=== PATIENT | female | born 1995 | race Caucasian/White ===

== ENCOUNTER → 2017-11-23 13:48 | Outpatient (CLI) | payer MEDICAID, SELFPAY ==
[2017-11-23 16:02] LABS: Hematocrit 34.3 % (37-47); Hemoglobin 11.2 g/dl (12.0-15.0); Mean Corp Hgb Conc 32.7 g/gl (32-36); Mean Corpuscular Hgb 28.1 pg (27.0-32.0); Mean Corpuscular Volume 86.2 fL (81-99); Mean Platelet Vol. 10.4 fl (6.2-12.0); Platelet Count 256 K/mm3 (150-450); RBC Distribution Width CV 12.8 % (11.6-14.6); RBC Distribution Width SD 40.5 fl (35.1-43.9); Red Blood Count 3.98 M/mm3 (4.2-5.4); White Blood Count 12.3 K/mm3 (4.4-11.0)
[2017-11-23 16:04] LABS: Scan Indicated on CBC? Y/N NO
[2017-11-23 16:09] LABS: Glucose Challenge Gest 1H 50g 96 mg/dL (70-140)
== END ==
PROVIDERS: Visit Provider Obstetrics & Gynecology
DX: Z34.83 Encounter for supervision of other normal pregnancy, third trimester (principal)
CPT/HCPCS: 82950; 85027; 86850

== ENCOUNTER 2018-01-05 11:55 | Outpatient (CLI) | payer MEDICAID, SELFPAY ==
[2018-01-05 12:08] VITALS: BMI 26.9
--- NOTE | 2018-01-05 12:28 | US_ITS ---
STUDY: ULTRASOUND RIGHT UPPER QUADRANT REASON FOR VISIT: Female, 22 years old. Right upper quadrant abdominal pain. TECHNIQUE: Ultrasound evaluation of the right upper quadrant was performed with real-time and static ayala-scale imaging. TECHNICAL QUALITY: Adequate. COMPARISON: None. FINDINGS: Liver: The liver measures 14.6 cm. There is a heterogeneous echogenicity of the liver. The bile ducts are within normal limits. There is hepatic color flow. The direction of portal flow is hepatopetal. There is no demonstrated mass lesion. Gallbladder: Normal distended gallbladder. The gallbladder wall measures 2.2 mm. There is a negative sonographic Sherman's sign. There is no pericholecystic fluid. There are no gallstones. Common Bile Duct (C.B.D.): The common bile duct measures 4.0 mm. Pancreas: The pancreatic head and tail are obscured. The pancreas body has a grossly normal appearance. There is normal echogenicity of the pancreas. There is no demonstrated pancreatic mass or cyst. Right Kidney: Normal size of the right kidney. The right kidney measures 10.2 x 5.8 x 5.7 cm. Normal renal cortex. The right cortex measures 1.4 cm. There is no demonstrated renal mass or cyst. There is moderate hydronephrosis. US/Gallbladder IMPRESSION: 1. Moderate right-sided hydronephrosis. 2. Incomplete visualization of the pancreas. Electronically Signed: Mariaa Lockhart MD at 16:39 EDT , Service support ,
[2018-01-05 12:56] LABS: Mucous, Urine 0 SEEN /hpf (<or=2+); Red Blood Cells-Urine 0 SEEN /hpf (0-5)
[2018-01-05 12:57] LABS: Color, Urine Yellow (Yellow); Glucose, Dipstick Normal (Normal); Ketone-Dipstick Negative (Negative); Leukocyte Esterase-Dipstick 100 /ul (Negative); Nitrite-Dipstick Negative (Negative); Occult Blood-Urine Negative /ul (Negative); Protein-Dipstick Negative (Negative); Specific Gravity, Urine 1.005 (1.002-1.030); Urine Bilirubin Dipstick Negative (Negative); Urine Clarity Clear (Clear); Urine Urobilinogen Normal (Normal)
[2018-01-05 12:58] LABS: Absolute Lymphocyte Count 1.94 X10^3/ul (0.83-4.51); Absolute Neutrophil Count 10.7 X10^3/uL (2.0-7.7); Basophil# 0.03 X10^3/uL; Basophil% 0.2 % (0-1); Eosinophils% 0.7 % (0-5); Hematocrit 32.4 % (37-47); Hemoglobin 10.6 g/dl (12.0-15.0); Lymphocyte # 1.94 X10^3/ul (4.0); Lymphocyte % 13.7 % (19-41); Mean Corp Hgb Conc 32.7 g/gl (32-36); Mean Corpuscular Volume 82.4 fL (81-99); Monocyte# 1.27 X10^3/uL; Neutrophil # 10.67 X10^3/uL (2.7-7.7); Neutrophil % 75.5 % (47-70); POSITIVE COUNT NO; POSITIVE DIFFERENTIAL NO; POSITIVE MORPHOLOGY NO; Platelet Count 268 K/mm3 (150-450); RBC Distribution Width CV 12.7 % (11.6-14.6); RBC Distribution Width SD 38.3 fl (35.1-43.9); Red Blood Count 3.93 M/mm3 (4.2-5.4); White Blood Count 14.1 K/mm3 (4.4-11.0)
[2018-01-05 13:03] LABS: Bacteria 1+ /hpf (None Seen); Squamous Epithelial Cells - UA 0-5 SEEN /hpf (5-10); White Blood Cells 0-5 SEEN /hpf (0-5)
[2018-01-05 13:17] LABS: AST(SGOT) 15 U/L (15-37); Alanine Aminotransfer ALT/SGPT 17 U/L (13-56); Albumin, Serum 2.5 g/dL (3.2-5.0); Alkaline Phosphatase 123 U/L (45-117); Bilirubin, Direct < 0.05 mg/dL (0.00-0.30); Globulin 3.4 g/dL (2.2-4.2); Protein, Total 5.9 g/dL (6.4-8.2)
[2018-01-05] MEDS: oxyCODONE 5 MG Tablet PO (14:00)
--- NOTE | 2018-01-06 10:00 | OB.TRI.NOTE ---
History of Present Illness Date of Service: 01/05/18 Was patient seen by the physician?: Yes Reason For Visit: R/O LABOR, Right Date of Service: 01/05/18 Final JORDEN: 02/16/18 Gestational age: 34 Weeks and 1 Days History of Present Illness: Severe right upper abdominal pain particularly with movement. Otherwise uncomplicated . Home Medications Medication Instructions Recorded Omeprazole [Prilosec] 20 mg PO DAILY 01/05/18 Ondansetron [Zofran Odt] 8 mg PO Q12H PRN PRN 01/05/18 TraMADol [Ultram] 50 mg PO Q4H PRN PRN 4 Days #20 tab 01/05/18 Allergies cefaclor [From Ceclor] Allergy (Verified 08/21/14 13:26) Unknown Physical Exam General: Alert, Oriented x3, Cooperative, No apparent distress Cardiovascular: Regular rate, Regular Rhythm Lungs: Clear to auscultation, Normal air movement Abdomen: Soft, Non-Distended, Gravid, Tender - Tender in the right upper abdomen but no specific Sherman's sign. Pain likely musculoskeletal., Appropriate for Gestational Age Extremities:: No edema Estimated gestational size: Appropriate for gestational size Presentation: Cephalic Cervix Dilation (cm): 1 Station: -2 NST - FHR Rate Baby A Baseline: 140s Variability:: Moderate Accelerations:: 15 x 15 Decelerations:: None NST Reactive:: Yes, Appropriate for gestational age FHR Category:: Category I Uterine Activity:: rare contractions Impression/Plan Liver function tests normal. CBC with slightly elevated WBC. US of gallbladder normal. Afebrile. Pain likely musculoskeletal. Given prescription for tramadol for severe pain. Instructed to rest. Will followup in office next week.
== END 2018-01-05 17:40 | disposition home or self-care (01) ==
LOC: WPOUT 12:05 → WP 12:06
PROVIDERS: Visit Provider Obstetrics & Gynecology
DX: O26.893 Other specified pregnancy related conditions, third trimester (principal); R10.11 Right upper quadrant pain; Z3A.34 34 weeks gestation of pregnancy
CPT/HCPCS: 36415; 59025; 59050; 76705; 80076; 81001; 85025; 99218; G0378

== ENCOUNTER → 2018-01-12 22:07 | Outpatient (CLI) | payer MEDICAID, SELFPAY ==
[2018-01-13 01:28] LABS: Group B Strep DNA By PCR Negative (Negative); Internal Control PASS; Specimen Processing Control PASS
[2018-01-13 01:29] LABS: Probe Check PASS
== END ==
PROVIDERS: Visit Provider Obstetrics & Gynecology
DX: Z36.85 Encounter for antenatal screening for Streptococcus B (principal)
CPT/HCPCS: 87081; 87653

== ENCOUNTER 2018-02-15 05:20 | Inpatient (IN) | payer MEDICAID, SELFPAY ==
[2018-02-15] MEDS: Lactated Ringers 1,000 ML 50 ML IV ×3 (06:00→12:29)
[2018-02-15 06:04] VITALS: BMI 30.7
[2018-02-15 06:16] LABS: Hematocrit 32.7 % (37-47); Hemoglobin 10.6 g/dl (12.0-15.0); Mean Corp Hgb Conc 32.4 g/gl (32-36); Mean Corpuscular Volume 80.1 fL (81-99); Mean Platelet Vol. 11.5 fl (6.2-12.0); Platelet Count 273 K/mm3 (150-450); RBC Distribution Width CV 13.9 % (11.6-14.6); RBC Distribution Width SD 39.6 fl (35.1-43.9); Red Blood Count 4.08 M/mm3 (4.2-5.4); White Blood Count 18.9 K/mm3 (4.4-11.0)
[2018-02-15 06:22] LABS: Scan Indicated on CBC? Y/N NO
[2018-02-15] MEDS: fentaNYL-bupivacaine (epidural) 100 ML BAG EPIDURAL ×2 (07:21→12:30)
--- NOTE | 2018-02-15 08:09 | PCM.PN.BLA ---
Progress Note LABOR PROGRESS NOTE Epidural in place. Feeling some pain on R side and S/P area with UCs. AVSS EFM category I tracing 120-130s with accels. UCs q 2-3 mins CX: 2/100/-2 IBOW AROM mod clear fluid A/P: 40 1/7 wk early labor. AROM. IUPC placed. Redose epidural prn.
[2018-02-15] MEDS: Acetaminophen 325 MG Tablet PO ×2 (09:07→17:50)
[2018-02-15] MEDS: Ondansetron 4 MG/2 ML Vial IV (12:29)
--- NOTE | 2018-02-15 12:34 | PCM.PN.BLA ---
Progress Note LABOR PROGRESS NOTE Comfortable w/ epidural (repositioned and redosed) C/O some nausea. AVSS EFM 120-130s avg variability. Accels Category I tracing. UCs q 1 1/2 - 3 mins IUPC in and adequate mVUs CX: 7-8 / 100 at last RN check. A/P: 40 1/7 wk primip. Adequate progress of labor after AROM. No Pitocin augmentation given. Continue labor. Anticipate
[2018-02-15] MEDS: Oxytocin 30 units/NS 500 ml 30 UNITS/500 ML IV.SOLN IV (14:59)
[2018-02-15] MEDS: Oxytocin 30 units/NS 500 ml 30 UNITS/500 ML IV.SOLN 334 UNITS IV (17:09)
--- NOTE | 2018-02-15 17:31 | PCM.OB.VAG ---
Vaginal Delivery Maternal Presentation: Active Labor Amniotic Fluid Description: Clear Final JORDEN: 02/14/18 Gestational age: 40 Weeks and 1 Days [place] doctor who attended delivery (if requested by OB): Cande Hyman to cry Date of Procedure: 02/15/18 Pre-Operative Diagnosis: IUP Post-Operative Diagnosis: IUP Surgery/ Procedure Performed: Spontaneous Vaginal Delivery Type of Anesthesia: Epidural Description of Procedure: Spontaneous vaginal delivery of a viable female infant with Apgars of 5/9 over an intact perineum with a normal three-vessel placenta. No episiotomy. Second-degree right labial laceration repaired with 3-0 Rapide Vicryl suture under epidural. Sponge counts okay. Delivery physician: Keyon Cruz MD. Presentation: Vertex Placental Delivery Description: Spontaneous Placenta Disposition: [facility] Cord Vessel Description: 3 Vessels Cord Gases drawn per routine: ABG Cord Entanglement: None Estimated Blood Loss: 250 cc A gender: Female (1 minute): 5 (5 minute): 9 Episiotomy Description: None Laceration: Periurethral Extnsion/lac, 2nd degree Medications given after delivery: IV Pitocin Complications: None
--- NOTE | 2018-02-15 17:35 | OP.PCM_ITS ---
Vaginal Delivery Maternal Presentation: Active Labor Amniotic Fluid Description: Clear Final JORDEN: 02/14/18 Gestational age: 40 Weeks and 1 Days [place] doctor who attended delivery (if requested by OB): Cande Hyman to cry Date of Procedure: 02/15/18 Pre-Operative Diagnosis: IUP Post-Operative Diagnosis: IUP Surgery/ Procedure Performed: Spontaneous Vaginal Delivery Type of Anesthesia: Epidural Description of Procedure: Spontaneous vaginal delivery of a viable female infant with Apgars of 5/9 over an intact perineum with a normal three-vessel placenta. No episiotomy. Second- degree right labial laceration repaired with 3-0 Rapide Vicryl suture under epidural. Sponge counts okay. Delivery physician: Keyon Cruz MD. Presentation: Vertex Placental Delivery Description: Spontaneous Placenta Disposition: [facility] Cord Vessel Description: 3 Vessels Cord Gases drawn per routine: ABG Cord Entanglement: None Estimated Blood Loss: 250 cc Infant A gender: Female (1 minute): 5 (5 minute): 9 Episiotomy Description: None Laceration: Periurethral Extnsion/lac, 2nd degree Medications given after delivery: IV Pitocin Complications: None
[2018-02-15] MEDS: Oxytocin 30 units/NS 500 ml 30 UNITS/500 ML IV.SOLN 167 UNITS IV (17:39)
[2018-02-15 19:44] VITALS: BP 117/60; PULSE 86; RESP 18; TEMP 37.4; O2SAT 96
[2018-02-15] MEDS: Ibuprofen 600 MG Tablet PO (22:04)
[2018-02-15 23:57] VITALS: BP 96/46; PULSE 88; RESP 18; TEMP 36.6; O2SAT 98
[2018-02-16] MEDS: Acetaminophen 500 MG Tablet 1000 MG PO (04:25)
[2018-02-16 04:26] VITALS: BP 99/56; PULSE 90; RESP 18; TEMP 36.6; O2SAT 96
[2018-02-16 08:00] VITALS: BP 99/48; PULSE 77; RESP 18; TEMP 36.2
--- NOTE | 2018-02-16 08:21 | PCM.PN.OB ---
Subjective: Some vaginal soreness and cramping. Bleeding appropriate. Breast feeding. Objective: Afeb VSS - Physical Exam General: Alert, Oriented x3, Cooperative, No apparent distress Lungs: Clear to auscultation, Normal air movement Cardiovascular: Regular rate, Regular Rhythm Abdomen: Soft, Non Tender, Non-Distended, - - Fundus firm nontender Extremities: No edema Skin: No rashes Neurological: Neuro grossly intact Psych/Mental Status: Normal Affect Comment: Lochia light Vital Signs Temp Pulse Resp BP Pulse Ox 97.9 F 90 18 99/56 L 96 02/16/18 04:26 02/16/18 04:26 02/16/18 04:26 02/16/18 04:26 02/16/18 04:26 Oxygen Delivery Method Room Air Weight: 157 lb 10.088 oz Body Mass Index (BMI) 30.7 Intake and Output for Last 24 Hours 02/14/18 02/15/18 02/16/18 23:59 23:59 23:59 Intake Total 3192 / 3192 Output Total 3200 / 3200 Balance -8 / -8 Medical Necessity - Tobacco Use Smoking Status: Current every day smoker Assessment/Plan Doing well on PP day#2. Continue routine PP care.
--- NOTE | 2018-02-16 08:26 | DCINST_ITS ---
Discharge Diet: No Restrictions Discharge Activity: Return to Normal Activity, May Drive, May Shower Return to work on:: 04/19/18 May resume sexual activity in: 6 weeks Call your doctor if your incision/area has: Sudden Increased Bleeding, Increased Pain/ Swelling, Increased Redness, Foul Smelling Discharge Call your doctor if you observe: Fever of 101 or Higher, Inability to urinate, Inability to have a bowel movement, Using more than one pad per hour, Shortness of breath, Chest pain, Calf discomfort, Uncontrolled pain Cleanse incision/area with: Soap & Water Additional Instructions: If you experience any of the following, contact your healthcare provider. * Bleeding that soaks a pad every hour for 2 hours * Fever 100.4 or higher * Unrelieved incision or abdominal pain * Swelling, redness, discharge or bleeding from your incision or episiotomy site * Your incision begins to separate * Problems urinating (including inability to urinate or burning while urinating) . * Visual changes * Severe headache * Flu-like symptoms * Pain or redness in one of both of your breasts * Pain, warmth, tenderness or swelling in your legs, especially the calf area * Frequent nausea and vomiting * Symptoms of depression or anxiety If you experience any of the following, call 911 or go to the nearest Emergency Room. * Chest pain * Problems breathing * Seizure activity * Partial or complete paralysis of a body part, slurred speech, weakness or drooping of the face, or a sudden inability to walk or hold your balance Allergies/Adverse Reactions: Allergies cefaclor [From Ceclor] Allergy (Mild, Verified 02/15/18 06:52) Hives swollen throat Medications to take at Discharge Omeprazole [Prilosec] 20 mg PO DAILY 01/05/18 Albuterol IH (ProAir) [Proair Hfa] 2 puff INHALATION DAILY PRN PRN 02/15/18 Beclomethasone Diprop Inhaler [Qvar 80 Mcg Inhaler] 2 puff INHALATION DAILY PRN PRN 02/15/18 proMETHazine tablet [Phenergan tablet] 25 mg PO Q6H PRN PRN 02/15/18 Ibuprofen [Motrin] 800 mg PO TID PRN PRN #30 tab 02/16/18 The following prescriptions were given: Ibuprofen [Motrin] 800 mg PO TID PRN PRN #30 tab PRN Reason: pain or cramping Please Follow Up With: Jemal Driver MD When: 6 weeks Primary Care Physician: Care Physician,No Primary [Primary Care Provider] - Proposed Discharge Date: 02/17/18
[2018-02-16] MEDS: Dibucaine 30 GM Tube 1 APPLIC TOPICAL (09:21)
[2018-02-16] MEDS: Ibuprofen 600 MG Tablet PO ×2 (09:22→15:53)
[2018-02-16] MEDS: Pantoprazole Sodium 20 MG Tablet PO (09:22)
[2018-02-16] MEDS: Senna/Docusate Sodium 1 Tablet PO (09:23)
[2018-02-16 12:00] VITALS: BP 103/54; PULSE 75; RESP 18; TEMP 36.4
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
[2018-02-16 15:50] VITALS: BP 111/70; PULSE 91; RESP 18; TEMP 36.1
[2018-02-16] MEDS: oxyCODONE 5 MG Tablet PO ×2 (17:10→21:45)
[2018-02-16 20:00] VITALS: BP 122/68; PULSE 116; RESP 17; TEMP 36.7; O2SAT 99
[2018-02-17 02:05] VITALS: BP 110/67; PULSE 91; RESP 18; TEMP 36.1; O2SAT 97
[2018-02-17] MEDS: Ibuprofen 600 MG Tablet PO (02:13)
[2018-02-17 08:36] VITALS: BP 98/40; PULSE 79; RESP 16; TEMP 36.8
--- NOTE | 2018-02-17 09:28 | PCM.PN.OB ---
Subjective: Pt without complaints. Has not been breast-feeding because it is too uncomfortable for her. Still using some oxycodone. - Physical Exam Vital Signs AF, VSS Temp Pulse Resp BP Pulse Ox 98.2 F 79 16 98/40 L 97 02/17/18 08:36 02/17/18 08:36 02/17/18 08:36 02/17/18 08:36 02/17/18 02:05 Oxygen Delivery Method Room Air Weight: 157 lb 10.088 oz Body Mass Index (BMI) 30.7 Intake and Output for Last 24 Hours 02/15/18 02/16/18 02/17/18 23:59 23:59 23:59 Intake Total 3192 / 3192 Output Total 3200 / 3200 Balance -8 / -8 Medical Necessity - Tobacco Use Smoking Status: Current every day smoker Assessment/Plan Doing well. Will release to home with routine instructions. Follow-up in 6 weeks.
[2018-02-17] MEDS: Acetaminophen 500 MG Tablet 1000 MG PO (09:44)
[2018-02-17] MEDS: Pantoprazole Sodium 20 MG Tablet PO (09:44)
== END 2018-02-17 11:15 | disposition home or self-care (01) | DRG 373 ==
PROVIDERS: Obstetrics & Gynecology; Admitting Provider Obstetrics & Gynecology; Visit Provider Obstetrics & Gynecology
DX: O48.0 Post-term pregnancy (principal); Z3A.40 40 weeks gestation of pregnancy; Z37.0 Single live birth; O70.1 Second degree perineal laceration during delivery; O99.334 Smoking (tobacco) complicating childbirth; F17.200 Nicotine dependence, unspecified, uncomplicated
CPT/HCPCS: 59050; 85027; 86850; 86900; 99218; J7120; G0378; J2405

== ENCOUNTER → 2018-06-17 17:43 | Outpatient (CLI) | payer MEDICAID, SELFPAY | PROVIDERS: Family Provider Family Medicine; PCP Family Medicine; Visit Provider Family Medicine | DX: R30.0 Dysuria (principal) | CPT/HCPCS: 87077; 87086; 87088; 87186 ==

== ENCOUNTER 2019-04-04 18:29 | Emergency (ER) | payer SELFPAY ==
[2019-02-25 10:56] VITALS: BMI 30.7
[2019-04-04 18:30] VITALS: BP 115/73; PULSE 116; RESP 18; TEMP 36.8; O2SAT 97; BMI 32.1
[2019-04-04 18:59] LABS: Internal QC Validated? YES +Cl - CLEAR BKGD; Pregnancy, Urine Negative Negative
[2019-04-04 19:07] VITALS: PULSE 109; RESP 22
[2019-04-04] MEDS: Ipratropium/Albuterol Sulfate 3 ML AMPUL.NEB INHALATION (19:07)
--- NOTE | 2019-04-04 19:15 | RAD_ITS ---
HISTORY:COUGH AND CONGESTION FOR 3 WEEKS, C/O CHEST TIGHTNESS AND SORENESS FOR 3 DAYS COUGH AND CONGESTION FOR 3 WEEKS, C/O CHEST TIGHTNESS AND SORENESS FOR 3 DAYS EXAM: XR Chest 2 Views: COMPARISON: None FINDINGS: # of images incl. paperwork: 2 LINES/DEVICES: None. LUNGS: Radiographically clear. No consolidation, edema or effusion. No pneumothorax. MEDIASTINUM AND CARDIOVASCULAR STRUCTURES: Cardiac silhouette not enlarged. BONES AND SOFT TISSUES: Unremarkable. RAD/Chest PA and Lateral IMPRESSION: No radiographic evidence of acute cardiopulmonary disease. at 1928 Reported and signed by: Jo Rodriguez DO Electronically Signed: Jo Rodriguez DO at 19:27 EDT Tel , Service support ,
--- NOTE | 2019-04-04 19:15 | ED.DCSUM_ITS ---
- ER Visit Summary Date of Service: 04/04/19 Chief Complaint: [Cough, congestion, chest pain] History of Present Illness: The patient is a 23 F [presents to the emergency department with cough for about 3 weeks. Patient states that she had fever for 1 day 3 weeks ago.] Patient coughing up yellow phlegm. 3 or 4 days ago she started having discomfort in the anterior part of her chest especially with breathing. Patient denies recent travel or surgery. Patient also incidentally states that she has not had a period in about 3 months. Patient did take a test 4 weeks ago that was negative at home. Patient is G1, P1. Patient does have a history of asthma. Physical Examination: [HEENT-PERRLA, EOMI. Cranial nerves II through XII grossly intact. TMs clear. Mucous membranes moist. No adenopathy. Cardiovascular-regular rate and rhythm without murmur or ectopy Lungs-good aeration bilaterally. Patient has expiratory wheezes throughout. Patient has few rhonchi noted. No accessory muscle use or retractions. No significant tachypnea. Patient does have some mild tenderness to palpation of the anterior chest wall that seems to reproduce her pain. Abdomen-normoactive bowel sounds, soft, nontender, no rebound or rigidity, no peritoneal signs. Extremities-intact ?4, normal range of motion, normal pulses, atraumatic] Test Results: [Urine test was negative. Chest x-ray showed nothing acute.] Emergency Department Course and Treatment: [She was medicated with a DuoNeb aerosol and prednisone 40 mg p.o. Patient did feel improved with the breathing.] Treatment Plan: [Patient will be started on Zithromax, prednisone, and she is advised to continue with her inhaler as needed. Follow-up with primary care physician in 5 to 7 days. Patient advised to return if increasing shortness of breath or condition should worsen anyway. Patient to use ibuprofen for chest wall discomfort.] Disposition: [Discharged home in stable condition] Impression: [Asthmatic bronchitis Chest wall pain] This note was generated with [employer] dictation software. It may contain incorrect words, spelling, and punctuation that were not noted in review of the chart prior to signing ED Disposition - Plan for ED Patient: Referrals: Emerson Rodriguez MD [Primary Care Provider] -
[2019-04-04] MEDS: predniSONE 20 MG Tablet 40 MG PO (19:30)
--- NOTE | 2019-04-04 19:42 | ED.DEP ---
ED Disposition - Plan for ED Patient: Instructions: ED Strain Chest Wall, ED Bronchitis Asthmatic Prescriptions: Azithromycin [Zithromax] 250 mg PO DAILY #4 tab Prednisone [Deltasone] 20 mg PO BID #10 tab Referrals: Emerson Rodriguez MD [Primary Care Provider] - 5-7 Days
[2019-04-04] MEDS: Azithromycin 250 MG Tablet 500 MG PO (20:00)
[2019-04-04 20:02] VITALS: BP 124/73; PULSE 102; RESP 18; O2SAT 96
== END 2019-04-04 20:04 | disposition home or self-care (01) ==
LOC: ED 19:00
PROVIDERS: Emergency Provider Emergency Medicine; Family Provider Family Medicine; PCP Family Medicine
DX: J45.909 Unspecified asthma, uncomplicated (principal); R07.89 Other chest pain; Z72.0 Tobacco use
CPT/HCPCS: 71046; 81025; 94640; 99283

== ENCOUNTER → 2019-12-20 | Outpatient (CLI) | payer MEDICAID, SELFPAY | END | disposition home or self-care (01) | LOC: LABSPEC 13:46 | PROVIDERS: PCP Family Medicine; Referring Provider Obstetrics & Gynecology; Visit Provider Obstetrics & Gynecology | DX: Z12.4 Encounter for screening for malignant neoplasm of cervix (principal) ==

== ENCOUNTER → 2020-06-06 14:27 | Outpatient (CLI) | payer MEDICAID, SELFPAY ==
[2020-06-06 17:51] LABS: Absolute Lymphocyte Count 2.32 X10^3/uL (0.83-4.51); Absolute Neutrophil Count 12.2 X10^3/uL (2.0-7.7); Basophil# 0.08 X10^3/uL; Basophil% 0.5 % (0-1); Eosinophil# 0.39 X10^3/uL; Eosinophils% 2.4 % (0-5); Hematocrit 41.4 % (37-47); Hemoglobin 13.4 g/dL (12.0-15.0); Lymphocyte # 2.32 X10^3/ul (4.0); Lymphocyte % 14.5 % (19-41); Mean Corp Hgb Conc 32.4 g/dL (32-36); Mean Corpuscular Volume 86.6 fL (81-99); Mean Platelet Vol. 10.9 fl (6.2-12.0); Monocyte# 0.91 X10^3/uL; Monocyte% 5.7 % (0-10); NRBC Flagged by Analyzer 0 % (0-5); Neutrophil # 12.23 X10^3/uL (2.7-7.7); Neutrophil % 76.3 % (47-70); Platelet Count 409 K/mm3 (150-450); RBC Distribution Width SD 41.3 fl (35.1-43.9); Red Blood Count 4.78 M/mm3 (4.2-5.4)
[2020-06-06 18:11] LABS: Vitamin D,25 Hydroxy 38.9 ng/mL
[2020-06-06 18:15] LABS: Thyroid Stim Hormone (TSH) 1.27 uIU/mL (0.358-3.74)
== END ==
PROVIDERS: PCP Family Medicine; Referring Provider Family Medicine; Visit Provider Family Medicine
DX: F41.9 Anxiety disorder, unspecified (principal); F32.9 Major depressive disorder, single episode, unspecified
CPT/HCPCS: 36415; 82306; 84443; 85025

== ENCOUNTER 2021-04-01 07:25 | Emergency (ER) | payer MEDICAID, SELFPAY ==
[2021-04-01 07:26] VITALS: BP 114/77; PULSE 94; RESP 18; TEMP 37.3; O2SAT 98; BMI 22.9
--- NOTE | 2021-04-01 07:45 | NURSING ---
NO OLD EKGS
--- NOTE | 2021-04-01 07:50 | RAD_ITS ---
STUDY: X-RAY CHEST REASON FOR EXAM: Female, 25 years old. Pain TECHNIQUE: Frontal and lateral views of the chest COMPARISON: 04/04/19 FINDINGS: The lungs are clear. There are no pleural effusions. There is no pneumothorax. The heart is normal in size. The visualized osseous structures are within normal limits. RAD/Chest PA and Lateral IMPRESSION: No acute thoracic pathology. Electronically Signed: Cody Reeder MD at 8:17 EDT Tel , Service support ,
[2021-04-01] MEDS: Naproxen 500 MG Tablet PO (07:57)
--- NOTE | 2021-04-01 08:00 | EX.ED.DYSGE1 ---
HPI History of Present Illness Chief Complaint: Chest Other Informant: patient Narrative Narrative: Patient is a 25-year-old female with a past medical history of asthma who presents to the emergency department for bilateral anterior lower rib pain. The left side was present over the past 4 to 5 months. The right side started yesterday. She states she recently did start a job at [employer] and has been doing a lot of heavy lifting. She denies any shortness of breath associate this pain. Movement seem to aggravate but also relieve it at times. She has not been taking anything for this. She denies any leg swelling or calf pain. No history of heart issues, DVT/PE. She denies any cough or fever/chills. She feels like whenever she bends over her ribs get stuck and has a hard time standing up because this hurts. She does feel them pop. No abdominal pain or nausea/vomiting. No back pain. [facility] Medical History (Updated 04/01/21 @ 08:[address] Maulik Marie DO) Asthma Severe headache Home Medications naproxen [Naprosyn] 500 mg PO BID PRN #20 tab 04/01/21 [Rx Last Taken Unknown] Allergy/AdvReac Type Severity Reaction Status Date / Time cefaclor [From [facility]] Allergy Mild Hives Verified 04/01/21 07:28 Social History Smoking Status: Current every day smoker tobacco type: cigarettes ROS ROS ED Constitutional Constitutional ED: Denies chills or fever(s) Eyes Eyes: Denies change in vision ENT ENT ED: Denies epistaxis or rhinorrhea Cardiovascular Cardiovascular: Reports other Details: Chest wall pain ; Denies palpitations Respiratory/Chest Respiratory/Chest: Denies cough, dyspnea or dyspnea on exertion Gastrointestinal Gastrointestinal: Denies abdominal pain, diarrhea, nausea or vomiting Genitourinary Genitourinary ED: Denies dysuria, hematuria or urinary frequency Musculoskeletal Musculoskeletal: Denies back pain or neck pain Integumentary Denies rash Neurologic Neurologic: Denies dizziness, headache(s) or weakness EXAM Physical Exam Const Vital Signs: 04/01/21 07:26 Temperature 99.1 F Temperature Source Temporal Pulse Rate 94 Respiratory Rate 18 Blood Pressure 114/77 Blood Pressure Mean 89 Pulse Ox 98 Oxygen Delivery Method Room Air Positive well nourished and well developed General Appearance ED: well developed and NAD HEENT Reports normocephalic, head/scalp atraumatic and moist mucous membranes Eyes PERRL and EOMs intact bilaterally Neck supple Chest Wall Chest Narrative: Pain to palpation over her lower ribs of the right and left side anteriorly. Resp normal respiratory effort and clear to auscultation bilaterally Auscultation: Negative for rales, rhonchi or wheezes Cardio regular rate, regular rhythm and no murmurs GI normal to inspection, nondistended, normoactive bowel sounds and non-tender Palpation: soft; Negative for guarding or rebound tenderness present Back/Spine no CVA tenderness Extremity normal to inspection General Extremety ED: Negative for edema or tenderness General Extremity: Negative for edema Neuro oriented x3, CN's II-XII intact bilaterally and no sensory deficits noted Sensorium / Orientation: alert Motor Exam: strength 5/5 throughout Psych mental status grossly normal Skin no rashes or lesions noted MDM MDM MDM Narrative Medical decision making narrative: Patient presents to the emergency department for chest wall pain. On arrival to the emerge department vital signs within normal limits. She is satting well on room air. She is nontachycardic. She does have abdominal tenderness. EKG obtained which did not show any signs of ischemia or arrhythmia. Will obtain chest x-ray. Very low concern for ACS, PE, aortic catastrophe or esophageal rupture. Patient's x-ray did not reveal any acute cardiopulmonary abnormality. She is feeling better at this time. Her vital signs have been stable. Will discharge home in stable condition. We will write a prescription for Naprosyn. Recommend symptomatic treatment. She is to follow-up with her PCP. Return precautions are reviewed with her. She understands and is agreeable with plan. Discharged home in stable condition. All questions were answered. Radiography Chest X-Ray - ED: 2 View (2 view x-ray interpreted by myself. Clear lung naqvi bilaterally. No osseous abnormality. No pleural effusions. No evidence of pneumonia. Normal cardiac silhouette. Normal mediastinum. Agree with radiologist interpretation.) Diagnostic Testing: Radiology Impression Chest X-Ray 04/01/21 07:50 IMPRESSION: No acute thoracic pathology. Electronically Signed: Cody Reeder MD at 8:17 EDT Tel , Service support , EKG Initial EKG: Attestation: I personally reviewed and interpreted this EKG as follows: (Rate of 79 bpm and normal sinus rhythm. Normal intervals. Normal axis. No significant ST elevations or depressions. No T wave abnormalities.) Discharge Plan Triage Chief Complaint: Chest Other ED Provider: Maulik Marie Dx/Rx/DC Orders Clinical Impression: Chest wall pain Instructions: ED Chest Wall Pain, Costochondritis Prescriptions: New naproxen [Naprosyn] 500 mg tablet 500 mg PO BID PRN (Reason: pain) Qty: 20 RF: 0 Primary Care Provider: Emerson Rodriguez Referrals: Emerson Rodriguez MD [Primary Care Provider] - 3-5 Days if not improving Disposition Disposition: Home, self care
--- NOTE | 2021-04-01 08:19 | EKG12_ITS ---
Test Reason : CHEST PAIN Blood Pressure : / mmHG Vent. Rate : 079 BPM Atrial Rate : 079 BPM P-R Int : 152 ms QRS Dur : 074 ms QT Int : 350 ms P-R-T Axes : 034 070 039 degrees QTc Int : 401 ms Normal sinus rhythm Normal ECG Confirmed by ROBBY MARTINEZ, ARVIN ([id number]), editor in chief newspaper [employer]COM KAN ([id number]) on 04/05/2021 8:11:08 AM Referred By: ANDRE Confirmed By:ARVIN BUSTAMANTE MD
[2021-04-01 08:58] VITALS: BP 116/70; PULSE 65; RESP 16; O2SAT 98
== END 2021-04-01 09:00 | disposition home or self-care (01) ==
PROVIDERS: Emergency Provider Emergency Medicine; PCP Family Medicine
DX: R07.89 Other chest pain (principal); J45.909 Unspecified asthma, uncomplicated; F17.210 Nicotine dependence, cigarettes, uncomplicated
CPT/HCPCS: 71046; 93005; 99283

== ENCOUNTER 2021-04-08 20:27 | Emergency (ER) | payer MEDICAID, SELFPAY ==
[2021-04-08 20:28] VITALS: BP 120/84; PULSE 91; RESP 18; TEMP 36.9; O2SAT 99; BMI 22.8
[2021-04-08] MEDS: Lidocaine 1% (20 ml mdv) 20 ML Vial INFILT (22:18)
[2021-04-08] MEDS: Diphth,Pertuss(Acell),Tet Vac 0.5 ML Vial IM (22:18)
--- NOTE | 2021-04-08 22:51 | EDS_ITS ---
HPI History of Present Illness Chief Complaint: Laceration Narrative Narrative: Patient presenting for evaluation secondary to a index finger laceration. Patient suffered a laceration to her left index finger while she was cutting some brownies. Patient states that her tetanus status is likely not up-to-date. Patient denies any history of immunosuppression. She denies any is easy bruising or bleeding. Pain is mild, bleeding was controlled with pressure. Review of systems otherwise negative [facility] Medical History Asthma Severe headache Home Medications naproxen [Naprosyn] 500 mg PO BID PRN #20 tab 04/01/21 [Rx Last Taken Unknown] Allergy/AdvReac Type Severity Reaction Status Date / Time cefaclor [From [facility]] Allergy Mild Hives Verified 04/08/21 20:29 Social History Smoking Status: Current every day smoker tobacco type: cigarettes ROS ROS ED Respiratory/Chest Respiratory/Chest: Denies cough or dyspnea Integumentary Reports other Details: Finger laceration Neurologic Neurologic: Denies paresthesias or weakness Hematologic/Lymphatic Hematologic/Lymphatic: Denies easy bleeding or easy bruising Allergic/Immunologic Allergic/Immunologic ED: Reports other Details: No history of immunosuppression EXAM Physical Exam Const Vital Signs: 04/08/21 20:28 Temperature 98.4 F Temperature Source Temporal Pulse Rate 91 Respiratory Rate 18 Blood Pressure 120/84 H Blood Pressure Mean 96 Pulse Ox 99 Oxygen Delivery Method Room Air Positive well nourished and well developed General Appearance ED: well developed HEENT normocephalic and atraumatic Eyes EOMs intact bilaterally Neck full ROM Resp normal respiratory effort Cardio regular rate and regular rhythm Extremity Extremity Narrative: Examination the patient's left hand shows a laceration over the index finger that does course over the radial side of the patient's proximal interphalangeal joint. Measures about 1-1/2 cm. Normal flexion and extension of the finger, normal capillary refill, normal two-point discrimination. There is an abrasion noted over the patient's long digit that is very superficial Neuro oriented x3 Sensorium / Orientation: alert Psych mental status grossly normal Skin Rashes: no rashes MDM MDM MDM Narrative Medical decision making narrative: Patient presented secondary to a finger laceration. It was dressed as noted in the procedure note. Patient's tetanus status was updated. Patient was placed in AlumaFoam splint, she will follow-up with primary care in 7 days for suture removal. She was educated on signs and symptoms which to return. Procedures Lacerations Index finger laceration: Length: 18 in Depth: Skin Shape: Linear Prep: Sterile Conditions Laceration repair: Digital block, Irrigated, Lidocaine and Skin sutures Irrigated (ml): 200 Number of Sutures/Yuki: 3 Suture Information: Ethilon and 4-0 Discharge Plan Triage Chief Complaint: Laceration ED Provider: Froilan Ramirez Dx/Rx/DC Orders Clinical Impression: Finger laceration Instructions: ED Laceration: All Closures Prescriptions: No Action naproxen [Naprosyn] 500 mg tablet 500 mg PO BID PRN (Reason: pain) Qty: 20 RF: 0 Primary Care Provider: Emerson Rodriguez Referrals: Emerson Rodriguez MD [Primary Care Provider] - 7 Days for suture removal Disposition Disposition: Home, self care Discharge Date/Time: 04/08/21 23:19
== END 2021-04-08 23:19 | disposition home or self-care (01) ==
PROVIDERS: Emergency Provider Emergency Medicine; PCP Family Medicine
DX: S61.211A Laceration without foreign body of left index finger without damage to nail, initial encounter (principal); F17.210 Nicotine dependence, cigarettes, uncomplicated; X58.XXXA Exposure to other specified factors, initial encounter; Z79.1 Long term (current) use of non-steroidal anti-inflammatories (NSAID)
CPT/HCPCS: 12001; 90715; 96372; 99284

== ENCOUNTER → 2021-06-18 | Outpatient (CLI) | payer MEDICAID, SELFPAY | END | disposition home or self-care (01) | LOC: LAB 20:11 → LABSPEC 20:15 | PROVIDERS: PCP Family Medicine; Referring Provider Family Medicine; Visit Provider Family Medicine | DX: J02.9 Acute pharyngitis, unspecified (principal) | CPT/HCPCS: 87635; U0005; U0003 ==

== ENCOUNTER 2021-06-19 21:18 | Emergency (ER) | payer MEDICAID, SELFPAY ==
[2021-06-19 21:18] VITALS: BP 97/70; PULSE 66; RESP 18; TEMP 36.3; O2SAT 100; BMI 21.9
--- NOTE | 2021-06-19 21:40 | RAD_ITS ---
INDICATION: SOB -- HAS ASTHMA EXAMINATION/TECHNIQUE: X-RAY - XR Chest 2 Views COMPARISON: 04/01/2021. FINDINGS: The lungs are clear. The cardiomediastinal silhouette is unremarkable. No pleural effusion or pneumothorax. No acute osseous abnormalities. RAD/Chest PA and Lateral IMPRESSION: No acute radiographic abnormalities. Electronically Signed: Kameron Thomson MD at 22:00 EDT Tel , Service support ,
--- NOTE | 2021-06-19 23:01 | EX.ED.DYSGE1 ---
HPI History of Present Illness Chief Complaint: Shortness of Breath Detail of Chief Complaint: Patient's chief complaint is chest pain and not shortness of breath Informant: patient Onset/Context/Timing Onset: Hours Context: Sudden Onset Timing: Continuous Quality: Pain Location: Anterior mid chest Current Severity: Mild Maximum Severity: Moderate Worsened by: Breathing, movement, palpation Relieved by: Rest Associated Symptoms Associated Symptoms: Diagnosed with strep pharyngitis yesterday, negative COVID-19 test Narrative Narrative: Patient is a 26-year-old female who presents with anterior chest pain that occurred at rest. The pain is dull. It is located anterior chest. She denies fever, chills night sweats. Denies headache. She denies ocular, visual or auditory symptoms. She denies rhinorrhea, congestion or postnasal drainage. She does complain of sore throat. She was placed on azithromycin. She denies history of VTE. She has no risk factors for VTE. She denies leg pain, swelling discoloration. She is not on an anticoagulant. She denies cough. She denies GI symptoms. Prior similar symptoms: No Recent Illness/Hospitalization: Yes (Strep pharyngitis) [facility] Medical History Asthma Severe headache Home Medications naproxen [Naprosyn] 500 mg PO BID PRN #20 tab 04/01/21 [Rx Last Taken Unknown] naproxen 500 mg PO BID #14 tab 06/19/21 [Rx Last Taken Unknown] Allergy/AdvReac Type Severity Reaction Status Date / Time cefaclor [From [facility]] Allergy Mild Hives Verified 06/19/21 21:20 Social History (Updated 06/19/21 @ 23:[address] Yosvany Denny MD) household members: children Smoking Status: Current every day smoker tobacco type: cigarettes alcohol intake: current alcohol intake frequency: other substance use type: does not use ROS ROS ED Constitutional Constitutional ED: Denies chills, fever(s), subjective or sweats Eyes Eyes: Denies blurry vision, change in vision or diplopia ENT ENT ED: Reports sore throat; Denies ear pain or rhinorrhea Cardiovascular Cardiovascular: Reports chest pain; Denies orthopnea, palpitations or racing heartbeat Respiratory/Chest Respiratory/Chest: Denies cough, dyspnea, dyspnea on exertion or orthopnea Gastrointestinal Gastrointestinal: Denies abdominal pain, diarrhea, nausea or vomiting Genitourinary Genitourinary ED: Reports LMP (females 10-50); Denies dysuria, hematuria or urinary frequency Musculoskeletal Musculoskeletal: Denies arthralgias, back pain, myalgias or neck pain Integumentary Denies rash Neurologic Neurologic: Denies headache(s) Allergic/Immunologic Allergic/Immunologic ED: Denies mouth swelling or urticaria EXAM Physical Exam Const Vital Signs: 06/19/21 21:18 Temperature 97.4 F L Temperature Source Temporal Pulse Rate 66 Respiratory Rate 18 Blood Pressure 97/70 Blood Pressure Mean 79 Pulse Ox 100 Oxygen Delivery Method Room Air Positive well nourished and well developed General Appearance ED: well developed and NAD HEENT Reports TM's clear and moist mucous membranes HEENT Narrative: Nares patent. Posterior pharynx with erythema. Tympanic Membrane ED: Yes TM's clear Eyes PERRL and EOMs intact bilaterally General Eye ED: Negative for pale conjunctiva or scleral icterus Neck No no lymphadenopathy, supple and no JVD Chest Wall inspection of chest normal; Negative for palpation of chest normal Chest Narrative: Patient has pain patient over the fourth fifth intercostal space. This reproduces her pain. Resp normal respiratory effort and clear to auscultation bilaterally Effort and Inspection: pain with movement Cardio regular rate, regular rhythm, S1 normal heart sound, S2 normal heart sound and no murmurs GI normal to inspection, nondistended, normoactive bowel sounds, non-tender and non-distended Palpation: soft Back/Spine no CVA tenderness Extremity normal to inspection General Extremety ED: Negative for edema or tenderness General Extremity: Negative for edema Neuro oriented x3, CN's II-XII intact bilaterally and no sensory deficits noted Sensorium / Orientation: alert Motor Exam: strength 5/5 throughout Psych mental status grossly normal Skin no rashes or lesions noted MDM MDM MDM Narrative Medical decision making narrative: Patient has reproducible chest pain. Chest x-ray was performed per protocol. Chest x-ray feels no acute findings per my review. Cardiac silhouette and size normal. Mediastinum normal. Lung parenchyma is normal. Osseous structures are normal. Patient is PERC negative. Radiography Diagnostic Testing: Radiology Impression Chest X-Ray 06/19/21 21:40 IMPRESSION: No acute radiographic abnormalities. Electronically Signed: Kameron Thomson MD at 22:00 EDT Tel , Service support , M DM Discharge Plan Triage Chief Complaint: Shortness of Breath ED Provider: Yosvany Denny Dx/Rx/DC Orders Clinical Impression: Chest wall pain Instructions: ED Chest Wall Pain, Costochondritis Prescriptions: New naproxen 500 MG tablet 500 mg PO BID Qty: 14 RF: 0 No Action naproxen [Naprosyn] 500 mg tablet 500 mg PO BID PRN (Reason: pain) Qty: 20 RF: 0 Primary Care Provider: Emerson Rodriguez Referrals: Emerson Rodriguez MD [Primary Care Provider] - 1 Week if not improving Disposition Disposition: Home, Self Care
[2021-06-19] MEDS: Naproxen 250 MG Tablet 500 MG PO (23:14)
[2021-06-19 23:15] VITALS: RESP 18
== END 2021-06-19 23:17 | disposition home or self-care (01) ==
PROVIDERS: Emergency Provider Emergency Medicine; PCP Family Medicine
DX: R07.89 Other chest pain (principal); J02.0 Streptococcal pharyngitis; J45.909 Unspecified asthma, uncomplicated; F17.210 Nicotine dependence, cigarettes, uncomplicated
CPT/HCPCS: 71046; 99282

== ENCOUNTER → 2021-07-31 15:36 | Outpatient (CLI) | payer MEDICAID, SELFPAY ==
[2021-07-31 18:07] LABS: Internal QC Validated? YES +Cl - CLEAR BKGD; Pregnancy, Serum, hCG Quali. POSITIVE Negative
== END ==
PROVIDERS: PCP Family Medicine; Referring Provider Family Medicine; Visit Provider Family Medicine
DX: Z34.90 Encounter for supervision of normal pregnancy, unspecified, unspecified trimester (principal)
CPT/HCPCS: 36415; 84703

== ENCOUNTER → 2021-08-03 09:29 | Outpatient (CLI) | payer MEDICAID, SELFPAY ==
[2021-08-03 10:38] LABS: hCG Titer Quant., Serum 186 mIU/mL (1-3)
== END ==
PROVIDERS: PCP Family Medicine; Referring Provider Obstetrics & Gynecology; Visit Provider Obstetrics & Gynecology
DX: N91.2 Amenorrhea, unspecified (principal)
CPT/HCPCS: 36415; 84702

== ENCOUNTER → 2021-08-05 14:47 | Outpatient (CLI) | payer MEDICAID, SELFPAY ==
[2021-08-05 16:22] LABS: hCG Titer Quant., Serum 522 mIU/mL (1-3)
== END ==
PROVIDERS: PCP Family Medicine; Visit Provider Obstetrics & Gynecology
DX: O20.0 Threatened abortion (principal); Z3A.00 Weeks of gestation of pregnancy not specified
CPT/HCPCS: 36415; 84702

== ENCOUNTER 2021-08-18 20:04 | Emergency (ER) | payer MEDICAID, SELFPAY ==
[2021-08-18 20:05] VITALS: BP 116/72; PULSE 105; RESP 16; TEMP 35.9; O2SAT 100; BMI 22.0
--- NOTE | 2021-08-18 21:08 | EKG12_ITS ---
Test Reason : Blood Pressure : / mmHG Vent. Rate : 067 BPM Atrial Rate : 067 BPM P-R Int : 186 ms QRS Dur : 080 ms QT Int : 386 ms P-R-T Axes : 055 074 049 degrees QTc Int : 407 ms Normal sinus rhythm Normal ECG Confirmed by ROBBY MARTINEZ, ARVIN ([id number]), field map editor PATTI MILLER ([id number]) on 08/20/2021 11:01:16 AM Referred By: Confirmed By:ARVIN BUSTAMANTE MD
--- NOTE | 2021-08-18 21:19 | EX.ED.DYSGE1 ---
HPI History of Present Illness Chief Complaint: Other, Pain/Inj Informant: patient Narrative Narrative: 26-year-old female presenting to the emergency room with generalized abdominal pain of 1 and half weeks duration. Patient notes cramping in the lower pelvis and throughout the abdomen. She states that she is about 5 weeks has an appointment with her accounts payable assistant on Thursday. She states that this morning she was able eat breakfast but barely. She had banana sausage pancakes. Patient states that she was barely able to keep it down and that she vomited foam. Patient states she has not had anything more to eat today. No diarrhea. No fevers. No vaginal bleeding. Child was different as she states that she was feeling lightheaded like she may pass out. She is G2, P1 Ab0 [facility] Medical History Asthma Severe headache Home Medications albuterol sulfate INHALATION 08/18/21 [History Last Taken Unknown] fluticasone propionate [Flovent HFA] INHALATION 08/18/21 [History Last Taken Unknown] hydroxyzine HCl 08/18/21 [History Last Taken Unknown] Allergy/AdvReac Type Severity Reaction Status Date / Time cefaclor [From [facility]] Allergy Mild Hives Verified 08/18/21 20:06 Social History household members: children Smoking Status: Current every day smoker tobacco type: e-cigarettes quit status: quit date established alcohol intake: current alcohol intake frequency: other substance use type: does not use ROS ROS ED Constitutional Constitutional ED: Denies chills, fever(s) or weight loss Eyes Eyes: Denies change in vision or diplopia ENT ENT ED: Denies ear pain, rhinorrhea or sore throat Cardiovascular Cardiovascular: Denies chest pain, orthopnea, palpitations or racing heartbeat Respiratory/Chest Respiratory/Chest: Denies cough, dyspnea or orthopnea Gastrointestinal Gastrointestinal: Reports abdominal pain and nausea; Denies diarrhea or vomiting Genitourinary Genitourinary ED: Denies dysuria, hematuria or urinary frequency Musculoskeletal Musculoskeletal: Denies arthralgias or myalgias Integumentary Denies abscess or rash Neurologic Neurologic: Denies headache(s) or weakness Psychiatric Psychiatric: Denies anxiety, depression, suicidal ideation or suicidal thoughts Endocrine Endocrinology: Denies polydipsia, polyphagia or polyuria Allergic/Immunologic Allergic/Immunologic ED: Denies mouth swelling, tongue swelling or urticaria EXAM Physical Exam Const Vital Signs: 08/18/21 20:05 08/18/21 21:40 Temperature 96.7 F L Temperature Source Temporal Pulse Rate 105 H Pulse Rate [Lying] 66 Pulse Rate [Sitting] 80 Pulse Rate [Standing] 70 Respiratory Rate 16 Blood Pressure 116/72 Blood Pressure [Lying] 99/58 L Blood Pressure [Sitting] 92/58 L Blood Pressure [Standing] 100/72 Blood Pressure Mean 86 Blood Pressure Mean [Lying] 71 Blood Pressure Mean [Sitting] 69 Blood Pressure Mean [Standing] 81 Pulse Ox 100 Oxygen Delivery Method Room Air Positive well nourished and well developed; Negative for obese General Appearance ED: well developed Nutritional Appearance: Negative for obese HEENT Reports normocephalic, head/scalp atraumatic, TM's clear and moist mucous membranes Negative for trauma Tympanic Membrane ED: Yes TM's clear Eyes PERRL and EOMs intact bilaterally Neck no lymphadenopathy, supple and no JVD Resp normal respiratory effort and clear to auscultation bilaterally Cardio regular rate, regular rhythm and no murmurs GI normal to inspection, nondistended, normoactive bowel sounds and non-tender Palpation: soft Back/Spine no CVA tenderness and normal ROM Extremity normal to inspection General Extremety ED: Negative for edema General Extremity: Negative for edema Neuro oriented x3 and CN's II-XII intact bilaterally Sensorium / Orientation: alert Motor Exam: strength 5/5 throughout Psych mental status grossly normal Mood & Affect: Negative for depressed or tearful Skin no rashes or lesions noted and no wounds MDM MDM MDM Narrative Medical decision making narrative: Basic blood work showed a white count of 15.5. Quantitative hCG at 30,000 861. CMP lipase normal. Patient received IV fluids. She also received Tylenol for headache and Zofran for nausea. Urinalysis shows a specific gravity 1.01 and no ketones. For someone who is eating maybe 1 meal a day I think perhaps we are ingesting more than what we think. She tells me that nausea medicine does not help her. At this point I feel that she is stable for discharge Lab Data Attestation: I reviewed the patient's lab results. Labs: Laboratory Results - last 24 hr 08/18/21 08/18/21 08/18/21 21:35 21:35 21:35 WBC 15.5 H RBC 4.47 Hgb 12.6 Hct 37.6 MCV 84.1 MCH 28.2 MCHC 33.5 RDW Std Deviation 40.1 RDW Coeff of [place] 13.0 Plt Count 332 MPV 9.7 Immature Gran % (Auto) 0.400 Neut % (Auto) 71.7 H Lymph % (Auto) 20.7 [place] % (Auto) 6.1 Eos % (Auto) 0.6 Baso % (Auto) 0.5 Absolute Neuts (auto) 11.1 H Absolute Lymphs (auto) 3.21 Nucleated RBC % 0 Sodium 137 Potassium 3.5 Chloride 104 Carbon Dioxide 25.0 Anion Gap 8 BUN 10 Creatinine 0.66 Estim Creat Clear Calc 91.15 Est GFR (MDRD) Af Amer 138 Est GFR (MDRD) Non-Af 114 BUN/Creatinine Ratio 15.2 Glucose 84 Calcium 8.6 Total Bilirubin 0.30 AST 13 L ALT 20 Alkaline Phosphatase 80 Total Protein 7.2 Albumin 3.6 Globulin 3.6 Albumin/Globulin Ratio 1.0 Lipase 144 HCG, Quant 71483 H Urine Color Urine Clarity Urine pH Ur Specific [place] Urine Protein Urine Glucose (UA) Urine Ketones Urine Occult Blood Urine Nitrite Urine Bilirubin Urine Urobilinogen Ur Leukocyte Esterase Urine RBC Urine WBC Ur Squamous Epith Cells Urine Bacteria Urine Mucus 08/18/21 23:00 WBC RBC Hgb Hct MCV MCH MCHC RDW Std Deviation RDW Coeff of [place] Plt Count MPV Immature Gran % (Auto) Neut % (Auto) Lymph % (Auto) [place] % (Auto) Eos % (Auto) Baso % (Auto) Absolute Neuts (auto) Absolute Lymphs (auto) Nucleated RBC % Sodium Potassium Chloride Carbon Dioxide Anion Gap BUN Creatinine Estim Creat Clear Calc Est GFR (MDRD) Af Amer Est GFR (MDRD) Non-Af BUN/Creatinine Ratio Glucose Calcium Total Bilirubin AST ALT Alkaline Phosphatase Total Protein Albumin Globulin Albumin/Globulin Ratio Lipase HCG, Quant Urine Color Yellow Urine Clarity Clear Urine pH 6.5 Ur Specific [place] 1.010 Urine Protein Negative Urine Glucose (UA) Normal Urine Ketones Negative Urine Occult Blood Negative Urine Nitrite Negative Urine Bilirubin Negative Urine Urobilinogen Normal Ur Leukocyte Esterase Negative Urine RBC 0 SEEN Urine WBC 0 SEEN Ur Squamous Epith Cells 0-5 SEEN Urine Bacteria RARE Urine Mucus 0 SEEN EKG Initial EKG: Attestation: I personally reviewed and interpreted this EKG as follows: Comments: Normal sinus rhythm ventricular rate of 67 bpm Discharge Plan Triage Chief Complaint: Other, Pain/Inj ED Provider: Cyrus Graves Dx/Rx/DC Orders Clinical Impression: Abdominal pain complicating , Near syncope, Nausea Instructions: ED Abdominal Pain Unkn Cause Fem Prescriptions: No Action hydroxyzine HCl 50 mg tablet RF: 0 albuterol sulfate 90 mcg/actuation HFA aerosol inhaler INHALATION RF: 0 Flovent HFA 110 mcg/actuation HFA aerosol inhaler INHALATION RF: 0 Primary Care Provider: Emerson Rodriguez Referrals: Emerson Rodriguez MD [Primary Care Provider] - Activity Restrictions/Additional Instructions: Please follow-up with your accounts payable assistant as scheduled Disposition Disposition: Home, Self Care
[2021-08-18] MEDS: 0.9% Normal Saline 1,000 ML 1000 ML IV (21:37)
[2021-08-18] MEDS: Ondansetron 4 MG/2 ML Vial IV (21:38)
[2021-08-18 21:40] VITALS: BP 100/72; BP 92/58; BP 99/58; PULSE 66; PULSE 70; PULSE 80
[2021-08-18 21:55] LABS: Absolute Lymphocyte Count 3.21 X10^3/uL (0.83-4.51); Absolute Neutrophil Count 11.1 X10^3/uL (2.0-7.7); Basophil# 0.07 X10^3/uL; Basophil% 0.5 % (0-1); Eosinophil# 0.09 X10^3/uL; Eosinophils% 0.6 % (0-5); Hematocrit 37.6 % (37-47); Hemoglobin 12.6 g/dL (12.0-15.0); Lymphocyte # 3.21 X10^3/ul (0.83-4.51); Lymphocyte % 20.7 % (19-41); Mean Corp Hgb Conc 33.5 g/dL (32-36); Mean Corpuscular Hgb 28.2 pg (27.0-32.0); Mean Corpuscular Volume 84.1 fL (81-99); Mean Platelet Vol. 9.7 fl (6.2-12.0); Monocyte# 0.95 X10^3/uL; Monocyte% 6.1 % (0-10); NRBC Flagged by Analyzer 0 % (0-5); Neutrophil # 11.12 X10^3/uL (2.7-7.7); Neutrophil % 71.7 % (47-70); Platelet Count 332 K/mm3 (150-450); RBC Distribution Width SD 40.1 fl (35.1-43.9); Red Blood Count 4.47 M/mm3 (4.2-5.4); White Blood Count 15.5 K/mm3 (4.4-11.0)
[2021-08-18 22:08] LABS: AST(SGOT) 13 U/L (15-37); Alanine Aminotransfer ALT/SGPT 20 U/L (13-56); Albumin, Serum 3.6 g/dL (3.2-5.0); Alkaline Phosphatase 80 U/L (45-117); Anion Gap 8 (5-15); BUN 10 mg/dL (7-18); BUN/Creat Ratio 15.2 RATIO (10-20); Calcium,Total 8.6 mg/dL (8.5-10.1); Chloride 104 mmol/L (98-107); Creatinine, Serum 0.66 mg/dL (0.55-1.02); EST Glomerular Filtration Rate 114 mL/min (>60); Est Glom Filt Rate - Afr Amer 138 mL/min (>60); Estimated Creatinine Clearance 91.15 ml/min; Globulin 3.6 g/dL (2.2-4.2); Glucose 84 mg/dL (74-106); Lipase 144 U/L (73-393); Potassium 3.5 mmol/L (3.5-5.1); Protein, Total 7.2 g/dL (6.4-8.2); Sodium Level 137 mmol/L (136-145)
[2021-08-18 23:15] LABS: Mucous, Urine 0 SEEN /hpf (<or=2+); Red Blood Cells-Urine 0 SEEN /hpf (0-5); White Blood Cells 0 SEEN /hpf (0-5)
[2021-08-18 23:22] LABS: Color, Urine Yellow (Yellow); Glucose, Dipstick Normal (Normal); Ketone-Dipstick Negative (Negative); Leukocyte Esterase-Dipstick Negative /ul (Negative); Nitrite-Dipstick Negative (Negative); Occult Blood-Urine Negative /ul (Negative); Protein-Dipstick Negative (Negative); Urine Bilirubin Dipstick Negative (Negative); Urine Clarity Clear (Clear); Urine Urobilinogen Normal (Normal); Urine pH 6.5 (5.0 - 8.0)
[2021-08-18 23:57] LABS: Bacteria RARE /hpf (None Seen); Squamous Epithelial Cells - UA 0-5 SEEN /hpf (5-10)
[2021-08-19] MEDS: Acetaminophen 500 MG Tablet 1000 MG PO (00:07)
== END 2021-08-19 00:20 | disposition home or self-care (01) ==
PROVIDERS: Emergency Provider Emergency Medicine; PCP Family Medicine
DX: O26.891 Other specified pregnancy related conditions, first trimester (principal); R10.84 Generalized abdominal pain; R55 Syncope and collapse; R11.0 Nausea; O99.511 Diseases of the respiratory system complicating pregnancy, first trimester; J45.909 Unspecified asthma, uncomplicated; O99.331 Smoking (tobacco) complicating pregnancy, first trimester; F17.290 Nicotine dependence, other tobacco product, uncomplicated; Z3A.01 Less than 8 weeks gestation of pregnancy
CPT/HCPCS: 80053; 81001; 83690; 84702; 85025; 93005; 96361; 96374; 99284; J7030; A4216; J2405

== ENCOUNTER → 2021-08-21 13:50 | Outpatient (CLI) | payer MEDICAID, SELFPAY ==
[2021-08-21 14:45] LABS: Color, Urine Yellow (Yellow); Glucose, Dipstick Normal (Normal); Ketone-Dipstick Negative (Negative); Leukocyte Esterase-Dipstick 25 /ul (Negative); Nitrite-Dipstick Negative (Negative); Occult Blood-Urine 10 /ul (Negative); Protein-Dipstick 15 mg/dl (Negative); Urine Bilirubin Dipstick Negative (Negative); Urine Clarity Clear (Clear); Urine Urobilinogen Normal (Normal)
[2021-08-21 14:46] LABS: Absolute Lymphocyte Count 1.64 X10^3/uL (0.83-4.51); Absolute Neutrophil Count 10.2 X10^3/uL (2.0-7.7); Basophil# 0.07 X10^3/uL; Basophil% 0.5 % (0-1); Eosinophil# 0.04 X10^3/uL; Eosinophils% 0.3 % (0-5); Hemoglobin 13.6 g/dL (12.0-15.0); Lymphocyte # 1.64 X10^3/ul (0.83-4.51); Lymphocyte % 12.9 % (19-41); Mean Corp Hgb Conc 32.4 g/dL (32-36); Mean Corpuscular Hgb 27.7 pg (27.0-32.0); Mean Corpuscular Volume 85.5 fL (81-99); Monocyte# 0.74 X10^3/uL; Monocyte% 5.8 % (0-10); NRBC Flagged by Analyzer 0 % (0-5); Neutrophil # 10.23 X10^3/uL (2.7-7.7); Neutrophil % 80.2 % (47-70); Platelet Count 368 K/mm3 (150-450); RBC Distribution Width CV 12.7 % (11.6-14.6); RBC Distribution Width SD 39.8 fl (35.1-43.9); Red Blood Count 4.91 M/mm3 (4.2-5.4); White Blood Count 12.8 K/mm3 (4.4-11.0)
[2021-08-21 15:06] LABS: Amphetamine Urine VISTA NEGATIVE (<1000 ng/mL); Barbiturate Urine VISTA NEGATIVE (< 200 ng/mL); Benzodiazepine Urine VISTA NEGATIVE (< 200 ng/mL); Cocaine Urine VISTA NEGATIVE (< 300 ng/mL); Ecstacy Urine VISTA NEGATIVE (< 500 ng/mL); Methadone Urine VISTA NEGATIVE (< 300 ng/mL); PCP Urine VISTA NEGATIVE (< 25 ng/mL); THC Urine VISTA NEGATIVE (< 50 ng/mL); Vista UDS pH Range 5
[2021-08-21 15:11] LABS: Thyroid Stim Hormone (TSH) 1.16 uIU/mL (0.358-3.74)
[2021-08-21 15:41] LABS: HIV - WCH Non-Reactive (Nonreactive); Hepatitis B Surface Antigen Non-Reactive (Nonreactive); Hepatitis C Antibody Non-Reactive (Nonreactive); Rubella IgG Reactive (Nonreactive); Syphilis Antibodies Non-reactive
[2021-08-26 22:06] LABS: Chlamydia By Nucleic Acid AMP Negative (Negative)
[2021-08-27 12:06] LABS: Gonococcus By Nucleic Acid AMP Negative (Negative)
[2021-08-28 14:56] LABS: HPV Reflexed? NOT INDICATED
== END ==
PROVIDERS: PCP Family Medicine; Visit Provider Obstetrics & Gynecology
DX: Z34.81 Encounter for supervision of other normal pregnancy, first trimester (principal); Z11.3 Encounter for screening for infections with a predominantly sexual mode of transmission; Z12.4 Encounter for screening for malignant neoplasm of cervix
CPT/HCPCS: 36415; 80307; 81002; 84443; 85025; 86703; 86762; 86780; 86803; 87086; 87088; 87340; 87491; 87591; 88175; G0145

== ENCOUNTER 2021-09-11 13:28 | Emergency (ER) | payer MEDICAID, SELFPAY ==
[2021-09-11 13:29] VITALS: BP 103/66; PULSE 90; RESP 16; TEMP 35.8; O2SAT 100; BMI 22.6
--- NOTE | 2021-09-11 15:40 | EDS_ITS ---
HPI History of Present Illness Chief Complaint: Nausea/Vomiting Informant: patient Onset/Context/Timing Onset: Days Narrative Narrative: Patient presents secondary to nausea and vomiting. She is currently 9 weeks . G2, P1, Ab0. Patient states she was just switched to Zofran but was unable to keep that down. She reports some occasional cramping in the left lateral abdominal wall. PFSH PFS Medical History Asthma Severe headache Home Medications albuterol sulfate 1 - 2 puff INHALATION Q6H PRN 08/18/21 [History Last Taken Unknown] fluticasone propionate [Flovent HFA] 1 puff INHALATION BID 08/18/21 [History Last Taken Unknown] hydroxyzine HCl 50 mg PO PRN PRN 08/18/21 [History Last Taken Unknown] metoclopramide HCl [Reglan] 10 mg PO Q6H PRN #20 tab 09/11/21 [Rx Last Taken Unknown] Allergy/AdvReac Type Severity Reaction Status Date / Time cefaclor [From [facility]] Allergy Mild Hives Verified 09/11/21 13:31 Social History household members: children Smoking Status: Current every day smoker tobacco type: e-cigarettes quit status: quit date established alcohol intake: current alcohol intake frequency: other substance use type: does not use ROS ROS ED Constitutional Constitutional ED: Denies chills or fever(s) Eyes Eyes: Denies change in vision ENT ENT ED: Denies sore throat Cardiovascular Cardiovascular: Denies chest pain Respiratory/Chest Respiratory/Chest: Denies cough or dyspnea Gastrointestinal Gastrointestinal: Reports abdominal pain, nausea and vomiting; Denies diarrhea Genitourinary Genitourinary ED: Reports other Details: Decreased urine output ; Denies dysuria Musculoskeletal Musculoskeletal: Denies back pain Integumentary Denies rash Neurologic Neurologic: Denies headache(s) or weakness Allergic/Immunologic Allergic/Immunologic ED: Denies urticaria EXAM Physical Exam Const Vital Signs: 09/11/21 13:29 09/11/21 15:50 09/11/21 17:41 Temperature 96.5 F L Temperature Source Temporal Pulse Rate 90 78 Respiratory Rate 16 17 16 Blood Pressure 103/66 110/68 Blood Pressure Mean 78 82 Pulse Ox 100 99 Oxygen Delivery Method Room Air Room Air 09/11/21 20:25 Temperature Temperature Source Pulse Rate 63 Respiratory Rate 15 Blood Pressure Blood Pressure Mean Pulse Ox 100 Oxygen Delivery Method Room Air Positive well nourished and well developed General Appearance ED: well developed HEENT Reports normocephalic and head/scalp atraumatic Eyes PERRL and EOMs intact bilaterally Neck supple Chest Wall inspection of chest normal and palpation of chest normal Resp normal respiratory effort and clear to auscultation bilaterally Cardio regular rate and regular rhythm GI non-tender Auscultation: hypoactive bowel sounds Palpation: soft Extremity normal to inspection Neuro oriented x3 and no sensory deficits noted Sensorium / Orientation: alert Motor Exam: strength 5/5 throughout Psych mental status grossly normal Skin no rashes or lesions noted MDM MDM MDM Narrative Medical decision making narrative: Lab work, urinalysis, IV fluids, Zofran ordered. Lab Data Labs: Laboratory Results - last 24 hr 09/11/21 09/11/21 09/11/21 15:56 15:56 17:25 WBC 13.8 H RBC 4.59 Hgb 12.7 Hct 37.5 MCV 81.7 MCH 27.7 MCHC 33.9 RDW Std Deviation 35.9 RDW Coeff of Ivan[place] 12.2 Plt Count 279 MPV 10.1 Immature Gran % (Auto) 0.300 Neut % (Auto) 80.9 H Lymph % (Auto) 13.5 L [place] % (Auto) 4.8 Eos % (Auto) 0.1 Baso % (Auto) 0.4 Absolute Neuts (auto) 11.2 H Absolute Lymphs (auto) 1.86 Nucleated RBC % 0 Sodium 135 L Potassium 3.6 Chloride 106 Carbon Dioxide 24.0 Anion Gap 5 BUN 11 Creatinine 0.58 Estim Creat Clear Calc 103.73 Est GFR (MDRD) Af Amer 160 Est GFR (MDRD) Non-Af 133 BUN/Creatinine Ratio 19.1 Glucose 75 Calcium 8.4 L Urine Color Yellow Urine Clarity Sl. Cloudy Urine pH 6.0 Ur Specific [place] 1.020 Urine Protein Negative Urine Glucose (UA) Normal Urine Ketones 50 H Urine Occult Blood Negative Urine Nitrite Negative Urine Bilirubin Negative Urine Urobilinogen Normal Ur Leukocyte Esterase 100 H Urine RBC 0 SEEN Urine WBC 0-5 SEEN Ur Squamous Epith Cells 0 SEEN Urine Bacteria 1+ Urine Mucus 0 SEEN Treatment and Re-Evaluation Comments:: Patient did feel improved on repeat evaluation. She tried to drink and on for she did vomit that back up. She was given Reglan with a small dose of Benadryl through her IV. At this time she was able to drink an entire can of Sprite and does feel improved. Lab work is unremarkable. Patient be discharged with prescription for Reglan. Discharge Plan Triage Chief Complaint: Nausea/Vomiting ED Provider: Nesha Miller Dx/Rx/DC Orders Clinical Impression: Vomiting, First trimester Instructions: ED Vomiting (Adult) Prescriptions: New metoclopramide HCl [Reglan] 10 mg tablet 10 mg PO Q6H PRN (Reason: nausea and vomiting) Qty: 20 RF: 0 No Action hydroxyzine HCl 50 mg tablet 50 mg PO PRN PRN (Reason: Anxiety) RF: 0 albuterol sulfate 90 mcg/actuation HFA aerosol inhaler 1 - 2 puff INHALATION Q6H PRN (Reason: asthma) RF: 0 Flovent HFA 110 mcg/actuation HFA aerosol inhaler 1 puff INHALATION BID RF: 0 Primary Care Provider: Emerson Rodriguez Referrals: Emerson Rodriguez MD [Primary Care Provider] - Keyon Cruz MD [STAFF PHYSICIAN] - 3-5 Days if not improving Disposition Disposition: Home, Self Care
[2021-09-11 15:50] VITALS: RESP 17
[2021-09-11] MEDS: 0.9% Normal Saline 1,000 ML 1000 ML IV (15:51)
[2021-09-11] MEDS: Ondansetron 4 MG/2 ML Vial IV (15:51)
[2021-09-11 16:05] LABS: Absolute Lymphocyte Count 1.86 X10^3/uL (0.83-4.51); Absolute Neutrophil Count 11.2 X10^3/uL (2.0-7.7); Basophil# 0.05 X10^3/uL; Basophil% 0.4 % (0-1); Eosinophil# 0.02 X10^3/uL; Eosinophils% 0.1 % (0-5); Hematocrit 37.5 % (37-47); Hemoglobin 12.7 g/dL (12.0-15.0); Lymphocyte # 1.86 X10^3/ul (0.83-4.51); Lymphocyte % 13.5 % (19-41); Mean Corp Hgb Conc 33.9 g/dL (32-36); Mean Corpuscular Hgb 27.7 pg (27.0-32.0); Mean Corpuscular Volume 81.7 fL (81-99); Mean Platelet Vol. 10.1 fl (6.2-12.0); Monocyte# 0.66 X10^3/uL; Monocyte% 4.8 % (0-10); NRBC Flagged by Analyzer 0 % (0-5); Neutrophil # 11.17 X10^3/uL (2.7-7.7); Neutrophil % 80.9 % (47-70); Platelet Count 279 K/mm3 (150-450); RBC Distribution Width CV 12.2 % (11.6-14.6); RBC Distribution Width SD 35.9 fl (35.1-43.9); Red Blood Count 4.59 M/mm3 (4.2-5.4); White Blood Count 13.8 K/mm3 (4.4-11.0)
[2021-09-11 16:26] LABS: Anion Gap 5 (5-15); BUN 11 mg/dL (7-18); BUN/Creat Ratio 19.1 RATIO (10-20); Calcium,Total 8.4 mg/dL (8.5-10.1); Chloride 106 mmol/L (98-107); Creatinine, Serum 0.58 mg/dL (0.55-1.02); EST Glomerular Filtration Rate 133 mL/min (>60); Est Glom Filt Rate - Afr Amer 160 mL/min (>60); Estimated Creatinine Clearance 103.73 ml/min; Glucose 75 mg/dL (74-106); Potassium 3.6 mmol/L (3.5-5.1); Sodium Level 135 mmol/L (136-145)
[2021-09-11] MEDS: 0.9% Normal Saline 1,000 ML 150 ML IV (17:40)
[2021-09-11 17:41] VITALS: BP 110/68; PULSE 78; RESP 16; O2SAT 99
[2021-09-11 17:41] LABS: Mucous, Urine 0 SEEN /hpf (<or=2+); Red Blood Cells-Urine 0 SEEN /hpf (0-5); Squamous Epithelial Cells - UA 0 SEEN /hpf (5-10)
[2021-09-11 17:50] LABS: Color, Urine Yellow (Yellow); Glucose, Dipstick Normal (Normal); Ketone-Dipstick 50 mg/dl (Negative); Leukocyte Esterase-Dipstick 100 /ul (Negative); Nitrite-Dipstick Negative (Negative); Occult Blood-Urine Negative /ul (Negative); Protein-Dipstick Negative (Negative); Urine Bilirubin Dipstick Negative (Negative); Urine Clarity Sl. Cloudy (Clear); Urine Urobilinogen Normal (Normal)
[2021-09-11 18:19] LABS: Bacteria 1+ /hpf (None Seen); White Blood Cells 0-5 SEEN /hpf (0-5)
--- NOTE | 2021-09-11 18:45 | ED.RN ---
PT ATTEMPTED TO DRINK SPRITE. VOMITED BACK UP
[2021-09-11] MEDS: Metoclopramide 10 MG/2 ML Vial IV (18:53)
[2021-09-11] MEDS: DiphenhydrAMINE 50 MG/ML Syringe 12.5 MG IV (18:55)
[2021-09-11 20:25] VITALS: BP 91/55; PULSE 63; RESP 15; O2SAT 100
[2021-09-11 20:37] VITALS: BP 91/55; PULSE 63; RESP 15; O2SAT 99
== END 2021-09-11 20:51 | disposition home or self-care (01) ==
PROVIDERS: Emergency Provider Emergency Medicine; PCP Family Medicine
DX: O26.891 Other specified pregnancy related conditions, first trimester (principal); R11.2 Nausea with vomiting, unspecified; O99.511 Diseases of the respiratory system complicating pregnancy, first trimester; J45.909 Unspecified asthma, uncomplicated; O99.331 Smoking (tobacco) complicating pregnancy, first trimester; F17.290 Nicotine dependence, other tobacco product, uncomplicated; Z3A.09 9 weeks gestation of pregnancy
CPT/HCPCS: 80048; 81001; 85025; 96361; 96374; 96375; 99283; J7030; A4216; J2405

== ENCOUNTER 2021-11-05 16:57 | Outpatient (CLI) | payer MEDICAID, SELFPAY | END 2021-11-05 23:59 | disposition short-term general hospital (02) | PROVIDERS: PCP Family Medicine; Referring Provider Family Medicine; Visit Provider Registered Nurse | DX: R09.89 Other specified symptoms and signs involving the circulatory and respiratory systems (principal) | CPT/HCPCS: 87635; U0003; U0005 ==

== ENCOUNTER 2021-11-13 10:59 | Emergency (ER) | payer MEDICAID, SELFPAY ==
[2021-11-13 11:00] VITALS: BP 101/58; PULSE 103; RESP 14; TEMP 35.6; O2SAT 100; BMI 22.6
[2021-11-13 11:56] LABS: Absolute Lymphocyte Count 1.44 X10^3/uL (0.83-4.51); Absolute Neutrophil Count 9.7 X10^3/uL (2.0-7.7); Basophil# 0.04 X10^3/uL; Basophil% 0.3 % (0-1); Eosinophil# 0.03 X10^3/uL; Eosinophils% 0.3 % (0-5); Hematocrit 36.8 % (37-47); Hemoglobin 12.6 g/dL (12.0-15.0); Lymphocyte # 1.44 X10^3/ul (0.83-4.51); Lymphocyte % 12.1 % (19-41); Mean Corp Hgb Conc 34.2 g/dL (32-36); Mean Corpuscular Volume 81.8 fL (81-99); Mean Platelet Vol. 9.8 fl (6.2-12.0); Monocyte# 0.63 X10^3/uL; Monocyte% 5.3 % (0-10); NRBC Flagged by Analyzer 0 % (0-5); Neutrophil # 9.67 X10^3/uL (2.7-7.7); Neutrophil % 81.3 % (47-70); Platelet Count 315 K/mm3 (150-450); RBC Distribution Width CV 12.7 % (11.6-14.6); RBC Distribution Width SD 37.6 fl (35.1-43.9); White Blood Count 11.9 K/mm3 (4.4-11.0)
[2021-11-13 11:59] LABS: ALB/GLOB Ratio 0.8 RATIO (0.9-2.4); AST(SGOT) 7 U/L (15-37); Alanine Aminotransfer ALT/SGPT 17 U/L (13-56); Albumin, Serum 3.3 g/dL (3.2-5.0); Alkaline Phosphatase 77 U/L (45-117); Anion Gap 7 (5-15); BUN 7 mg/dL (7-18); BUN/Creat Ratio 9.9 RATIO (10-20); Calcium,Total 8.6 mg/dL (8.5-10.1); Chloride 104 mmol/L (98-107); EST Glomerular Filtration Rate 105 mL/min (>60); Est Glom Filt Rate - Afr Amer 127 mL/min (>60); Estimated Creatinine Clearance 85.94 ml/min; Globulin 4.2 g/dL (2.2-4.2); Glucose 69 mg/dL (74-106); Potassium 3.3 mmol/L (3.5-5.1); Protein, Total 7.5 g/dL (6.4-8.2); Sodium Level 135 mmol/L (136-145)
[2021-11-13] MEDS: 0.9% Normal Saline 1,000 ML 1000 ML IV (12:02)
[2021-11-13 12:10] LABS: Mucous, Urine 0 SEEN /hpf (<or=2+); Red Blood Cells-Urine 0 SEEN /hpf (0-5)
[2021-11-13 12:14] LABS: Color, Urine Yellow (Yellow); Glucose, Dipstick Normal (Normal); Ketone-Dipstick Negative (Negative); Leukocyte Esterase-Dipstick 25 /ul (Negative); Nitrite-Dipstick Negative (Negative); Occult Blood-Urine Negative /ul (Negative); Protein-Dipstick 15 mg/dl (Negative); Urine Bilirubin Dipstick Negative (Negative); Urine Clarity Clear (Clear); Urine Urobilinogen Normal (Normal)
[2021-11-13 12:27] LABS: Bacteria RARE /hpf (None Seen); Squamous Epithelial Cells - UA 0-5 SEEN /hpf (5-10); White Blood Cells 5-10 SEEN /hpf (0-5)
[2021-11-13 13:00] VITALS: BP 118/72; PULSE 76; RESP 14; O2SAT 97
--- NOTE | 2021-11-13 13:56 | EDS_ITS ---
HPI HPI - GI History of Present Illness Chief Complaint: Nausea/Vomiting Narrative Narrative: 26-year-old female currently 18 weeks presenting with mild intermittent lightheadedness she states she does have some nausea and vomiting occasionally but has not been vomiting today. She has some mild pain in the bilateral lower abdomen which has been present for a day or so. Patient called women's office and they told her it was okay but since she lives near the urgent care she went to the urgent care for an evaluation. When she got to the urgent care they told her that her blood pressure was low and she needed to come right to the emergency room within the next 5 minutes of the room and to call an ambulance. The patient states that this freaked her out and she came directly to the ER. She is not having any nausea. She does complain of intermittent lightheadedness but is not lightheaded now. She is able to eat and drink. She is not had any vaginal bleeding or abnormal vaginal discharge. She has not had constipation or diarrhea. She has had confirmed intrauterine . PFSH PFSH Medical History Asthma Severe headache Home Medications albuterol sulfate 1 - 2 puff INHALATION Q6H PRN 08/18/21 [History Last Taken Unknown] fluticasone propionate [Flovent HFA] 1 puff INHALATION BID 08/18/21 [History Last Taken Unknown] hydroxyzine HCl 50 mg PO PRN PRN 08/18/21 [History Last Taken Unknown] metoclopramide HCl [Reglan] 10 mg PO Q6H PRN #20 tab 09/11/21 [Rx Last Taken Unknown] Allergy/AdvReac Type Severity Reaction Status Date / Time cefaclor [From [facility]] Allergy Mild Hives Verified 11/13/21 11:00 Social History household members: children Smoking Status: Current every day smoker tobacco type: e-cigarettes quit status: quit date established alcohol intake: current alcohol intake frequency: other substance use type: does not use ROS ROS ED Constitutional Constitutional ED: Denies chills or fever(s) ENT ENT ED: Denies rhinorrhea or sore throat Cardiovascular Cardiovascular: Denies chest pain or palpitations Respiratory/Chest Respiratory/Chest: Denies cough or dyspnea Gastrointestinal Gastrointestinal: Reports abdominal pain, nausea and vomiting; Denies constipation or diarrhea Genitourinary Genitourinary ED: Denies dysuria or hematuria Musculoskeletal Musculoskeletal: Denies arthralgias or myalgias Integumentary Denies rash Neurologic Neurologic: Denies headache(s) or paresthesias Psychiatric Psychiatric: Denies anxiety or depression EXAM Physical Exam Const Vital Signs: 11/13/21 11:00 11/13/21 13:00 Temperature 96.1 F L Temperature Source Temporal Pulse Rate 103 H 76 Respiratory Rate 14 14 Blood Pressure 101/58 L 118/72 Blood Pressure Mean 72 87 Pulse Ox 100 97 Oxygen Delivery Method Room Air Room Air Positive well nourished General Appearance ED: NAD; Negative for pallor HEENT normocephalic and atraumatic Eyes PERRL and EOMs intact bilaterally Resp normal respiratory effort and clear to auscultation bilaterally GI non-distended GI Narrative: Gravid. Abdomen nonperitoneal. There is mild tenderness to the lower abdomen in the left lower quadrant and the right lower quadrant. Palpation: soft Back/Spine no CVA tenderness Neuro Sensorium / Orientation: alert, oriented to person, oriented to place and oriented to time Psych mental status grossly normal and thought process normal Skin General Skin Exam: Negative for jaundice or pallor MDM MDM MDM Narrative Medical decision making narrative: Looking to the medical record the patient's blood pressure is around baseline. Heart rate was initially tachycardic and since she states she is mildly lightheaded I did give her IV fluids and her blood pressure came up to 118/72 and her heart rate is 76. Respirate is 14. She is 97 to 100% on room air. CBC shows a white blood cell count 11.9 however this is lower than her previous. Her renal function is normal and she has a slight hypokalemia at 3.3 which can be repleted with diet. hCG is appropriate. Urinalysis negative for infection and is slightly contaminated but I will send for culture. Patient feels improved. Bedside ultrasound utilized to obtain heart tones which are 156. Good movement. I discussed the patient with Dr. Cruz and he stated that she has had a lot of ultrasounds this and he did not think she needed another 1. I agree. Patient has a relatively normal work-up and was given IV fluids and feels better. She will be discharged home to follow-up with Dr. Cruz as needed. Impression: 1. Nausea/vomiting resolved 2. Abdominal pain in Lab Data Labs: Laboratory Results - last 24 hr 11/13/21 11/13/21 11/13/21 11:30 11:30 11:30 WBC 11.9 H RBC 4.50 Hgb 12.6 Hct 36.8 L MCV 81.8 MCH 28.0 MCHC 34.2 RDW Std Deviation 37.6 RDW Coeff of Ivania 12.7 Plt Count 315 MPV 9.8 Immature Gran % (Auto) 0.700 Neut % (Auto) 81.3 H Lymph % (Auto) 12.1 L [place] % (Auto) 5.3 Eos % (Auto) 0.3 Baso % (Auto) 0.3 Absolute Neuts (auto) 9.7 H Absolute Lymphs (auto) 1.44 Nucleated RBC % 0 Sodium 135 L Potassium 3.3 L Chloride 104 Carbon Dioxide 24.0 Anion Gap 7 BUN 7 Creatinine 0.70 Estim Creat Clear Calc 85.94 Est GFR (MDRD) Af Amer 127 Est GFR (MDRD) Non-Af 105 BUN/Creatinine Ratio 9.9 L Glucose 69 L Calcium 8.6 Total Bilirubin 0.30 AST 7 L ALT 17 Alkaline Phosphatase 77 Total Protein 7.5 Albumin 3.3 Globulin 4.2 Albumin/Globulin Ratio 0.8 L HCG, Quant 93983 H Urine Color Urine Clarity Urine pH Ur Specific [place] Urine Protein Urine Glucose (UA) Urine Ketones Urine Occult Blood Urine Nitrite Urine Bilirubin Urine Urobilinogen Ur Leukocyte Esterase Urine RBC Urine WBC Ur Squamous Epith Cells Urine Bacteria Urine Mucus 11/13/21 12:05 WBC RBC Hgb Hct MCV MCH MCHC RDW Std Deviation RDW Coeff of Ivania Plt Count MPV Immature Gran % (Auto) Neut % (Auto) Lymph % (Auto) [place] % (Auto) Eos % (Auto) Baso % (Auto) Absolute Neuts (auto) Absolute Lymphs (auto) Nucleated RBC % Sodium Potassium Chloride Carbon Dioxide Anion Gap BUN Creatinine Estim Creat Clear Calc Est GFR (MDRD) Af Amer Est GFR (MDRD) Non-Af BUN/Creatinine Ratio Glucose Calcium Total Bilirubin AST ALT Alkaline Phosphatase Total Protein Albumin Globulin Albumin/Globulin Ratio HCG, Quant Urine Color Yellow Urine Clarity Clear Urine pH 6.0 Ur Specific [place] 1.010 Urine Protein 15 H Urine Glucose (UA) Normal Urine Ketones Negative Urine Occult Blood Negative Urine Nitrite Negative Urine Bilirubin Negative Urine Urobilinogen Normal Ur Leukocyte Esterase 25 H Urine RBC 0 SEEN Urine WBC 5-10 SEEN Ur Squamous Epith Cells 0-5 SEEN Urine Bacteria RARE Urine Mucus 0 SEEN Discharge Plan Triage Chief Complaint: Nausea/Vomiting ED Provider: Boom Peter Dx/Rx/DC Orders Instructions: Round Ligament Pain, ED Dizziness, Uncertain Cause Prescriptions: No Action hydroxyzine HCl 50 mg tablet 50 mg PO PRN PRN (Reason: Anxiety) RF: 0 albuterol sulfate 90 mcg/actuation HFA aerosol inhaler 1 - 2 puff INHALATION Q6H PRN (Reason: asthma) RF: 0 Flovent HFA 110 mcg/actuation HFA aerosol inhaler 1 puff INHALATION BID RF: 0 metoclopramide HCl [Reglan] 10 mg tablet 10 mg PO Q6H PRN (Reason: nausea and vomiting) Qty: 20 RF: 0 Primary Care Provider: Emerson Rodriguez Referrals: Emerson Rodriguez MD [Primary Care Provider] - Keyon Cruz MD [STAFF PHYSICIAN] - As Needed Disposition Disposition: Home, Self Care
[2021-11-13 14:21] VITALS: BP 122/65; PULSE 72; RESP 14; TEMP 36.9; O2SAT 99
== END 2021-11-13 14:24 | disposition home or self-care (01) ==
PROVIDERS: Emergency Provider Student in an Organized Health Care Education/Training Program; PCP Family Medicine; Visit Provider Student in an Organized Health Care Education/Training Program
DX: O21.0 Mild hyperemesis gravidarum (principal); O26.892 Other specified pregnancy related conditions, second trimester; R10.31 Right lower quadrant pain; R10.32 Left lower quadrant pain; O99.512 Diseases of the respiratory system complicating pregnancy, second trimester; J45.909 Unspecified asthma, uncomplicated; O99.332 Smoking (tobacco) complicating pregnancy, second trimester; F17.290 Nicotine dependence, other tobacco product, uncomplicated; Z3A.18 18 weeks gestation of pregnancy; Z79.51 Long term (current) use of inhaled steroids
CPT/HCPCS: 80053; 81001; 84702; 85025; 87086; 96360; 96361; 99283; A4216

== ENCOUNTER 2022-01-04 00:15 | Outpatient (CLI) | payer MEDICAID, SELFPAY ==
[2022-01-04 00:32] VITALS: BP 107/55; PULSE 75
[2022-01-04 00:52] VITALS: TEMP 36.4; O2SAT 99
[2022-01-04 01:10] VITALS: BMI 24.0
[2022-01-04 01:42] LABS: Color, Urine Yellow (Yellow); Glucose, Dipstick Normal (Normal); Ketone-Dipstick 5 mg/dl (Negative); Leukocyte Esterase-Dipstick 100 /ul (Negative); Nitrite-Dipstick Negative (Negative); Occult Blood-Urine Negative /ul (Negative); Protein-Dipstick 30 mg/dl (Negative); Specific Gravity, Urine 1.025 (1.002-1.030); Urine Bilirubin Dipstick Negative (Negative); Urine Clarity Sl. Cloudy (Clear); Urine Urobilinogen Normal (Normal)
--- NOTE | 2022-01-04 02:40 | PN_ITS ---
Progress Note 26-year-old G2, P1 at 25/4 weeks presenting with 2 nights of abdominal pain. Reports cramping intermittently for about 1 hour 2 nights in a row. States that she does have some emesis after pain. Patient did have intercourse today after pain started. Denies vaginal bleeding, leaking of fluid. Reports movement. Denies urinary symptoms, vaginal itching or burning. Denies fevers or chills, diarrhea or constipation, right upper quadrant pain. 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 Medical history: Asthma Surgical history: denies Allergies: Bee pollen and venom, cephalosporins Medications: Albuterol, Qvar, Pepcid, , hydroxyzine, Colace Physical exam: Blood pressure 105/55, pulse 75, temp 97.5 ?F, pulse ox 99% on room air General: Patient sleeping deeply in bed, comfortable in no acute distress HEENT: Normocephalic/atraumatic Cardiorespiratory: No increased effort, regular heart rate Abdomen: Soft, nontender, gravid, no right upper quadrant pain Extremities: No edema Cervical exam: Closed, thick and high heart rate: 135/mod jb/+accel/no decel [place]: intermittent Assessment/plan: 25/4 weeks with intermittent abdominal pain over the past couple nights. Only occurs in the evening. Last for about 1 hour with associated nausea and emesis. Evidence of UTI, will treat with Macrobid Rx sent. Patient to increase p.o. hydration rest when needed. Likely combination of dehydration, UTI, musculoskeletal pain in . Patient is comfortable and not in labor. Discharge home with prescription and follow-up this week.
== END 2022-01-04 23:59 | disposition home or self-care (01) ==
LOC: WPOUT 00:19 → WP 00:19
PROVIDERS: PCP Family Medicine; Visit Provider Student in an Organized Health Care Education/Training Program
DX: O23.42 Unspecified infection of urinary tract in pregnancy, second trimester (principal); Z3A.25 25 weeks gestation of pregnancy; O99.512 Diseases of the respiratory system complicating pregnancy, second trimester; J45.909 Unspecified asthma, uncomplicated; O99.342 Other mental disorders complicating pregnancy, second trimester; F41.9 Anxiety disorder, unspecified; Z79.899 Other long term (current) drug therapy; O99.332 Smoking (tobacco) complicating pregnancy, second trimester; F17.200 Nicotine dependence, unspecified, uncomplicated
CPT/HCPCS: 59050; 81002; 99218; G0378

== ENCOUNTER 2022-01-06 20:12 | Outpatient (CLI) | payer MEDICAID, SELFPAY ==
[2022-01-06 20:33] VITALS: BP 100/47; PULSE 91
[2022-01-06 20:35] VITALS: TEMP 36.4
[2022-01-06 20:40] VITALS: BMI 24.3
[2022-01-06 20:43] VITALS: BP 89/52; PULSE 77
[2022-01-06 20:51] VITALS: BP 95/50; PULSE 75
[2022-01-06 21:06] VITALS: BP 94/53; PULSE 77
[2022-01-06] MEDS: Lactated Ringers 1,000 ML 999 ML IV (21:07)
[2022-01-06] MEDS: Acetaminophen 500 MG Tablet 1000 MG PO (21:12)
--- NOTE | 2022-01-06 22:16 | PN_ITS ---
Progress Note 26-year-old G2, P1 at 25/6 weeks presenting with emesis after eating. States she ate a cereal bar among some other snacks today after which she had emesis. Reports some abdominal soreness. Denies nausea. Denies urinary symptoms, vaginal itching or burning. Denies fevers or chills, diarrhea or constipation, right upper quadrant pain. 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 no rebound or guarding Extremities: No edema Cervical exam: Closed, thick and high heart rate: 145/mod jb/+accel/no decel [place]: quiet Assessment/plan: 26-year-old G2, P1 at 25/6 weeks presenting with emesis after eating and abdominal soreness. -Patient given 1 L LR bolus for hydration. Tylenol for discomfort, offered Zofran. -Abdomen soft and nontender on exam. No evidence of acute abdomen. Cervix closed/thick/high. No evidence of labor or contractions. Blood pressure within normal limits. No signs or symptoms of preeclampsia. - status reassuring -Recommend brat diet. Encourage bland food. Continue Pepcid. Can try Zofran prophylactically prior to meals. Increase p.o. hydration, patient states she only drinks with meals. -We will discharge home with follow-up in office, and abdominal ultrasound on an outpatient basis
[2022-01-06] MEDS: Ondansetron 4 MG/2 ML Vial IV (22:30)
== END 2022-01-06 23:59 | disposition home or self-care (01) ==
LOC: WPOUT 20:18 → WP 20:18
PROVIDERS: PCP Family Medicine; Visit Provider Student in an Organized Health Care Education/Training Program
DX: O26.892 Other specified pregnancy related conditions, second trimester (principal); R11.2 Nausea with vomiting, unspecified; R10.9 Unspecified abdominal pain; O99.512 Diseases of the respiratory system complicating pregnancy, second trimester; J45.909 Unspecified asthma, uncomplicated; Z3A.25 25 weeks gestation of pregnancy
CPT/HCPCS: 96361; 96374; 59050; 99218; J7120; G0378; J2405

== ENCOUNTER 2022-02-05 10:00 | Outpatient (CLI) | payer MEDICAID, SELFPAY ==
[2022-02-05 10:48] LABS: Glucose Challenge Gest 1H 50g 93 mg/dL (70-140); Hematocrit 30.1 % (37-47); Hemoglobin 9.8 g/dL (12.0-15.0); Mean Corp Hgb Conc 32.6 g/dL (32-36); Mean Corpuscular Hgb 27.1 pg (27.0-32.0); Mean Corpuscular Volume 83.1 fL (81-99); Mean Platelet Vol. 10.1 fl (6.2-12.0); Platelet Count 317 K/mm3 (150-450); RBC Distribution Width CV 12.2 % (11.6-14.6); RBC Distribution Width SD 37.2 fl (35.1-43.9); Red Blood Count 3.62 M/mm3 (4.2-5.4); White Blood Count 13.4 K/mm3 (4.4-11.0)
== END 2022-02-05 23:59 | disposition home or self-care (01) ==
LOC: WOBLAB 10:02
PROVIDERS: PCP Family Medicine; Visit Provider Obstetrics & Gynecology
DX: Z34.83 Encounter for supervision of other normal pregnancy, third trimester (principal)
CPT/HCPCS: 36415; 82950; 85027; 86850

== ENCOUNTER → 2022-03-19 | Outpatient (CLI) | payer MEDICAID, SELFPAY | END | disposition home or self-care (01) | LOC: LABSPEC 10:51 | PROVIDERS: PCP Family Medicine; Referring Provider Obstetrics & Gynecology; Visit Provider Obstetrics & Gynecology | DX: Z36.85 Encounter for antenatal screening for Streptococcus B (principal) | CPT/HCPCS: 87081 ==

== ENCOUNTER → 2022-03-25 | Outpatient (CLI) | payer MEDICAID, SELFPAY ==
[2022-03-25 17:48] LABS: Absolute Lymphocyte Count 1.23 X10^3/uL (0.83-4.51); Absolute Neutrophil Count 15.6 X10^3/uL (2.0-7.7); Basophil# 0.05 X10^3/uL; Basophil% 0.3 % (0-1); Eosinophil# 0.04 X10^3/uL; Eosinophils% 0.2 % (0-5); Hematocrit 35.3 % (37-47); Hemoglobin 11.2 g/dL (12.0-15.0); Lymphocyte # 1.23 X10^3/ul (0.83-4.51); Lymphocyte % 6.8 % (19-41); Mean Corp Hgb Conc 31.7 g/dL (32-36); Mean Corpuscular Hgb 25.3 pg (27.0-32.0); Mean Corpuscular Volume 79.9 fL (81-99); Monocyte# 0.93 X10^3/uL; Monocyte% 5.1 % (0-10); NRBC Flagged by Analyzer 0 % (0-5); Neutrophil # 15.59 X10^3/uL (2.7-7.7); Neutrophil % 86.1 % (47-70); Platelet Count 299 K/mm3 (150-450); RBC Distribution Width CV 13.8 % (11.6-14.6); RBC Distribution Width SD 40.3 fl (35.1-43.9); Red Blood Count 4.42 M/mm3 (4.2-5.4); White Blood Count 18.1 K/mm3 (4.4-11.0)
[2022-03-25 18:15] LABS: ALB/GLOB Ratio 0.6 RATIO (0.9-2.4); AST(SGOT) 16 U/L (15-37); Alanine Aminotransfer ALT/SGPT 13 U/L (13-56); Albumin, Serum 2.4 g/dL (3.2-5.0); Alkaline Phosphatase 238 U/L (45-117); Anion Gap 7 (5-15); BUN 12 mg/dL (7-18); Calcium,Total 8.4 mg/dL (8.5-10.1); Chloride 109 mmol/L (98-107); Creatinine, Serum 0.63 mg/dL (0.55-1.02); EST Glomerular Filtration Rate 119 mL/min (>60); Est Glom Filt Rate - Afr Amer 144 mL/min (>60); Glucose 73 mg/dL (74-106); Potassium 4.1 mmol/L (3.5-5.1); Protein, Total 6.4 g/dL (6.4-8.2); Sodium Level 137 mmol/L (136-145)
== END | disposition home or self-care (01) ==
LOC: MFPLAB 15:03
PROVIDERS: PCP Family Medicine; Visit Provider Family Medicine
DX: J06.9 Acute upper respiratory infection, unspecified (principal); R11.0 Nausea
CPT/HCPCS: 87635; 36415; 80053; 85025; U0003; U0005

== ENCOUNTER 2022-03-30 01:00 | Outpatient (CLI) | payer MEDICAID, SELFPAY ==
[2022-03-30] VITALS (7 sets, daily range): BP systolic 95–108; BP diastolic 53–68; PULSE 74–88; TEMP 36.3–36.7; O2SAT 96–98; BMI 29.4
[2022-03-30 03:13] LABS: Absolute Lymphocyte Count 2.29 X10^3/uL (0.83-4.51); Absolute Neutrophil Count 16.2 X10^3/uL (2.0-7.7); Basophil# 0.06 X10^3/uL; Basophil% 0.3 % (0-1); Eosinophil# 0.03 X10^3/uL; Eosinophils% 0.2 % (0-5); Hematocrit 31.6 % (37-47); Hemoglobin 10.2 g/dL (12.0-15.0); Lymphocyte # 2.29 X10^3/ul (0.83-4.51); Lymphocyte % 11.5 % (19-41); Mean Corp Hgb Conc 32.3 g/dL (32-36); Mean Corpuscular Hgb 25.5 pg (27.0-32.0); Mean Platelet Vol. 10.6 fl (6.2-12.0); Monocyte# 1.05 X10^3/uL; Monocyte% 5.3 % (0-10); NRBC Flagged by Analyzer 0 % (0-5); Neutrophil # 16.21 X10^3/uL (2.7-7.7); Neutrophil % 81.2 % (47-70); Platelet Count 308 K/mm3 (150-450); RBC Distribution Width CV 13.5 % (11.6-14.6); RBC Distribution Width SD 38.6 fl (35.1-43.9); White Blood Count 19.9 K/mm3 (4.4-11.0)
[2022-03-30 03:34] LABS: ALB/GLOB Ratio 0.6 RATIO (0.9-2.4); AST(SGOT) 23 U/L (15-37); Alanine Aminotransfer ALT/SGPT 24 U/L (13-56); Albumin, Serum 2.4 g/dL (3.2-5.0); Alkaline Phosphatase 238 U/L (45-117); Anion Gap 12 (5-15); BUN 7 mg/dL (7-18); BUN/Creat Ratio 13.2 RATIO (10-20); Calcium,Total 8.3 mg/dL (8.5-10.1); Chloride 116 mmol/L (98-107); Creatinine, Serum 0.53 mg/dL (0.55-1.02); EST Glomerular Filtration Rate 145 mL/min (>60); Est Glom Filt Rate - Afr Amer 176 mL/min (>60); Estimated Creatinine Clearance 113.51 ml/min; Globulin 3.7 g/dL (2.2-4.2); Glucose 82 mg/dL (74-106); Potassium 3.6 mmol/L (3.5-5.1); Protein, Total 6.1 g/dL (6.4-8.2); Sodium Level 149 mmol/L (136-145)
--- NOTE | 2022-03-30 08:39 | PN_ITS ---
Progress Note 26-year-old G2, P1 at 37/5w presenting with cramping. Reports movement. Denies leaking of fluid, vaginal bleeding. Patient reports history of fuzzy vision. States that she has been having intermittently throughout entire headaches. Headaches occur occasionally with fuzzy vision and right thigh. These headaches can be tension like in description, or on one or the other side of her head. She takes Tylenol and lays in a dark room during these times. This will resolve headache and fuzzy vision. Not having any visual dis turbances at this time. Has mild tension-like headache currently. Reports that cramping/contractions have lightened while she has been in triage. Desires discharge home to rest. 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 ?Initial cervical exam 2 cm, recheck approximately 6 hours later 2 cm. Contractions have lessened in intensity. Patient not in labor. ? Headaches with fuzzy vision appears to be migraine with aura. She states that when this happens it always resolves with Tylenol and rest in a dark room. Discussed precautions of if she has episodes where headache or visual disturbances do not improve with Tylenol and rest or if she has complete lack of vision she is to report to the emergency room. Discussed diagnosis of migraines with aura, however discussed that if not improving with Tylenol this could be a sign or symptom of preeclampsia in which case she would need treatment and delivery. Patient understands and all questions were answered. ?CMP within normal limits aside from hypernatremia. Recommend increase PO fluids. ?Leukocytosis. Stable from a 03/25. Patient had recent viral gastroenteritis. Leukocytosis likely secondary to this. We will consider repeat CBC and CMP this week at her routine visit. ?Mild anemia. Iron supplement at home. Discharge home with labor precautions and previa precautions.
== END 2022-03-30 08:40 | disposition home or self-care (01) ==
LOC: WPOUT 01:10 → WP 01:11
PROVIDERS: PCP Family Medicine; Referring Provider Student in an Organized Health Care Education/Training Program; Visit Provider Student in an Organized Health Care Education/Training Program
DX: O99.353 Diseases of the nervous system complicating pregnancy, third trimester (principal); G43.109 Migraine with aura, not intractable, without status migrainosus; Z3A.35 35 weeks gestation of pregnancy; O99.283 Endocrine, nutritional and metabolic diseases complicating pregnancy, third trimester; E87.0 Hyperosmolality and hypernatremia; O99.013 Anemia complicating pregnancy, third trimester
CPT/HCPCS: 36415; 59025; 59050; 80053; 85025; 99218; G0378

== ENCOUNTER 2022-04-08 12:20 | Inpatient (IN) | payer MEDICAID, SELFPAY ==
[2022-04-08] VITALS (71 sets, daily range): BP systolic 96–196; BP diastolic 50–151; PULSE 76–180; RESP 14; TEMP 36.1–37.1; O2SAT 81–100; BMI 29.9
--- NOTE | 2022-04-08 | PLAC_PTH ---
PATIENT: DOUG DONG LOC: [facility] U#:[id number] AGE/SX: 26/F ROOM: WP019 RE04/08/[address]: Dr. Kathy Bustillo MD : 1995 BED: 1 DIS: 04/10/2022 SPEC #: [id number] RECD: 04/08/22 21:54 STATUS: EDGARD ROMAN #: [id number] ASHA: 04/08/22 00:[address]: Kathy Juares DEPT: SURGICAL PATHOLOGY RECD BY: Nayla Ortega ENTERED: 04/09/22 11:29 SP TYPE: PLACENTA OTHR DR: Dr. Kameron Rodriguez MD Tissues: Placenta, NOS Procedures: Surgery Specimen Level V HEADER OPERATION: Vaginal delivery PRE-OP DIAGNOSIS: Maternal leukocytosis, meconium, CAT II FHR TISSUE SUBMITTED: Placenta MICROSCOPIC DIAGNOSIS Placenta: Placental disc - third trimester placenta (578 gm). - Focal acute vasculitis of subamniotic blood vessels. - Focal increased intervillous and perivillous fibrin deposition. Membranes ? moderate to marked acute chorioamnionitis. Umbilical cord - three blood vessels and acute funisitis. SJ:amalia 04/10/2022 MICROSCOPIC DESCRIPTION Slides are reviewed. GROSS DESCRIPTION SPECIMEN: PLACENTA / CLINICAL INFORMATION: A. Weight: 3.49 kg B. Gestational Age: 39 weeks C. Sex: Female PLACENTAL WEIGHT (POST FIXATION): 578 gm PLACENTAL DIMENSIONS: 19 x 16 x 3 cm PLACENTAL SHAPE: Usual ovoid PLACENTAL WEIGHT FOR GESTATIONAL AGE: Within 10-99th percentile MEMBRANES - Present A. Insertion: Marginal B. Site of rupture from edge: 4 cm from edge of placental disc C. Color of membrane: Garner-ayala D. Abnormalities: None UMBILICAL CORD - Present A. Color: Garner-ayala B. Insertion: Eccentric C. Length: 36 cm D. Diameter: 1.2 cm E. Number of vessels: Three F. Abnormalities: None PLACENTAL DISC - Present A. Color of surface: Garner-ayala B. surface abnormalities: None C. Maternal cotyledons: Intact with minimal tears D. Attached retro placental clot: No clot E. Cut surface: Dark red and spongy F. Lesions: None G. Separate clot: Absent SECTIONS SUBMITTED: 1. Umbilical cord ( end notched) 2. Umbilical cord, placental end 3. Membrane roll 4. Placental disc, and maternal surfaces 5. Placental disc, and maternal surfaces 6. Placental disc, and maternal surfaces AM:amalia 04/09/2022 TC:2 CPT: 80940
[2022-04-08] MEDS: Lactated Ringers 1,000 ML 50 ML IV (12:30)
[2022-04-08] MEDS: LACTATED RINGERS 500 ML 999 ML IV ×2 (12:40→17:19)
[2022-04-08 12:50] LABS: Absolute Lymphocyte Count 2.09 X10^3/uL (0.83-4.51); Absolute Neutrophil Count 18.5 X10^3/uL (2.0-7.7); Basophil# 0.07 X10^3/uL; Basophil% 0.3 % (0-1); Eosinophil# 0.07 X10^3/uL; Eosinophils% 0.3 % (0-5); Hematocrit 35.8 % (37-47); Hemoglobin 11.6 g/dL (12.0-15.0); Lymphocyte # 2.09 X10^3/ul (0.83-4.51); Lymphocyte % 9.1 % (19-41); Mean Corp Hgb Conc 32.4 g/dL (32-36); Mean Corpuscular Hgb 25.4 pg (27.0-32.0); Mean Corpuscular Volume 78.3 fL (81-99); Mean Platelet Vol. 11.6 fl (6.2-12.0); Monocyte# 1.76 X10^3/uL; Monocyte% 7.7 % (0-10); NRBC Flagged by Analyzer 0 % (0-5); Neutrophil # 18.54 X10^3/uL (2.7-7.7); Neutrophil % 81.2 % (47-70); POSITIVE DIFFERENTIAL YES; Platelet Count 331 K/mm3 (150-450); RBC Distribution Width CV 14.4 % (11.6-14.6); RBC Distribution Width SD 40.3 fl (35.1-43.9); Red Blood Count 4.57 M/mm3 (4.2-5.4); White Blood Count 22.9 K/mm3 (4.4-11.0)
[2022-04-08 12:51] LABS: Differential Indicated SCAN CRITERIA MET
[2022-04-08] MEDS: fentaNYL-bupivacaine (epidural) 100 ML BAG EPIDURAL ×2 (13:56→19:04)
[2022-04-08] MEDS: Acetaminophen 500 MG Tablet PO (16:18)
--- NOTE | 2022-04-08 18:44 | HP.PCM.OB_ITS ---
HPI - General General Date of Admission: 04/08/22 HPI Narrative DOUG DONG, is a 26 F who presents with c/o painful contractions at 39 weeks gestation. She was 5cm on initial exam. Maternal Data Information JORDEN Calculator Estimated Delivery Date Method Current WG Current Estimate 04/15/22 LMP (Certain) 39w 0d PFSH PFSH Medical History (Updated 04/08/22 @ 18:[address] Kathy Bustillo MD) ADHD Anxiety Asthma Ovarian cyst Severe headache Home Medications sertraline [Zoloft] 50 mg PO DAILY 01/06/22 [History Last Taken 04/07/22] esomeprazole magnesium [Nexium] 20 mg PO DAILY 04/08/22 [History Last Taken 04/07/22] Allergy/AdvReac Type Severity Reaction Status Date / Time cefaclor [From Ceclor] Allergy Mild Hives Verified 04/08/22 12:46 bee venom protein (honey bee) Allergy Swelling Verified 04/08/22 12:46 Family History (Updated 04/08/22 @ 18:[address] Kathy Bustillo MD) Grandmother , 55yo Breast cancer Social History household members: children Smoking Status: Current every day smoker tobacco type: e-cigarettes quit status: quit date established alcohol intake: current alcohol intake frequency: other substance use type: does not use History 2 Elective abortions Hx Para 1 Spontaneous abortions Hx # Term Pregnancies 1 Ectopic pregnancies Hx # Pregnancies Multiple births # of living children 1 Past Pregnancies Del. Date Name GA/Weeks Outcome Route Bth Weight Infant Gen Labor Lgth Anesthesia Del Locatn Provider FOB 02/15/18 Lana 40 live - full term [id number] Female 13 epidural [place] [facility] NST FHR Rate Baby A Variability:: Moderate Accelerations:: None Decelerations:: Late NST Reactive:: Non-Reactive FHR Category:: Category II Uterine Activity:: 4/10 Vital Signs Vital Signs Vital Signs: 04/08/22 13:22 04/08/22 13:23 04/08/22 13:28 Temperature Temperature Source Pulse Rate 180 H 99 99 Blood Pressure BP Systolic BP Diastolic Pulse Ox 81 92 100 04/08/22 13:30 04/08/22 13:33 04/08/22 13:36 Temperature 98.0 F Temperature Source Temporal Pulse Rate 89 96 90 Blood Pressure 111/59 L 100/51 L BP Systolic 111 100 BP Diastolic 59 51 Pulse Ox 99 04/08/22 13:38 04/08/22 13:39 04/08/22 13:40 Temperature Temperature Source Pulse Rate 95 88 83 Blood Pressure 101/59 L 102/56 L BP Systolic 101 102 BP Diastolic 59 56 Pulse Ox 99 04/08/22 13:43 04/08/22 13:44 04/08/22 13:48 Temperature Temperature Source Pulse Rate 90 93 89 Blood Pressure 124/58 H BP Systolic 124 BP Diastolic 58 Pulse Ox 96 99 04/08/22 13:49 04/08/22 13:53 04/08/22 13:54 Temperature Temperature Source Pulse Rate 100 81 90 Blood Pressure 108/57 L 100/59 L BP Systolic 108 100 BP Diastolic 57 59 Pulse Ox 100 04/08/22 13:56 04/08/22 13:58 04/08/22 13:59 Temperature Temperature Source Pulse Rate 88 90 80 Blood Pressure 105/59 L BP Systolic 105 BP Diastolic 59 Pulse Ox 94 99 04/08/22 14:03 04/08/22 14:04 04/08/22 14:08 Temperature Temperature Source Pulse Rate 90 77 81 Blood Pressure 106/60 BP Systolic 106 BP Diastolic 60 Pulse Ox 100 100 04/08/22 14:10 04/08/22 14:13 04/08/22 14:15 Temperature Temperature Source Pulse Rate 86 94 83 Blood Pressure 114/59 L 112/69 BP Systolic 114 112 BP Diastolic 59 69 Pulse Ox 100 04/08/22 14:18 04/08/22 14:19 04/08/22 14:23 Temperature Temperature Source Pulse Rate 84 98 77 Blood Pressure 117/64 BP Systolic 117 BP Diastolic 64 Pulse Ox 97 100 04/08/22 14:24 04/08/22 14:27 04/08/22 14:28 Temperature Temperature Source Pulse Rate 76 78 99 Blood Pressure 125/58 H BP Systolic 125 BP Diastolic 58 Pulse Ox 87 100 04/08/22 14:29 04/08/22 15:09 04/08/22 15:10 Temperature 97.0 F L 98.3 F Temperature Source Temporal Temporal Pulse Rate 86 87 Blood Pressure 118/61 108/55 L BP Systolic 118 108 BP Diastolic 61 55 Pulse Ox 100 04/08/22 16:05 04/08/22 16:06 04/08/22 16:55 Temperature 97.8 F 98.8 F Temperature Source Temporal Temporal Pulse Rate 98 83 Blood Pressure 115/86 H 116/68 BP Systolic 115 116 BP Diastolic 86 68 Pulse Ox 93 04/08/22 16:56 04/08/22 17:57 Temperature 97.0 F L Temperature Source Temporal Pulse Rate 90 102 H Blood Pressure 98/56 L BP Systolic 98 BP Diastolic 56 Pulse Ox 100 Weight Weight: 69.4 kg Body Mass Index (BMI) 29.9 Physical Exam Const alert, oriented x3 and no apparent distress HEENT normocephalic Resp normal respiratory effort, normal air movement and clear to auscultation bilaterally Cardio regular rate and regular rhythm GI normal to inspection, nondistended, normoactive bowel sounds, soft to palpation, non-tender and non-distended Inspection: gravid Narrative: /-2, BBOW Labs Labs Labs: Blood Type O NEGATIVE Antibody Screen NEGATIVE Hct 35.8 % (37-47) L Hgb 11.6 g/dL (12.0-15.0) L Syphilis Total Ab Non-reactive VZV IgG Antibody < 135 index (Immune >165) L Rubella IgG Antibody Reactive (Nonreactive) Hep Bs Antigen Non-Reactive (Nonreactive) Chlamydia DNA (KJ) Negative (Negative) Neisseria gonorrhoeae DNA (KJ) Negative (Negative) HIV 1&2 Antibody Non-Reactive (Nonreactive) Glucose 1 Hr 50 gm 93 mg/dL (70-140) Group B Strep DNA Negative (Negative) Rhogam given: No Miscellaneous Test Antepartum Flow Sheet Highlights: Mar 26 38 153 106/64 tr - 38 V 3 W Mar 26 38 150 94/70 tr ne 38 V JMW February 23 36 148 100/62 tr - 36 V 2 50 -2 JMW February 23 35 148 102/66 tr - 35 V cl 50 -2 W February 24 33 141 110/60 - - 33 W Jan 3 30 136 94/50 30 JMW 24 Dec 2 27 128 90/50 tr - 27 JMW Dec 24 26 124 100/60 1+ 3+ 26 Dec 27 24 126 100/60 - - 24 - Nov 29 21 116 100/60 tr - 21 - Nov 12 116 92/62 tr - JMW Sep 29 14 116 100/58 - - 14 JMW Aug 4 10 111 84/60 tr ne SHORT ANTEPARTUM NOTE(S): Mar HURT x 3 weeks, see nurse note Mar HURT relieved tylenol; right blurred vision comes/goes 19 March GBS Today, LARC form signed/declined 12 March Ctxs-occas, Round Ligament pains,Low Pressure 26 February Good FM Jan feeling well. Glucola and Rhogam done today. AM Dec just started Nexium 2 days ago as PA needed done Dec L rib pain; tylenol; switch to nexium Dec pain in left upper abdomen Nov muffled hearing in right ear Oct B/P check, see nursing progress note Sep n/v improving, Declines AFP Aug Nausea persists LONG ANTEPARTUM NOTES: Mar H&P faxed to OB. tkg Mar Doug is here at 38 w 2 d for a NST. She states that she has a headache today that she woke up with and Tylenol did not help. She reports that she is sometimes light sensitive, and notes spots in her vision when she is outside in the sun. She denies epigastric pain. No edema noted. Doug reports good FM. She feels occasional mild ctx's/cramping, and denies spotting/LoF. NST reactive, read per Dr. Yury King. AW Mar 38wk, NST reactive. IOL scheduled for 39wks on 04/08/22 at 7am pitocin. CE 3cm. JM Mar Doug is here for a pnv at 38/0. Pt states decreased FM since this morning. No edema present. Pt states she has HURT's and blurred vision, black spots present when outside in sun. BP 94/70, urine tr -. Desires cervix check. MK 26 February Doug is 33w1d here for PNV good FM sl edema. States the iron pill makes her throw up. BR Dec Doug is here for visit. Presents to office with feeling faint, weak, LUQ pain. She has been to twice this week and sent home. Decreased FM also complained of today. Urine dip shows large glucose, sp gr of 1.025. Attempted numerous times to discuss diet. She is resistent to discussion of decreasing simple carbs and adding more lean proteins. Has glucola at home for next visit as she is Rh negative blood type. LMT 07 Dec Doug is 24w6d here for PNV. Good FM. Slight edema. Glucola and instructions given today. She complains of a stabbing pain in the upper left side of her abdomen. She states that this has been going on for a couple weeks. The pain gets worse when she stands for long periods of time and laying down is the only thing that seems to relieve her pain. She has no other questions/concerns at this time. MR 07 Mar 24wks, 1hr GTT and Rhogam next visit. JM Nov Doug is 21w. Here for PNV. Good FM. No edema. She complains of muffled hearing in right ear. She states this has césar going on for a couple of months. No other complaints or concerns at this time. MR 08 Nov 21 weeks, anatomy ultrasound within normal limits. JM 21 Milton Doug is here for a B/P check, she is 18 w d GA. Doug reports that yesterday morning at work at [employer], she was standing and started to become di zzy, her vision blurred, and her hearing became muffled. She denies that she fainted. She feels that this episode last 20 minutes. She went to urgent care and they told her to go to [facility] ER, which she did. She states that her B/P in ER was 90/60, and she was given a bag of IV fluids before she was released. No episodes like this have occurred since. Weight in office today: 116.6 lbs Her B/P is 92/64 (left arm, regular cuff). Oral temp today in office: 98.3. Doug denies cramping/IoL/spotting. She states that she feels the baby move a lot. Doug states that she tries to drink water, but that she does not eat regularly or often enough.. Discussed making sure that she is drinking around a gallon of water per 24 hours, and eating small frequent meals/snacks every 2-3 hours; making sure to include protein in her diet throughout the day. Review protein sources, and how she can keep small nuts or peanut butter crackers in her bag when she is at work, along with a water bottle, as she states that she is not allowed to have water near her while she is working. Discussed that it is very important the she stay hydrated and that she eats regularly. She also mentioned that she was treated with an antibiotic for a sinus infection a few weeks ago, and 2 days ago she started to feel 'itchy and puffy down around my vagina. Reports that myke has been having white discharge, but this has been so far awhile now, and that she has noted no odor or change in discharge. CCMS urine specimen obtained. Urine is clear and yellow, no strong or foul odor noted. Long urine dip shows TR leukocytes, TR protein, pH of 5, and specific gravity of 1.025; all other values are negative. Report of all to Dr. Zackary Bustillo she directs that Doug eats regularly and include protein, as has been discussed, increase water intake significantly, has some salt in her food, and wear compression stockings at work, or other times when she is standing for long periods. Dr. Zackary Bustillo also directs that Doug can use Monistat 7 day treatment both inside and outside. All directives relayed to Doug, and she states that she understands. AW 22 Dec Doug 14w1d here for PNV. Doing well states her nausea and vomitting has improved. No other questions or concerns. BR 24 Nov Doug is here at 10.1 weeks gestation for visit. She requests a refill on Zofran as it seems helpful is the alternates with the Reglan. Continues w NVP with 4# weight loss. States EZEQUIEL is and wanted her to have an after the US. She declined and is no longer with him. DRC. 24 Nov Doug is here for her NOB visit at 10 w 1 d following PNV with Dr. Cruz, and an US. She is a 26 year old with an JORDEN of 04/15/2022. Doug currently resides with her mother, whom she states is supportive. The father of her first child lives in [place], and has custody of that little girl. Her daughter was born by at [facility]. Past history updated. Doug plans to deliver at [facility] with an epidural, and she is undecided about feeding method. She is already enrolled in [facility], and knows to take any infant feeding classes that she can. She shares that she recently found out that the FOB of this child is and that he has other children; she reports that when she found out about the , he wanted her to have an . Doug refused to do this, and she is no longer involved with him, and does not want his name on the chart. Office ed materials provided today, i including a list of common OTC medications approved/not approved for use during . Office practice patterns reviewed, including warning signs and how to contact the office during/after hours. Doug reports a hx of UTI's, and knows to call the office if a UTI is suspected. Round ligament pain reviewed. She takes a a gummy PNV most of the time, and that she generally tolerates this well. She continues to be nauseated every day and states that emesis has improved since taking meds for N/V. Reviewed measures that may help minimize nausea, including small frequent meals with protein included, carb rich foods when nauseous, bland foods, adequate water hydration of at least one gallon per 24 hours, trying lemon water/weak lemonade, and motion sickness bracelets. Doug states that she quit smoking but uses a Vape pen, ATQ. She denies use of drugs or ETOH. She reports that she has anxiety, and is treated for same. EPDS today = 8. Genetic Screening form completed. She declines carrier screen, and is undecided about genetic screening; she will check OOP expenses and advise staff at her next PNV. She has asthma, and uses an inhaler. Encouraged regular physical activity, such as walking, 30 mins, 5 x/week. Lifting restrictions reviewed. dietary/water/caloric needs reviewed, along with anticipated weight gain, limiting empty calories, limiting caffeine to one cup a day, and food safety. Doug states that she understands all information provided during 40 minute NOB visit, and that she has no questions following same. AW New Jul ok Jul Doug presents here today with FOB(Sammy Mojica) for Missed Menses appointment. 26 y.o. G 2 P 2 user of Vapor Pen with regular menses and LMP of 09-14-21 lasting her average of 3-4 days. Serum Bhcg was positive at [facility] last week(report attached) as she was seen for cramping and nausea/vomiting. Reports she was given Zofran, and same is ineffective. Presents at 6 weeks today with an approximate JORDEN of 04-15-22. History of at 40 weeks in 2018 at [facility]. Denies spotting/bleeding thus far in . Currently taking an OTC Vitamin with Educational Materials given. Medication and Allergy lists up-dated. REBECCA Assessment & Plan (1) 39 weeks gestation of : PLAN: Cat I-II FHR. Periodic late decelerations respond to conservative measures. Will continue with intrauterine resuscitation as indicated and monitor closely. Amniotomy performed with thick meconium Anticipate vaginal delivery shortly
[2022-04-08] MEDS: Oxytocin 30 units/NS 500 ml 30 UNITS/500 ML IV.SOLN 999 UNITS IV (19:41)
[2022-04-08] MEDS: Methylergonovine 0.2 MG/ML Ampul IM (19:47)
--- NOTE | 2022-04-08 20:02 | OP.PCM_ITS ---
Assessment & Plan (1) 39 weeks gestation of : (2) (spontaneous vaginal delivery): Maternal Data Information JORDEN Calculator Estimated Delivery Date Method Current WG Current Estimate 04/15/22 LMP (Certain) 39w 0d Vaginal Delivery Maternal Presentation Maternal Presentation: Active Labor Operative Information Date of Procedure: 04/08/22 Pre-Operative Diagnosis: 39 weeks gestation Post-Operative Diagnosis: 39 weeks gestation Surgery / Procedure Performed: Vacuum Assisted Vaginal Delivery Type of Anesthesia: Epidural Drain: Olmedo to straight drain Estimated Blood Loss: 250 ml Time of Delivery: 09:38 Findings Description of Procedure: Patient was fully dilated and plus 2 station by my exam at approximately 1918h. She pushed to +3 station. heart rate remained category 2 with prolonged decelerations occurring. I advised vacuum assistance and reviewed risks and benefits of the vacuum. Patient agreed to proceed. The Kiwi vacuum cap was placed at the flexion point and 500 mmHg suction applied at 1936h. The patient continued to push with 2 pulls delivering the head in OA at 1937. The suction was released and was delivered through a tight nuchal cord. The cord was doubly clamped and cut and the passed to the waiting nursery personnel and liberal arts and humanities chair. There was uterine atony without hemorrhage. IV Pitocin was increased and IM Methergine was given. Bimanual uterine massage was performed with fundal tone improving. The area was cervical prolapse and inspection of the cervix revealed it was intact. The perineum was intact. A right labia majora laceration was present and hemostatic thus no repair was performed. Presentation: Vertex Amniotic Membrane Rupture Type: Artificial Time of Membrane Rupture: 04/08/22 Amniotic Fluid Description: Thick meconium Placental Delivery Description: Spontaneous Placenta Disposition: [facility] Specimen(s) Removed: placenta Cord Vessel Description: 3 Vessels Cord Entanglement: Around neck x 1, tight Nuchal Cord Compression: With compression Cord Gases: ABG and VBG Infant A Gender: Female (1 minute): 6 (5 minute): 9 Delayed Cord Clamping: No Post Vaginal Delivery Medications Given After Delivery: IV Pitocin and IM Methergin Episiotomy Description: None Laceration: Periurethral Extnsion/lac (R. upper labial lac) Complication Complications: None
[2022-04-08] MEDS: Ondansetron 4 MG/2 ML Vial IV (20:12)
[2022-04-08 22:01] LABS: Pathology Specimen OB SEE PATHOLOGY REPORT
--- NOTE | 2022-04-08 22:35 | NURSING ---
report received from david RIVERA. this RN to assume care of couplet at this time.
[2022-04-08] MEDS: Pantoprazole Sodium 20 MG Tablet PO (23:01)
[2022-04-08] MEDS: Sertraline 50 MG Tablet PO (23:01)
[2022-04-08] MEDS: Ibuprofen 600 MG Tablet PO (23:55)
[2022-04-08] MEDS: Benzocaine/Lanolin/Aloe Vera 1 SPRAY EACH TOPICAL (23:55)
[2022-04-09] VITALS (8 sets, daily range): BP systolic 97–108; BP diastolic 51–67; PULSE 76–85; RESP 12–18; TEMP 36.6; O2SAT 98–99
[2022-04-09 06:23] LABS: Hematocrit 31.5 % (37-47); Hemoglobin 10.1 g/dL (12.0-15.0); Mean Corp Hgb Conc 32.1 g/dL (32-36); Mean Corpuscular Hgb 25.5 pg (27.0-32.0); Mean Corpuscular Volume 79.5 fL (81-99); POSITIVE COUNT YES; POSITIVE DIFFERENTIAL YES; Platelet Count 222 K/mm3 (150-450); RBC Distribution Width CV 14.3 % (11.6-14.6); RBC Distribution Width SD 41.4 fl (35.1-43.9); Red Blood Count 3.96 M/mm3 (4.2-5.4)
[2022-04-09 06:43] LABS: Scan Indicated on CBC? Y/N YES- FLAGS NOTED; White Blood Count 32.7 K/mm3 (4.4-11.0)
--- NOTE | 2022-04-09 07:07 | NURSING ---
this RN tried to contact dr reece philippe to inform her of elevated WBC 32.7 this AM. unable to speak with her at this time. will update her when she arrives for another AM c/s.
--- NOTE | 2022-04-09 09:21 | PCM.PN.OB ---
Subjective Subjective Patient without complaints. Minimal vaginal bleeding reported. Denies any signs or symptoms of infection. Plans to go home tomorrow. Objective Data Objective Data Vital Signs: Vital Signs Temp Pulse Resp BP Pulse Ox 97.8 F 81 14 97/51 L 99 04/09/22 08:45 04/09/22 08:45 04/09/22 08:45 04/09/22 08:45 04/09/22 08:45 Oxygen Delivery Method Room Air Weight: 153 lb Body Mass Index (BMI) 29.9 Intake & Output: Intake and Output for Last 24 Hours 04/07/22 04/08/22 04/09/22 23:59 23:59 23:59 Intake Total 3000.00 / 3000.00 Output Total 1400 / 1400 400 / 400 Balance 1600.00 / 1600.00 -400 / -400 Lab / Micro Data Result Diagrams: 04/09/22 05:55 Labs: Laboratory Results - last 24 hr 04/08/22 12:30: WBC 22.9 H, RBC 4.57, Hgb 11.6 L, Hct 35.8 L, MCV 78.3 L, MCH 25.4 L, MCHC 32.4, RDW Std Deviation 40.3, RDW Coeff of Ivania 14.4, Plt Count 331, MPV 11.6, Immature Gran % (Auto) 1.400 H, Neut % (Auto) 81.2 H, Lymph % (Auto) 9.1 L, [place] % (Auto) 7.7, Eos % (Auto) 0.3, Baso % (Auto) 0.3, Absolute Neuts (auto) 18.5 H, Absolute Lymphs (auto) 2.09, Nucleated RBC % 0, Differential Comment COMMENT, Diff Path Review [facility] 04/08/22 12:30: Blood Type O NEGATIVE, Antibody Screen NEGATIVE 04/09/22 05:55: WBC 32.7 H*, RBC 3.96 L, Hgb 10.1 L, Hct 31.5 L, MCV 79.5 L, MCH 25.5 L, MCHC 32.1, RDW Std Deviation 41.4, RDW Coeff of Ivania 14.3, Plt Count 222, MPV 11.0, Diff Path Review [facility] Micro: Microbiology 04/08/22 12:30 Nasal Secretion SARS-CoV-2 Antigen (Rapid) - Final Assessment & Plan (1) (spontaneous vaginal delivery): PLAN: Plan Doing well day #1 status post spontaneous vaginal delivery. WBC noted at 32.7. However, no evidence of infection. Will repeat CBC tomorrow. Anticipate discharge home tomorrow.
[2022-04-09] MEDS: Ibuprofen 600 MG Tablet PO ×2 (12:28→22:31)
[2022-04-09] MEDS: Pantoprazole Sodium 20 MG Tablet PO (22:23)
[2022-04-09] MEDS: Sertraline 50 MG Tablet PO (22:24)
[2022-04-10 02:34] VITALS: BP 99/54; PULSE 72; RESP 18
[2022-04-10 02:35] VITALS: BP 99/54; PULSE 72
[2022-04-10 04:17] LABS: Absolute Neutrophil Count 16.1 X10^3/uL (2.0-7.7); Basophil# 0.07 X10^3/uL; Basophil% 0.3 % (0-1); Eosinophil# 0.17 X10^3/uL; Eosinophils% 0.8 % (0-5); Hematocrit 27.7 % (37-47); Hemoglobin 8.6 g/dL (12.0-15.0); Lymphocyte % 16.1 % (19-41); Mean Corpuscular Volume 80.5 fL (81-99); Monocyte# 1.53 X10^3/uL; NRBC Flagged by Analyzer 0 % (0-5); Neutrophil # 16.09 X10^3/uL (2.7-7.7); Neutrophil % 73.8 % (47-70); POSITIVE DIFFERENTIAL YES; Platelet Count 243 K/mm3 (150-450); RBC Distribution Width CV 14.8 % (11.6-14.6); Red Blood Count 3.44 M/mm3 (4.2-5.4); White Blood Count 21.8 K/mm3 (4.4-11.0)
[2022-04-10 04:19] LABS: Differential Indicated SCAN CRITERIA MET
[2022-04-10 05:07] LABS: Microcytosis 1+
--- NOTE | 2022-04-10 07:24 | PN.OBGYN_ITS ---
Subjective Subjective day 1. Feeling well. Tired. Lochia minimal. Having some back soreness. Objective Data Objective Data Vital Signs: Vital Signs Temp Pulse Resp BP Pulse Ox 98 F 72 18 99/54 L 98 04/09/22 16:40 04/10/22 02:35 04/10/22 02:34 04/10/22 02:35 04/09/22 16:40 Oxygen Delivery Method Room Air Weight: 69.4 kg Body Mass Index (BMI) 29.9 Intake & Output: Intake and Output for Last 24 Hours 04/08/22 04/09/22 04/10/22 23:59 23:59 23:59 Intake Total 3000.00 / 3000.00 Output Total 1400 / 1400 400 / 400 Balance 1600.00 / 1600.00 -400 / -400 Lab / Micro Data Result Diagrams: 04/10/22 04:10 Labs: Laboratory Results - last 24 hr 04/10/22 04:10: WBC 21.8 H, RBC 3.44 L, Hgb 8.6 L, Hct 27.7 L, MCV 80.5 L, MCH 25.0 L, MCHC 31.0 L, RDW Std Deviation 43.0, RDW Coeff of Ivania 14.8 H, Plt Count 243, MPV 11.0, Immature Gran % (Auto) 2.000 H, Neut % (Auto) 73.8 H, Lymph % (Auto) 16.1 L, [place] % (Auto) 7.0, Eos % (Auto) 0.8, Baso % (Auto) 0.3, Absolute Neuts (auto) 16.1 H, Absolute Lymphs (auto) 3.50, Nucleated RBC % 0, Diff Path Review May foll, Microcytosis 1+ Micro: Microbiology 04/08/22 12:30 Nasal Secretion SARS-CoV-2 Antigen (Rapid) - Final Physical Exam Const alert, oriented x3 and no apparent distress HEENT normocephalic Head and Scalp: atraumatic Neck full ROM Resp normal respiratory effort Cardio regular rate GI normal to inspection, nondistended, normoactive bowel sounds GI Narrative: Uterus 2 cm below umbilicus Back/Spine normal ROM Extremity normal to inspection Extremity Narrative: Minimal pedal edema Neuro no focal motor deficits and no sensory deficits noted Psych mental status grossly normal and affect normal Assessment & Plan (1) (spontaneous vaginal delivery): PLAN: day 2 status post vacuum-assisted vaginal delivery. Patient feeling well. Formula feeding. Anemia, iron supplement at home going. Follow- up 2-week telehealth visit 6-week visit. Home today. (2) Acute postoperative anemia due to expected blood loss:
--- NOTE | 2022-04-10 07:26 | DCINST_ITS ---
Discharge Instructions Diet Discharge Diet: No restrictions Activity Discharge Activity: Return to Normal Activity and May Shower May resume sexual activity in: 4-6 weeks Weight Bearing Status: Weight bearing as tolerated Lifting Restrictions: No greater than 25 pounds Dressing / Incision Call your doctor if you observe: Fever of 101 or Higher, Change in Color, Inability to urinate, Using more than 1 pad per hour, Shortness of breath, Dizziness, Swelling in the ankles, Chest pain and Calf discomfort Follow Up Care Please Follow Up With: Keyon Cruz MD When: 2-week telehealth appointment and 6-week visit Test Results: Test results from this visit will be discussed in further detail at your follow- up appointment, if applicable. Discharge Plan Admission Admit Date/Time: 04/08/22 12:20 Primary Reason for Your Visit: Vaginal Delivery Attending Provider: Kathy Juares Primary Care Provider: Emerson Rodriguez Discharge Orders/Prescriptions Prescriptions: No Action sertraline [Zoloft] 50 mg Tablet 50 mg PO DAILY esomeprazole magnesium [Nexium] 20 mg Capsule,Delayed Release(Dr/Ec) 20 mg PO DAILY Referrals / Follow Up: Emerson Rodriguez MD [Primary Care Provider] - Disposition Disposition (needs filled in before D/C Order can be placed): Home, Self Care
[2022-04-10 08:00] VITALS: BP 104/62; PULSE 67; RESP 16; TEMP 36.6; O2SAT 98
[2022-04-10 08:09] VITALS: BP 104/62; PULSE 67
[2022-04-10] MEDS: Ibuprofen 600 MG Tablet PO (08:20)
[2022-04-11 09:55] LABS: Pathologist Review Reviewed
[2022-04-11 09:58] LABS: Pathologist Review Reviewed
[2022-04-11 10:39] LABS: Pathologist Review Reviewed
== END 2022-04-10 11:35 | disposition home or self-care (01) | DRG 560 ==
PROVIDERS: Obstetrics & Gynecology; Admitting Provider Obstetrics & Gynecology; PCP Family Medicine; Visit Provider Obstetrics & Gynecology
DX: O76 Abnormality in fetal heart rate and rhythm complicating labor and delivery (principal); Z37.0 Single live birth; F17.290 Nicotine dependence, other tobacco product, uncomplicated; O99.334 Smoking (tobacco) complicating childbirth; O69.2XX0 Labor and delivery complicated by other cord entanglement, with compression, not applicable or unspecified; O77.0 Labor and delivery complicated by meconium in amniotic fluid; O75.89 Other specified complications of labor and delivery; Z79.899 Other long term (current) drug therapy; Z3A.39 39 weeks gestation of pregnancy
CPT/HCPCS: 59025; 59050; 85025; 85027; 86850; 86900; 86901; 87426; 88307; 99218; J7120; G0378; J2405

== ENCOUNTER → 2022-05-28 | Outpatient (CLI) | payer MEDICAID, SELFPAY ==
[2022-05-28 18:08] LABS: Absolute Lymphocyte Count 2.29 X10^3/uL (0.83-4.51); Absolute Neutrophil Count 6.8 X10^3/uL (2.0-7.7); Basophil# 0.07 X10^3/uL; Basophil% 0.7 % (0-1); Eosinophil# 0.15 X10^3/uL; Eosinophils% 1.5 % (0-5); Hemoglobin 10.6 g/dL (12.0-15.0); Lymphocyte # 2.29 X10^3/ul (0.83-4.51); Lymphocyte % 22.5 % (19-41); Mean Corp Hgb Conc 32.1 g/dL (32-36); Mean Corpuscular Hgb 25.3 pg (27.0-32.0); Mean Corpuscular Volume 78.8 fL (81-99); Monocyte# 0.85 X10^3/uL; Monocyte% 8.3 % (0-10); NRBC Flagged by Analyzer 0 % (0-5); Neutrophil # 6.75 X10^3/uL (2.7-7.7); Neutrophil % 66.3 % (47-70); Platelet Count 408 K/mm3 (150-450); RBC Distribution Width CV 16.2 % (11.6-14.6); RBC Distribution Width SD 46.7 fl (35.1-43.9); Red Blood Count 4.19 M/mm3 (4.2-5.4); White Blood Count 10.2 K/mm3 (4.4-11.0)
[2022-05-28 18:24] LABS: Erythrocyte Sedimentation Rate 14 mm/hr (0-30)
[2022-05-28 19:14] LABS: AST(SGOT) 18 U/L (15-37); Alanine Aminotransfer ALT/SGPT 27 U/L (13-56); Albumin, Serum 3.5 g/dL (3.2-5.0); Alkaline Phosphatase 129 U/L (45-117); Anion Gap 5 (5-15); BUN 25 mg/dL (7-18); BUN/Creat Ratio 33.6 RATIO (10-20); CRP 3.54 mg/L (0.0-3.0); Calcium,Total 8.7 mg/dL (8.5-10.1); Chloride 110 mmol/L (98-107); Creatinine, Serum 0.74 mg/dL (0.55-1.02); EST Glomerular Filtration Rate 98 mL/min (>60); Est Glom Filt Rate - Afr Amer 118 mL/min (>60); Ferritin 26 ng/mL (8-252); Globulin 3.5 g/dL (2.2-4.2); Glucose 87 mg/dL (74-106); Iron 56 ug/dL (50-170); Rheumatoid Factor < 10.0 IU/mL (<15); Sodium Level 140 mmol/L (136-145); Thyroid Stim Hormone (TSH) 1.43 uIU/mL (0.358-3.74)
[2022-05-28 19:21] LABS: Vitamin B12 436 pg/mL (211-911); Vitamin D,25 Hydroxy 32.4 ng/mL
[2022-05-30 15:20] LABS: ANTINUCLEAR ANTIBODIES DIRECT Negative (Negative)
== END | disposition home or self-care (01) ==
LOC: MFPLAB 16:47
PROVIDERS: PCP Family Medicine; Referring Provider Family Medicine; Visit Provider Family Medicine
DX: R53.83 Other fatigue (principal); M25.50 Pain in unspecified joint
CPT/HCPCS: 36415; 80053; 82306; 82607; 82728; 83540; 84443; 85025; 85652; 86038; 86140; 86431

== ENCOUNTER 2023-05-20 10:32 | Emergency (ER) | payer MEDICAID, SELFPAY ==
[2023-05-20 10:33] VITALS: BP 117/67; PULSE 91; RESP 18; TEMP 36.8; O2SAT 98; BMI 37.3
--- NOTE | 2023-05-20 10:43 | EDS_ITS ---
HPI History of Present Illness Chief Complaint: Allergic Reaction Narrative Narrative: 28-year-old female, at approximately 25 weeks gestation presents with allergic reaction to bee stings. She states that she had let her dog out, and there was a bee in her house. Half an hour prior to arrival, she was stung in the right forearm. She states she did not use her epinephrine pen because she was concerned about raising the baby's heart rate. She denies any vaginal bleeding or cramping. She states she was last stung by a bee 2 years ago and once again did not use her epinephrine pen because she was only 5 minutes from the hospital. She states that it is hard for her to catch her breath, but denies any throat closing. She does not take any Benadryl at home because she does not have any. She presents with burning, itching, redness, and swelling of her right forearm area. [facility] Medical History ADHD Anxiety Asthma Ovarian cyst Severe headache Home Medications sertraline 50 mg tablet (Zoloft) 50 mg PO DAILY anxiety 01/06/22 [History Last Taken 04/07/22] hydroxyzine HCl 50 mg tablet mg 05/20/23 [History Last Taken Unknown] Allergy/AdvReac Type Severity Reaction Status Date / Time cefaclor [From [facility]] Allergy Mild Hives Verified 04/08/22 12:46 bee venom protein (honey bee) Allergy Swelling Verified 04/08/22 12:46 Family History Grandmother , 55yo Breast cancer Social History household members: children Smoking Status: Current every day smoker tobacco type: e-cigarettes quit status: quit date established alcohol intake: current alcohol intake frequency: other substance use type: does not use ROS ROS ED ROS Narrative Constitutional: No fever, no chills. HEENT: No sore throat. No neck pain. No loss of vision. No rhinorrhea. No throat closing. Cardiovascular: No chest pain. No palpitations. No pedal edema. Respiratory: No cough, positive shortness of breath. Abdominal: No abdominal pain. No nausea. No vomiting. Genitourinary: No dysuria. No hematuria. Musculoskeletal: No myalgias. No arthralgias. Neurologic: No headaches. No dizziness. No lightheadedness. Skin: No rash. Redness, swelling, and itching to right forearm. Psychiatric: No depression. No anxiety. EXAM Physical Exam Narrative Exam Narrative: Afebrile. Vital signs noted. HEENT: Normocephalic. Atraumatic. PERRL, EOMI. Neck soft and supple. No point tenderness or step off. No stridor. Airway patent. No drooling or trismus. Cardiovascular: Regular rate and rhythm. No murmurs, rubs, or gallops appreciated. Respiratory: No tachypnea. Lungs clear to auscultation bilaterally. No wheezing. Gastrointestinal: Abdomen soft, nontender, with normoactive bowel sounds. No rebound or guarding. Neurological: Awake. Alert. Nonfocal, nonlateralizing. Skin: No rash. Mild swelling, erythema, and evidence of bee sting on right forearm consistent with localized reaction. Musculoskeletal: No pedal edema. Full range of motion extremities. Const Vital Signs: 05/20/23 10:33 Temperature 98.2 F Temperature Source Temporal Pulse Rate 91 Respiratory Rate 18 Blood Pressure 117/67 Blood Pressure Mean 83 Pulse Ox 98 Oxygen Delivery Method Room Air MDM MDM MDM Narrative Medical decision making narrative: Patient was given an ice pack for comfort. She was administered Benadryl 25 mg orally. I do feel that this is more of a localized reaction. I do not feel that epinephrine is currently indicated. Her pulse ox is 98% on room air without evidence of hypoxia, and she is not hypotensive. She will be observed in the emergency department. I do not feel that she requires OB monitoring. Upon repeat examination, she is improved. Her heart tones are 130 bpm. I feel she can be discharged safely home with follow-up. She will continue [id number] Benadryl as needed and apply ice to the affected area, and elevate her right forearm when possible. Return instructions to the emergency department were reviewed. Disposition is discharged home in stable condition. Discharge Plan Triage Chief Complaint: Allergic Reaction ED Provider: Prosper Saldivar Dx/Rx/DC Orders Clinical Impression: , Allergic reaction to bee sting Instructions: ED Insect Sting, Local Reaction, ED Established ... Prescriptions: No Action sertraline [Zoloft] 50 mg Tablet 50 mg PO DAILY hydroxyzine HCl 50 mg tablet Patient Comments: take 1 to 2 tablets by mouth at bedtime and daily if needed Primary Care Provider: Emerson Rodriguez Referrals: Emerson Rodriguez MD [Primary Care Provider] - Activity Restrictions/Additional Instructions: Continue Benadryl [id number] 25 mg every 4-6 hours as needed. Apply ice to your bee sting on her right forearm for 10 to 15 minutes a few times a day. Elevate your right arm when possible. Return with increased difficulty breathing, new or worsening symptoms. Disposition Disposition: Home, Self Care
[2023-05-20] MEDS: DiphenhydrAMINE 25 MG Capsule PO (10:48)
== END 2023-05-20 12:22 | disposition home or self-care (01) ==
PROVIDERS: Emergency Provider Emergency Medicine; PCP Family Medicine; Visit Provider Emergency Medicine
DX: O9A.212 Injury, poisoning and certain other consequences of external causes complicating pregnancy, second trimester (principal); Z3A.25 25 weeks gestation of pregnancy; Z79.899 Other long term (current) drug therapy; O99.334 Smoking (tobacco) complicating childbirth; F17.290 Nicotine dependence, other tobacco product, uncomplicated; O99.342 Other mental disorders complicating pregnancy, second trimester; F41.9 Anxiety disorder, unspecified
CPT/HCPCS: 99283

== ENCOUNTER 2023-08-19 05:00 | Inpatient (IN) | payer MEDICAID, SELFPAY ==
[2023-08-19] VITALS (30 sets, daily range): BP systolic 80–125; BP diastolic 49–68; PULSE 81–108; RESP 15–17; TEMP 36.3–36.7; O2SAT 96–97; BMI 39.6
--- NOTE | 2023-08-19 | POC_PTH ---
PATIENT: DOUG DNOG LOC: WP U#:[id number] AGE/SX: 28/F ROOM: WP018 RE08/19/[address]: Dr. Petra Quigley MD : 1995 BED: 1 DIS: 08/20/2023 SPEC #: [id number] RECD: 08/19/23 11:54 STATUS: EDGARD REHoracio #: [id number] ASHA: 08/19/23 00:[address]: Petra Quigley DEPT: SURGICAL PATHOLOGY RECD BY: Tim Dietrich ENTERED: 08/19/23 13:46 SP TYPE: PROD CONC OTHR DR: MD Dr. Alexis Loya MD Tissues: Placenta, NOS Procedures: Surgery Specimen Level V HEADER OPERATION: Vaginal delivery PRE-OP DIAGNOSIS: Gestational diabetes TISSUE SUBMITTED: tissue / parental WB MICROSCOPIC DIAGNOSIS Placenta: Placental disc - third trimester placenta (544 gm). - Focal area of intraparenchymal hemorrhage (2.0 cm in greatest dimension). Membranes - mild acute chorioamnionitis. Umbilical cord - three blood vessels and minimal focal acute inflammation. SJ:amalia 08/21/2023 MICROSCOPIC DESCRIPTION Slides are reviewed. GROSS DESCRIPTION SPECIMEN: PLACENTA / CLINICAL INFORMATION: A. Weight: 3.26 kg B. Gestational Age: 38 weeks C. Sex: Male PLACENTAL WEIGHT (POST FIXATION): 544 gm PLACENTAL DIMENSIONS: 17.0 x 15.0 x 3.0 cm PLACENTAL SHAPE: Usual ovoid PLACENTAL WEIGHT FOR GESTATIONAL AGE: Over 99th percentile MEMBRANES - Present A. Insertion: Marginal B. Site of rupture from edge: At 4.0 cm from edge of placental disc C. Color of membrane: Garner-ayala D. Abnormalities: None UMBILICAL CORD - Present A. Color: Garner-ayala B. Insertion: Eccentric and received in two fragments C. Length: 53.0 cm D. Diameter: 1.2 cm E. Number of vessels: Three F. Abnormalities: None PLACENTAL DISC - Present A. Color of surface: Garner-ayala B. surface abnormalities: None C. Maternal cotyledons: Intact with minimal tears D. Attached retro placental clot: No clot E. Cut surface: Dark red and spongy F. Lesions: Serial sections reveal any area of recent hemorrhage measuring 2.0 x 1.5 cm. G. Separate clot: Absent SECTIONS SUBMITTED: 1. Umbilical cord, end 2. Umbilical cord, placental end 3. Membrane roll 4. Placental disc, and maternal surfaces, hemorrhagic area 5. Placental disc, and maternal surfaces 6. Placental disc, and maternal surfaces AM:amalia 08/20/2023 TC:2 CPT: 66571
[2023-08-19 05:23] LABS: Absolute Lymphocyte Count 1.13 X10^3/uL (0.83-4.51); Basophil# 0.09 X10^3/uL; Basophil% 0.4 % (0-1); Eosinophil# 0.01 X10^3/uL; Hematocrit 38.2 % (37-47); Hemoglobin 12.2 g/dL (12.0-15.0); Lymphocyte # 1.13 X10^3/ul (0.83-4.51); Lymphocyte % 4.4 % (19-41); Mean Corp Hgb Conc 31.9 g/dL (32-36); Mean Corpuscular Hgb 24.7 pg (27.0-32.0); Mean Corpuscular Volume 77.3 fL (81-99); Monocyte# 0.92 X10^3/uL; Monocyte% 3.6 % (0-10); NRBC Flagged by Analyzer 0 % (0-5); Neutrophil # 23.01 X10^3/uL (2.7-7.7); Neutrophil % 89.8 % (47-70); POSITIVE DIFFERENTIAL YES; Platelet Count 267 K/mm3 (150-450); RBC Distribution Width CV 16.2 % (11.6-14.6); RBC Distribution Width SD 45.3 fl (35.1-43.9); Red Blood Count 4.94 M/mm3 (4.2-5.4); White Blood Count 25.6 K/mm3 (4.4-11.0)
[2023-08-19 06:02] LABS: Differential Indicated SCAN CRITERIA MET
[2023-08-19] MEDS: LACTATED RINGERS 500 ML 999 ML IV (06:41)
[2023-08-19] MEDS: Lactated Ringers 1,000 ML 50 ML IV (06:42)
[2023-08-19] MEDS: fentaNYL-bupivacaine (epidural) 100 ML BAG EPIDURAL (06:42)
--- NOTE | 2023-08-19 07:07 | PCM.HP.OB ---
HPI - General General Date of Admission: 08/19/23 Date of Service: 08/19/23 HPI Narrative DOUG DONG, is a 28 F who presents ctxs. Maternal Data Information Final JORDEN: 08/29/23 Gestational age: 38&4 PFSH PFSH Medical History ADHD Anxiety Asthma Depression Diabetes in preg-unspec GERD (gastroesophageal reflux disease) Hives Ovarian cyst Pneumonia PTSD (post-traumatic stress disorder) Severe headache Home Medications aripiprazole 10 mg tablet mg PO 06/18/23 [History Last Taken Unknown] esomeprazole magnesium 20 mg capsule,delayed release mg PO 06/18/23 [History Last Taken Unknown] ferrous sulfate 325 mg (65 mg iron) tablet (FeroSul) mg PO 06/18/23 [History Last Taken Unknown] hydroxyzine HCl 50 mg tablet 50 mg PO BID PRN anxiety #60 tabs 06/18/23 [Rx Last Taken Unknown] insulin NPH isoph U-100 human 100 unit/mL (3 mL) subcutaneous pen (Humulin N NPH U-100 Insulin KwikPen) 5 unit subcut QPM 06/18/23 [History Last Taken Unknown] insulin lispro 100 unit/mL subcutaneous pen (Humalog KwikPen (U-100) Insulin) 5 unit subcut QHS 06/18/23 [History Last Taken Unknown] sertraline 100 mg tablet 200 mg (2 x 100 mg) PO DAILY 60 days #120 tabs 07/30/23 [Rx Last Taken Unknown] Allergy/AdvReac Type Severity Reaction Status Date / Time cefaclor [From [facility]] Allergy Mild Hives Verified 06/18/23 11:11 bee venom protein (honey bee) Allergy Swelling Verified 06/18/23 11:11 Family History Grandmother , 55yo Breast cancer Other Anemia Anxiety Arthritis Asthma Depression Diabetes Mental disorder Social History household members: children Smoking Status: Former smoker quit date: 06/03/21 quit status: quit date established alcohol intake: current alcohol intake frequency: other substance use type: does not use History 2 Elective abortions Hx Para 2 Spontaneous abortions Hx # Term Pregnancies 1 Ectopic pregnancies Hx # Pregnancies Multiple births # of living children 1 Past Pregnancies Del. Date Name GA/Weeks Outcome Route Bth Weight Infant Gen Labor Lgth Anesthesia Del Locatn Provider FOB 02/15/18 Lana 40 live - full term [id number] Female 13 epidural [place] [facility] NST FHR Rate Baby A Baseline: 135 Variability:: Moderate Accelerations:: 15 x 15 Decelerations:: None Uterine Activity:: Irregular Vital Signs Vital Signs Vital Signs: 08/19/23 05:16 08/19/23 05:16 08/19/23 05:16 Temperature Temperature Source Temporal Pulse Rate 100 Blood Pressure 116/65 BP Systolic 116 BP Diastolic 65 Pulse Ox 08/19/23 05:16 08/19/23 06:27 08/19/23 06:27 Temperature 98.0 F Temperature Source Pulse Rate 103 H Blood Pressure BP Systolic BP Diastolic Pulse Ox 97 08/19/23 06:32 08/19/23 06:32 08/19/23 06:32 Temperature Temperature Source Pulse Rate 108 H Blood Pressure 122/63 H BP Systolic 122 BP Diastolic 63 Pulse Ox 97 08/19/23 06:39 08/19/23 06:39 08/19/23 06:40 Temperature Temperature Source Pulse Rate 107 H Blood Pressure 109/58 L BP Systolic 109 BP Diastolic 58 Pulse Ox 97 08/19/23 06:40 08/19/23 06:43 08/19/23 06:43 Temperature Temperature Source Pulse Rate 105 H 103 H Blood Pressure 108/54 L BP Systolic 108 BP Diastolic 54 Pulse Ox 08/19/23 06:44 08/19/23 06:44 08/19/23 06:48 Temperature Temperature Source Pulse Rate 99 Blood Pressure 113/54 L BP Systolic 113 BP Diastolic 54 Pulse Ox 97 08/19/23 06:48 08/19/23 06:49 08/19/23 06:49 Temperature Temperature Source Pulse Rate 94 90 Blood Pressure BP Systolic BP Diastolic Pulse Ox 97 08/19/23 06:52 08/19/23 06:52 08/19/23 06:54 Temperature Temperature Source Pulse Rate 85 86 Blood Pressure 102/50 L BP Systolic 102 BP Diastolic 50 Pulse Ox 08/19/23 06:54 08/19/23 06:58 08/19/23 06:58 Temperature Temperature Source Pulse Rate 84 Blood Pressure 108/51 L BP Systolic 108 BP Diastolic 51 Pulse Ox 97 08/19/23 06:59 08/19/23 06:59 08/19/23 07:04 Temperature Temperature Source Pulse Rate 92 Blood Pressure 99/50 L BP Systolic 99 BP Diastolic 50 Pulse Ox 96 08/19/23 07:04 08/19/23 07:04 Temperature Temperature Source Pulse Rate 88 Blood Pressure BP Systolic BP Diastolic Pulse Ox 96 Weight Weight: 203 lb Body Mass Index (BMI) 39.6 Physical Exam Const alert and oriented x3 GI Inspection: gravid Narrative: cvx - /0 per RN Labs Labs Labs: Blood Type O NEGATIVE Antibody Screen NEGATIVE Hct 38.2 % (37-47) Hgb 12.2 g/dL (12.0-15.0) Syphilis Total Ab Non-reactive VZV IgG Antibody < 135 index (Immune >165) L Rubella IgG Antibody Reactive (Nonreactive) Hep Bs Antigen Non-Reactive (Nonreactive) Hepatitis C Antibody Non-Reactive (Nonreactive) Chlamydia DNA (KJ) Negative (Negative) N.gonorrhoeae DNA (KJ) Negative (Negative) HIV 1&2 Antibody Non-Reactive (Nonreactive) Glucose 1 Hr 50 gm 93 mg/dL (70-140) Group B Strep DNA Negative (Negative) Rhogam given: No Miscellaneous Test Assessment & Plan (1) Gestational diabetes mellitus: QUALIFIERS: Gestational diabetes mellitus control: insulin-controlled Trimester: third trimester Qualified Code(s): O24.414 - Gestational diabetes mellitus in , insulin controlled COMMENT: @ 38&4 (2) 38 weeks gestation of : PLAN: Plan Admit to L&D Pain - epidural GBS negative EFW - less than 4500g, patient with adequate pelvis GDM - diabetic protocol
[2023-08-19 07:16] LABS: Differential Comment SCANNED
[2023-08-19 07:42] LABS: Bedside Glucose 125 mg/dL (74-106)
[2023-08-19 08:41] LABS: Syphilis Antibodies Non-reactive
[2023-08-19] MEDS: Oxytocin 15 Units/NS 250ml 15 UNITS/250 ML IV.SOLN 83 UNITS IV (08:45)
[2023-08-19] MEDS: Oxytocin 10 UNITS/ML Vial IM (08:47)
--- NOTE | 2023-08-19 08:59 | OP.PCM_ITS ---
Assessment & Plan (1) Vacuum-assisted vaginal delivery: (2) 38 weeks gestation of : Maternal Data Information Final JORDEN: 08/29/23 Gestational age: 38 4/7 Vaginal Delivery Maternal Presentation Maternal Presentation: Active Labor Operative Information Date of Procedure: 08/19/23 Pre-Operative Diagnosis: vacuum assisted vaginal delivery Surgery / Procedure Performed: Vacuum Assisted Vaginal Delivery instrument lens grinder #1: Joanne jose MS3 Type of Anesthesia: Epidural Special Medications: none Drain: - (none) Estimated Blood Loss: 300 Time of Delivery: 08:40 Findings Description of Procedure: I arrived in the room and the patient was complete and pushing. She had deep variables during pushing. She was giving moderate pushing effort. After several pushes I discussed with the patient need to expedite delivery because of deep variables. Patient and her partner consented. We assembled the team and the vacuum was placed on the flexion point and the vacuum created 550 mmHg. I pulled with 1 pull to . The vacuum was removed. The patient then delivered the head. A loose nuchal cord x1 was easily reduced. The remainder the was delivered with maternal pushing and gentle traction only in less than 15 seconds. The Pitocin infusion was initiated for active management of the third stage. The cord was clamped and cut in less than 1 minute because the baby was making some grunting and had a good heart rate but was not immediately vigorous. The infant was attended to by the waiting nursing staff and pediatric staff. The placenta was delivered spontaneously and intact. The cervix and vagina were intact. Sponge and needle counts were correct. A vaginal sweep was completed by me. I collected cord blood and cord gases. Presentation: ML Amniotic Membrane Rupture Type: Artificial Amniotic Fluid Description: Clear Placental Delivery Description: Spontaneous Placenta Disposition: Sent to Pathology Cord Vessel Description: 3 Vessels Cord Entanglement: Around neck x 1, loose Nuchal Cord Compression: Without compression Cord Gases: ABG and VBG A Gender: Male (Lars) Post Vaginal Delivery Medications Given After Delivery: IV Pitocin and IM Pitocin Episiotomy Description: None Laceration: None Complication Complications: None
[2023-08-19] MEDS: Acetaminophen 500 MG Tablet PO ×2 (10:29→20:18)
[2023-08-19 11:51] LABS: Bedside Glucose 100 mg/dL (74-106)
[2023-08-19 11:52] LABS: Pathology Specimen OB SEE PATHOLOGY REPORT
[2023-08-19] MEDS: Ibuprofen 600 MG Tablet PO (14:45)
[2023-08-19] MEDS: Sertraline 100 MG Tablet 200 MG PO (15:30)
[2023-08-19] MEDS: ARIPiprazole 10 MG Tablet PO (15:34)
[2023-08-19] MEDS: hydrOXYzine 10 MG Tablet 50 MG PO (20:13)
[2023-08-20 03:34] VITALS: BP 108/60; PULSE 90
[2023-08-20 03:46] VITALS: BP 108/68; PULSE 80; RESP 16; TEMP 36.1; O2SAT 98
[2023-08-20] MEDS: Ibuprofen 600 MG Tablet PO (06:33)
[2023-08-20 08:00] VITALS: BP 101/59; PULSE 83; RESP 16; TEMP 36
[2023-08-20 08:01] VITALS: BP 101/59; PULSE 83
--- NOTE | 2023-08-20 08:21 | NURSING ---
pt requesting blood sugar check before breakfast. Accu check 74. Snack offered.
[2023-08-20 08:22] LABS: Bedside Glucose 74 mg/dL (74-106)
[2023-08-20] MEDS: ARIPiprazole 10 MG Tablet PO (09:50)
[2023-08-20] MEDS: Sertraline 100 MG Tablet 200 MG PO (09:50)
--- NOTE | 2023-08-20 12:56 | PCM.DC.SUM ---
Providers Date of Admission: 08/19/23 Date of Discharge: 08/20/23 Primary Care Physician: Dr. Emerson Rodriguez MD Reason For Visit: VAG Diagnosis Discharge Diagnosis (1) Vacuum-assisted vaginal delivery: Status: Acute Code(s): Z37.9 - Outcome of delivery, unspecified (2) 38 weeks gestation of : Status: Acute Code(s): Z3A.38 - 38 weeks gestation of Medications at Discharge Home Medications aripiprazole 10 mg tablet mg PO 06/18/23 esomeprazole magnesium 20 mg capsule,delayed release mg PO 06/18/23 ferrous sulfate 325 mg (65 mg iron) tablet (FeroSul) mg PO 06/18/23 hydroxyzine HCl 50 mg tablet 50 mg PO BID PRN anxiety #60 tabs 06/18/23 sertraline 100 mg tablet 200 mg (2 x 100 mg) PO DAILY 60 days #120 tabs 07/30/23 ibuprofen 600 mg tablet 600 mg PO Q6H PRN Pain 20 days #30 TABLETS 08/20/23 Hospital Course Operations None Procedures None Summary of Care Provided Minutes Spent on Discharge: 21 Hospital Course: 28-year-old Alexandre female with insulin controlled gestational diabetes was admitted in active labor. She had an outlet vacuum-assisted vaginal delivery for variable decelerations with pushing. There was 1 pull with no pop offs. On day #1 the patient and were doing well and ready for discharge home with routine instructions and follow-up. Subjective today: Pain well controlled. Average lochia. No other complaints Physical Exam Const alert and no apparent distress Narrative: Fundus firm, below umbilicus. Weight / BMI Weight Weight: 92.079 kg Body Mass Index (BMI) 39.6 ABG / Lab / Microbiology Data 08/19/23 05:00 Laboratory: Laboratory Results - last 24 hr 08/20/23 07:52: POC Glucose 74 D/C Instructions May resume sexual activity in: 6 weeks Please Follow Up With: Petra Quigley MD When: Follow up with our office in 1-2 and 6 weeks or as needed. Send a [employer] message or call [phone] Meaningful Use Info Meaningful Use Diagnoses (Choose all that apply): None applicable Discharge Plan Admission Admit Date/Time: 08/19/23 05:00 Primary Reason for Your Visit: Vaginal delivery Attending Provider: Petra Quigley Primary Care Provider: Emerson Rodriguez Discharge Orders/Prescriptions Prescriptions: New ibuprofen [ibuprofen] 600 mg tablet 600 mg PO Q6H PRN (Reason: Pain) 20 Days Qty: 30 1RF Continued aripiprazole 10 mg tablet PO Patient Comments: take 1 tablet by mouth at bedtime ferrous sulfate [FeroSul] 325 mg (65 mg iron) tablet PO Patient Comments: take 1 tablet by mouth twice a day esomeprazole magnesium 20 mg capsule,delayed release(DR/EC) PO Patient Comments: take 1 capsule by mouth once daily hydroxyzine HCl 50 mg tablet 50 mg PO BID PRN (Reason: anxiety) Qty: 60 0RF sertraline 100 mg tablet 200 mg PO DAILY 60 Days Qty: 120 2RF Discontinued insulin lispro [Humalog KwikPen Insulin] 100 unit/mL insulin pen 5 unit subcut QHS Humulin N NPH Insulin KwikPen 100 unit/mL (3 mL) insulin pen 5 unit subcut QPM Referrals / Follow Up: Emerson Rodriguez MD [Primary Care Provider] - Disposition Disposition (needs filled in before D/C Order can be placed): Home, Self Care
[2023-08-20 13:30] VITALS: BP 106/55; PULSE 98
[2023-08-20 13:40] VITALS: BP 106/55; PULSE 98; RESP 18; TEMP 35.9
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
[2023-08-24 12:50] LABS: Bedside Glucose 114 mg/dL (74-106)
== END 2023-08-20 16:55 | disposition home or self-care (01) | DRG 560 ==
LOC: WPOUT 05:13 → WP 05:13
PROVIDERS: Admitting Provider Obstetrics & Gynecology; PCP Family Medicine; Referring Provider Obstetrics & Gynecology; Visit Provider Obstetrics & Gynecology
DX: O76 Abnormality in fetal heart rate and rhythm complicating labor and delivery (principal); Z37.0 Single live birth; O24.414 Gestational diabetes mellitus in pregnancy, insulin controlled; O69.81X0 Labor and delivery complicated by cord around neck, without compression, not applicable or unspecified; Z87.891 Personal history of nicotine dependence; Z3A.38 38 weeks gestation of pregnancy; O26.23 Pregnancy care for patient with recurrent pregnancy loss, third trimester
CPT/HCPCS: 59025; 59050; 82962; 85025; 86780; 86850; 86900; 86901; 88305; 88307; 99221; J7120; G0378

== ENCOUNTER 2023-10-23 08:54 | Day surgery (SDC) | payer MEDICAID, SELFPAY ==
[2023-10-08 12:55] LABS: Hematocrit 39.5 % (37-47); Hemoglobin 12.4 g/dL (12.0-15.0); Mean Corp Hgb Conc 31.4 g/dL (32-36); Mean Corpuscular Hgb 24.7 pg (27.0-32.0); Mean Corpuscular Volume 78.5 fL (81-99); Mean Platelet Vol. 9.9 fl (6.2-12.0); Platelet Count 374 K/mm3 (150-450); RBC Distribution Width CV 15.3 % (11.6-14.6); RBC Distribution Width SD 43.3 fl (35.1-43.9); Red Blood Count 5.03 M/mm3 (4.2-5.4)
[2023-10-08 13:04] LABS: Prothrombin Time (Protime)PT. 13.3 SECONDS (11.7-14.9)
[2023-10-08 13:05] LABS: Partial Thromboplast Time 26.9 Seconds (24.1-36.2)
[2023-10-08 13:21] LABS: AST(SGOT) 14 U/L (15-37); Alanine Aminotransfer ALT/SGPT 22 U/L (13-56); Albumin, Serum 3.6 g/dL (3.2-5.0); Alkaline Phosphatase 141 U/L (45-117); Bilirubin, Direct 0.06 mg/dL (0.00-0.30); Globulin 3.8 g/dL (2.2-4.2); Protein, Total 7.4 g/dL (6.4-8.2)
--- NOTE | 2023-10-14 15:57 | HP.PCM.OB_ITS ---
History and Physical Date of Admission: 10/23/23 Pre-Op History and Physical ? HPI: The patient is a 28 year old female presenting for sterilization consultation. Pt would like to proceed with salpingectomy- understands this is permanent. Title 19 signed on 08/26/23 ? pre-operative visit. She is scheduled for laparoscopic salpingectomy, for desires sterilization on 10/23/23. Procedure discussed along with risks, benefits and complications. Other alternatives discussed for management. Consent form signed? Yes. ? ? PAST MEDICAL HISTORY PAST MEDICAL HISTORY Diagnosis Date ? Asthma ? ? PRN inhaler. worse as child. ? Bipolar 1 disorder, depressed (HCC) ? ? Hyperemesis gravidarum ? ? depression ? ? PTSD (post-traumatic stress disorder) ? ? ? PAST SURGICAL HISTORY No past surgical history on file. ? ? CURRENT MEDICATIONS Current Outpatient Medications Medication Sig Dispense Refill ? esomeprazole (NEXIUM) 20 mg capsule Take 1 capsule by mouth once daily. 90 capsule 1 ? metoclopramide HCl (REGLAN) 10 mg tablet Take 1 tablet by mouth three times a day as needed (headache or nausea). 45 tablet 1 ? FLOVENT HFA 110 mcg/actuation inhaler Inhale 1 Puff as instructed twice daily. Shake well before use. Rinse mouth after use. 1 Each 2 ? albuterol HFA (PROVENTIL HFA, VENTOLIN HFA) 90 mcg/actuation inhaler Inha le 2 Puffs as instructed every 6 hours as needed for wheezing/shortness of breath. 1 Each 2 ? ARIPiprazole (ABILIFY) 10 mg tablet Take 1 tablet by mouth daily at bedtime. 90 tablet 3 ? sertraline (ZOLOFT) 100 mg tablet Take 1 tablet by mouth once daily. 90 tablet 3 ? No current facility-administered medications for this visit. ? ? ALLERGIES: Bee Pollen, Venom-Honey Bee, Beeswax, and Cefaclor ? PERSONAL HISTORY: SOCIAL HISTORY Social History ? Tobacco Use ? Smoking status: Former ? ? Types: Cigarettes ? Smokeless tobacco: Never Vaping Use ? Vaping Use: current everyday user ? Substances: Nicotine, Flavoring ? Devices: Disposable Substance Use Topics ? Alcohol use: Not Currently ? Drug use: Never ? FAMILY HISTORY: FAMILY HISTORY FAMILY HISTORY Problem Relation Age of Onset ? Breast Cancer Maternal Grandmother ? ? ? REVIEW OF SYMPTOMS: negative except as noted above PHYSICAL EXAMINATION: ? VITALS: Blood pressure 110/74, pulse 88, resp. rate 16, height 5' (1.524 m), weight 204 lb (92.5 kg), last menstrual period 09/22/2023, not currently . ? GENERAL: The patient is well nourished, well hydrated in no acute distress. , The patient is oriented to time, place, and person. NECK: full range of motion ? ? IMPRESSION: 28yo desires permanent sterilization ? PLAN: Laparoscopic bilateral salpingectomy ? Pt has been counseled on risks/benefits and alternatives of surgery including but not limited to anesthesia, bleeding, infection, injury to pelvic structures including bowel, bladder, ureters and vessels. Pt wishes to proceed with surgery at this time. Risk of regret reviewed. Pt did not have any further albuterol inhaler- discussed I would order until she can have follow up with PCP- she is to bring to hospital day of surgery. ? Reviewed do not VAPE day of surgery ? Pre and post op instructions reviewed. Discussed Post op pain treatment with tylenol and ibuprofen OTC. ? I have reviewed and updated past medical and surgical history, medications and allergies Francine Castaneda MD ?5:04 PM
[2023-10-23] VITALS (7 sets, daily range): BP systolic 95–103; BP diastolic 47–58; PULSE 72–84; RESP 16; TEMP 36.4–36.6; O2SAT 96–100; BMI 40.0
[2023-10-23 09:44] LABS: Internal QC Validated? YES +Cl - CLEAR BKGD; Pregnancy, Urine Negative Negative
[2023-10-23] MEDS: Lactated Ringers 1,000 ML 15 ML IV (09:44)
--- NOTE | 2023-10-23 11:05 | FALS_PTH ---
PATHOLOGY RESULTS PATIENT: DOUG DONG [place] [facility] [place][id number] AGE/SX: 28/F ROOM: RE10/23/[address]: Dr. Francine Castaneda MD : 1995 BED: DIS: 10/23/2023 SPEC #: [id number] RECD: 10/27/23 07:52 STATUS: EDGARD ROMAN #: [id number] ASHA: 10/23/23 11:[address]: Francine Castaneda DEPT: SURGICAL PATHOLOGY RECD BY: Linsey White ENTERED: 10/27/23 07:53 SP TYPE: FALL TUBES OTHR DR: Dr. Kameron Rodriguez MD Tissues: Fallopian tube Procedures: Surgery Specimen Level II HEADER OPERATION: Laparoscopic salpingectomy PRE-OP DIAGNOSIS: Sterilization TISSUE SUBMITTED: Bilateral fallopian tubes MICROSCOPIC DIAGNOSIS Right and left fallopian tubes, bilateral salpingectomies: Complete cross-sections of two fallopian tubes with no pathologic change. AM:amalia 10/28/2023 MICROSCOPIC DESCRIPTION Slides are reviewed. GROSS DESCRIPTION Received in fixative is one container labeled with the patient's name and designated bilateral fallopian tubes. The specimen consists of bilateral fallopian tubes including fimbrial ends measuring 5.0 cm in length and 0.7 cm in diameter and 6.0 cm in length and 0.7 cm in diameter. The fallopian tubes are not identified as right or left. Sections reveal unremarkable cut surfaces. Contact And Service Clerks Supervisor sections are submitted in two cassettes with each cassette containing one fallopian tube. / SJ:amalia 10/27/2023 TC:4 CPT: 02274 x2
[2023-10-23] MEDS: Bupivacaine 0.5% PF 10 ML VIAL (11:21)
--- NOTE | 2023-10-23 11:24 | DCINST_ITS ---
Discharge Instructions Diet Discharge Diet: No restrictions Activity May resume sexual activity in: 2 weeks Lifting Restrictions: 20-25 lbs Dressing / Incision Call your doctor if your incision/area has: Continuous Slow Oozing, Sudden Increased Bleeding, Increased Pain/ Swelling, Increased Redness, Foul Smelling Discharge and Swelling at the incision site Call your doctor if you observe: Fever of 101 or Higher, Inability to urinate, Inability to have a bowel movement, Using more than 1 pad per hour and Uncontrolled pain Additional Dressing/Incision Instructions:: You have skin glue over your incision sites, do not pick off. You may shower and let the soap and water run over the incision sites and dab dry. Follow Up Care Please Follow Up With: Francine Walters MD When: 1-2 weeks post OP if you need an appointment please call [phone] Test Results: Test results from this visit will be discussed in further detail at your follow- up appointment, if applicable. Discharge Plan Admission Attending Provider: Francine Walters Primary Care Provider: Emerson Rodriguez Discharge Orders/Prescriptions Prescriptions: No Action esomeprazole magnesium 20 mg capsule,delayed release(DR/EC) 20 mg PO QHS Patient Comments: take 1 capsule by mouth once daily hydroxyzine HCl 50 mg tablet 50 mg PO BID PRN (Reason: anxiety) Qty: 60 2RF aripiprazole 15 mg tablet 15 mg PO QHS 30 Days Qty: 30 2RF albuterol sulfate 90 mcg/actuation HFA aerosol inhaler 1 inh INHALATION PRN PRN (Reason: shortness of breath or wheezing) Patient Comments: inhale 2 puffs by mouth and INTO THE LUNGS every 6 hours if neede... (REFER TO PRESCRIPTION NOTES). fluticasone propionate [Flovent HFA] 110 mcg/actuation HFA aerosol inhaler 1 inh INHALATION BID Patient Comments: inhale 1 puff by mouth and INTO THE LUNGS twice a day shake well ... (REFER TO PRESCRIPTION NOTES). sertraline 100 mg tablet 200 mg PO QHS Referrals / Follow Up: Emerson Rodriguez MD [Primary Care Provider] - Disposition Disposition (needs filled in before D/C Order can be placed): Home, Self Care
--- NOTE | 2023-10-23 11:24 | PCM.OPRPT ---
Report of Operation Date of Procedure: 10/23/23 Pre-Operative Diagnosis: Sterilization request Post-Operative Diagnosis: Same Surgery/Procedure Performed:: Laparoscopic Bilateral salpingectomy Description of Surgical Findings:: Normal Tubes and ovaries bilaterally. Uterus normal. Surgeon: Francine Walters rotary drill operator helper: None rotary drill operator helper: Brian Jaimes Type of Anesthesia: General and Local Special Medications: 0.5% marcaine Specimen's removed: bilateral fallopian tubes Estimated Blood Loss (mL): 10cc Fluids Replaced: 500cc Description of Procedure: After informed consent was obtained patient was taken to the operating room she was placed in supine position she was given anesthesia. She was then placed in the [facility] stirru and she was prepped and draped in normal sterile fashion. Bladder was drained prior to the start of procedure. At this time attention was turned to the vaginal portion where weighted speculum placed at posterior fornix vagina single-tooth tenaculum was used to gently grasp the internal the cervix. uterus was gently sounded to approximately 8cm. Uterine manipulator was placed without difficulty. Legs then placed in parallel with the abdomen the tenaculum and the weighted speculum were removed. 2 towel clamps were placed at level of umbilicus. Marcaine was injected infraumbilical and a small incision was made. The 5 mm trocar was placed under direct visualization. CO2 gas was used to insufflate the intra-abdominal cavity. Upon inspection no gross abnormalities appreciated- the uterus tubes and ovaries appeared to be normal. At this time then the LLQ and RLQ ports were placed First Marcaine was injected and small incision was made a knife and the 5 mm trocars were placed. At this time then tubes were traced back to the fimbriated ends. Enseal was used to coagulate and ligate along mesosalpinx bilaterally until tubes removed completely. Good hemostasis was appreciated. At this time procedure was deemed complete successful. The gas was desufflated on from the intra-abdominal cavity. The trochars were removed. Skin was closed using 4-0 Monocryl in a subcutaneous fashion. Dermabond glue was placed. Instrument lap and needle counts were correct ?2. The uterine manipulator was removed. Vaginal sweep was performed it was negative. There were no complications anticipated normal postoperative course for this patient. Grafts/Implants Used: none Procedure Start Time: 11:09 Procedure Stop Time: 11:21
== END 2023-10-23 12:43 | disposition home or self-care (01) ==
LOC: SDC 08:55 → AC 08:56
PROVIDERS: Anesthesiology; PCP Family Medicine; Referring Provider Obstetrics & Gynecology; Visit Provider Obstetrics & Gynecology
PROC: (CPT 58661; principal; 2023-10-23 10:50)
DX: Z30.2 Encounter for sterilization (principal); F31.9 Bipolar disorder, unspecified; Z87.891 Personal history of nicotine dependence; J45.909 Unspecified asthma, uncomplicated; F41.9 Anxiety disorder, unspecified; K21.9 Gastro-esophageal reflux disease without esophagitis; F12.90 Cannabis use, unspecified, uncomplicated
CPT/HCPCS: 58661; 00840; 36415; 80076; 81025; 85027; 85610; 85730; 88302; J7120; C1760; J2405

== ENCOUNTER → 2024-02-29 | Outpatient (CLI) | payer MEDICAID, SELFPAY ==
--- NOTE | 2024-02-29 11:37 | RAD_ITS ---
STUDY: X-RAY - RIGHT KNEE REASON FOR EXAM: Female, 28 years old. Injury. TECHNIQUE: 3 views of the right knee. COMPARISON: None. FINDINGS: Normal visualized distal femur. Normal visualized proximal tibia and fibula. Normal proximal tibiofibular articulation. There is no demonstrated fracture. Normal medial femorotibial compartment. Normal lateral femorotibial compartment. Normal patellofemoral articulation. There is a small joint effusion. The soft tissue structures are unremarkable. RAD/Knee 3 Views IMPRESSION: Small joint effusion. No demonstrated fracture. Electronically Signed: Juan Ramon Lomeli MD at 12:35 EDT ,
== END | disposition home or self-care (01) ==
LOC: MTRAD 11:33
PROVIDERS: PCP Family Medicine; Referring Provider Family Medicine; Visit Provider Family Medicine
DX: T14.90XA Injury, unspecified, initial encounter (principal); W19.XXXA Unspecified fall, initial encounter
CPT/HCPCS: 73562

== ENCOUNTER 2024-04-28 00:46 | Emergency (ER) | payer MEDICAID, SELFPAY ==
[2024-04-28 00:47] VITALS: BP 122/60; PULSE 91; RESP 18; TEMP 37; O2SAT 98; BMI 37.6
--- NOTE | 2024-04-28 00:55 | EDS_ITS ---
HPI History of Present Illness Chief Complaint: Eye Problem Informant: patient Narrative Narrative: Patient started having pain, redness, irritation in her right eye around 6 hours ago. She is not sure if it really started suddenly severely or not but she did notice at 1 point around that time that her eye was bothering her and she felt like maybe there was something in it. She was contacts. The contacts were in at that time. They are still in right now. She states she has had no vision changes. No discharge. No recent URI symptoms. Her contacts are soft lenses, disposable, monthly's. The current pair of been in around 2 weeks, she does not overuse them. [facility] Medical History Wears contact lenses Marijuana use Low iron Easy bruising Back pain Migraine headache Constipation Former smoker Shortness of breath on exertion Vacuum-assisted vaginal delivery Gestational diabetes mellitus PTSD (post-traumatic stress disorder) Depression GERD (gastroesophageal reflux disease) Diabetes in preg-unspec ADHD Ovarian cyst Anxiety Asthma Severe headache Home Medications ?Medication ?Instructions ?Recorded ?Last Taken ?Type esomeprazole magnesium 20 mg 20 mg PO QHS 06/18/23 10/22/23 History capsule,delayed release albuterol sulfate 90 mcg/actuation 1 inh inhalation PRN PRN shortness 10/08/23 Unknown History aerosol inhaler of breath or wheezing fluticasone propionate 110 1 inh inhalation BID 10/08/23 10/22/23 History mcg/actuation HFA aerosol inhaler (Flovent HFA) ciprofloxacin HCl 0.3 % eye drops See Rx Instructions RIGHT EYE 04/28/24 Unknown Rx .COMPLEX #2.5 mL Allergy/AdvReac Type Severity Reaction Status Date / Time cefaclor (From [facility]) Allergy Mild Hives Verified 04/28/24 00:50 bee venom protein (honey bee) Allergy Swelling Verified 04/28/24 00:50 Family History Grandmother , 55yo Breast cancer Other Anemia Anxiety Arthritis Asthma Depression Diabetes Mental disorder Social History household members: children Smoking Status: Former smoker quit date: 06/03/21 quit status: quit date established alcohol intake: current alcohol intake frequency: other substance use type: does not use ROS ROS ED Constitutional Constitutional ED: Denies chills or fever(s) Eyes Eyes: Reports as per HPI and eye pain; Denies blurry vision or change in vision ENT ENT ED: Denies ear pain, rhinorrhea or sore throat Neurologic Neurologic: Denies headache(s), paresthesias or weakness EXAM Physical Exam Const Vital Signs: 04/28/24 00:47 Temperature 98.6 F Temperature Source Oral Pulse Rate 91 Respiratory Rate 18 Blood Pressure 122/60 H Blood Pressure Mean 80 Pulse Ox 98 Oxygen Delivery Method Room Air Positive well nourished and well developed General Appearance ED: well developed and NAD HEENT atraumatic; Negative for tenderness Mouth ED: Yes oral and palatal mucosa normal and Yes lips normal Mouth: oral and palatal mucosa normal and lips normal Eyes PERRL and EOMs intact bilaterally Eyes Narrative: On gross inspection there is significant bulbar and palpebral conjunctival injection/inflammation without chemosis. The cornea is unremarkable with soft contact lens in place on gross inspection, it was left in place for visual acuities. On gross inspection on the left eye, there is foreign material present just to the medial aspect of the cornea but the patient is asymptomatic and there is no conjunctival injection. Neck no lymphadenopathy and supple Neuro oriented x3, CN's II-XII intact bilaterally and gait normal Sensorium / Orientation: alert Skin Lesions: no lesions Rashes: no rashes MDM MDM MDM Narrative Medical decision making narrative: Visual acuity was obtained with the patient's contacts in, 20/50 right, 20/30 left, 20/25 bilateral. The patient's contacts were then removed by herself. Subsequently the small amount of foreign material in the left eye was gone, and it was on her contact and look like a small smudge of make-up on the outside of the contact. With regards to the right eye, slit-lamp exam was performed by myself. She did have improved pain after tetracaine drops. The anterior chamber is deep and quiet with no cell or flare visible. She does have what appear to be a couple of whitish corneal ulcers, there is a total of 4, and they all uptake fluorescein dye. Negative Silvino sign, no dendritic patterns, no removable foreign bodies. The largest 1 is about 2 or 3 mm and is at the 6:00 peripheral aspect of the cornea, there is another smaller one close to it and to others that are at the 3:00-330 peripheral aspect, one of them is pinpoint and the other a little larger. Therefore I am recommending that she keep her contacts out until she follows up with ophthalmology, and prescribe her Cipro eyedrops. Discharge Plan Triage Chief Complaint: Eye Problem ED Provider: Kong Siu Dx/Rx/DC Orders Clinical Impression: Corneal ulcer, right Instructions: ED Corneal Ulcer Prescriptions: New ciprofloxacin HCl 0.3 % drops See Rx Instructions .ROUTE .COMPLEX Qty: 2.5 0RF Rx Instructions: put 1-2 drps in affected eye(s) every 2hr up to 8 times/day x2days; then 4 times/day x5days No Action esomeprazole magnesium 20 mg capsule,delayed release(DR/EC) 20 mg PO QHS Patient Comments: take 1 capsule by mouth once daily albuterol sulfate 90 mcg/actuation HFA aerosol inhaler 1 inh INHALATION PRN PRN (Reason: shortness of breath or wheezing) Patient Comments: inhale 2 puffs by mouth and INTO THE LUNGS every 6 hours if neede... (REFER TO PRESCRIPTION NOTES). fluticasone propionate [Flovent HFA] 110 mcg/actuation HFA aerosol inhaler 1 inh INHALATION BID Patient Comments: inhale 1 puff by mouth and INTO THE LUNGS twice a day shake well ... (REFER TO PRESCRIPTION NOTES). Stand Alone Forms: ED Work / School Excuse Primary Care Provider: Kameron Rodriguez Referrals: Kameron Rodriguez MD [Primary Care Provider] - Yariel Lujan MD [Med Staff - Active Staff] - As soon as possible Print Language: Nepali Disposition Disposition: Home, Self Care
[2024-04-28] MEDS: Fluorescein 1 MG STRIP 1 STRIP RIGHT EYE (01:08)
[2024-04-28] MEDS: Tetracaine 0.5% Ophthalmic Bottle 1 DRP RIGHT EYE (01:08)
[2024-04-28 01:39] VITALS: BP 116/60; PULSE 90; RESP 18; TEMP 37.1; O2SAT 99
== END 2024-04-28 01:50 | disposition home or self-care (01) ==
LOC: ED 01:37
PROVIDERS: Emergency Provider Emergency Medicine; PCP Family Medicine; Visit Provider Emergency Medicine
DX: H16.001 Unspecified corneal ulcer, right eye (principal); Z87.891 Personal history of nicotine dependence; K21.9 Gastro-esophageal reflux disease without esophagitis; Z79.899 Other long term (current) drug therapy; J45.909 Unspecified asthma, uncomplicated; Z79.51 Long term (current) use of inhaled steroids
CPT/HCPCS: 99283

== ENCOUNTER → 2025-04-14 | Outpatient (CLI) | payer OTHER, SELFPAY ==
--- NOTE | 2025-04-14 07:20 | MRI_ITS ---
PROCEDURE: LOWER EXT JOINT ONLY (ROUTINE) 04/14/2025 REASON FOR EXAM: RECURRENT R PATELLAR SUBLUXATION, EFFUSION. TECHNIQUE: LOWER EXT JOINT ONLY (ROUTINE) Multiplanar and multisequence images were obtained without IV contrast administration. COMPARISON: COMPARISON : none FINDINGS: Mild lateral patellar subluxation. High signal of the patellar articular cartilage with no underlying marrow edema. The posterior horn of the medial meniscus shows high signal not reaching the meniscal articular surfaces Intact lateral meniscus. Intact anterior cruciate ligament. Intact posterior cruciate ligament. Intact collateral and retinacular ligaments. Intact patellar and quadriceps tendons. Mild knee joint effusion with no synovial hypertrophy. No marrow infiltrative lesions. Normal MR appearance of the jose-articular musculature with preserved inter- muscular fat planes. Diffuse subcutaneous soft tissue edema of the knee, most evident along its anterior and posteromedial aspects. MRI/Lower Ext Joint Only (Routine) IMPRESSION: Mild lateral patellar subluxation. Grade I patellar chondromalacia. Grade I signal of the posterior horn of the medial meniscus. Mild knee joint effusion. Diffuse subcutaneous soft tissue edema of the knee, most evident along its ante rior and posteromedial aspects. Reading Location[facility]
--- OUTSIDE RECORDS SUMMARY | 2025-04-14 07:22 | XMS RPT_ITS | CCD ---
Author Organization [facility] Informat ion Partnership DIRECTOR GLOBAL DEVELOPMENT [facility] Care Team Providers Care Chiropractic Practice Manager Name Role Phone PHYSICIAN, NONE Primary Care Physician Unavailab Fabian Husain MD Primary Care Provider FABIAN RODRIGUEZ Primary Care UnavailFabian Arnold MD Primary Care Provider Fabian Rodriguez MD Primary Care Provider Fabian Rodriguez MD Primary Care Provider FABIAN RODRIGUEZ Primary Care Unavailabl e FRANCINE PATRICIO Attending Unavail able FABIAN RODRIGUEZ Primary Care Unavailabl FABIAN Alva Primary Care Unavailabl e FABIAN RODRIGUEZ Primary Care UnavailGIORGI Irizarry Referring Unavailable FABIAN RODRIGUEZ Primary Care UnavailGIORGI Irizarry Referring Unavailable FABIAN RODRIGUEZ Primary Care UnavailGIORGI Irizarry Referring Unavailable FABIAN RODRIGUEZ Primary Care Unavailabl e FABIAN RODRIGUEZ Primary Care Unavailabl ARLIN Tillman Attending Unavailable FABIAN RODRIGUEZ Primary Care Unavailabl e CARLITOS RODRIGUEZ Referring Unavailable FABIAN RODRIGUEZ Primary Care Unavailabl JULES Disla Attending Unavailable FABIAN RODRIGUEZ Primary Care Unavailabl e CARLITOS RODRIGUEZ Referring Unavailable FABIAN RODRIGUEZ Primary Care Unavailabl e FABIAN RODRIGUEZ Primary Care Unavailabl e FABIAN RODRIGUEZ Primary Care Unavailabl ASHLYN Walden Attending Unavailable FABIAN RODRIGUEZ Primary Care Unavailabl GIORGI Tucker [facility]erring Un[facility] Unavailabl e [place]HAEL [place] [facility] Primary Care Unavailabl e JULES WOLFE Attending Unavailable MICHAEL [place] Ray Primary Care Unavailabl e FRANCINE PATRICIO Attending Unavail able [facility] Care Unavailabl e CONRAD FERNANDES Attending Unavailable CARLITOS RODRIGUEZ Referring Unavailable MICHAEL [place] Ray Primary Care Unavailabl e HAWK BARONE Attending Unavailable MICHAEL [place] Ray Primary Care Unavailabl e GIORGI BUCKNER Attending Unavailable MICHAEL [place] Ray Primary Care Unavailabl e ARLIN VILCHIS Attending Unavailable MICHAEL [place] Ray Primary Care Unavailabl e MICHAEL [place] Ray Primary Care Unavailabl e ARLIN VILCHIS Referring Unavailable MICHAEL [place] Ray Primary Care Unavailabl e MICHAEL [place] Ray Primary Care Unavailabl e ASHLYN COTTON Attending Unavailable MICHAEL [place] Ray Primary Care Unavailabl GIORGI Tucker Attending Unavailable MICHAEL [place] Ray Primary Care Unavailabl e MICHAEL [place] Ray Primary Care Unavailabl e ILAN CAMACHO Attending Unavailable MICHAEL [place] Ray Primary Care Unavailabl GIORGI Tucker Referring Unavailable MICHAEL [place] Ray Primary Care Unavailabl e ASHLYN COTTON Attending Unavailable MICHAEL [place] Ray Primary Care Unavailabl e CARLITOS RODRIGUEZ Attending Unavailable GIORGI BUCKNER Referring Unavailable MICHAEL [place] Ray Primary Care Unavailabl GIORGI Tucker Attending Unavailable MICHAEL [place] Ray Primary Care Unavailabl JULES Disla Referring Unavailable MICHAEL [place] Ray Primary Care Unavailabl e GIORGI BUCKNER Attending Unavailable MICHAEL [place] Ray Primary Care Unavailabl e GABBY SAMUEL Attending Unavailable MICHAEL [place] Ray Primary Care Unavailabl e CARLITOS RODRIGUEZ Referring Unavailable GEORGETTE SOLIS Attending Unavailable MICHAEL [place] Ray Primary Care Unavailabl e Michael MARTINEZ [place] Ray Primary Care Provider FABIAN RODRIGUEZ Primary Care Unavailabl e GARHAM RODRIGES Attending Unavaila Fabian Felder Referring Unavailable Fabian Rodriguez Primary Care Unavailable Fabian Rodriguez Attending Unavailable Kong Siu Attending Unavailable Fabian Rodriguez Primary Care Unavailable Fabian Rodriguez Primary Care Unavailable Fabian Rodriguez Attending Unavailable Allergies Allergy Classification Reported Allergen(s) Allergy Type Date of Onset Reaction(s) Facility (20 sources) Cefaclor; Translations: [cefaclor] Drug Allergy 2 Unknown, [facility] (20 sources) bee venom protein (honey bee) Allergy to substance 2 Anaphylaxis, Swelling [facility] (20 sources) Bee pollen; Translations: [BEE POLLEN] Drug Allergy 3 [facility] (20 sources) beeswax; Translations: [BEESWAX] Drug Allergy 3 [facility] (2 sources) VENOM-HONEY BEE; Translations: [VENOM-HONEY BEE] Propensity to adverse reactions to drug (disorder) 2 [facility] (1 source) Cefaclor Drug Allergy 4 [facility] (1 source) bee venom protein (honey bee) Drug allergy (disorder) 4 [facility] Medications Current Medications Medication Drug Class(es) Dates Sig (Normalized) Sig (Original) [id number] actuat albuterol 0.09 mg/actuat metered dose inhaler (20 sources) beta2-Adrenergic Agonist Start: 10-12-2023 take 2 puff(s) by inhalation every six hours as needed for wheezing albuterol HFA (PROVENTIL HFA, VENTOLIN HFA) 90 mcg/actuation inhaler Indications: History of asthma Inhale 2 Puffs as instructed every 6 hours as needed for wheezing/shortnes s of breath. 1 Each 2 10/12/2023 Active Start: 07-03-2022 End: 04-21-2023 take 2 puff(s) by inhalation every six hours as needed for wheezing albuterol HFA (PROVENTIL HFA, VENTOLIN HFA) 90 mcg/actuation inhaler Indications: Encounter for supervision of other normal in second trimester , 21 weeks gestation of , History of asthma Inhale 2 Puffs as instructed every 6 hours as needed for wheezing/shortness of breath. 1 Each 2 04/21/2023 Active Start: 08-18-2021 take 1 puff(s) by in halation every six hours Albuterol Sulfate Active 1 - 2 PUFF INHALATION EVERY 6 HOURS August 18, 2021 9:39pm Start: 02-15-2018 End: 02-25-2019 take 1 puff(s) by inhalation once daily as needed Albuterol Sulfate Discontinued 2 PUFF INHALATION DAILY NEEDED February 15, 2018 12:00am February 25, 2019 10:52am Start: 09-05-2014 take 1 dose by inhal ation every four hours as needed for wheezing ProAir HFA MDI (90 mcg/inh) inhalation aerosol Dose = 2 puff(s), Inhalation, q4h, PRN for wheezing Start Date: 09/05/14 Status: Ordered Comment on above: Inhale 2 Puffs as in structed every 6 hours as needed for wheezing/shortness of breath. ARIPiprazole 10 mg oral tablet (20 sources) Atypical Antipsychotic Start: take 1 tablet by mouth once daily at bedtime ARIPiprazole (ABILIFY) 10 mg tablet Take 1 tablet by mouth daily at bedtime. 90 tablet 3 02/12/2023 Active Comment on above: Take 1 tablet by pascual th daily at bedtime. benzonatate 100 mg oral capsule (1 source) Non-narcotic Antitussive Start: End: take 1 capsule by mouth every eight hours as needed benzonatate (TESSALON PERLES) 100 mg capsule Take 1 capsule by mouth three times daily as needed for cough for up to 7 days. 21 capsule 0 07/03/2022 07/10/2022 Active Comment on above: Take 1 capsule by mo uth three times daily as needed for cough for up to 7 days. busPIRone hydrochloride 7.5 mg oral tablet (2 sources) Start: take 1 tablet by mouth every twelve hours busPIRone (BUSPAR) 7.5 mg tablet Take 1 tablet by mouth every 12 hours. 11/24/2023 Active Comment on above: Take 1 tablet by pascual th every 12 hours. esomeprazole 20 mg delayed release oral capsule (20 sources) Proton Pump Inhibitor Start: 11-01-2 023 take 1 capsule by mouth once daily esomeprazole (NEXIUM) 20 mg capsule Take 1 capsule by mouth once daily. 90 capsule 1 08/26/2023 Active Start: 02-12-2023 End: 08-07-2023 take 1 capsule by mouth once daily esomeprazole (NEXIUM) 20 mg capsule Take 1 capsule by mouth once daily. 90 capsule 3 07/10/2023 08/07/2023 Discontinued Start: 04-08-2022 take 1 capsule by [facility] once daily Esomeprazole Magnesium (Nexium) 20 mg Capsule,Delayed Release(Dr/Ec) Active 20 MG PO DAILY April 08, 2022 12:00am Comment on above: Take 1 capsule by [facility] once daily. famotidine 20 mg oral tablet (3 sources) Histamine-2 Receptor Antagonist Start: 2 take 1 tablet by mouth twice daily Famotidine (Pepcid) 20 mg Tablet Active 20 MG PO TWICE A DAY January 06, 2022 8:41pm 120 actuat fluticasone propionate 0.11 mg/actuat metered dose inhaler (20 sources) Corticosteroid Start: 3 take 1 puff(s) by mouth twice daily FLOVENT HFA 110 mcg/actuation inhaler Indications: Encounter for supervision of other normal in second trimester , 21 weeks gestation of , History of asthma Inhale 1 Puff as instructed twice daily. Shake well before use. Rinse mouth after use. 1 Each 2 04/21/2023 Active Start: 01-12-2023 End: 04-21-2023 take 2 puff(s) by mouth twice daily FLOVENT HFA 110 mcg/actuation inhaler inhale 2 puffs by mouth and INTO THE LUNGS twice a day 0 01/12/2023 04/21/2023 Discontinued Start: 08-18-2021 take 1 puff(s) by in halation twice daily Fluticasone Propionate (Flovent Hfa) 110 mcg/actuation HFA aerosol inhaler Active 1 PUFF INHALATION TWICE A DAY August 18, 2021 9:39pm Comment on above: Inhale 1 Puff as ins tructed twice daily. Shake well before use. Rinse mouth after use. inhale 2 puffs by mo [facility] and INTO THE LUNGS twice a day hydrOXYzine hydrochloride 50 mg oral tablet (20 sources) Antihistamine Start: 08-26-20 take 1 tablet by mouth every twelve hours as needed hydrOXYzine HCl (ATARAX) 50 mg tablet Take 50 mg by mouth two times a day as needed. 08/26/2023 Active Start: 03-16-2023 End: 06-14-2023 take 1 tablet by mouth every twenty-four hours as needed hydrOXYzine HCl (ATARAX) 50 mg tablet Take 1 tablet by mouth at bedtime as needed. Take 1 to 2 tablets at bedtime and PRN daily. 30 tablet 3 03/16/2023 06/14/2023 Active Start: 08-18-2021 End: 03-16-2023 take 1-2 tablets by mouth once daily at bedtime as needed hydrOXYzine HCl (ATARAX) 50 mg tablet Take 50 mg by mouth. Take 1 to 2 tablets at bedtime and PRN daily. 08/18/2021 03/16/2023 Discontinued Comment on above: Take by mouth. Take 50 mg by mouth. Take 1 to 2 tablets at bedtime and PRN daily. Take 1 tablet by pascual th at bedtime as needed. Take 1 to 2 tablets at bedtime and PRN daily. Take 50 mg by mouth two times a day as needed. Inhalational Spacing Device (1 source) Start: 2 End: 2 Inhalational Spacing Device 1 Device one time only for 1 dose. 1 Each 0 07/03/2022 07/03/2022 Active Comment on above: 1 Device one time on ly for 1 dose. predniSONE 10 mg oral tablet (4 sources) Start: 4 End: 4 take 5 tablets by mouth once daily, then take 4 tablets by mouth once daily, then take 3 tablets by mouth once daily, then take 2 tablets by mouth once daily, then take 1 tablet by mouth once daily predniSONE (DELTASONE) 10 mg tablet Indications: Asthma with acute exacerbation, unspecified asthma severity, unspecified whether persistent Take 5 tablets by mouth once daily for 1 day, THEN 4 tablets once daily for 1 day, THEN 3 tablets once daily for 1 day, THEN 2 tablets once daily for 1 day, THEN 1 tablet once daily for 1 day. 15 tablet 0 12/21/2023 12/26/2023 Active Start: 07-03-2022 End: 07-08-2022 take 2 tablets by mouth once daily predniSONE (DELTASONE) 20 mg tablet Take 2 tablets by mouth once daily for 5 days. 10 tablet 0 07/03/2022 07/08/2022 Active Start: 09-05-2014 End: 09-11-2014 take 1 tablet by mouth once daily prednisone 10mg tab (TAPER) Taper 40-20-10 mg x 2 days each dose, Oral, Daily, # 14 tab(s), 0 Refill(s) Start Date: 09/05/14 Stop Date: 09/11/14 Status: Ordered Comment on above: Take 2 tablets by mo [facility] once daily for 5 days. Take 5 tablets by mo [facility] once daily for 1 day, THEN 4 tablets once daily for 1 day, THEN 3 tablets once daily for 1 day, THEN 2 tablets once daily for 1 day, THEN 1 tablet once daily for 1 day. sertraline 100 mg oral tablet (20 sources) Serotonin Reuptake Inhibitor Start: 02-12-2023 take 1 tablet by mouth once daily sertraline (ZOLOFT) 100 mg tablet Take 1 tablet by mouth once daily. 90 tablet 3 02/12/2023 Active Start: 06-24-2022 End: 02-10-2023 sertraline (ZOLOFT) 100 mg t ablet 06/24/2022 02/10/2023 Discontinued Start: 01-06-2022 take 1 tablet by pascual once daily Sertraline (Zoloft) 50 mg Tablet Active 50 MG PO DAILY January 06, 2022 12:00am Comment on above: Take 1 tablet by pascual once daily. Completed/Discontinued Medications Medication Drug Class(es) Dates Sig (Normalized) Sig (Original) Beclomethasone Dipropionate (8 sources) Corticosteroid Start: 02-15-2018 End: 02-25-2019 take 1 puff(s) by inhalation once daily as needed Beclomethasone Dipropionate Discontinued 2 PUFF INHALATION DAILY NEEDED February 15, 2018 7:29am February 25, 2019 10:52am Start: 02-15-2018 End: 02-25-2019 take 1 puff(s) by inhalation once daily as needed Beclomethasone Dipropionate Discontinued 2 PUFF INHALATION DAILY NEEDED February 15, 2018 12:00am February 25, 2019 10:52am Start: 09-05-2014 take 1 dose by inhal ation twice daily Qvar 40 mcg/inh inhalation aerosol Dose = 2 puff(s), Inhalation, BID, # 1 EA, 1 Refill(s) Start Date: 09/05/14 Status: Ordered Blood-Glucose Meter (2 sources) Start: 06-08-2023 End: 06-09-2023 Blood-Glucose Meter Indicati ons: Diet controlled gestational diabetes mellitus (GDM) in second trimester Use as directed to check glucose levels up to seven times daily. 1 Each 0 06/08/2023 06/09/2023 Start: 06-08-2023 End: 06-09-2023 Blood-Glucose Meter Indicati ons: Diet controlled gestational diabetes mellitus (GDM) in second trimester Use as directed to check glucose levels up to seven times daily. 1 Each 0 06/08/2023 06/09/2023 Active Comment on above: Use as directed to c heck glucose levels up to seven times daily. ferrous sulfate 325 mg oral tablet (20 sources) Start: 3 End: 4 take 1 tablet by mouth twice daily ferrous sulfate (IRON) 325 mg (65 mg iron) tablet Take 1 tablet by mouth twice daily. 180 tablet 1 06/08/2023 08/26/2023 Discontinued Comment on above: Take 1 tablet by pascual twice daily. ibuprofen 800 mg oral tablet (6 sources) Nonsteroidal Anti-inflammatory Drug Start: 8 End: 9 take 800 mg by mouth three times daily as needed Ibuprofen Discontinued 800 MG PO 3 TIMES DAILY NEEDED February 16, 2018 12:00am February 25, 2019 10:52am 3 ml insulin isophane, human 100 unt/ml pen injector (20 sources) Start: 3 End: 3 insulin NPH human (HUMULIN N NPH INSULIN KWIKPEN) 100 unit/mL (3 mL) injection pen 12 units at bedtime 5 Each 5 07/07/2023 08/26/2023 Discontinued Start: 06-30-2023 End: 07-07-2023 insulin NPH human (HUMULIN N NPH INSULIN KWIKPEN) 100 unit/mL (3 mL) injection pen 7 units at bedtime 5 Each 5 06/30/2023 07/07/2023 Discontinued Start: 06-17-2023 End: 06-30-2023 insulin NPH human (HUMULIN N NPH INSULIN KWIKPEN) 100 unit/mL (3 mL) injection pen 5 units at bedtime 5 Each 5 06/17/2023 06/30/2023 Discontinued Comment on above: 5 units at bedtime 7 units at bedtime 12 units at bedtime 3 ml insulin lispro 100 unt/ml pen injector (20 sources) Insulin Analog Start: 08-10-2023 End: 08-26-2023 insulin lispro (HUMALOG KWIKPEN INSULIN) 100 unit/mL 5 units prior to breakfast, 10 units prior to dinner + scale 5 Each 5 08/10/2023 08/26/2023 Discontinued Start: 07-07-2023 End: 08-10-2023 insulin lispro (HUMALOG KWIK PEN INSULIN) 100 unit/mL 10 units prior to dinner + scale 5 Each 5 07/07/2023 08/10/2023 Discontinued Start: 06-19-2023 End: 07-07-2023 insulin lispro (HUMALOG KWIK PEN INSULIN) 100 unit/mL 8 units prior to dinner 5 Each 5 06/19/2023 07/07/2023 Discontinued Start: 06-17-2023 End: 06-19-2023 insulin lispro (HUMALOG KWIK PEN INSULIN) 100 unit/mL 5 units prior to dinner 5 Each 5 06/17/2023 06/19/2023 Discontinued Comment on above: 5 units prior to din ner 8 units prior to din ner 10 units prior to di nner + scale 5 units prior to lindsay akfast, 10 units prior to dinner + scale isopropyl alcohol 0.7 ml/ml medicated pad (20 sources) Start: 06-08-20 End: 08-26-20 alcohol swabs (ALCOHOL PREP PADS) Indications: Diet controlled gestational diabetes mellitus (GDM) in second trimester Use as directed to check glucose levels up to seven times daily. 200 Each 06/08/2023 08/26/2023 Discontinued Comment on above: Use as directed to c heck glucose levels up to seven times daily. meloxicam 15 mg oral tablet (3 sources) Nonsteroidal Anti-inflammatory Drug Start: 05-27-20 End: 01-21-20 take 1 tablet by mouth once daily meloxicam (MOBIC) 15 mg tablet Take 15 mg by mouth once daily. 05/27/2022 01/20/2023 Discontinued (Discontinued by Patient) Comment on above: Take 15 mg by mouth once daily. metoclopramide 10 mg oral tablet (12 sources) Dopamine-2 Receptor Antagonist Start: 08-07-20 take 1 tablet by mouth every eight hours as needed metoclopramide HCl (REGLAN) 10 mg tablet Take 1 tablet by mouth three times a day as needed (headache or nausea). 45 tablet 1 08/07/2023 Active Start: 01-15-2023 End: 01-22-2023 take 1 tablet by mouth every six hours as needed metoclopramide HCl (REGLAN) 5 mg tablet Take 1 tablet by mouth every 6 hours as needed for up to 7 days. 20 tablet 0 01/15/2023 01/22/2023 Active Comment on above: Take 1 tablet by pascual th every 6 hours as needed for up to 7 days. Take 1 tablet by pascual th three times a day as needed (headache or nausea). omeprazole 40 mg delayed release oral capsule (14 sources) Proton Pump Inhibitor Start: 3 End: 3 take 1 capsule by mouth once daily omeprazole (PRILOSEC) 40 mg capsule Take 1 capsule by mouth once daily. 30 capsule 1 08/07/2023 08/26/2023 Discontinued Start: 01-05-2018 End: 02-25-2019 take 20 mg by mouth once daily Omeprazole Discontinued 20 MG PO DAILY January 05, 2018 12:00am February 25, 2019 10:52am Comment on above: Take 1 capsule by mo [facility] once daily. ondansetron 4 mg oral tablet (7 sources) Serotonin-3 Receptor Antagonist Start: 08-07-20 End: 08-26-20 take 1 tablet by mouth every eight hours as needed ondansetron (ZOFRAN) 4 mg tablet Take 1 tablet by mouth every 8 hours as needed for nausea/vomiting. 30 tablet 0 08/07/2023 08/26/2023 Discontinued Comment on above: Take 1 tablet by pascual th every 8 hours as needed for nausea/vomiting. oxyCODONE hydrochloride 5 mg oral tablet (6 sources) Opioid Agonist Start: 02-18-20 End: 02-26-20 take 5 mg by mouth every six hours as needed Oxycodone Discontinued 5 MG PO EVERY 6 HOURS NEEDED 10 7 February 17, 2018 12:00am February 25, 2019 10:52am promethazine hydrochloride 25 mg oral tablet (6 sources) Phenothiazine Start: 02-16-20 End: 02-26-20 19 take 25 mg by mouth every six hours as needed Promethazine Discontinued 25 MG PO EVERY 6 HOURS NEEDED February 15, 2018 12:00am February 25, 2019 10:52am Problems Active Problems Problem Classification Problem Date Documented Date Episodic/Chronic Acute posthemorrhagic anemia (4 sources) Anemia following acute postoperative blood loss; Translations: [Acute posthemorrhagic anemia] Episodic Anxiety disorders (20 sources) Anxiety neurosis ; Translations: [Generalized anxiety disorder] Onset: 03-16-2023 03-16-2023 Chronic Asthma (3 sources) Asthma; Translations: [Exacerbation of asthma] 09-05-2014 Chronic Contraceptive and procreative management (1 source) Encounter for other general counseling and advice on contraception; Translations: [Sterilization consult] Onset: 10-12-2023 Episodic Headache; including migraine (1 source) Headache; including migraine; Translations: [Headache in , antepartum, third trimester] Onset: 08-10-2023 Immunizations and screening for infectious disease (1 source) Vaccination needed; Translations: [Encounter for immunization] 06-08-2023 Episodic Joint disorders and dislocations; trauma-related (1 source) Unspecified subluxation of right patella, sequela; Translations: [Unspecified subluxation of right patella, sequela] Onset: 04-11-2025 Episodic Mood disorders (1 source) Bipolar disorder, unspecified; Translations: [Bipolar disease during , antepartum (HCC)] Onset: 04-21-2023 Chronic Nausea and vomiting (13 sources) Nausea; Translations: [Nausea] Onset: 01-15-2023 Episodic Nonspecific chest pain (6 sources) Chest wall pain; Translations: [Other chest pain] Episodic Open wounds of extremities (6 sources) Laceration of finger; Translations: [Laceration without foreign body of unspecified finger without damage to nail, initial encounter] Episodic Other complications of (20 sources) Anemia in mother complicating , childbirth AND/OR puerperium; Translations: [Anemia complicating , third trimester] Onset: 06-08-2023 06-08-2023 Chronic Other complications of (1 source) Obesity complicating , unspecified trimester; Translations: [Obesity complicating , childbirth, or the puerperium, antepartum condition or complication] 06-20-2023 Chronic Other complications of (1 source) Anemia of ; Translations: [Anemia complicating , third trimester] 07-17-2023 Chronic Other complications of (1 source) Anemia complicating , third trimester; Translations: [Anemia during in third trimester] Onset: 08-10-2023 Chronic Other complications of (6 sources) Abdominal pain in ; Translations: [Other specified related conditions, unspecified trimester] Episodic Other complications of (1 source) Mild hyperemesis gravidarum; Translations: [Hyperemesis gravidarum] Onset: 01-15-2023 Episodic Other complications of (1 source) Uncertain viability of ; Translations: [ with inconclusive viability, not applicable or unspecified] Episodic Other complications of (2 sources) High risk ; Translations: [Supervision of high risk , unspecified, third trimester] 07-10-2023 Episodic Other complications of (1 source) Headache; Translations: [Other specified related conditions, third trimester] 08-07-2023 Episodic Other complications of (1 source) Nausea and vomiting; Translations: [Vomiting of , unspecified] 08-07-2023 Episodic Other connective tissue disease (1 source) Neuralgia; Translations: [Neuralgia and neuritis, unspecified] Onset: 05-21-2022 Episodic Other connective tissue disease (1 source) Pain in lower limb; Translations: [Pain in leg, unspecified] Onset: 05-21-2022 Episodic Other lower respiratory disease (3 sources) Cough; Translations: [Acute cough] Episodic Other lower respiratory disease (2 sources) Dyspnea; Translations: [Shortness of breath] 12-21-2023 Episodic Other lower respiratory disease (1 source) Cough; Translations: [Acute cough] 07-03-2022 Episodic Other non-traumatic joint disorders (1 source) Pain in right knee; Translations: [Right knee pain, unspecified chronicity] Onset: 03-25-2025 Episodic Other upper respiratory infections (6 sources) Streptococcal sore throat; Translations: [Streptococcal pharyngitis] Episodic Residual codes; unclassified (2 sources) Gestation period, 39 weeks; Translations: [39 weeks gestation of ] Episodic Residual codes; unclassified (2 sources) 39 weeks gestation of ; Translations: [ state, incidental] Episodic Residual codes; unclassified (1 source) Gestation period, 13 weeks; Translations: [13 weeks gestation of ] Episodic Residual codes; unclassified (1 source) Gestation period, 21 weeks; Translations: [21 weeks gestation of ] Episodic Residual codes; unclassified (2 sources) Gestation period, 28 weeks; Translations: [28 weeks gestation of ] 06-08-2023 Episodic Residual codes; unclassified (2 sources) Gestation period, 30 weeks; Translations: [30 weeks gestation of ] 06-20-2023 Episodic Residual codes; unclassified (2 sources) Gestation period, 32 weeks; Translations: [32 weeks gestation of ] 07-07-2023 Episodic Residual codes; unclassified (2 sources) Gestation period, 33 weeks; Translations: [33 weeks gestation of ] 07-15-2023 Episodic Residual codes; unclassified (2 sources) Gestation period, 34 weeks; Translations: [34 weeks gestation of ] 07-21-2023 Episodic Residual codes; unclassified (2 sources) Gestation period, 36 weeks; Translations: [36 weeks gestation of ] 08-03-2023 Episodic Residual codes; unclassified (1 source) Gestation period, 35 weeks; Translations: [35 weeks gestation of ] 07-31-2023 Episodic Residual codes; unclassified (1 source) Gestation period, 37 weeks; Translations: [37 weeks gestation of ] 08-10-2023 Episodic Residual codes; unclassified (1 source) Gestation period, 38 weeks; Translations: [38 weeks gestation of ] 08-17-2023 Episodic Syncope (6 sources) Near syncope; Translations: [Syncope and collapse] Episodic Unclassified (6 sources) No additional problems on file Past or Other Problems Problem Classification Problem Date Documented Date Episodic/Chronic Diabetes or abnormal glucose tolerance complicating ; childbirth; or the puerperium (20 sources) Gestational diabetes mellitus; Translations: [Gestational diabetes mellitus in , diet controlled] Onset: 06-08-2023 06-08-2023 Episodic Other complications of (20 sources) RhD negative; Translations: [Other specified related conditions, unspecified trimester] Onset: 04-21-2023 Episodic Other complications of (20 sources) Psychological disorder during ; Translations: [Other mental disorders complicating , unspecified trimester] Onset: 04-21-2023 Episodic Other complications of (20 sources) Uterine size for dates discrepancy; Translations: [Uterine size-date discrepancy, third trimester] Onset: 05-18-2023 05-18-2023 Episodic Other complications of (1 source) Supervision of high risk , unspecified, third trimester; Translations: [High-risk in third trimester] Onset: 08-10-2023 Episodic Other complications of (1 source) Other specified related conditions, third trimester; Translations: [Headache in , antepartum, third trimester] Onset: 08-10-2023 Episodic Other complications of (1 source) Uterine size-date discrepancy, third trimester; Translations: [Significant discrepancy between uterine size and clinical dates, antepartum, third trimester] Onset: 05-18-2023 Episodic Other complications of (1 source) Other specified related conditions, unspecified trimester; Translations: [Rh negative, antepartum] Onset: 04-21-2023 Episodic Other complications of (1 source) Other mental disorders complicating , unspecified trimester; Translations: [Bipolar disease during , antepartum (HCC)] Onset: 04-21-2023 Episodic Other eye disorders (1 source) Unspecified corneal ulcer, right eye; Translations: [Unspecified corneal ulcer, right eye] Onset: 05-10-2024 Episodic Other lower respiratory disease (20 sources) H/O: asthma; Translations: [Personal history of other diseases of the respiratory system] Onset: 04-21-2023 Episodic Other lower respiratory disease (1 source) Personal history of other diseases of the respiratory system; Translations: [History of asthma] Onset: 04-21-2023 Episodic Other and delivery including normal (16 sources) First trimester ; Translations: [Encounter for supervision of normal , unspecified, first trimester] Onset: 04-21-2023 Episodic Other screening for suspected conditions (not mental disorders or infectious disease) (4 sources) care status; Translations: [Encounter for screening, unspecified] Onset: 04-06-2023 Episodic Residual codes; unclassified (1 source) 33 weeks gestation of ; Translations: [33 weeks gestation of ] Onset: 08-10-2023 Episodic Residual codes; unclassified (1 source) 36 weeks gestation of ; Translations: [36 weeks gestation of ] Onset: 08-10-2023 Episodic Residual codes; unclassified (1 source) 25 weeks gestation of ; Translations: [25 weeks gestation of ] Onset: 06-06-2023 Episodic Residual codes; unclassified (1 source) 21 weeks gestation of ; Translations: [21 weeks gestation of ] Onset: 04-21-2023 Episodic Residual codes; unclassified (1 source) Unspecified blood type, Rh negative; Translations: [Rh negative, antepartum] Onset: 04-21-2023 Episodic Results Test Name Value Interpretation Reference Range [facility] [facility] HNO ID: [id number] Author: BIRGIT RIVAS RT(R) Service: Radiology Author Type: Belling Machine Operator Type: [employer] Filed: 03/25/2025 19:50 Note Text: Radiology Service Progress Note PATIENT NAME: Digna Kraus DATE OF SERVICE: March 25, 2025 TIME: 7:50 PM PATIENT IDENTITY VERIFICATION COMPLETED USING TWO (2) IDENTIFIERS: Name and Date of confirmed by patient verbally and Name and Date of confirmed by identification band. FALL SCREENING: Has the patient had 2 falls in the last year or 1 fall with injury or currently using an Ambulatory Assistive Device (Walker, Cane, Wheelchair, Crutches, etc.)? Emergency Room Patient: Screened in ED PATIENT GENDER DATA: Assigned female at . status: : No status: NO. PATIENT RELEVANT IMPLANT DATA REVIEWED: Yes PATIENT PRESENTS WITH AN IMPLANTABLE OR ATTACHED INKJET OPERATOR: No RADIOLOGY DEPARTMENT: General X-ray: Exam(s) Completed: Lower Extremity X-Ray(s): Knee, AP / LAT Right PERIPHERAL IV DATA: Not applicable SIGNED BY: RT Alexandre(R) March 25, 2025 7:50 PM Normal [facility] ED NOTEon 03-25-2025 ED NOTE HNO ID: [id number] Author: HANNAH LYNCH RN Service: ? Author Type: Registered Nurse Type: ED Notes Filed: 03/26/2025 13:53 Note Text: Patient Call Back Information How are you doing ? better Did we appropriately manage your pain? Yes Did you understand your discharge instructions? Yes Did you get your prescriptions filled? Were you able to make a follow-up appointment with your physician? No Were you comfortable during your stay here? Yes Did a member of the ER nursing team round on you during your visit? Yes You will receive a patient satisfaction survey in the mail in the nest 2 weeks, please take the time to fill out the survey as your input from your ER visit is very important to us. Yes Can we do anything else to help you? No Normal [facility] ED NOTE HNO ID: [id number] Author: ANMOL GANN RN Service: Emergency Medicine Author Type: Registered Nurse Type: ED Notes Filed: 03/25/2025 20:39 Note Text: Patient fitted with knee immobilizer and crutches with instructions. To follow up with her own PCP. Patient instructed to follow up with PCP, return with any new, worsening, or recurrent symptoms. Verbalizes understanding of all instructions. Ambulates with ease to lobby, no distress with crutches. Normal [facility] ED NOTE HNO ID: [id number] Author: ANMOL GANN RN Service: Emergency Medicine Author Type: Registered Nurse Type: ED Notes Filed: 03/25/2025 18:48 Note Text: Patient states 1 year history of right knee pain. Had improved, but now worse again. She feels it will go out of place. Patient has tried ibuprofen and tylenol at home, but not within the last 6 hours. Denies trauma. Normal [facility] ED PROV NOTEon 03-25-2025 ED PROV NOTE HNO ID: [id number] Author: GRAHAM RODRIGES DO Service: Emergency Medicine Author Type: Physician Type: ED Provider Notes Filed: 03/28/2025 07:37 Note Text: ED Provider Note Patient Name: Digna Kraus : 1995 SERVICE DATE: 03/25/25 History Patient presents with: Knee Injury Digna Kraus is a 29 year old female who presents with Knee Injury. - Symptoms began 3 days ago. - Severity: moderate - Timing: constant - Quality: sore - Symptoms are associated with felt knee pop 3 days ago, persistent pain and feeling the knee is trying to pop again. - Symptoms are not associated with chills, fever, numbness, weakness, wound, redness. Patient presents stating that she has been having right knee pain off and on for the past 1 year. She states she has seen her primary care for this. She states that her insurance would not approve an MRI of her knee. She states about 3 days ago her right knee popped and she has been having pain in her right knee since. She states she has been wearing her knee brace, but feels the knee still wants to pop. She states that she did not fall. There was no direct injury to the knee. PAST MEDICAL HISTORY Diagnosis Date Asthma ([facility]) PRN inhaler. worse as child. Bipolar 1 disorder, depressed ([facility]) Hyperemesis gravidarum ([facility]) depression PTSD (post-traumatic stress disorder) PAST SURGICAL HISTORY Procedure Laterality Date NONE SALPINGECTOMY Bilateral 10/23/2023 Laparoscopic B/L Salpingectomy at [facility]-Dr. Jeff FAMILY HISTORY Problem Relation Age of Onset Breast Cancer Maternal Grandmother Social History Tobacco Use Smoking status: Former Types: Cigarettes Smokeless tobacco: Never Vaping Use Vaping status: current everyday user Substances: Nicotine, Flavoring Devices: Disposable Substance and Sexual Activity Alcohol use: Not Currently Drug use: Never Sexual activity: Yes Partners: Male ALLERGIES Allergen Reactions Bee Pollen Hives Venom-Honey Bee Anaphylaxis, Swelling Beeswax Hives Cefaclor Unknown, Hives Unknown Review of Systems Constitutional: Negative for chills and fever. Musculoskeletal: Positive for arthralgias (right knee). Skin: Negative for color change and wound. Neurological: Negative for weakness and numbness. Physical Exam Vitals [03/25/25 1844] BP Pulse Temp Temp src Resp SpO2 Weight Height 125/78 73 36.6 ?C (97.9 ?F) Temporal 18 100 % 82.6 kg (182 lb) -- Physical Exam Vitals and nursing note reviewed. Constitutional: Appearance: She is not toxic-appearing or diaphoretic. HENT: Head: Normocephalic and atraumatic. Eyes: Conjunctiva/sclera: Conjunctivae normal. Cardiovascular: Rate and Rhythm: Normal rate and regular rhythm. Pulses: Normal pulses. Pulmonary: Effort: Pulmonary effort is normal. Breath sounds: Normal breath sounds. Musculoskeletal: Right hip: No bony tenderness. Normal range of motion. Right knee: No deformity, erythema, ecchymosis, lacerations or crepitus. Normal range of motion. Tenderness present. Normal alignment. Right ankle: No swelling. Normal range of motion. Normal pulse. Right Achilles Tendon: No tenderness or defects. Right foot: Normal pulse. Comments: Right knee: extensor mechanism intact. No overlying erythema. Skin intact. Skin: General: Skin is warm and dry. Capillary Refill: Capillary refill takes less than 2 seconds. Neurological: Mental Status: She is alert and oriented to person, place, and time. GCS: GCS eye subscore is 4. GCS verbal subscore is 5. GCS motor subscore is 6. Psychiatric: Mood and Affect: Mood normal. Behavior: Behavior normal. Diagnostic Testing ED Labs Ordered and Reviewed - No data to display Procedures ED Course / Clinical Impression Clinical Impressions as of 03/28/25 0737 Right knee pain, unspecified chronicity MDM / Disposition / Plan Will obtain x-ray imaging or right knee. XR KNEE INJURY 4V AP/LAT/OBLS RIGHT Final Result IMPRESSION: No acute fracture or dislocation. Mild high riding patella. Facility Planner: SAEED Transcribe Date/Time: Mar 25 2025 7:48P Dictated by : ILEANA VERA MD This examination was interpreted and the report reviewed and electronically signed by: ILEANA VERA MD on Mar 25 2025 7:51PM EST On reevaluation: Patient resting comfortably in bed, no distress. Updated on x-ray imaging results. We discussed possible etiologies of her symptoms. She feels comfortable going home. We discussed symptomatic treatment. We also discussed prescribing her a knee immobilizer, crutches and maintaining nonweightbearing status on her right lower extremity. We discussed further imaging such as MRI may be needed if symptoms continue to persist. She is agreeable with plan. At this time, patient will be discharged home. She was instructed on signs and symptoms to watch for and reasons to return to the emergency depa (more content not included)... Normal [facility] XR KNEE 4V AP/LAT/OBLS RTon 03-25-2025 XR KNEE 4V AP/LAT/OBLS RT * * *Final Report* * * DATE OF EXAM: Mar 25 2025 7:12PM LDX [id number] - XR KNEE 4V AP/LAT/OBLS RT / PROCEDURE REASON: Other * * * * Physician Interpretation * * * * EXAMINATION: XR KNEE 4V AP/LAT/OBLS RT CLINICAL HISTORY: Other, knee pops, happened 3 days ago, persistent pain Technique: XR KNEE 4V AP/LAT/OBLS RT -- RIGHT knee with 4 views on 4 images Comparison: Right knee radiograph 12/31/2014 RESULT: No acute fracture or dislocation. Mild high riding patella. No significant joint effusion. Mild medial compartment joint space narrowing. IMPRESSION: No acute fracture or dislocation. Mild high riding patella. Facility Planner: SAEED Transcribe Date/Time: Mar 25 2025 7:48P Dictated by : ILEANA VERA MD This examination was interpreted and the report reviewed and electronically signed by: ILEANA VERA MD on Mar 25 2025 7:51PM EST [id number] Normal [facility] Emergency Department Summary on 04-28-2024 Emergency Department Summary [facility] Medical Records Department [address] [place] [address] Emergency Department Summary 04/28/24 MR#: [id number] Acct: [id number] Name: DIGNA KRAUS Rep #: [id number] : 1995 29 From: Kong Siu MD PCP: Dr. Fabian Rodriguez MD Status:PRE ER Location: ED HPI History of Present Illness Chief Complaint: Eye Problem Informant: patient Narrative Narrative: Patient started having pain, redness, irritation in her right eye around 6 hours ago. She is not sure if it really started suddenly severely or not but she did notice at 1 point around that time that her eye was bothering her and she felt like maybe there was something in it. She was contacts. The contacts were in at that time. They are still in right now. She states she has had no vision changes. No discharge. No recent URI symptoms. Her contacts are soft lenses, disposable, monthly's. The current pair of been in around 2 weeks, she does not overuse them. [facility] Medical History Wears contact lenses Marijuana use Low iron Easy bruising Back pain Migraine headache Constipation Former smoker Shortness of breath on exertion Vacuum-assisted vaginal delivery Gestational diabetes mellitus PTSD (post-traumatic stress disorder) Depression GERD (gastroesophageal reflux disease) Diabetes in preg-unspec ADHD Ovarian cyst Anxiety Asthma Severe headache Home Medications ???Medication ???Instructions ???Recorded ???Last Taken ???Type esomeprazole magnesium 20 mg 20 mg PO QHS 06/18/23 10/22/23 History capsule,delayed release albuterol sulfate 90 mcg/actuation 1 inh inhalation PRN PRN shortness 10/08/23 Unknown History aerosol inhaler of breath or wheezing fluticasone propionate 110 1 inh inhalation BID 10/08/23 10/22/23 History mcg/actuation HFA aerosol inhaler (Flovent HFA) ciprofloxacin HCl 0.3 % eye drops See Rx Instructions RIGHT EYE 04/28/24 Unknown Rx .COMPLEX #2.5 mL Allergy/AdvReac Type Severity Reaction Status Date / Time cefaclor (From Ceclor) Allergy Mild Hives Verified 04/28/24 00:50 bee venom protein (honey bee) Allergy Swelling Verified 04/28/24 00:50 Family History Grandmother , 55yo Breast cancer Other Anemia Anxiety Arthritis Asthma Depression Diabetes Mental disorder Social History household members: children Smoking Status: Former smoker quit date: 06/03/21 quit status: quit date established alcohol intake: current alcohol intake frequency: other substance use type: does not use ROS ROS ED Constitutional Constitutional ED: Denies chills or fever(s) Eyes Eyes: Reports as per HPI and eye pain; Denies blurry vision or change in vision ENT ENT ED: Denies ear pain, rhinorrhea or sore throat Neurologic Neurologic: Denies headache(s), paresthesias or weakness EXAM Physical Exam Const Vital Signs: 04/28/24 00:47 Temperature 98.6 F Temperature Source Oral Pulse Rate 91 Respiratory Rate 18 Blood Pressure 122/60 H Blood Pressure Mean 80 Pulse Ox 98 Oxygen Delivery Method Room Air Positive well nourished and well developed General Appearance ED: well developed and NAD HEENT atraumatic; Negative for tenderness Mouth ED: Yes oral and palatal mucosa normal and Yes lips normal Mouth: oral and palatal mucosa normal and lips normal Eyes PERRL and EOMs intact bilaterally Eyes Narrative: On gross inspection there is significant bulbar and palpebral conjunctival injection/inflammati on without chemosis. The cornea is unremarkable with soft contact lens in place on gross inspection, it was left in place for visual acuities. On gross inspection on the left eye, there is foreign material present just to the medial aspect of the cornea but the patient is asymptomatic and there is no conjunctival injection. Neck no lymphadenopathy and supple Neuro oriented x3, CN's II-XII intact bilaterally and gait normal Sensorium / Orientation: alert Skin Lesions: no lesions Rashes: no rashes MDM MDM MDM Narrative Medical decision making narrative: Visual acuity was obtained with the patient's contacts in, 20/50 right, 20/30 left, 20/25 bilateral. The patient's contacts were then removed by herself. Subsequently the small amount of foreign material in the left eye was gone, and it was on her contact and look like a small smudge of make-up on the outside of the contact. With regards to the right eye, slit-lamp exam was performed by myself. She did have improved pain after tetracaine drops. The anterior chamber is deep and quiet with no cell or flare visible. She does have what appear to be a couple of (more content not included)... Normal [facility] XR Chest PA and Lateralon IMPRESSION: No acute radiographic abnormality. Facility Planner: PSCB Transcribe Date/Time: Dec 21 2023 11:37A Dictated by : ADRIÁN AKINS MD This examination was interpreted and the report reviewed and electronically signed by: ADRIÁN AKINS MD on Dec 21 2023 11:37AM [facility] DIVISION OF RADIOLOGY * * *Final Report* * * DATE OF EXAM: Dec 21 2023 11:37AM WOX [id number] - XR CHEST 2V FRONTAL/LAT / PROCEDURE REASON: multiple diagnoses * * * * Physician Interpretation * * * * EXAMINATION: CHEST RADIOGRAPH (2 VIEW FRONTAL & LATERAL) CLINICAL HISTORY: Acute cough SOB (shortness of breath) MQ: XC2_6 EXAM DATE/TIME: 12/21/2023 11:37 AM COMPARISON: Chest x-ray dated July 03, 2022 RESULT: Lines, tubes, and devices: None. Lungs and pleura: No consolidation. No lung mass. No pleural effusion. No pneumothorax. Cardiomediastinal silhouette: Normal cardiomediastinal silhouette. Bones and soft tissues: Unremarkable. DIVISION OF RADIOLOGY Provider, [facility] [place] - 12/21/2023 * * *Final Report* * * DATE OF EXAM: Dec 21 2023 11:37AM WOX [id number] - XR CHEST 2V FRONTAL/LAT / PROCEDURE REASON: multiple diagnoses * * * * Physician Interpretation * * * * EXAMINATION: CHEST RADIOGRAPH (2 VIEW FRONTAL & LATERAL) CLINICAL HISTORY: Acute cough SOB (shortness of breath) MQ: XC2_6 EXAM DATE/TIME: 12/21/2023 11:37 AM COMPARISON: Chest x-ray dated July 03, 2022 RESULT: Lines, tubes, and devices: None. Lungs and pleura: No consolidation. No lung mass. No pleural effusion. No pneumothorax. Cardiomediastinal silhouette: Normal cardiomediastinal silhouette. Bones and soft tissues: Unremarkable. IMPRESSION IMPRESSION: No acute radiographic abnormality. Facility Planner: SAEED Transcribe Date/Time: Dec 21 2023 11:37A Dictated by : ADRIÁN AKINS MD This examination was interpreted and the report reviewed and electronically signed by: ADRIÁN AKINS MD on Dec 21 2023 11:37AM [facility] Radiology Study observation (narrative) [facility] XR Chest PA and LateralOrder ed By: [facility] Provider on 12-21-2023 [facility] 11-05-2023 CNPN Telephone (OBGYWM) DIGNA KRAUS ([id number]) 1995 F Date Time Provider Department 11/05/23 FRANCINE PATRICIO During your visit today, we recorded the following information about you: Francine Patricio MD 11/05/2023 9:17 AM Signed Please notify patient that pathology is benign s/p bilateral salpingectomy. How is she feeling? No need for post op unless concerns. Nesha Reis, MIGUEL 11/05/2023 9:44 AM Signed Left message for patient to call office. MIGUEL Porter Jennifer, RN 11/12/2023 2:28 PM Signed 2nd message left for patient to call office. MIGUEL Porter Danielle, RN 11/17/2023 11:34 AM Signed 3rd attempt. Left message for patient to call office. Patient did read [employer] message. Petrona Kothari RN Allergies As of Date: 11/05/2023 Noted Allergy Reaction BEE POLLEN 04/21/2023 4 - Hives VENOM-HONEY BEE 04/08/2022 10 - Anaphylaxis 7 - Swelling BEESWAX 04/21/2023 4 - Hives CEFACLOR 09/22/2012 16 - Unknown 4 - Hives Comments: Unknown Date Reviewed: 10/12/2023 Reviewed by: Tiki Mars Ma - Fully Assessed Reason for Visit: Results [95] Prescriptions as of 11/17/2023 - hydrOXYzine HCl (ATARAX) 50 mg tablet Take 50 mg by mouth two times a day as needed. - albuterol HFA (PROVENTIL HFA, VENTOLIN HFA) 90 mcg/actuation inhaler Inhale 2 Puffs as instructed every 6 hours as needed for wheezing/shortness of breath. - esomeprazole (NEXIUM) 20 mg capsule Take 1 capsule by mouth once daily. - FLOVENT HFA 110 mcg/actuation inhaler Inhale 1 Puff as instructed twice daily. Shake well before use. Rinse mouth after use. - ARIPiprazole (ABILIFY) 10 mg tablet Take 1 tablet by mouth daily at bedtime. - sertraline (ZOLOFT) 100 mg tablet Take 1 tablet by mouth once daily. 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] 03/16/2023 Rh negative, antepartum [O26.899, Z67.91] 04/21/2023 History of asthma [Z87.09] 04/21/2023 Bipolar disease during , antepartum (H*04/21/2023 Significant discrepancy between uterine size an*05/18/2023 Insulin controlled gestational diabetes mellitu*06/08/2023 Anemia complicating , third trimester *06/08/2023 Encounter Status:Closed by PETRONA KOTHARI on 11/17/23 [facility] CNOVon 10-12-2023 CNOV Office Visit (OBGYWM) DIGNA KRAUS ([id number]) 1995 F Date Time Provider Department 10/12/23 3:50 PM FRANCINE PATRICIO OBGYWM During your visit today, we recorded the following information about you: Pulse Respiration Blood pressure Weight 88/minute 16/minute 110/74 92.5 kg Height Last Period 1.524 m 09/22/23 Francine Patricio MD 10/12/2023 5:04 PM Signed Pre-Op History and Physical HPI: The patient is a 28 year old female presenting for sterilization consultation. Pt would like to proceed with salpingectomy- understands this is permanent. Title 19 signed on 08/26/23 pre-operative visit. She is scheduled for laparoscopic salpingectomy, for desires sterilization on 10/23/23. Procedure discussed along with risks, benefits and complications. Other alternatives discussed for management. Consent form signed? Yes. PAST MEDICAL HISTORY Diagnosis Date Asthma PRN inhaler. worse as child. Bipolar 1 disorder, depressed (HCC) Hyperemesis gravidarum depression PTSD (post-traumatic stress disorder) No past surgical history on file. Current Outpatient Medications Medication Sig Dispense Refill esomeprazole (NEXIUM) 20 mg capsule Take 1 capsule by mouth once daily. 90 capsule 1 metoclopramide HCl (REGLAN) 10 mg tablet Take 1 tablet by mouth three times a day as needed (headache or nausea). 45 tablet 1 FLOVENT HFA 110 mcg/actuation inhaler Inhale 1 Puff as instructed twice daily. Shake well before use. Rinse mouth after use. 1 Each 2 albuterol HFA (PROVENTIL HFA, VENTOLIN HFA) 90 mcg/actuation inhaler Inhale 2 Puffs as instructed every 6 hours as needed for wheezing/shortness of breath. 1 Each 2 ARIPiprazole (ABILIFY) 10 mg tablet Take 1 tablet by mouth daily at bedtime. 90 tablet 3 sertraline (ZOLOFT) 100 mg tablet Take 1 tablet by mouth once daily. 90 tablet 3 No current facility-administere d medications for this visit. ALLERGIES: Bee Pollen, Venom-Honey Bee, Beeswax, and Cefaclor PERSONAL HISTORY: Social History Tobacco Use Smoking status: Former Types: Cigarettes Smokeless tobacco: Never Vaping Use Vaping Use: current everyday user Substances: Nicotine, Flavoring Devices: Disposable Substance Use Topics Alcohol use: Not Currently Drug use: Never FAMILY HISTORY: FAMILY HISTORY Problem Relation Age of Onset Breast Cancer Maternal Grandmother REVIEW OF SYMPTOMS: negative except as noted above PHYSICAL EXAMINATION: VITALS: Blood pressure 110/74, pulse 88, resp. rate 16, height 5' (1.524 m), weight 204 lb (92.5 kg), last menstrual period 09/22/2023, not currently . GENERAL: The patient is well nourished, well hydrated in no acute distress. , The patient is oriented to time, place, and person. NECK: full range of motion IMPRESSION: 28yo desires permanent sterilization PLAN: Laparoscopic bilateral salpingectomy Pt has been counseled on risks/benefits and alternatives of surgery including but not limited to anesthesia, bleeding, infection, injury to pelvic structures including bowel, bladder, ureters and vessels. Pt wishes to proceed with surgery at this time. Risk of regret reviewed. Pt did not have any further albuterol inhaler- discussed I would order until she can have follow up with PCP- she is to bring to hospital day of surgery. Reviewed do not VAPE day of surgery Pre and post op instructions reviewed. Discussed Post op pain treatment with tylenol and ibuprofen OTC. I have reviewed and updated past medical and surgical history, medications and allergies Francine Jeff MD Allergies As of Date: 10/12/2023 Noted Allergy Reaction BEE POLLEN 04/21/2023 4 - Hives VENOM-HONEY BEE 04/08/2022 10 - Anaphylaxis 7 - Swelling BEESWAX 04/21/2023 4 - Hives CEFACLOR 09/22/2012 16 - Unknown 4 - Hives Comments: Unknown Date Reviewed: 10/12/2023 Reviewed by: Tiki Mars Ma - Fully Assessed Reason for Visit: Pre-Op Visit [1235] Primary Visit Diagnosis:Sterilizat ion consult [Z30.09] Other Visit Diagnoses:Pre-op exam [Z01.818] History of asthma [Z87.09] Order(s):albuterol HFA (PROVENTIL HFA, VENTOLIN HFA) 90 mcg/actuation inhalerInhale 2 Puffs as instructed every 6 hours as needed for wheezing/shortness of breath.Disp: 1 EachRfl: 2 Prescriptions as of 10/12/2023 - hydrOXYzine HCl (ATARAX) 50 mg tablet Take 50 mg by mouth two times a day as needed. - albuterol HFA (PROVENTIL HFA, VENTOLIN HFA) 90 mcg/actuation inhaler Inhale 2 Puffs as instructed every 6 hours as needed for wheezing/shortness of breath. - esomeprazole (NEXIUM) 20 mg capsule Take 1 capsule by mouth once daily. - FLOVENT HFA 110 mcg/actuation inhaler Inhale 1 Puff as instructed twice daily. Shake well before use. Rinse mouth after use. - ARIPiprazole (ABILIFY) 10 mg tablet Take 1 tablet by mouth daily at bedtime. - sert (more content not included)... Normal [facility] HISTORY PHYSICALon 3 HISTORY PHYSICAL HNO ID: [id number] Author: Francine Patricio MD Service: ? Author Type: Physician Type: HANDP Filed: 10/12/2023 5:04 PM Note Text: Pre-Op History and Physical HPI: The patient is a 28 year old female presenting for sterilization consultation. Pt would like to proceed with salpingectomy- understands this is permanent. Title 19 signed on 08/26/23 pre-operative visit. She is scheduled for laparoscopic salpingectomy, for desires sterilization on 10/23/23. Procedure discussed along with risks, benefits and complications. Other alternatives discussed for management. Consent form signed? Yes. PAST MEDICAL HISTORY Diagnosis Date Asthma PRN inhaler. worse as child. Bipolar 1 disorder, depressed (HCC) Hyperemesis gravidarum depression PTSD (post-traumatic stress disorder) No past surgical history on file. Current Outpatient Medications Medication Sig Dispense Refill esomeprazole (NEXIUM) 20 mg capsule Take 1 capsule by mouth once daily. 90 capsule 1 metoclopramide HCl (REGLAN) 10 mg tablet Take 1 tablet by mouth three times a day as needed (headache or nausea). 45 tablet 1 FLOVENT HFA 110 mcg/actuation inhaler Inhale 1 Puff as instructed twice daily. Shake well before use. Rinse mouth after use. 1 Each 2 albuterol HFA (PROVENTIL HFA, VENTOLIN HFA) 90 mcg/actuation inhaler Inhale 2 Puffs as instructed every 6 hours as needed for wheezing/shortness of breath. 1 Each 2 ARIPiprazole (ABILIFY) 10 mg tablet Take 1 tablet by mouth daily at bedtime. 90 tablet 3 sertraline (ZOLOFT) 100 mg tablet Take 1 tablet by mouth once daily. 90 tablet 3 No current facility-administere d medications for this visit. ALLERGIES: Bee Pollen, Venom-Honey Bee, Beeswax, and Cefaclor PERSONAL HISTORY: Social History Tobacco Use Smoking status: Former Types: Cigarettes Smokeless tobacco: Never Vaping Use Vaping Use: current everyday user Substances: Nicotine, Flavoring Devices: Disposable Substance Use Topics Alcohol use: Not Currently Drug use: Never FAMILY HISTORY: FAMILY HISTORY Problem Relation Age of Onset Breast Cancer Maternal Grandmother REVIEW OF SYMPTOMS: negative except as noted above PHYSICAL EXAMINATION: VITALS: Blood pressure 110/74, pulse 88, resp. rate 16, height 5' (1.524 m), weight 204 lb (92.5 kg), last menstrual period 09/22/2023, not currently . GENERAL: The patient is well nourished, well hydrated in no acute distress. , The patient is oriented to time, place, and person. NECK: full range of motion IMPRESSION: 28yo desires permanent sterilization PLAN: Laparoscopic bilateral salpingectomy Pt has been counseled on risks/benefits and alternatives of surgery including but not limited to anesthesia, bleeding, infection, injury to pelvic structures including bowel, bladder, ureters and vessels. Pt wishes to proceed with surgery at this time. Risk of regret reviewed. Pt did not have any further albuterol inhaler- discussed I would order until she can have follow up with PCP- she is to bring to hospital day of surgery. Reviewed do not VAPE day of surgery Pre and post op instructions reviewed. Discussed Post op pain treatment with tylenol and ibuprofen OTC. I have reviewed and updated past medical and surgical history, medications and allergies Francine Jeff MD [facility] 10-09-2023 KELSEY Telephone (OBGYWM) DIGNA KRAUS ([id number]) 1995 F Date Time Provider Department 10/09/23 FRANCINE PATRICIO OBGYWM During your visit today, we recorded the following information about you: Kelsey Frias LPN 10/09/2023 8:29 AM Signed PAT called and stated that pt has abnormal WBC. Results printed and placed on desk for review and further advice. Pt also needs preop appointment with DM. Pt has no showed x2.Francine Lock LPN, MD 10/09/2023 11:26 AM Signed Reviewed wbc- so long as she does not feel she is sick day of surgery it is ok to proceed. Since she has missed two appointments and failed to reschedule and failed to respond to [employer] messages- Please call patient - if she does not respond soon she will need to be canceled so we can make sure that surgical spot gets used with another patient. Kelsey Frias LPN 10/09/2023 11:50 AM Signed Unable to reach pt via phone d/t calling restrictions. [employer] message sent to patient. Will await response from pt. Kelsey Alford LPN, LPN 10/15/2023 2:37 PM Signed Again attempted to contact pt via phone, d/t calling restrictions unable to leave message. Letter mailed to pt. [employer] message has not been viewed. HAYLEY Whalen Trisha, RN 10/16/2023 4:39 PM Signed Patient was seen on 10/12/23 for pre op appointment with DM. Britta Levy RN Allergies As of Date: 10/09/2023 Noted Allergy Reaction BEE POLLEN 04/21/2023 4 - Hives VENOM-HONEY BEE 04/08/2022 10 - Anaphylaxis 7 - Swelling BEESWAX 04/21/2023 4 - Hives CEFACLOR 09/22/2012 16 - Unknown 4 - Hives Comments: Unknown Date Reviewed: 08/26/2023 Reviewed by: Thu Garcia Ma - Fully Assessed Reason for Visit: Results [95] Prescriptions as of 10/16/2023 - hydrOXYzine HCl (ATARAX) 50 mg tablet Take 50 mg by mouth two times a day as needed. - albuterol HFA (PROVENTIL HFA, VENTOLIN HFA) 90 mcg/actuation inhaler Inhale 2 Puffs as instructed every 6 hours as needed for wheezing/shortness of breath. - esomeprazole (NEXIUM) 20 mg capsule Take 1 capsule by mouth once daily. - FLOVENT HFA 110 mcg/actuation inhaler Inhale 1 Puff as instructed twice daily. Shake well before use. Rinse mouth after use. - ARIPiprazole (ABILIFY) 10 mg tablet Take 1 tablet by mouth daily at bedtime. - sertraline (ZOLOFT) 100 mg tablet Take 1 tablet by mouth once daily. 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 Rh negative, antepartum [O26.899, Z67.91] 04/21/2023 History of asthma [Z87.09] 04/21/2023 Bipolar disease during , antepartum (H*04/21/2023 Significant discrepancy between uterine size an*05/18/2023 Insulin controlled gestational diabetes mellitu*06/08/2023 Anemia complicating , third trimester *06/08/2023 Encounter Status:Closed by BRITTA LEVY on 10/16/23 [facility] 09-10-2023 CNPN Telephone (OBGYWM) DIGNA KRAUS ([id number]) 1995 F Date Time Provider Department 09/10/23 FRANCINE PATRICIO OBGYWM During your visit today, we recorded the following information about you: Nesha King 09/10/2023 8:55 AM Signed Pt called stating she had completed a form to get her tubes tied but the hospital indicates they do not have it. She would like to proceed in getting that done as soon as possible. Nesha Reis RN 09/15/2023 11:05 AM Signed Per office note on 08/26/23: Desires sterilization- Title 19 signed today- OR booking sheet signed today. Did you receive a surgery sheet? Loretta Julien LPN 09/15/2023 12:58 PM Signed Patient scheduled for surgery 10/23/2023 Allergies As of Date: 09/10/2023 Noted Allergy Reaction BEE POLLEN 04/21/2023 4 - Hives VENOM-HONEY BEE 04/08/2022 10 - Anaphylaxis 7 - Swelling BEESWAX 04/21/2023 4 - Hives CEFACLOR 09/22/2012 16 - Unknown 4 - Hives Comments: Unknown Date Reviewed: 08/26/2023 Reviewed by: Thu Garcia Ma - Fully Assessed Reason for Visit: Patient Question [5677] Prescriptions as of 09/15/2023 - esomeprazole (NEXIUM) 20 mg capsule Take 1 capsule by mouth once daily. - metoclopramide HCl (REGLAN) 10 mg tablet Take 1 tablet by mouth three times a day as needed (headache or nausea). - FLOVENT HFA 110 mcg/actuation inhaler Inhale 1 Puff as instructed twice daily. Shake well before use. Rinse mouth after use. - albuterol HFA (PROVENTIL HFA, VENTOLIN HFA) 90 mcg/actuation inhaler Inhale 2 Puffs as instructed every 6 hours as needed for wheezing/shortness of breath. - ARIPiprazole (ABILIFY) 10 mg tablet Take 1 tablet by mouth daily at bedtime. - sertraline (ZOLOFT) 100 mg tablet Take 1 tablet by mouth once daily. 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 BIOPHYSICAL PROFILE US WHIon 08-17-2023 [facility] CNPAsya 08-13-2023 KELSEY Telephone (WOOB) DIGNA KRAUS ([id number]) 1995 F Date Time Provider Department 08/13/23 RHIANNA BURLESON During your visit today, we recorded the following information about you: Naty Bishop 08/13/2023 11:01 AM Signed Patient called back she is scheduled for 08/14 10:30 NST and 11 w/ Plotts she received a message about switching times (ob- Physician only- LMTCB to see if can come at 3:30 NST/OB with DM instead (4:20 time with DM on hold) Patient said that will not work out for her, can be reached at [phone] please advise Nesha Reis RN 08/13/2023 11:18 AM Signed Please see below. There is no physician in the office in the AM tommorow. Patient has a BPP on Thursday @ 10:30AM. No physician openings then. Please advise. Ilan Tompkins RN, MD 08/13/2023 11:28 AM Signed Please ask aprovider that is in that day about seeing her. Thanks! MD Hanna Hoang Deidre, MD 08/14/2023 11:26 AM Signed Have patient get her BPP - if CP has questions she can call me in OR and I am happy to answer them. I will not be in office til later afternoon due to OR Petrona Kothari RN 08/14/2023 1:39 PM Signed Patient had NST today and BPP is on Thursday at 10:30. CP did not see pt today. Please advise if there is a time she can be seen by a physician Friday 08/17. MIGUEL MAGALLANES Deidre, MD 08/14/2023 2:08 PM Signed RR has opening at 10:50 am Petrona Kothari RN 08/14/2023 2:22 PM Signed Patient scheduled and agreeable for Thursday with RR at 10:50 AM PETRONA KOTHARI RN Allergies As of Date: 08/13/2023 Noted Allergy Reaction BEE POLLEN 04/21/2023 4 - Hives VENOM-HONEY BEE 04/08/2022 10 - Anaphylaxis 7 - Swelling BEESWAX 04/21/2023 4 - Hives CEFACLOR 09/22/2012 16 - Unknown 4 - Hives Comments: Unknown Date Reviewed: 08/07/2023 Reviewed by: Ashlyn Cotton MD - Fully Assessed Reason for Visit: Appointment [186] Prescriptions as of 08/14/2023 - insulin lispro (HUMALOG KWIKPEN INSULIN) 100 unit/mL 5 units prior to breakfast, 10 units prior to dinner + scale - omeprazole (PRILOSEC) 40 mg capsule Take 1 capsule by mouth once daily. - metoclopramide HCl (REGLAN) 10 mg tablet Take 1 tablet by mouth three times a day as needed (headache or nausea). - ondansetron (ZOFRAN) 4 mg tablet Take 1 tablet by mouth every 8 hours as needed for nausea/vomiting. - blood sugar diagnostic test strip Use as directed to check glucose levels up to seven times daily. - insulin NPH human (HUMULIN N NPH INSULIN KWIKPEN) 100 unit/mL (3 mL) injection pen 12 units at bedtime - Insulin Wheeler, Disposable, (BD ULTRAFINE III MINI PEN) 31 gauge x 3/16 Twice/day - Lancets lancets Use as directed to check glucose levels up to seven times daily. - alcohol swabs (ALCOHOL PREP PADS) Use as directed to check glucose levels up to seven times daily. - ferrous sulfate (IRON) 325 mg (65 mg iron) tablet Take 1 tablet by mouth twice daily. - FLOVENT HFA 110 mcg/actuation inhaler Inhale 1 Puff as instructed twice daily. Shake well before use. Rinse mouth after use. - albuterol HFA (PROVENTIL HFA, VENTOLIN HFA) 90 mcg/actuation inhaler Inhale 2 Puffs as instructed every 6 hours as needed for wheezing/shortness of breath. - ARIPiprazole (ABILIFY) 10 mg tablet Take 1 tablet by mouth daily at bedtime. - sertraline (ZOLOFT) 100 mg tablet Take 1 tablet by mouth once daily. 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 BIOPHYSICAL PROFILE US WHIon 10-16-2023 [facility] CBC panel Auto (Bld)on 08-10 Erythrocyte distribution width (RBC) [Ratio] 16.1 % High 11.5-15.0 [facility] Comment on above: Order Comment: Speci men Type: BLOOD SPECIMENOrdering Facility: [facility] Address: [address] [place] [address] Performed By: #### 5 8410-2 ####[facility]ENTERLAMBERT [id number] [place] [address] [place] Hematocrit (Bld) [Volume fraction] 37.0 % Normal 36.0-46.0 [facility] Comment on above: Order Comment: Speci men Type: BLOOD SPECIMENOrdering Facility: [facility] Address: [address] [place] [address] Performed By: #### 5 8410-2 ####[facility] [id number] [address] [place] Hemoglobin (Bld) [Mass/Vol] 12.1 g/dL Normal 11.5-15.5 [facility] Comment on above: Order Comment: Speci men Type: BLOOD SPECIMENOrdering Facility: [facility] Address: [address] [place] [address] Performed By: #### 5 8410-2 ####[facility] [id number] [place] [address] [place] MCH (RBC) [Entitic mass] 24.5 pg Low 26.0-34.0 [facility] Comment on above: Order Comment: Speci men Type: BLOOD SPECIMENOrdering Facility: [facility] Address: [address] [place] [address] Performed By: #### 5 8410-2 ####[facility]ENTERNEISHALIA [id number] [place] [address] [place] MCHC (RBC) [Mass/Vol] 32.7 g/dL Normal 30.5-36.0 [facility] Comment on above: Order Comment: Speci men Type: BLOOD SPECIMENOrdering Facility: [facility] Address: [address] [place] [address] Performed By: #### 5 8410-2 ####[facility]ERNCM[facility] [id number] [place] [address] [place] MCV (RBC) [Entitic vol] 74.9 fL Low 80.0-100.0 [facility] Comment on above: Order Comment: Speci men Type: BLOOD SPECIMENOrdering Facility: [facility] Address: [address] [place] [address] Performed By: #### 5 8410-2 ####[facility] [id number] [place] [address] [place] Nucleated RBC (Bld) [#/Vol] 10*3/uL Normal <0.01 [facility] Comment on above: Order Comment: Speci men Type: BLOOD SPECIMENOrdering Facility: [facility] Address: [address] [place] [address] Performed By: #### 5 8410-2 ####[facility] [id number] [place] [address] [place] Platelet mean volume (Bld) [Entitic vol] 10.9 fL Normal 9.0-12.7 [facility] Comment on above: Order Comment: Speci men Type: BLOOD SPECIMENOrdering Facility: [facility] Address: [address] [place] [address] Performed By: #### 5 8410-2 ####[facility] [id number] [place] [address] [place] Platelets (Bld) [#/Vol] 248 10*3/uL Normal 150-400 [facility] Comment on above: Order Comment: Speci men Type: BLOOD SPECIMENOrdering Facility: [facility] Address: [address] [facility] [place] [address] Performed By: #### 5 8410-2 ####[facility]ENTERNCLIA [id number] [place] [address] [place] RBC (Bld) [#/Vol] 4.94 10*6/uL Normal 3.90-5.20 [facility] Comment on above: Order Comment: Speci men Type: BLOOD SPECIMENOrdering Facility: [facility] Address: [place] [address] Performed By: #### 5 8410-2 ####[facility]ENTERNCLIA [id number] [place] [address] [place] WBC (Bld) [#/Vol] 10.98 10*3/uL Normal 3.70-11.00 [facility] Comment on above: Order Comment: Speci men Type: BLOOD SPECIMENOrdering Facility: [facility] Address: [place] [address] Performed By: #### 5 8410-2 ####[facility]ENTERNCLIA [id number] [address] [place] CNPAsya 08-10-2023 CNPN Telephone (ENDOAL) DIGNA KRAUS ([id number]) 1995 F Date Time Provider Department 08/10/23 JULES WOLFE ENDOAL During your visit today, we recorded the following information about you: Jules Wolfe, 08/10/2023 3:05 PM Signed Reviewed BG data- responded as follows: Good afternoon - I reviewed your BG data, I would recommend that you do the following: continue NPH 12 units at bedtime, start Humalog 5 units prior to breakfast, continue Humalog 10 units prior to dinner + 10 additional units with higher carb meals. Will review again next week- thanks! KB Allergies As of Date: 08/10/2023 Noted Allergy Reaction BEE POLLEN 04/21/2023 4 - Hives VENOM-HONEY BEE 04/08/2022 10 - Anaphylaxis 7 - Swelling BEESWAX 04/21/2023 4 - Hives CEFACLOR 09/22/2012 16 - Unknown 4 - Hives Comments: Unknown Date Reviewed: 08/07/2023 Reviewed by: Ashlyn Cotton MD - Fully Assessed Reason for Visit: Blood Sugar Reading [1269] Order(s):insulin lispro (HUMALOG KWIKPEN INSULIN) 100 unit/mL5 units prior to breakfast, 10 units prior to dinner + scaleDisp: 5 EachRfl: 5 Prescriptions as of 08/10/2023 - albuterol HFA (PROVENTIL HFA, VENTOLIN HFA) 90 mcg/actuation inhaler Inhale 2 Puffs as instructed every 6 hours as needed for wheezing/shortness of breath. - alcohol swabs (ALCOHOL PREP PADS) Use as directed to check glucose levels up to seven times daily. - ARIPiprazole (ABILIFY) 10 mg tablet Take 1 tablet by mouth daily at bedtime. - blood sugar diagnostic test strip Use as directed to check glucose levels up to seven times daily. - ferrous sulfate (IRON) 325 mg (65 mg iron) tablet Take 1 tablet by mouth twice daily. - FLOVENT HFA 110 mcg/actuation inhaler Inhale 1 Puff as instructed twice daily. Shake well before use. Rinse mouth after use. - insulin lispro (HUMALOG KWIKPEN INSULIN) 100 unit/mL 5 units prior to breakfast, 10 units prior to dinner + scale - Insulin Wheeler, Disposable, (BD ULTRAFINE III MINI PEN) 31 gauge x 3/16 Twice/day - insulin NPH human (HUMULIN N NPH INSULIN KWIKPEN) 100 unit/mL (3 mL) injection pen 12 units at bedtime - Lancets lancets Use as directed to check glucose levels up to seven times daily. - metoclopramide HCl (REGLAN) 10 mg tablet Take 1 tablet by mouth three times a day as needed (headache or nausea). - omeprazole (PRILOSEC) 40 mg capsule Take 1 capsule by mouth once daily. - ondansetron (ZOFRAN) 4 mg tablet Take 1 tablet by mouth every 8 hours as needed for nausea/vomiting. - sertraline (ZOLOFT) 100 mg tablet Take 1 tablet by mouth once daily. 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 Rh negative, antepartum [O26.899, Z67.91] 04/21/2023 History of asthma [Z87.09] 04/21/2023 Bipolar disease during , antepartum (H*04/21/2023 Significant discrepancy between uterine size an*05/18/2023 Insulin controlled gestational diabetes mellitu*06/08/2023 Anemia complicating , third trimester *06/08/2023 Prescriptions ordered this encounter Disp Refills Start End INSULIN LISPRO (U-100) 100 UNIT/ML S* 5 Ea* 5 08/10/2023 Class: Med Update Si units prior to breakfast, 10 units prior to dinner + scale Medications Discontinued During This Encounter Prescriptions - insulin lispro (HUMALOG KWIKPEN INSULIN) 100 unit/mL (Discontinued) 10 units prior to dinner + scale Encounter Status:Closed by JULES WOLFE on 08/10/[address] [facility] Comprehensive metabolic 2000 panelon 08-10-2023 Albumin [Mass/Vol] 3.3 g/dL Low 3.9-4.9 [facility] Comment on above: Order Comment: Speci men Type: BLOOD SPECIMENOrdering Facility: [facility] Address: [address] [place] [address] Performed By: #### 2 4323-8 ####[facility] [id number] [place] [address] [place] ALP [Catalytic activity/Vol] 170 U/L High 34-123 [facility] Comment on above: Order Comment: Speci men Type: BLOOD SPECIMENOrdering Facility: [facility] Address: [address] [place] [address] Performed By: #### 2 4323-8 ####[facility] JONY MILLTOWNCLIA [id number] [place] [address] [place] ALT [Catalytic activity/Vol] 9 U/L Normal 7-38 [facility] Comment on above: Order Comment: Speci men Type: BLOOD SPECIMENOrdering Facility: [facility] Address: [address] [place] [address] Performed By: #### 2 4323-8 ####[facility] MILLTOWNCLIA [id number] [place] [address] [place] Anion gap [Moles/Vol] 9 mmol/L Normal 9-18 [facility] Comment on above: Order Comment: Speci men Type: BLOOD SPECIMENOrdering Facility: [facility] Address: [address] [place] [address] Performed By: #### 2 4323-8 ####[facility]ITALWNCL[facility] [id number] [place] [address] [place] AST [Catalytic activity/Vol] 12 U/L Low 13-35 [facility] Comment on above: Order Comment: Speci men Type: BLOOD SPECIMENOrdering Facility: [facility] Address: [address] [place] [address] Performed By: #### 2 4323-8 ####[facility]OWNCL[facility] [id number] [place] [address] [place] Bilirubin [Mass/Vol] mg/dL Low 0.2-1.3 [facility] Comment on above: Order Comment: Speci men Type: BLOOD SPECIMENOrdering Facility: [facility] Address: [address] [place] [address] Performed By: #### 2 4323-8 ####[facility] MILLTOWNCLIA [id number] [place] [address] [place] Calcium [Mass/Vol] 8.4 mg/dL Low 8.5-10.2 [facility] Comment on above: Order Comment: Speci men Type: BLOOD SPECIMENOrdering Facility: [facility] Address: [address] [place] [address] Performed By: #### 2 4323-8 ####[facility] MILLWNCLIA [id number] [place] [address] [place] Chloride [Moles/Vol] 104 mmol/L Normal 97-105 [facility] Comment on above: Order Comment: Speci men Type: BLOOD SPECIMENOrdering Facility: [facility] Address: [address] [place] [address] Performed By: #### 2 4323-8 ####[facility]ITALWNCLIA [id number] [place] [address] [place] CO2 [Moles/Vol] 21 mmol/L Low 22-30 [facility] Comment on above: Order Comment: Speci men Type: BLOOD SPECIMENOrdering Facility: [facility] Address: [address] [place] [address] Performed By: #### 2 4323-8 ####[facility]ENTERNCLIA [id number] [place] [address] [place] Creatinine [Mass/Vol] 0.66 mg/dL Normal 0.58-0.96 [facility] Comment on above: Order Comment: Speci men Type: BLOOD SPECIMENOrdering Facility: [facility] Address: [address] [place] [address] Performed By: #### 2 4323-8 ####[facility]ENTERNCLIA [id number] [place] [address] [place] Creatinine and Glomerular filtration rate.predicted panel (S/P/Bld) 121 mL/min/1.73m??? Normal >=60 [facility] Comment on above: Order Comment: Speci men Type: BLOOD SPECIMENOrdering Facility: [facility] Address: [address] [place] [address] Result Comment: Viviana mated Glomerular Filtration Rate (eGFR) is calculated using the 2020 CKD-EPI creatinine equation. This equation utilizes serum creatinine, sex, and age as parameters. The creatinine assay has traceable calibration to isotope dilution-mass spectrometry. Refer to KDIGO guidelines for clinical interpretation. In patients with unstable renal function, e.g. those with acute kidney injury, the eGFR may not accurately reflect actual GFR. Performed By: #### 2 4323-8 ####[facility] [id number] [place] [address] [place] Glucose [Mass/Vol] 118 mg/dL High 74-99 [facility] Comment on above: Order Comment: Specnikita brown Type: BLOOD SPECIMENOrdering Facility: [facility] Address: [address] [place] [address] Result Comment: The [place] Diabetes Association (ADA) provides guidance for cutoff values for fasting glucose and random glucose. The ADA defines fasting as no caloric intake for at least 8 hours. Fasting plasma glucose results between 100 to 125 mg/dL indicate increased risk for diabetes (prediabetes). Fasting plasma glucose results greater than or equal to 126 mg/dL meet the criteria for diagnosis of diabetes. In the absence of unequivocal hyperglycemia, results should be confirmed by repeat testing. In a patient with classic symptoms of hyperglycemia or hyperglycemic crisis, random plasma glucose results greater than or equal to 200 mg/dL meet the criteria for diagnosis of diabetes. Reference: Standards of Medical Care in Diabetes 2016, [place] Diabetes Association. Diabetes Care. 2016.39(Suppl 1). Performed By: #### 2 4323-8 ####[facility] [id number] [place] [address] [place] Potassium [Moles/Vol] 4.0 mmol/L Normal 3.7-5.1 [facility] Comment on above: Order Comment: Kelsey brown Type: BLOOD SPECIMENOrdering Facility: [facility] Address: [address] [place] [address] Performed By: #### 2 4323-8 ####[facility] [id number] [place] [address] [place] Protein [Mass/Vol] 5.8 g/dL Low 6.3-8.0 [facility] Comment on above: Order Comment: Speci men Type: BLOOD SPECIMENOrdering Facility: [facility] Address: [address] [place] [address] Performed By: #### 2 4323-8 ####[facility]ITALL[facility] [id number] [place] [address] [place] Sodium [Moles/Vol] 134 mmol/L Low 136-144 [facility] Comment on above: Order Comment: Speci men Type: BLOOD SPECIMENOrdering Facility: [facility] Address: [address] [place] [address] Performed By: #### 2 4323-8 ####[facility]ITALCODY [id number] [place] [address] [place] Urea nitrogen [Mass/Vol] 11 mg/dL Normal 7-21 [facility] Comment on above: Order Comment: Speci men Type: BLOOD SPECIMENOrdering Facility: [facility] Address: [address] [place] [address] Performed By: #### 2 4323-8 ####[facility]IT[facility] [id number] [place] [address] [place] Prot/Creat Uron 08-10-2023 Protein/Creatinine (U) [Mass ratio] 0.16 mg/mg High <0.15 [facility] Comment on above: Order Comment: Speci men Type: URINE SPECIMENOrdering Facility: [facility] Address: [address] [place] [address] Result Comment: Adul t Proteinuria Categories: <0.15 mg/mg is considered normal to mildly increased 0.15 - 0.50 mg/mg is considered moderately increased >0.50 mg/mg is considered severely increased KDIGO. (2013). KDIGO 2012 Clinical Practice Guideline for the Evaluation and Management of Chronic Kidney Disease. Official Journal of the International Society of Nephrology, 3(1), 1-150. Performed By: #### 2 890-2 ####[facility] LAB[facility] [id number] [address] STATES OF [facility] Protein/Creatinine (U) [Mass ratio]on 08-10-2023 Creatinine (U) [Mass/Vol] 159.2 mg/dL Normal 20.0-300.0 [facility] Comment on above: Order Comment: Speci men Type: URINE SPECIMENOrdering Facility: [facility] Address: [address] [place] [address] Performed By: #### 2 890-2 ####[facility] [id number] [address] [place] Protein (U) [Mass/Vol] 26 mg/dL High 0-20 [facility] Comment on above: Order Comment: Speci men Type: URINE SPECIMENOrdering Facility: [facility] Address: [address] [place] [address] Performed By: #### 2 890-2 ####[facility] [id number] [place] [address] [place] URINE OB DIP B/Oon 3 Glucose Ql (U) Negative Neg mg/dL [facility] Protein.monoclonal (U) [Mass/Vol] Negative Neg mg/dL [facility] BIOPHYSICAL PROFILE US WHIon 08-03-2023 [facility] ROUTINE, GROUP B ST REP PCRon 08-01-2023 S. agalactiae Org specific cx Ql (Vag fld) Negative Negative [facility] CNPNon 07-31-2023 CNPN Telephone (ENDOAL) DIGNA [id number]) 1995 F Date Time Provider Department 07/31/23 JULES WOLFE During your visit today, we recorded the following information about you: Jules Wolfe, 07/31/2023 10:03 AM Signed Reviewed BG data- responded as follows: Good morning- I reviewed your BG data- these numbers are at/near goal- continue your current regimen as you are doing: NPH 12 units at bedtime and Humalog 10 units prior to dinner + additional +10 units of Humalog with higher carb meals. will review again next week- thanks! KB Allergies As of Date: 07/31/2023 Noted Allergy Reaction BEE POLLEN 04/21/2023 4 - Hives VENOM-HONEY BEE 04/08/2022 10 - Anaphylaxis 7 - Swelling BEESWAX 04/21/2023 4 - Hives CEFACLOR 09/22/2012 16 - Unknown 4 - Hives Comments: Unknown Date Reviewed: 07/21/2023 Reviewed by: Ilan Camacho MD - Fully Assessed Reason for Visit: Blood Sugar Reading [1269] Prescriptions as of 07/31/2023 - blood sugar diagnostic test strip Use as directed to check glucose levels up to seven times daily. - esomeprazole (NEXIUM) 20 mg capsule Take 1 capsule by mouth once daily. - insulin NPH human (HUMULIN N NPH INSULIN KWIKPEN) 100 unit/mL (3 mL) injection pen 12 units at bedtime - insulin lispro (HUMALOG KWIKPEN INSULIN) 100 unit/mL 10 units prior to dinner + scale - Insulin Wheeler, Disposable, (BD ULTRAFINE III MINI PEN) 31 gauge x 3/16 Twice/day - Lancets lancets Use as directed to check glucose levels up to seven times daily. - alcohol swabs (ALCOHOL PREP PADS) Use as directed to check glucose levels up to seven times daily. - ferrous sulfate (IRON) 325 mg (65 mg iron) tablet Take 1 tablet by mouth twice daily. - FLOVENT HFA 110 mcg/actuation inhaler Inhale 1 Puff as instructed twice daily. Shake well before use. Rinse mouth after use. - albuterol HFA (PROVENTIL HFA, VENTOLIN HFA) 90 mcg/actuation inhaler Inhale 2 Puffs as instructed every 6 hours as needed for wheezing/shortness of breath. - ARIPiprazole (ABILIFY) 10 mg tablet Take 1 tablet by mouth daily at bedtime. - sertraline (ZOLOFT) 100 mg tablet Take 1 tablet by mouth once daily. Problem List As Of Date 07/31/2023 Noted Resolved Anxiety neurosis [F41.1] 03/16/2023 Rh negative, antepartum [O26.899, Z67.91] 04/21/2023 History of asthma [Z87.09] 04/21/2023 Bipolar disease during , antepartum (H*04/21/2023 Significant discrepancy between uterine size an*05/18/2023 Insulin controlled gestational diabetes mellitu*06/08/2023 Anemia complicating , third trimester *06/08/2023 Encounter Status:Closed by JULES WOLFE on 07/31/[address] [facility] ROUTINE, GROUP B ST REP PCRon 07-31-2023 ROUTINE, GROUP B STREP PCR GROUP B STREP PCR: Negative for Group B Streptococcus by PCR. Normal [facility] Comment on above: Performed By: #### G BPCR ####[facility] LABCLIA [id number] [place] [address] [place] URINE OB DIP B/Oon 3 Glucose Ql (U) Negative Neg mg/dL [facility] Protein.monoclonal (U) [Mass/Vol] Negative Neg mg/dL [facility] BIOPHYSICAL PROFILE US WHIon 07-24-2023 [facility] URINE OB DIP B/Oon 3 Glucose Ql (U) Negative Neg mg/dL [facility] Protein.monoclonal (U) [Mass/Vol] trace Neg mg/dL [facility] CNPNon 07-20-2023 CNPN Telephone (ENDOAL) DIGNA KRAUS ([id number]) 1995 F Date Time Provider Department 07/20/23 JULES WOLFE During your visit today, we recorded the following information about you: Jules Wolfe DO 07/20/2023 12:20 PM Signed Reviewed BG data- responded as follows: Good morning- I reviewed your BG data- these numbers are at/near goal and continue to look good. You do have some outliers in particular post meal- try to be as careful as possible with carb intake (consistency) on meal to meal basis. I would recommend that you continue your current regimen: NPH 12 units at bedtime and Humalog 10 units prior to dinner, but take additional +10 units of humalog with higher carb meals. will review again nex tweek- thanks! KB Allergies As of Date: 07/20/2023 Noted Allergy Reaction BEE POLLEN 04/21/2023 4 - Hives VENOM-HONEY BEE 04/08/2022 10 - Anaphylaxis 7 - Swelling BEESWAX 04/21/2023 4 - Hives CEFACLOR 09/22/2012 16 - Unknown 4 - Hives Comments: Unknown Date Reviewed: 07/17/2023 Reviewed by: Kelley Breen MA - Fully Assessed Reason for Visit: Blood Sugar Reading [1269] Prescriptions as of 07/20/2023 - blood sugar diagnostic test strip Use as directed to check glucose levels up to seven times daily. - esomeprazole (NEXIUM) 20 mg capsule Take 1 capsule by mouth once daily. - insulin NPH human (HUMULIN N NPH INSULIN KWIKPEN) 100 unit/mL (3 mL) injection pen 12 units at bedtime - insulin lispro (HUMALOG KWIKPEN INSULIN) 100 unit/mL 10 units prior to dinner + scale - Insulin Wheeler, Disposable, (BD ULTRAFINE III MINI PEN) 31 gauge x 3/16 Twice/day - Lancets lancets Use as directed to check glucose levels up to seven times daily. - alcohol swabs (ALCOHOL PREP PADS) Use as directed to check glucose levels up to seven times daily. - ferrous sulfate (IRON) 325 mg (65 mg iron) tablet Take 1 tablet by mouth twice daily. - FLOVENT HFA 110 mcg/actuation inhaler Inhale 1 Puff as instructed twice daily. Shake well before use. Rinse mouth after use. - albuterol HFA (PROVENTIL HFA, VENTOLIN HFA) 90 mcg/actuation inhaler Inhale 2 Puffs as instructed every 6 hours as needed for wheezing/shortness of breath. - ARIPiprazole (ABILIFY) 10 mg tablet Take 1 tablet by mouth daily at bedtime. - sertraline (ZOLOFT) 100 mg tablet Take 1 tablet by mouth once daily. Problem List As Of Date 07/20/2023 Noted Resolved Anxiety neurosis [F41.1] 03/16/2023 Rh negative, antepartum [O26.899, Z67.91] 04/21/2023 History of asthma [Z87.09] 04/21/2023 Bipolar disease during , antepartum (H*04/21/2023 Significant discrepancy between uterine size an*05/18/2023 Insulin controlled gestational diabetes mellitu*06/08/2023 Anemia complicating , third trimester *06/08/2023 Encounter Status:Closed by JULES WOLFE on 07/20/[address] [facility] CNCOon 07-17-[address] [facility] URINE OB DIP B/Oon 3 Glucose Ql (U) Negative Neg mg/dL [facility] Protein.monoclonal (U) [Mass/Vol] Negative Neg mg/dL [facility] BIOPHYSICAL PROFILE [facility] 07-15-2023 [facility] URINE OB DIP B/Oon 3 Glucose Ql (U) Negative Neg mg/dL [facility] Protein.monoclonal (U) [Mass/Vol] trace Neg mg/dL [facility] BIOPHYSICAL PROFILE [facility] 07-07-2023 [facility] CNPNon 07-07-2023 CNPN Telephone (ENDOAL) DIGNA KRAUS ([id number]) 1995 F Date Time Provider Department 07/07/23 JULES WOLFE During your visit today, we recorded the following information about you: YanethJules sumnerDO 07/07/2023 3:43 PM Signed Reviewed BG data- responded as follows Good afternoon- I reviewed your BG data- these numbers are not quite at goal- I would recommend that you adjust insulin as follows: increase NPH to 12 units at bedtime increase Humalog to 10 units prior to dinner. In addition- I would recommend that you take 5 units of additional Humalog with higher carb meals (means if you eat something that you think will increase your blood glucose- take the additional Humalog). Mason with * on your log book if/when you take the additional Humalog so i can see if it is working or not. Will review again next week- thanks! KB Allergies As of Date: 07/07/2023 Noted Allergy Reaction BEE POLLEN 04/21/2023 4 - Hives VENOM-HONEY BEE 04/08/2022 10 - Anaphylaxis 7 - Swelling BEESWAX 04/21/2023 4 - Hives CEFACLOR 09/22/2012 16 - Unknown 4 - Hives Comments: Unknown Date Reviewed: 07/07/2023 Reviewed by: Nusrat Simon RN - Fully Assessed Reason for Visit: Blood Sugar Reading [1269] Order(s):insulin NPH human (HUMULIN N NPH INSULIN KWIKPEN) 100 unit/mL (3 mL) injection pen12 units at bedtimeDisp: 5 EachRfl: 5 insulin lispro (HUMALOG KWIKPEN INSULIN) 100 unit/mL10 units prior to dinner + scaleDisp: 5 EachRfl: 5 Prescriptions as of 07/07/2023 - insulin NPH human (HUMULIN N NPH INSULIN KWIKPEN) 100 unit/mL (3 mL) injection pen 12 units at bedtime - insulin lispro (HUMALOG KWIKPEN INSULIN) 100 unit/mL 10 units prior to dinner + scale - Insulin Wheeler, Disposable, (BD ULTRAFINE III MINI PEN) 31 gauge x 3/16 Twice/day - blood sugar diagnostic test strip Use as directed to check glucose levels up to seven times daily. - Lancets lancets Use as directed to check glucose levels up to seven times daily. - alcohol swabs (ALCOHOL PREP PADS) Use as directed to check glucose levels up to seven times daily. - ferrous sulfate (IRON) 325 mg (65 mg iron) tablet Take 1 tablet by mouth twice daily. - FLOVENT HFA 110 mcg/actuation inhaler Inhale 1 Puff as instructed twice daily. Shake well before use. Rinse mouth after use. - albuterol HFA (PROVENTIL HFA, VENTOLIN HFA) 90 mcg/actuation inhaler Inhale 2 Puffs as instructed every 6 hours as needed for wheezing/shortness of breath. - ARIPiprazole (ABILIFY) 10 mg tablet Take 1 tablet by mouth daily at bedtime. - esomeprazole (NEXIUM) 20 mg capsule Take 1 capsule by mouth once daily. - sertraline (ZOLOFT) 100 mg tablet Take 1 tablet by mouth once daily. Problem List As Of Date 07/07/2023 Noted Resolved Anxiety neurosis [F41.1] 03/16/2023 Rh negative, antepartum [O26.899, Z67.91] 04/21/2023 History of asthma [Z87.09] 04/21/2023 Bipolar disease during , antepartum (H*04/21/2023 Significant discrepancy between uterine size an*05/18/2023 Insulin controlled gestational diabetes mellitu*06/08/2023 Anemia complicating , third trimester *06/08/2023 Prescriptions ordered this encounter Disp Refills Start End HUMULIN N NPH U-100 INSULIN KWIKPEN * 5 Ea* 5 07/07/2023 Class: Med Update Si units at bedtime INSULIN LISPRO (U-100) 100 UNIT/ML S* 5 Ea* 5 07/07/2023 Class: Med Update Si units prior to dinner + scale Medications Discontinued During This Encounter Prescriptions - insulin lispro (HUMALOG KWIKPEN INSULIN) 100 unit/mL (Discontinued) 8 units prior to dinner - insulin NPH human (HUMULIN N NPH INSULIN KWIKPEN) 100 unit/mL (3 mL) injection pen (Discontinued) 7 units at bedtime Encounter Status:Closed by JULES WOLFE on 07/07/23 [facility] T[facility] 06-30-2023 KELSEY Telephone (ENDOAL) IKERDIGNA Devin ([id number]) 1995 F Date Time Provider Department 06/30/23 JULES WOLFE During your visit today, we recorded the following information about you: Jules Wolfe DO 06/30/2023 8:08 AM Signed Reviewed BG data- responded as follows: Good morning- I reviewed your BG data- I recommend that you increase NPH to 7 units at bedtime continue Humalog to 8 units prior to dinner Will review again next week- thanks! KB Allergies As of Date: 06/30/2023 Noted Allergy Reaction BEE POLLEN 04/21/2023 4 - Hives VENOM-HONEY BEE 04/08/2022 10 - Anaphylaxis 7 - Swelling BEESWAX 04/21/2023 4 - Hives CEFACLOR 09/22/2012 16 - Unknown 4 - Hives Comments: Unknown Date Reviewed: 06/25/2023 Reviewed by: Yaron Tobias Cma - Fully Assessed Reason for Visit: Blood Sugar Reading [1269] Order(s):insulin NPH human (HUMULIN N NPH INSULIN KWIKPEN) 100 unit/mL (3 mL) injection pen7 units at bedtimeDisp: 5 EachRfl: 5 Prescriptions as of 06/30/2023 - insulin NPH human (HUMULIN N NPH INSULIN KWIKPEN) 100 unit/mL (3 mL) injection pen 7 units at bedtime - insulin lispro (HUMALOG KWIKPEN INSULIN) 100 unit/mL 8 units prior to dinner - Insulin Wheeler, Disposable, (BD ULTRAFINE III MINI PEN) 31 gauge x 3/16 Twice/day - blood sugar diagnostic test strip Use as directed to check glucose levels up to seven times daily. - Lancets lancets Use as directed to check glucose levels up to seven times daily. - alcohol swabs (ALCOHOL PREP PADS) Use as directed to check glucose levels up to seven times daily. - ferrous sulfate (IRON) 325 mg (65 mg iron) tablet Take 1 tablet by mouth twice daily. - FLOVENT HFA 110 mcg/actuation inhaler Inhale 1 Puff as instructed twice daily. Shake well before use. Rinse mouth after use. - albuterol HFA (PROVENTIL HFA, VENTOLIN HFA) 90 mcg/actuation inhaler Inhale 2 Puffs as instructed every 6 hours as needed for wheezing/shortness of breath. - ARIPiprazole (ABILIFY) 10 mg tablet Take 1 tablet by mouth daily at bedtime. - esomeprazole (NEXIUM) 20 mg capsule Take 1 capsule by mouth once daily. - sertraline (ZOLOFT) 100 mg tablet Take 1 tablet by mouth once daily. Problem List As Of Date 06/30/2023 Noted Resolved Anxiety neurosis [F41.1] 03/16/2023 Rh negative, antepartum [O26.899, Z67.91] 04/21/2023 History of asthma [Z87.09] 04/21/2023 Bipolar disease during , antepartum (H*04/21/2023 Significant discrepancy between uterine size an*05/18/2023 Insulin controlled gestational diabetes mellitu*06/08/2023 Anemia complicating , third trimester *06/08/2023 Prescriptions ordered this encounter Disp Refills Start End HUMULIN N NPH U-100 INSULIN KWIKPEN * 5 Ea* 5 06/30/2023 Class: Med Update Si units at bedtime Medications Discontinued During This Encounter Prescriptions - insulin NPH human (HUMULIN N NPH INSULIN KWIKPEN) 100 unit/mL (3 mL) injection pen (Discontinued) 5 units at bedtime Encounter Status:Closed by JULES WOLFE on 06/30/[address] [facility] URINE OB DIP B/Oon 3 Glucose Ql (U) Negative Neg mg/dL [facility] Protein.monoclonal (U) [Mass/Vol] Negative Neg mg/dL [facility] CNNURSEon 06-24-2023 CNNURSE Nurse Visit (EDEDAL) DIGNA KRAUS ([id number]) 1995 F Date Time Provider Department 06/24/23 9:00 AM JAMESON HERNANDEZ During your visit today, we recorded the following information about you: Jameson Hernandez, RN 06/24/2023 9:48 AM Signed DIABETES SELF-MANAGEMENT EDUCATION AND SUPPORT Location: [place] Type of visit: Virtual (with video) individual I have communicated my name and active licensure. The patient's identity and physical location were verified at the time of this visit. Either the patient or their legal provider relations representative has been informed of the risks and benefits of -- and alternatives to -- treatment through a remote evaluation and consents to proceed with the evaluation remotely. Types of DSMES: Initial/Comprehensiv e (add to or update ADA spreadsheet) PATIENT'S MAIN CONCERN TODAY: none Support person present for education today: none Cognitive ability: Alert and oriented Motivation to learn: Interested Learning barriers identified by educator: none Method of instruction: written, verbal, and computer INTERVENTIONS/TOPICS COVERED: -Diabetes Pathophysiology: gestational diabetes basics -Monitoring: BG targets, rationale for HGM, logging, and testing frequency -Healthy Eating: impact of carbs on BG, basic carb counting, foods with carbs, portion sizes, carb counting tools (books, Internet, smartphone apps), and Breakfast: 30 grams, Morning Snack: 15-30 grams, Lunch: 45 grams, Afternoon Snack: 15-30 grams, Dinner: 45 grams, Evening Snack: 30 grams. -Medications: site selection/rotation and injectable insulin discussed: lispro (Humalog) and NPH Insulin -Physical Activity: impact of exercise on BG -Acute Complications: hypoglycemia s/sx/tx -Chronic Complications: risks to mom and baby with elevated blood sugars during DIABETES ASSESSMENT: Referring Physician: Jules Wolfe Previous Diabetes Education? No What are you hoping to gain from this visit? asked/not answered In your words, what is gestational diabetes? asked/not answered What concerns you about having gestational diabetes? asked/not answered Diabetes History: Type of Diabetes: Gestational ( diabetes in ) How far along is your ? Weeks: 30 Does anyone in your family have diabetes? 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 never How often does someone help you read your pill bottles? never How often does someone have to help you take care of your diabetes? never Major stressors:asked/not answered How do you manage stress? asked/not answered Do any of the following things get in the way of managing your diabetes? Asked/not answered Health History: Do you use tobacco? No Do you use alcohol? No In the past 12 months have you had any: Hospital Admissions: Asked/not answered ER Visits: Asked/not answered Primary Care Visits: Asked/not answered What are your general feelings about you overall health? Asked/not answered Medical Issues/Complications : None To whom are you reporting your blood sugar levels? High-Risk OB PAST MEDICAL HISTORY Diagnosis Date Asthma PRN inhaler. worse as child. Bipolar 1 disorder, depressed (HCC) Hyperemesis gravidarum depression PTSD (post-traumatic stress disorder) Most recent A1C Lab Results Component Value Date HBA1C 5.8 06/17/2023 Physical Activity: Do you do a regular exercise? No Sleep: Do you get at least 7 hrs of sleep most nights? asked/not answered Current Outpatient Medications Medication Sig insulin lispro (HUMALOG KWIKPEN INSULIN) 100 unit/mL 8 units prior to dinner insulin NPH human (HUMULIN N NPH INSULIN KWIKPEN) 100 unit/mL (3 mL) injection pen 5 units at bedtime Insulin Wheeler, Disposable, (BD ULTRAFINE III MINI PEN) 31 gauge x 3/16 Twice/day blood sugar diagnostic test strip Use as directed to check glucose levels up to seven times daily. Lancets lancets Use as directed to check glucose levels up to seven times daily. alcohol swabs (ALCOHOL PREP PADS) Use as directed to check glucose levels up to seven times daily. ferrous sulfate (IRON) 325 mg (65 mg iron) tablet Take 1 tablet by mouth twice daily. FLOVENT HFA 110 mcg/actuation inhaler Inhale 1 Puff as instructed twice daily. Shake well before use. Rinse mouth after use. albuterol HFA (PROVENTIL HFA, VENTOLIN HFA) 90 mcg/actuation inhaler Inhale 2 Puffs as instructed every 6 hours as needed for wheezing/shortness of (more content not included)... Normal [facility] OBSTETRIC ULTRASOUND WHIon 0 06-20-2023 [facility] CNPNon 06-19-2023 CNPN Telephone (ENDOAL) DIGNA KRAUS ([id number]) 1995 F Date Time Provider Department 06/19/23 JULES WOLFE ENDOAL During your visit today, we recorded the following information about you: Jules Wolfe DO 06/19/2023 11:30 AM Signed Reviewed BG data- responded as follows: Sherman Sawyer- I reviewed your BG data- are you doing ok with the insulin so far? Assuming so- lets adjust as follows: continue NPH 5 units at bedtime increase Humalog to 8 units prior to dinner Will review again next week- thanks! KB Allergies As of Date: 06/19/2023 Noted Allergy Reaction BEE POLLEN 04/21/2023 4 - Hives VENOM-HONEY BEE 04/08/2022 10 - Anaphylaxis 7 - Swelling BEESWAX 04/21/2023 4 - Hives CEFACLOR 09/22/2012 16 - Unknown 4 - Hives Comments: Unknown Date Reviewed: 06/17/2023 Reviewed by: Jeri Rondon MA - Fully Assessed Reason for Visit: Blood Sugar Reading [1269] Order(s):insulin lispro (HUMALOG KWIKPEN INSULIN) 100 unit/mL8 units prior to dinnerDisp: 5 EachRfl: 5 Prescriptions as of 06/19/2023 - insulin lispro (HUMALOG KWIKPEN INSULIN) 100 unit/mL 8 units prior to dinner - insulin NPH human (HUMULIN N NPH INSULIN KWIKPEN) 100 unit/mL (3 mL) injection pen 5 units at bedtime - Insulin Wheeler, Disposable, (BD ULTRAFINE III MINI PEN) 31 gauge x 3/16 Twice/day - blood sugar diagnostic test strip Use as directed to check glucose levels up to seven times daily. - Lancets lancets Use as directed to check glucose levels up to seven times daily. - alcohol swabs (ALCOHOL PREP PADS) Use as directed to check glucose levels up to seven times daily. - ferrous sulfate (IRON) 325 mg (65 mg iron) tablet Take 1 tablet by mouth twice daily. - FLOVENT HFA 110 mcg/actuation inhaler Inhale 1 Puff as instructed twice daily. Shake well before use. Rinse mouth after use. - albuterol HFA (PROVENTIL HFA, VENTOLIN HFA) 90 mcg/actuation inhaler Inhale 2 Puffs as instructed every 6 hours as needed for wheezing/shortness of breath. - ARIPiprazole (ABILIFY) 10 mg tablet Take 1 tablet by mouth daily at bedtime. - esomeprazole (NEXIUM) 20 mg capsule Take 1 capsule by mouth once daily. - sertraline (ZOLOFT) 100 mg tablet Take 1 tablet by mouth once daily. Problem List As Of Date 06/19/2023 Noted Resolved Anxiety neurosis [F41.1] 03/16/2023 Rh negative, antepartum [O26.899, Z67.91] 04/21/2023 History of asthma [Z87.09] 04/21/2023 Bipolar disease during , antepartum (H*04/21/2023 Significant discrepancy between uterine size an*05/18/2023 Gestational diabetes mellitus, class A1 [O24.41*06/08/2023 Anemia complicating , third trimester *06/08/2023 Prescriptions ordered this encounter Disp Refills Start End INSULIN LISPRO (U-100) 100 UNIT/ML S* 5 Ea* 5 06/19/2023 Class: Med Update Si units prior to dinner Medications Discontinued During This Encounter Prescriptions - insulin lispro (HUMALOG KWIKPEN INSULIN) 100 unit/mL (Discontinued) 5 units prior to dinner Encounter Status:Closed by JULES WOLFE on 06/19/23 [facility] Haseeb 06-17-2023 RUTHOV Office Visit (ENDOAL) DIGNA KRAUS ([id number]) 1995 F Date Time Provider Department 06/17/23 10:20 AM JULES WOLFE During your visit today, we recorded the following information about you: Pulse Blood pressure Weight 110/minute 101/58 90.6 kg Jules Wolfe, DO 06/17/2023 10:36 AM Signed Reason for consultation: Evaluation of gestational diabetes mellitus Referring Physician: Dr Buckner My final recommendations will be communicated back to the requesting physician by way of shared Medical record or letter via US mail. HISTORY OF PRESENT ILLNESS; Ms. Kraus is a 28 year old presenting at 29+ weeks gestation for consultation regarding her recent diagnosis of gestational diabetes. She was diagnosed with GDM after abnormal 1 hour GTT on 06/06/23. POC HbA1c today is 5.8%. She does not have a previous history of gestational diabetes. Has two children, 6lbs 11oz, and 7lbs 11oz , respectively. She has a family history of diabetes mellitus including her sister . Her prepregnancy weight was 160 lbs and her current weight is 199 lbs. Her dietary history is as follows: Breakfast: cereal or bagel or fruit. Lunch: pizza or sandwich Dinner: variable- doesn't eat out much She has been checking her blood glucose 4 times daily. Fasting 82-93 mg/dL 2 hour post meal 67-182 mg/dL. Hypoglycemia frequency: n/a Hypoglycemia awareness: n/a Hyperglycemia Symptoms: denies blurry vision reports polyuria denies polydipsia reports nocturia denies rapid weight loss Last visit with Dr Buckner was 06/08- Last u/s was 05/19/23- [facility] [address], [place] [address], [place]- having a boy! PAST MEDICAL HISTORY Diagnosis Date Asthma PRN inhaler. worse as child. Bipolar 1 disorder, depressed (HCC) Hyperemesis gravidarum depression PTSD (post-traumatic stress disorder) No past surgical history on file. FAMILY HISTORY Problem Relation Age of Onset Breast Cancer Maternal Grandmother Social History Tobacco Use Smoking status: Former Types: Cigarettes Smokeless tobacco: Never Vaping Use Vaping Use: current everyday user Substances: Nicotine, Flavoring Devices: Disposable Substance Use Topics Alcohol use: Not Currently Drug use: Never Current Outpatient Medications Medication Sig Dispense Refill blood sugar diagnostic test strip Use as directed to check glucose levels up to seven times daily. 200 Strip 8 Lancets lancets Use as directed to check glucose levels up to seven times daily. 200 Each 8 alcohol swabs (ALCOHOL PREP PADS) Use as directed to check glucose levels up to seven times daily. 200 Each 8 ferrous sulfate (IRON) 325 mg (65 mg iron) tablet Take 1 tablet by mouth twice daily. 180 tablet 1 FLOVENT HFA 110 mcg/actuation inhaler Inhale 1 Puff as instructed twice daily. Shake well before use. Rinse mouth after use. 1 Each 2 albuterol HFA (PROVENTIL HFA, VENTOLIN HFA) 90 mcg/actuation inhaler Inhale 2 Puffs as instructed every 6 hours as needed for wheezing/shortness of breath. 1 Each 2 ARIPiprazole (ABILIFY) 10 mg tablet Take 1 tablet by mouth daily at bedtime. 90 tablet 3 esomeprazole (NEXIUM) 20 mg capsule Take 1 capsule by mouth once daily. 90 capsule 3 sertraline (ZOLOFT) 100 mg tablet Take 1 tablet by mouth once daily. 90 tablet 3 No current facility-administere d medications for this visit. Allergies As of Date: 06/17/2023 Allergen Noted Reaction BEE POLLEN 04/21/2023 Hives VENOM-HONEY BEE 04/08/2022 Anaphylaxis and Swelling BEESWAX 04/21/2023 Hives CEFACLOR 09/22/2012 Unknown and Hives Fully Assessed 06/08/2023 REVIEW OF SYSTEMS: General: no fever and no chills, 35lbs weight gain. Skin: no rashes, pruritis or dry skin Eyes: no blurred or double vision or eye pain Cardiac: denies chest pain, heart palpitations or orthopnea Pulmonary: denies wheezing, productive cough or exertional dyspnea GI: denies nausea and denies vomiting Musc: denies history of upper or lower extremity weakness Reproductive: gravid at 29+ weeks gestation, Endocrine: complains of polyuria and nocturia Hematology: Negative for anemia, easy bleeding and bruising. PHYSICAL EXAM: BP 101/58 Pulse 110 Wt 90.6 kg (199 lb 12.8 oz) LMP 11/22/2022 BMI 39.02 kg/m? GENERAL: Alert, no distress, cooperative SKIN: Skin color, texture, turgor normal. No rashes or lesions. HEAD/SINUSES: No significant findings EYES: sclera non-icteric, EOMs intact ABDOMEN: gravid at 29 weeks EXTREMITIES: Normal exam of the extremities NEURO: AAO x 3, no focal deficits. The remainder of the physical exam is noncontributory. DATA: Component Latest Ref Rng AND Units 06/06/2023 Glucose Scrn, Preg 74 - 134 mg/dL 205 (H) IMPRESSION: Ms. Kraus is a 28 year old female at 29+ weeks gestation here for evaluation of gestational diabetes mellitus RECOMMENDATIONS: 1. (more content not included)... Normal [facility] HEMOGLOBIN A1C (POC)on 06-17 HbA1c (Bld) [Mass fraction] 5.8 % 4.2 - 5.6 % [facility] CNNURSEon 06-12-2023 CNNURSE Nurse Visit (OBGYWM) DIGNA KRAUS ([id number]) 1995 F Date Time Provider Department 06/12/23 3:00 PM NURSE ELECTRIC DRILL OPERATOR [facility] WSTR OBGYWM During your visit today, we recorded the following information about you: Loretta Julien LPN 06/12/2023 3:54 PM Signed Digna Kraus 28 year old is here for her injection of Rhophylac. Digna Kraus Antibody Screen (no units) Date Value 06/06/2023 Negative Digna Kraus is RH Negative Rhophylac was given without incident. See immunizations for details of immunizations administered today. Provider Dr. Cotton was present in office at time of injection Digna Kraus was given her Rhophylac pocket card. Loretta Julien LPN Allergies As of Date: 06/12/2023 Noted Allergy Reaction BEE POLLEN 04/21/2023 4 - Hives VENOM-HONEY BEE 04/08/2022 10 - Anaphylaxis 7 - Swelling BEESWAX 04/21/2023 4 - Hives CEFACLOR 09/22/2012 16 - Unknown 4 - Hives Comments: Unknown Date Reviewed: 06/08/2023 Reviewed by: Sharda Vera Ma - Fully Assessed Reason for Visit: Injections [199] Primary Visit Diagnosis:Rh negative state in antepartum period [O26.899, Z67.91] Prescriptions as of 06/12/2023 - blood sugar diagnostic test strip Use as directed to check glucose levels up to seven times daily. - Lancets lancets Use as directed to check glucose levels up to seven times daily. - alcohol swabs (ALCOHOL PREP PADS) Use as directed to check glucose levels up to seven times daily. - ferrous sulfate (IRON) 325 mg (65 mg iron) tablet Take 1 tablet by mouth twice daily. - FLOVENT HFA 110 mcg/actuation inhaler Inhale 1 Puff as instructed twice daily. Shake well before use. Rinse mouth after use. - albuterol HFA (PROVENTIL HFA, VENTOLIN HFA) 90 mcg/actuation inhaler Inhale 2 Puffs as instructed every 6 hours as needed for wheezing/shortness of breath. - hydrOXYzine HCl (ATARAX) 50 mg tablet Take 1 tablet by mouth at bedtime as needed. Take 1 to 2 tablets at bedtime and PRN daily. - ARIPiprazole (ABILIFY) 10 mg tablet Take 1 tablet by mouth daily at bedtime. - esomeprazole (NEXIUM) 20 mg capsule Take 1 capsule by mouth once daily. - sertraline (ZOLOFT) 100 mg tablet Take 1 tablet by mouth once daily. 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 Rh negative, antepartum [O26.899, Z67.91] 04/21/2023 History of asthma [Z87.09] 04/21/2023 Bipolar disease during , antepartum (H*04/21/2023 Significant discrepancy between uterine size an*05/18/2023 Gestational diabetes mellitus, class A1 [O24.41*06/08/2023 Anemia complicating , third trimester *06/08/2023 Encounter Status:Closed by LORETTA JULIEN LPN on 06/12/23 [facility] Tc 06-12-2023 CNPSu Telephone (ENDOAL) DIGNA KRAUS ([id number]) 1995 F Date Time Provider Department 06/12/23 JULES WOLFE ENDOAL During your visit today, we recorded the following information about you: Amy Ruiz RN 06/12/2023 11:18 AM Signed Patient called GDM line asking for an appointment. She is checking her BG four times daily. Jules Wolfe DO 06/12/2023 12:46 PM Signed 06/17 at 1020 KB Veronica Blankenship 06/12/2023 1:39 PM Signed Spoke with patient, scheduled 06/17/2023 @ 10:20 am. Allergies As of Date: 06/12/2023 Noted Allergy Reaction BEE POLLEN 04/21/2023 4 - Hives VENOM-HONEY BEE 04/08/2022 10 - Anaphylaxis 7 - Swelling BEESWAX 04/21/2023 4 - Hives CEFACLOR 09/22/2012 16 - Unknown 4 - Hives Comments: Unknown Date Reviewed: 06/08/2023 Reviewed by: Sharda Vera Ma - Fully Assessed Reason for Visit: Appointment [186] Prescriptions as of 06/12/2023 - blood sugar diagnostic test strip Use as directed to check glucose levels up to seven times daily. - Lancets lancets Use as directed to check glucose levels up to seven times daily. - alcohol swabs (ALCOHOL PREP PADS) Use as directed to check glucose levels up to seven times daily. - ferrous sulfate (IRON) 325 mg (65 mg iron) tablet Take 1 tablet by mouth twice daily. - FLOVENT HFA 110 mcg/actuation inhaler Inhale 1 Puff as instructed twice daily. Shake well before use. Rinse mouth after use. - albuterol HFA (PROVENTIL HFA, VENTOLIN HFA) 90 mcg/actuation inhaler Inhale 2 Puffs as instructed every 6 hours as needed for wheezing/shortness of breath. - hydrOXYzine HCl (ATARAX) 50 mg tablet Take 1 tablet by mouth at bedtime as needed. Take 1 to 2 tablets at bedtime and PRN daily. - ARIPiprazole (ABILIFY) 10 mg tablet Take 1 tablet by mouth daily at bedtime. - esomeprazole (NEXIUM) 20 mg capsule Take 1 capsule by mouth once daily. - sertraline (ZOLOFT) 100 mg tablet Take 1 tablet by mouth once daily. 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 TYPE + SCREENon 06-12-[address] [facility] Comment on above: Order Comment: Speci men Type: BLOOD SPECIMENOrdering Facility: [facility] Address: [address] [place] [address] Performed By: #### T SCR ####CC MAIN BLOOD BANKCLIA [id number] [place] [address] [place] HISTORICAL AB SCR STATUS Negative Normal [facility] Comment on above: Order Comment: Speci men Type: BLOOD SPECIMENOrdering Facility: [facility] Address: [address] [place] [address] Performed By: #### T SCR ####CC MAIN BLOOD BANKCLIA [id number] [address] [place] Rh Nom (Bld) Negative Normal [facility] Comment on above: Order Comment: Speci men Type: BLOOD SPECIMENOrdering Facility: [facility] Address: [place] [address] Performed By: #### T SCR ####CC MAIN BLOOD BANKCLIA [id number] [place] [id number] [facility] TYPE AND SCREEN EXPIRATION 06/15/2023 23:[address] [facility] Comment on above: Order Comment: Speci men Type: BLOOD SPECIMENOrdering Facility: [facility] Address: [place] [address] Performed By: #### T SCR ####CC [facility] BLOOD BANKCLIA [id number] [place] [id number] [facility] CNPNon 06-11-2023 [facility] ([id number]) 1995 F Date Time Provider Department 06/11/23 FABIAN RODRIGUEZ [facility] During your visit today, we recorded the following information about you: uSe Reyna 06/11/2023 12:02 PM Signed Pt called asking about getting a request for blood work as well as a rhogam shot after the blood work, please advise as pt is currently . Allergies As of Date: 06/11/2023 Noted Allergy Reaction BEE POLLEN 04/21/2023 4 - Hives VENOM-HONEY BEE 04/08/2022 10 - Anaphylaxis 7 - Swelling BEESWAX 04/21/2023 4 - Hives CEFACLOR 09/22/2012 16 - Unknown 4 - Hives Comments: Unknown Date Reviewed: 06/08/2023 Reviewed by: Sharda Vera Ma - Fully Assessed Prescriptions as of 06/11/2023 - blood sugar diagnostic test strip Use as directed to check glucose levels up to seven times daily. - Lancets lancets Use as directed to check glucose levels up to seven times daily. - alcohol swabs (ALCOHOL PREP PADS) Use as directed to check glucose levels up to seven times daily. - ferrous sulfate (IRON) 325 mg (65 mg iron) tablet Take 1 tablet by mouth twice daily. - FLOVENT HFA 110 mcg/actuation inhaler Inhale 1 Puff as instructed twice daily. Shake well before use. Rinse mouth after use. - albuterol HFA (PROVENTIL HFA, VENTOLIN HFA) 90 mcg/actuation inhaler Inhale 2 Puffs as instructed every 6 hours as needed for wheezing/shortness of breath. - hydrOXYzine HCl (ATARAX) 50 mg tablet Take 1 tablet by mouth at bedtime as needed. Take 1 to 2 tablets at bedtime and PRN daily. - ARIPiprazole (ABILIFY) 10 mg tablet Take 1 tablet by mouth daily at bedtime. - esomeprazole (NEXIUM) 20 mg capsule Take 1 capsule by mouth once daily. - sertraline (ZOLOFT) 100 mg tablet Take 1 tablet by mouth once daily. 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 Rh negative, antepartum [O26.899, Z67.91] 04/21/2023 History of asthma [Z87.09] 04/21/2023 Bipolar disease during , antepartum (H*04/21/2023 Significant discrepancy between uterine size an*05/18/2023 Gestational diabetes mellitus, class A1 [O24.41*06/08/2023 Anemia complicating , third trimester *06/08/2023 Encounter Status:Closed by SUE REYNA on 06/11/23 [facility] 06-09-2023 VARINDERN Telephone (OGFVWE) DIGNA KRAUS ([id number]) 1995 F Date Time Provider Department 06/09/23 GIORGI BUCKNRE OGFVWE During your visit today, we recorded the following information about you: Giorgi Buckner MD 06/09/2023 10:17 AM Signed [place]. She needs rhogam, as she missed it last night as nursing was gone. I also placed diabetes management via smart set, not sure if complete. MD Austyn Alba Jr, Linda RN 06/09/2023 2:31 PM Signed [facility] ELECTRIC DRILL OPERATOR will give the Rophylac injection to the patient. We will need to place another Type and Screen order. Pt will then have to call [phone] to schedule an appointment with a nurse for the injection. They have a lab in the building and she can get her TANDS done before she goes to the appointment. Referral placed to Dr Wolfe. Patient will need to call [phone]. Giorgi Farley RN, MD 06/09/2023 2:58 PM Signed Order(s) signed. MD Austyn Alba Jr, Linda RN 06/09/2023 3:47 PM Signed Pt notified to call [facility] to schedule nurse visit for Rhogam. Pt advised to call Dr Wolfe's office to scheduled appointment. Jaret Del Angel RN, RN 06/11/2023 12:24 PM Signed Addended by: JARET SIMONS on: 06/11/2023 12:24 PM Modules accepted: Giorgi Mejia MD 06/11/2023 12:31 PM Signed Order(s) signed. MD Dudley Alba Jr, Robert L, MD 06/11/2023 12:31 PM Signed Addended by: GIORGI BUCKNER JR. on: 06/11/2023 12:31 PM Modules accepted: Jaret Childs RN 06/11/2023 1:07 PM Signed Call placed to patient, notified of orders adjusted and advised patient to call to get scheduled, MC message sent as follow up. Jaret Simons RN Allergies As of Date: 06/09/2023 Noted Allergy Reaction BEE POLLEN 04/21/2023 4 - Hives VENOM-HONEY BEE 04/08/2022 10 - Anaphylaxis 7 - Swelling BEESWAX 04/21/2023 4 - Hives CEFACLOR 09/22/2012 16 - Unknown 4 - Hives Comments: Unknown Date Reviewed: 06/08/2023 Reviewed by: Sharda Vera Ma - Fully Assessed Reason for Visit: Follow Up [171] Primary Visit Diagnosis:Abnormal glucose complicating [O99.810] Other Visit Diagnoses:28 weeks gestation of [Z3A.28] Rh negative status during in third trimester [O26.893, Z67.91] Order(s):TYPE + SCREEN [SQTSCR] Order #: [id number] FUTURE CONSULT TO ENDOCRINOLOGY [9007] Order #: [id number]: 1 FUTURE RhoD immune globulin 300 mcg injectionDisp: Rfl: Prescriptions as of 06/11/2023 - blood sugar diagnostic test strip Use as directed to check glucose levels up to seven times daily. - Lancets lancets Use as directed to check glucose levels up to seven times daily. - alcohol swabs (ALCOHOL PREP PADS) Use as directed to check glucose levels up to seven times daily. - ferrous sulfate (IRON) 325 mg (65 mg iron) tablet Take 1 tablet by mouth twice daily. - FLOVENT HFA 110 mcg/actuation inhaler Inhale 1 Puff as instructed twice daily. Shake well before use. Rinse mouth after use. - albuterol HFA (PROVENTIL HFA, VENTOLIN HFA) 90 mcg/actuation inhaler Inhale 2 Puffs as instructed every 6 hours as needed for wheezing/shortness of breath. - hydrOXYzine HCl (ATARAX) 50 mg tablet Take 1 tablet by mouth at bedtime as needed. Take 1 to 2 tablets at bedtime and PRN daily. - ARIPiprazole (ABILIFY) 10 mg tablet Take 1 tablet by mouth daily at bedtime. - esomeprazole (NEXIUM) 20 mg capsule Take 1 capsule by mouth once daily. - sertraline (ZOLOFT) 100 mg tablet Take 1 tablet by mouth once daily. 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 URINE OB DIP B/Oon Glucose Ql (U) 250 mg/dL Neg mg/dL [facility] Protein.monoclonal (U) [Mass/Vol] Negative Neg mg/dL [facility] CBC panel Auto (Bld)on 06-06 Erythrocyte distribution width (RBC) [Ratio] 13.6 % Normal 11.5-15.0 [facility] Comment on above: Order Comment: Speci men Type: BLOOD SPECIMENOrdering Facility: [facility] Address: [address] [place] [address] Performed By: #### 5 8410-2 ####[facility] [id number] [place] [address] [place] Hematocrit (Bld) [Volume fraction] 33.4 % Low 36.0-46.0 [facility] Comment on above: Order Comment: Speci men Type: BLOOD SPECIMENOrdering Facility: [facility] Address: [address] [place] [address] Performed By: #### 5 8410-2 ####[facility] LABIA [id number] [place] [address] [place] Hemoglobin (Bld) [Mass/Vol] 10.7 g/dL Low 11.5-15.5 [facility] Comment on above: Order Comment: Speci men Type: BLOOD SPECIMENOrdering Facility: [facility] Address: [address] Performed By: #### 5 8410-2 ####[facility] [id number] [address] MCH (RBC) [Entitic mass] 25.5 pg Low 26.0-34.0 [facility] Comment on above: Order Comment: Speci men Type: BLOOD SPECIMENOrdering Facility: [facility] Address: [address] Performed By: #### 5 8410-2 ####[facility] [id number] [address] [place] [facility] MCHC (RBC) [Mass/Vol] 32.0 g/dL Normal 30.5-36.0 [facility] Comment on above: Order Comment: Speci men Type: BLOOD SPECIMENOrdering Facility: [facility] Address: [address] [place], [place] [address] Performed By: #### 5 8410-2 ####[facility] [id number] [address] [place] MCV (RBC) [Entitic vol] 79.7 fL Low 80.0-100.0 [facility] Comment on above: Order Comment: Speci men Type: BLOOD SPECIMENOrdering Facility: [facility] Address: [address] [place] [address] Performed By: #### 5 8410-2 ####[facility] [id number] [address] STATES [facility] Nucleated RBC (Bld) [#/Vol] 10*3/uL Normal <0.01 [facility] Comment on above: Order Comment: Speci men Type: BLOOD SPECIMENOrdering Facility: [facility] Address: [address] Performed By: #### 5 8410-2 ####[facility] LABCLIA [id number] [place] [address] [place] Platelet mean volume (Bld) [Entitic vol] 10.6 fL Normal 9.0-12.7 [facility] Comment on above: Order Comment: Speci men Type: BLOOD SPECIMENOrdering Facility: [facility] Address: [address] [place], [place] [address] Performed By: #### 5 8410-2 ####[facility] LABIA [id number] [place] [address] [place] Platelets (Bld) [#/Vol] 292 10*3/uL Normal 150-400 [facility] Comment on above: Order Comment: Speci men Type: BLOOD SPECIMENOrdering Facility: [facility] Address: [address] [place] [address] Performed By: #### 5 8410-2 ####[facility] LABIA [id number] [place] [address] [place] RBC (Bld) [#/Vol] 4.19 10*6/uL Normal 3.90-5.20 [facility] Comment on above: Order Comment: Speci men Type: BLOOD SPECIMENOrdering Facility: [facility] Address: [address] [place], [place] [address] Performed By: #### 5 8410-2 ####[facility] LABIA [id number] [place] [address] [place] WBC (Bld) [#/Vol] 12.48 10*3/uL High 3.70-11.00 [facility] Comment on above: Order Comment: Speci men Type: BLOOD SPECIMENOrdering Facility: [facility] Address: [address] [place], [place] [address] Performed By: #### 5 8410-2 ####[facility] LABIA [id number] [place] [address] [place] GEST GLUC SCREEN, 1-HR, 50 G M, NON-FASTINGon 06-06-2023 Glucose [Mass/Vol] 205 mg/dL High 74-134 [facility] Comment on above: Order Comment: Kelsey borwn Type: BLOOD SPECIMENOrdering Facility: [facility] Address: [address] [place] [address] Result Comment: [facility] Congress of Obstetricians and Gynecologists (Walter/Rabia) guidelines state a gestational diabetes mellitus positive screen is made, in women not previously diagnosed with overt diabetes, when the 1 hr plasma glucose level is equal to or above 140 mg/dL. The [facility] Health Officer and [facility] [place] recommends a 135 mg/dL cutoff. Performed By: #### G LTGST ####[facility] LABCLIA [id number] [place] [address] [place] Reagin and Treponema pallidu m IgG and IgM [Interp]on 06-06-2023 SYPHILIS INTERPRETATION Cannot exclude recent Treponemal infection if specimen collected within 7-10 days after appearance of suspect lesions or 2-3 weeks after an exposure. Clinical correlation is required. Normal [facility] Comment on above: Order Comment: Kelsey brown Type: BLOOD SPECIMENOrdering Facility: [facility] Address: [address] [place] [address] Performed By: #### 7 3752-8 ####[facility] LABCLIA [id number] [place] [address] [place] T. pallidum IgG+IgM IA Ql (S) Non-Reactive Normal Nonreactive [facility] Comment on above: Order Comment: Kelsey brown Type: BLOOD SPECIMENOrdering Facility: [facility] Address: [address] [place] [address] Performed By: #### 7 3752-8 ####[facility] LABCLIA [id number] [place] [address] [place] TYPE + SCREEN PRENATALon ABO O Normal [facility] Comment on above: Order Comment: Speci men Type: BLOOD SPECIMENOrdering Facility: [facility] Address: [address] [place] [address] Performed By: #### T SPN ####CC MAIN BLOOD BANKCLIA [id number] [address] HISTORICAL AB SCR STATUS Negative Normal [facility] Comment on above: Order Comment: Speci men Type: BLOOD SPECIMENOrdering Facility: [facility] Address: [address] [place] [address] Performed By: #### T SPN ####CC MAIN BLOOD BANKIA [id number] [address] OF [place] Rh Nom (Bld) Negative Normal [facility] Comment on above: Order Comment: Speci men Type: BLOOD SPECIMENOrdering Facility: [facility] Address: [address] [place] [address] Performed By: #### T SPN ####CC MAIN BLOOD BANKCLIA [id number] [address] OF [facility] TYPE AND SCREEN EXPIRATION 06/09/2023 23:[address] [facility] Comment on above: Order Comment: Speci men Type: BLOOD SPECIMENOrdering Facility: [facility] Address: [address] [place] [address] Performed By: #### T SPN ####CC MAIN BLOOD BANKIA [id number] [place] [address] [place] URINE OB DIP B/Oon 3 Glucose Ql (U) Negative Neg mg/dL [facility] Protein.monoclonal (U) [Mass/Vol] Negative Neg mg/dL [facility] Quality Check Yes [facility] CNPNon 04-03-2023 CNPN Telephone (OGFVWE) DIGNA KRAUS ([id number]) 1995 F Date Time Provider Department 04/03/23 GIORGI BUCKNER During your visit today, we recorded the following information about you: Jaret Simons RN 04/03/2023 10:07 AM Signed Pt calling asking about letter, said her counselor faxed us information last week. Notified provider was in with patient and I would check with him when he had a break in patients. MIGUEL Mixon RN 04/03/2023 4:28 PM Signed Fax received, provider received and reviewed, okay with note. MIGUEL Mixon RN 04/03/2023 4:28 PM Signed Call placed to patient, let her know letter was in [facility]. Pt asked for mailed copy, will mail Thursday morning. Jaret Simons RN Allergies As of Date: 04/03/2023 Noted Allergy Reaction CEFACLOR 09/22/2012 16 - Unknown 4 - Hives Comments: Unknown Date Reviewed: 03/16/2023 Reviewed by: Sharda Vera Ma - Fully Assessed Reason for Visit: Patient Question [8757] Prescriptions as of 04/06/2023 - hydrOXYzine HCl (ATARAX) 50 mg tablet Take 1 tablet by mouth at bedtime as needed. Take 1 to 2 tablets at bedtime and PRN daily. - ARIPiprazole (ABILIFY) 10 mg tablet Take 1 tablet by mouth daily at bedtime. - esomeprazole (NEXIUM) 20 mg capsule Take 1 capsule by mouth once daily. - sertraline (ZOLOFT) 100 mg tablet Take 1 tablet by mouth once daily. - albuterol HFA (PROVENTIL HFA, VENTOLIN HFA) 90 mcg/actuation inhaler Inhale 2 Puffs as instructed every 6 hours as needed for wheezing/shortness of breath. Problem List As Of Date 04/03/2023 Noted Resolved Anxiety neurosis [F41.1] 03/16/2023 Letter Text Encounter Status:Closed by JARRETT LUNA RN on 04/06/[address] 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 Her PCP wants her to stop all of them. Dr Buckner has stated before that it is not a good idea to do that. Pt is almost out of a few of them. Please advise. August Cuevas RN 02/09/2023 9:33 AM Signed Patient called in and left VM to call back. MIGUEL Moon RN 02/09/2023 9:33 AM Signed Patient called in identified by name and . 11.2.GA Reviewed message below. Patient states PCP is advised her to stop medications below with so she did initially and she had severe NANDV when she tried. She said Dr. Buckner advised at initial OBV to start them back up and she did and NANDV stopped. [facility] PCP is outside of [facility] in [facility]. [facility] she is looking for a new PCP. States needs refills now and PCP will not refill. Has a few days left of Abilify and Zoloft. States has 30 left of Hydroxyzine using as needed and at night for sleep. Using [facility] in [place] on [address] Next OBV 02-16-23. Please advise. MIGUEL Moon Jr, MD 02/09/2023 6:26 PM Signed Which meds does she need and what is dosing of abilify as it is not in med list? MD Jerrica Alba Jr, RN 02/10/2023 9:47 AM Signed The patient needs Zoloft,Abilify and Nexium. Prescriptions pending approval. Jerrica Davidson RN 02/10/2023 9:47 AM Signed Addended by: JERRICA DAVIDSON RN on: 02/10/2023 09:47 AM Modules accepted: Orders Giorgi Buckner Jr, MD 02/12/2023 1:16 PM Signed The following approved medication requests have been transmitted electronically. Requested Prescriptions Signed Prescriptions Disp Refills ARIPiprazole (ABILIFY) 10 mg tablet 90 tablet 3 Sig: Take 1 tablet by mouth daily at bedtime. Authorizing Provider: GIORGI BUCKNER esomeprazole (NEXIUM) 20 mg capsule 90 capsule 3 Sig: Take 1 capsule by mouth once daily. Authorizing Provider: GIORGI BUCKNRE sertraline (ZOLOFT) 100 mg tablet 90 tablet 3 Sig: Take 1 tablet by mouth once daily. Authorizing Provider: GIORGI BUCKNER Jr, MD Robert L Klaus Jr, MD 02/12/2023 1:17 PM Signed Addended by: GIORGI BUCKNER JR. on: 02/12/2023 01:17 PM Modules accepted: Orders Jerrica Davidson RN 02/12/2023 3:17 PM Signed Pt notified medication sent. Jerrica Davidson RN Allergies As of Date: 02/09/2023 Noted Allergy Reaction CEFACLOR 09/22/2012 16 - Unknown 4 - Hives Comments: Unknown Date Reviewed: 01/15/2023 Reviewed by: Cassandra Saeed RN - Fully Assessed Reason for Visit: Question [1327] Order(s):ARIPiprazol e (ABILIFY) 10 mg tabletTake 1 tablet by mouth daily at bedtime.Disp: 90 tabletRfl: 3 esomeprazole (NEXIUM) 20 mg capsuleTake 1 capsule by mouth once daily.Disp: 90 capsuleRfl: 3 sertraline (ZOLOFT) 100 mg tabletTake 1 tablet by mouth once daily.Disp: 90 tabletRfl: 3 Prescriptions as of 02/12/2023 - ARIPiprazole (ABILIFY) 10 mg tablet Take 1 tablet by mouth daily at bedtime. - esomeprazole (NEXIUM) 20 mg capsule Take 1 capsule by mouth once daily. - sertraline (ZOLOFT) 100 mg tablet Take 1 tablet by mouth once daily. - hydrOXYzine HCl (ATARAX) 50 mg tablet Take 50 mg by mouth. Take 1 to 2 tablets at bedtime and PRN daily. - albuterol HFA (PROVENTIL HFA, VENTOLIN HFA) 90 mcg/actuation inhaler Inhale 2 Puffs as instructed every 6 hours as needed for wheezing/shortness of breath. Problem List As Of Date: 02/09/2023 (None) Prescriptions ordered this encounter Disp Refills Start End ARIPIPRAZOLE 10 MG TABLET 90 t* 3 02/12/2023 Route: ORAL Sig: Take 1 tablet by mouth daily at bedtime. ESOMEPRAZOLE MAGNESIUM 20 MG CAPSULE* 90 c* 3 02/12/2023 Route: ORAL Sig: Take 1 capsule by mouth once daily. SERTRALINE 100 MG TABLET 90 t* 3 02/12/2023 Route: ORAL Sig: Take 1 tablet by mouth once daily. Medications Discontinued During This Encounter Prescriptions - sertraline (ZOLOFT) 100 mg tablet (Discontinued) - ARIPiprazole (ABILIFY) 10 mg tablet (Discontinued) Take 10 mg by mouth daily at bedtime. - esomeprazole (NEXIUM) 20 mg capsule (Discontinued) Take 20 mg by mouth once daily. Encounter Status:Closed by GIORGI BUCKNER JR. on 02/09/23 [facility] 01-22-2023 [facility] Telephone (SPMOBA) DIGNA KRAUS ([id number]) 1995 F Date Time Provider Department 01/22/23 DANE TATE) SUZIE During your visit today, we recorded the following information about you: Dane Tate RN 01/22/2023 10:02 AM Signed Risk Assessment Form completed. 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 - sertraline (ZOLOFT) 100 mg tablet - hydrOXYzine HCl (ATARAX) 50 mg tablet Take by mouth. - albuterol HFA (PROVENTIL HFA, VENTOLIN HFA) 90 mcg/actuation inhaler Inhale 2 Puffs as instructed every 6 hours as needed for wheezing/shortness of breath. Problem List As Of Date: 01/22/2023 (None) Encounter Status:Closed by DANE TATE on 01/22/[address] [facility] Bacteria Ur Culton 3 Bacteria identified Cx Nom (U) ORGANISM ID: 2 50,000-<100,000 CFU/ml Mixed microbiota No further workup. Mixed microbiota can be due to???urine???contami nation with skin bacteria at time of collection or presence of a long-term urinary catheter. If a new culture is needed, please consider re-education of the patient on proper midstream co llection technique or straight catheterization for???urine???collec tion. Normal [facility] Comment on above: Performed By: #### 6 30-4 ####[facility] LABCLIA [id number] [address] [place] C. trachomatis+N. gonorrhoea e DNA KJ+probe Ql (Unsp spec)on 01-20-2023 C. trachomatis DNA KJ+probe Ql (Unsp spec) Negative Normal Negative for Chlamydia trachomatis by amplificaton [facility] Comment on above: Order Comment: Speci men Type: SWABOrdering Facility: [facility] Address: [address] [place] [address] Performed By: #### 3 6902-5 ####[facility] LABCLIA [id number] [address] [place] N. gonorrhoeae DNA KJ+probe Ql (Unsp spec) Negative Normal Negative for Neisseria gonorrhoeae by amplification [facility] Comment on above: Order Comment: Speci men Type: SWABOrdering Facility: [facility] Address: [address] [place] [address] Performed By: #### 3 6902-5 ####[facility] LABCLIA [id number] [address] [place] CBC panel Auto (Bld)on 01-20 Erythrocyte distribution width (RBC) [Ratio] 14.2 % 11.5 - 15.0 % [facility] Hematocrit (Bld) [Volume fraction] 38.2 % 36.0 - 46.0 % [facility] Hemoglobin (Bld) [Mass/Vol] 12.6 g/dL 11.5 - 15.5 g/dL [facility] MCH (RBC) [Entitic mass] 25.5 pg Low 26.0 - 34.0 pg [facility] MCHC (RBC) [Mass/Vol] 33.0 g/dL 30.5 - 36.0 g/dL [facility] MCV (RBC) [Entitic vol] 77.2 fL Low 80.0 - 100.0 fL [facility] Nucleated RBC (Bld) [#/Vol] <0.01 k/uL [facility] Platelet mean volume (Bld) [Entitic vol] 10.6 fL 9.0 - 12.7 fL [facility] Platelets (Bld) [#/Vol] 352 10*3/uL 150 - 400 k/uL [facility] RBC (Bld) [#/Vol] 4.95 10*6/uL 3.90 - 5.2 0 m/uL [facility] WBC (Bld) [#/Vol] 11.56 10*3/uL High 3.70 - 11 .00 k/uL [facility] Erythrocyte distribution width (RBC) [Ratio] 14.2 % Normal 11.5-15.0 [facility] Comment on above: Order Comment: Speci men Type: BLOOD SPECIMENOrdering Facility: [facility] Address: [address] [place] [address] Performed By: #### 5 8410-2 ####[facility] LABIA [id number] [address] [place] Hematocrit (Bld) [Volume fraction] 38.2 % Normal 36.0-46.0 [facility] Comment on above: Order Comment: Speci men Type: BLOOD SPECIMENOrdering Facility: [facility] Address: [address] [place] [address] Performed By: #### 5 8410-2 ####[facility] LABIA [id number] [address] [place] Hemoglobin (Bld) [Mass/Vol] 12.6 g/dL Normal 11.5-15.5 [facility] Comment on above: Order Comment: Speci men Type: BLOOD SPECIMENOrdering Facility: [facility] Address: [address] Performed By: #### 5 8410-2 ####[facility] LABIA [id number] [address] [place] MCH (RBC) [Entitic mass] 25.5 pg Low 26.0-34.0 [facility] Comment on above: Order Comment: Speci men Type: BLOOD SPECIMENOrdering Facility: [facility] Address: [address] Performed By: #### 5 8410-2 ####[facility] LABIA [id number] [place] [address] [place] MCHC (RBC) [Mass/Vol] 33.0 g/dL Normal 30.5-36.0 [facility] Comment on above: Order Comment: Speci men Type: BLOOD SPECIMENOrdering Facility: [facility] Address: [address] Performed By: #### 5 8410-2 ####[facility] LABIA [id number] [place] [address] [place] MCV (RBC) [Entitic vol] 77.2 fL Low 80.0-100.0 [facility] Comment on above: Order Comment: Speci men Type: BLOOD SPECIMENOrdering Facility: [facility] Address: [address] [place], [place] [address] Performed By: #### 5 8410-2 ####[facility] LABIA [id number] [place] [address] [place] Nucleated RBC (Bld) [#/Vol] 10*3/uL Normal <0.01 [facility] Comment on above: Order Comment: Speci men Type: BLOOD SPECIMENOrdering Facility: [facility] Address: [address] [place], [place] [address] Performed By: #### 5 8410-2 ####[facility] [id number] [place] [address] [place] Platelet mean volume (Bld) [Entitic vol] 10.6 fL Normal 9.0-12.7 [facility] Comment on above: Order Comment: Speci men Type: BLOOD SPECIMENOrdering Facility: [facility] Address: [address] [place], [place] [address] Performed By: #### 5 8410-2 ####[facility] [id number] [place] [address] [place] Platelets (Bld) [#/Vol] 352 10*3/uL Normal 150-400 [facility] Comment on above: Order Comment: Speci men Type: BLOOD SPECIMENOrdering Facility: [facility] Address: [address] [place], [place] [address] Performed By: #### 5 8410-2 ####[facility] LABIA [id number] [place] [address] [place] RBC (Bld) [#/Vol] 4.95 10*6/uL Normal 3.90-5.20 [facility] Comment on above: Order Comment: Speci men Type: BLOOD SPECIMENOrdering Facility: [facility] Address: [address] [place] [address] Performed By: #### 5 8410-2 ####[facility] LABCLIA [id number] [place] [address] [place] WBC (Bld) [#/Vol] 11.56 10*3/uL High 3.70-11.00 [facility] Comment on above: Order Comment: Speci men Type: BLOOD SPECIMENOrdering Facility: [facility] Address: [address] [place] [address] Performed By: #### 5 8410-2 ####[facility] LABCLIA [id number] [address] [place] HBV surface Ag Ser Qlon 12-25 HBV surface Ag Ql (S) Negative Normal Negative [facility] Comment on above: Order Comment: Speci men Type: BLOOD SPECIMENOrdering Facility: [facility] Address: [address] [place] [address] Performed By: #### 7 3752-8, 5195-3, 50662-9 ####[facility] LABCLIA [id number] [address] OF [facility] HCV Ab Ser Qlon 01-20-2023 HCV Ab Ql (S) Negative Normal Negative [facility] Comment on above: Order Comment: Speci men Type: BLOOD SPECIMENOrdering Facility: [facility] Address: [address] [place] [address] Result Comment: The result suggests no evidence of active infection with Hepatitis C virus. Should recent infection be suspected, repeat testing may be considered 4-6 weeks after this draw. Performed By: #### 1 6128-1 ####[facility] LABCLIA [id number] [address] OF [place] HIV 1+2 Ab IA Qlon 3 HIV 1 and [address]rapid Nom Normal [facility] Comment on above: Order Comment: Speci men Type: BLOOD SPECIMENOrdering Facility: [facility] Address: [address] [place] [address] Result Comment: Test not indicated. Performed By: #### 7 3752-8, 5195-3, 25738-0 ####[facility] LABCLIA [id number] [address] OF [place] HIV 1+2 Ab+HIV1 p24 Ag IA Ql Non-Reactive Normal Nonreactive [facility] Comment on above: Order Comment: Speci men Type: BLOOD SPECIMENOrdering Facility: [facility] Address: [address] [place] [address] Performed By: #### 7 3752-8, 5195-3, ####[facility] [id number] [address] OF [facility] HIVINT Normal [facility] Comment on above: Order Comment: Speci men Type: BLOOD SPECIMENOrdering Facility: [facility] Address: [address] [place] [address] Result Comment: No e vidence of HIV-1 or HIV-2 infection. Should recent infection be suspected, repeat testing may be considered 2-3 weeks after this draw. [place] Rev. Code 3701.243(E): This information has been disclosed to you from confidential records protected from disclosure by state law. ???You shall make no further disclosure of this information without the specific, written, and informed release of the individual to whom it pertains or as otherwise permitted by state law. A general authorization for the release of medical or other information is not sufficient for the purpose of the release of HIV test results or diagnoses. Performed By: #### 7 3752-8, 5195-3, 51474-5 ####[facility] LABCLIA [id number] [place] [id number] [place] RUBELLA IGG ABon 01-20-2023 RUBELLA IGG AB, QUAL Positive Normal Positive [facility] Comment on above: Order Comment: Speci men Type: BLOOD SPECIMENOrdering Facility: [facility] Address: [address] [place] [address] Result Comment: The result suggests recent or past exposure to Rubella virus or history of Rubella vaccination. Positive result may also be seen due to presence of passively-transferred antibodies. Please correlate with patient's history. Performed By: #### R UBIGG ####[facility] LABCLIA [id number] [place] [address] [place] Reagin and Treponema pallidu m IgG and IgM [Interp]on 01-20-2023 SYPHILIS INTERPRETATION Cannot exclude recent Treponemal infection if specimen collected within 7-10 days after appearance of suspect lesions or 2-3 weeks after an exposure. Clinical correlation is required. Normal [facility] Comment on above: Order Comment: Speci men Type: BLOOD SPECIMENOrdering Facility: [facility] Address: [address] [place] [address] Performed By: #### 7 3752-8, 5195-3, 82092-9 ####[facility] LABCLIA [id number] [address] [place] T. pallidum IgG+IgM IA Ql (S) Non-Reactive Normal Nonreactive [facility] Comment on above: Order Comment: Speci men Type: BLOOD SPECIMENOrdering Facility: [facility] Address: [address] [place] [address] Performed By: #### 7 3752-8, 5195-3, 92176-7 ####[facility] LABIA [id number] [place] [address] [place] TYPE + SCREEN PRENATALon ABO O Normal [facility] Comment on above: Order Comment: Speci men Type: BLOOD SPECIMENOrdering Facility: [facility] Address: [address] [address] Performed By: #### T SPN ####CC MAIN BLOOD BANKCLIA [id number] [address] HISTORICAL AB SCR STATUS Negative Normal [facility] Comment on above: Order Comment: Speci men Type: BLOOD SPECIMENOrdering Facility: [facility] Address: [address] [place] [address] Performed By: #### T SPN ####CC MAIN BLOOD BANKCLIA [id number] [address] Rh Nom (Bld) Negative Normal [facility] Comment on above: Order Comment: Speci men Type: BLOOD SPECIMENOrdering Facility: [facility] Address: [address] [place] [address] Performed By: #### T SPN ####CC MAIN BLOOD BANKCLIA [id number] [address] TYPE AND SCREEN EXPIRATION 01/23/2023 23:[address] [facility] Comment on above: Order Comment: Speci men Type: BLOOD SPECIMENOrdering Facility: [facility] Address: [address] [place] [address] Performed By: #### T SPN ####CC MAIN BLOOD BANKCLIA [id number] [address] ED NOTEon 01-16-2023 ED NOTE HNO ID: [id number] Author: Jonathon Miranda RN Service: ? Author Type: Registered Nurse Type: ED Notes Filed: 01/15/2023 10:07 PM Note Text: PT DISCHARGED TO home WITH RX X 1 . PT INSTRUCTED TO FOLLOW UP WITH MD IN 3 DAYS. ADVISED TO RETURN TO ED WITH WORSENING SIGNS/SYMPTOMS OR FURTHER CONCERNS. PT VERBALIZED UNDERSTANDING OF PLAN. PT AMBULATED FROM DEPARTMENT WITH A STEADY GAIT WITHOUT DIFFICULTY IN CARE OF self. IV REMOVED INTACT PRIOR TO DC. Normal [facility] B-HCG SerPl-aCncon 03-23-202 3 [place] [address].0 m[IU]/mL High <5.0 [facility] Comment on above: Order Comment: Speci men Type: BLOOD SPECIMEN Ordering Facility: [facility] Address: [address] [place] [address] Result Comment: STEFANO TITATIVE HCG NORMAL RANGES Weeks of Gestation (Weeks Since LMP) 3 Weeks (5.8-71.2 mIU/mL) 4 Weeks (9.5-750 mIU/mL) 5 Weeks (217-7138 mIU/mL) 6 Weeks (158-39505 mIU/mL) 7 Weeks (3697-950050 mIU/mL) 8 Weeks (12686-727654 mIU/mL) 9 Weeks (53228-158436 mIU/mL) 10 Weeks (83306-132447 mIU/mL) 12 Weeks (01171-780823 mIU/mL) Referenced to 4th IS of [facility] Performed By: #### 2 1198-7 #### [facility] CLIA [id number] [address] OF [facility] CBC W Auto Differential pane l (Bld)on 01-15-2023 Basophils (Bld) [#/Vol] 0.05 10*3/uL Normal <0.11 [facility] Comment on above: Order Comment: Speci men Type: BLOOD SPECIMEN Ordering Facility: [facility] Address: [address] [place] [address] Performed By: #### 5 7021-8 #### [facility] CLIA [id number] [address] [place] Basophils/100 WBC (Bld) 0.3 % Normal [facility] Comment on above: Order Comment: Speci men Type: BLOOD SPECIMEN Ordering Facility: [facility] Address: [address] [place] [address] Performed By: #### 5 7021-8 #### [facility] CLIA [id number] [address] Differential cell count method Nom (Bld) Auto Normal [facility] Comment on above: Order Comment: Speci men Type: BLOOD SPECIMEN Ordering Facility: [facility] Address: [address] [address] Performed By: #### 5 7021-8 #### [facility] CLIA [id number] [address] [place] Eosinophils (Bld) [#/Vol] 0.04 10*3/uL Normal <0.46 [facility] Comment on above: Order Comment: Speci men Type: BLOOD SPECIMEN Ordering Facility: [facility] Address: [address] [address] Performed By: #### 5 7021-8 #### [facility] CLIA [id number] [address] [place] Eosinophils/100 WBC (Bld) 0.3 % Normal [facility] Comment on above: Order Comment: Speci men Type: BLOOD SPECIMEN Ordering Facility: [facility] Address: [address] [address] Performed By: #### 5 7021-8 #### [facility] CLIA [id number] [address] Erythrocyte distribution width (RBC) [Ratio] 14.1 % Normal 11.5-15.0 [facility] Comment on above: Order Comment: Speci men Type: BLOOD SPECIMEN Ordering Facility: [facility] Address: [address] [place] [address] Performed By: #### 5 7021-8 #### [facility] CLIA [id number] [address] [place] Hematocrit (Bld) [Volume fraction] 37.6 % Normal 36.0-46.0 [facility] Comment on above: Order Comment: Speci men Type: BLOOD SPECIMEN Ordering Facility: [facility] Address: [address] [address] Performed By: #### 5 7021-8 #### [facility] CLIA [id number] [address] OF [place] Hemoglobin (Bld) [Mass/Vol] 12.9 g/dL Normal 11.5-15.5 [facility] Comment on above: Order Comment: Speci men Type: BLOOD SPECIMEN Ordering Facility: [facility] Address: [address] [address] Performed By: #### 5 7021-8 #### [facility] CLIA [id number] [address] Immature granulocytes (Bld) [#/Vol] 0.06 10*3/uL Normal <0.10 [facility] Comment on above: Order Comment: Speci men Type: BLOOD SPECIMEN Ordering Facility: [facility] Address: [address] [place] [address] Performed By: #### 5 7021-8 #### [facility] CLIA [id number] [address] Immature granulocytes/100 WBC (Bld) 0.4 % Normal [facility] Comment on above: Order Comment: Speci men Type: BLOOD SPECIMEN Ordering Facility: [facility] Address: [address] [place] [address] Performed By: #### 5 7021-8 #### [facility] CLIA [id number] [address] [place] Lymphocytes (Bld) [#/Vol] 1.43 10*3/uL Normal 1.00-4.00 [facility] Comment on above: Order Comment: Speci men Type: BLOOD SPECIMEN Ordering Facility: [facility] Address: [address] [place] [address] Performed By: #### 5 7021-8 #### [facility] CLIA [id number] [address] Lymphocytes/100 WBC (Bld) 9.3 % Normal [facility] Comment on above: Order Comment: Speci men Type: BLOOD SPECIMEN Ordering Facility: [facility] Address: [address] [place] [address] Performed By: #### 5 7021-8 #### [facility] CLIA [id number] [address] OF [place] MCH (RBC) [Entitic mass] 26.0 pg Normal 26.0-34.0 [facility] Comment on above: Order Comment: Speci men Type: BLOOD SPECIMEN Ordering Facility: [facility] Address: [address] [address] Performed By: #### 5 7021-8 #### [facility] CLIA [id number] [address] MCHC (RBC) [Mass/Vol] 34.3 g/dL Normal 30.5-36.0 [facility] Comment on above: Order Comment: Speci men Type: BLOOD SPECIMEN Ordering Facility: [facility] Address: [address] [address] Performed By: #### 5 7021-8 #### [facility] CLIA [id number] [address] MCV (RBC) [Entitic vol] 75.7 fL Low 80.0-100.0 [facility] Comment on above: Order Comment: Speci men Type: BLOOD SPECIMEN Ordering Facility: [facility] Address: [address] [address] Performed By: #### 5 7021-8 #### [facility] CLIA [id number] [address] Monocytes (Bld) [#/Vol] 0.82 10*3/uL Normal <0.87 [facility] Comment on above: Order Comment: Speci men Type: BLOOD SPECIMEN Ordering Facility: [facility] Address: [address] [place] [address] Performed By: #### 5 7021-8 #### [facility] CLIA [id number] [address] Monocytes/100 WBC (Bld) 5.3 % Normal [facility] Comment on above: Order Comment: Speci men Type: BLOOD SPECIMEN Ordering Facility: [facility] Address: [address] [place] [address] Performed By: #### 5 7021-8 #### [facility] CLIA [id number] [address] OF [facility] Neutrophils (Bld) [#/Vol] 13.01 10*3/uL High 1.45-7.50 [facility] Comment on above: Order Comment: Speci men Type: BLOOD SPECIMEN Ordering Facility: [facility] Address: [address] [address] Performed By: #### 5 7021-8 #### [facility] CLIA [id number] [address] Neutrophils/100 WBC (Bld) 84.4 % Normal [facility] Comment on above: Order Comment: Speci men Type: BLOOD SPECIMEN Ordering Facility: [facility] Address: [address] [address] Performed By: #### 5 7021-8 #### [facility] CLIA [id number] [address] Nucleated RBC (Bld) [#/Vol] 10*3/uL Normal <0.01 [facility] Comment on above: Order Comment: Speci men Type: BLOOD SPECIMEN Ordering Facility: [facility] Address: [address] [place] [address] Performed By: #### 5 7021-8 #### [facility] CLIA [id number] [address] STATES [facility] Nucleated RBC/100 WBC (Bld) [Ratio] 0.0 /100 WBC Normal [facility] Comment on above: Order Comment: Speci men Type: BLOOD SPECIMEN Ordering Facility: [facility] Address: [address] [place] [address] Performed By: #### 5 7021-8 #### [facility] CLIA [id number] [address] [place] Platelet mean volume (Bld) [Entitic vol] 9.6 fL Normal 9.0-12.7 [facility] Comment on above: Order Comment: Speci men Type: BLOOD SPECIMEN Ordering Facility: [facility] Address: [address] [address] Performed By: #### 5 7021-8 #### [facility] CLIA [id number] [address] [place] [address] [place] Platelets (Bld) [#/Vol] 340 10*3/uL Normal 150-400 [facility] Comment on above: Order Comment: Speci men Type: BLOOD SPECIMEN Ordering Facility: [facility] Address: [address] [address] Performed By: #### 5 7021-8 #### [facility] CLIA [id number] [address] OF [facility] RBC (Bld) [#/Vol] 4.97 10*6/uL Normal 3.90-5.20 [facility] Comment on above: Order Comment: Speci men Type: BLOOD SPECIMEN Ordering Facility: [facility] Address: [address] [address] Performed By: #### 5 7021-8 #### [facility] CLIA [id number] [address] OF [facility] WBC (Bld) [#/Vol] 15.41 10*3/uL High 3.70-11.00 [facility] Comment on above: Order Comment: Speci men Type: BLOOD SPECIMEN Ordering Facility: [facility] Address: [address] [place] [address] Performed By: #### 5 7021-8 #### [facility] CLIA [id number] [address] OF [place] Comprehensive metabolic 2000 panelon 01-15-2023 Albumin [Mass/Vol] 4.5 g/dL Normal 3.9-4.9 [facility] Comment on above: Order Comment: Speci men Type: BLOOD SPECIMEN Ordering Facility: [facility] Address: [address] [address] Performed By: #### 2 4323-8, #### [facility] CLIA [id number] [address] ALP [Catalytic activity/Vol] 98 U/L Normal 34-123 [facility] Comment on above: Order Comment: Speci men Type: BLOOD SPECIMEN Ordering Facility: [facility] Address: [address] [address] Performed By: #### 2 4323-8, #### [facility] CLIA [id number] [address] [place] [address] [place] ALT [Catalytic activity/Vol] 11 U/L Normal 7-38 [facility] Comment on above: Order Comment: Speci men Type: BLOOD SPECIMEN Ordering Facility: [facility] Address: [address] [place] [address] Performed By: #### 2 8, #### [facility] CLIA [id number] [address] [place] [address] [place] Anion gap [Moles/Vol] 13 mmol/L Normal 9-18 [facility] Comment on above: Order Comment: Speci men Type: BLOOD SPECIMEN Ordering Facility: [facility] Address: [address] [place] [address] Performed By: #### 2 8, #### [facility] CLIA [id number] [address] [place] AST [Catalytic activity/Vol] 13 U/L Normal 13-35 [facility] Comment on above: Order Comment: Speci men Type: BLOOD SPECIMEN Ordering Facility: [facility] Address: [address] [place] [address] Performed By: #### 2 8, #### [facility] CLIA [id number] [address] [place] Bilirubin [Mass/Vol] 0.3 mg/dL Normal 0.2-1.3 [facility] Comment on above: Order Comment: Speci men Type: BLOOD SPECIMEN Ordering Facility: [facility] Address: [address] [address] Performed By: #### 2 8, #### [facility] CLIA [id number] [address] [place] Calcium [Mass/Vol] 8.9 mg/dL Normal 8.5-10.2 [facility] Comment on above: Order Comment: Speci men Type: BLOOD SPECIMEN Ordering Facility: [facility] Address: [address] [address] Performed By: #### 2 8, #### [facility] CLIA [id number] [address] [place] [address] [place] Chloride [Moles/Vol] 100 mmol/L Normal 97-105 [facility] Comment on above: Order Comment: Kelsey brown Type: BLOOD SPECIMEN Ordering Facility: [facility] Address: [address] [place] [address] Performed By: #### 2 43238, #### [facility] CLIA [id number] [address] OF [facility] CO2 [Moles/Vol] 22 mmol/L Normal 22-30 [facility] Comment on above: Order Comment: Kelsey brown Type: BLOOD SPECIMEN Ordering Facility: [facility] Address: [address] [place] [address] Performed By: #### 2 4328, #### [facility] CLIA [id number] [address] STATES OF [facility] Creatinine [Mass/Vol] 0.64 mg/dL Normal 0.58-0.96 [facility] Comment on above: Order Comment: Kelsey brown Type: BLOOD SPECIMEN Ordering Facility: [facility] Address: [address] [place] [address] Performed By: #### 2 4323-05, #### [facility] CLIA [id number] [address] ESTIMATED GLOMERULAR FILTRATION RATE 123 mL/min/1.73m??? Normal >=60 [facility] Comment on above: Order Comment: Kelsey brown Type: BLOOD SPECIMEN Ordering Facility: [facility] Address: [address] [place] [address] Result Comment: Viviana mated Glomerular Filtration Rate (eGFR) is calculated using the 2020 CKD-EPI creatinine equation. This equation utilizes serum creatinine, sex, and age as parameters. The creatinine assay has traceable calibration to isotope dilution-mass spectrometry. Refer to KDIGO guidelines for clinical interpretation. In patients with unstable renal function, e.g. those with acute kidney injury, the eGFR may not accurately reflect actual GFR. Performed By: #### 2 #### [facility] CLIA [id number] [address] [place] [address] [place] Glucose [Mass/Vol] 90 mg/dL Normal 74-99 [facility] Comment on above: Order Comment: Kelsey brown Type: BLOOD SPECIMEN Ordering Facility: [facility] Address: [address] [place] [address] Result Comment: The [place] [employer] (ADA) provides guidance for cutoff values for fasting glucose and random glucose. The ADA defines fasting as no caloric intake for at least 8 hours. Fasting plasma glucose results between 100 to 125 mg/dL indicate increased risk for diabetes (prediabetes). Fasting plasma glucose results greater than or equal to 126 mg/dL meet the criteria for diagnosis of diabetes. In the absence of unequivocal hyperglycemia, results should be confirmed by repeat testing. In a patient with classic symptoms of hyperglycemia or hyperglycemic crisis, random plasma glucose results greater than or equal to 200 mg/dL meet the criteria for diagnosis of diabetes. Reference: Standards of Medical Care in Diabetes 2016, [place] [employer]. Diabetes Care. 2016.39(Suppl 1). Performed By: #### 2 #### [facility] CLIA [id number] [address] [place] [address] [place] Potassium [Moles/Vol] 3.9 mmol/L Normal 3.7-5.1 [facility] Comment on above: Order Comment: Kelsey brown Type: BLOOD SPECIMEN Ordering Facility: [facility] Address: [address] [place] [address] Performed By: #### 2 #### [facility] CLIA [id number] [address] [place] [address] [place] Protein [Mass/Vol] 7.8 g/dL Normal 6.3-8.0 [facility] Comment on above: Order Comment: Kelsey brown Type: BLOOD SPECIMEN Ordering Facility: [facility] Address: [address] [place] [address] Performed By: #### 2 #### [facility] CLIA [id number] [address] [place] [address] [place] Sodium [Moles/Vol] 135 mmol/L Low 136-144 [facility] Comment on above: Order Comment: Speci men Type: BLOOD SPECIMEN Ordering Facility: [facility] Address: [address] [place] [address] Performed By: #### 2 432-8, #### [facility] CLIA [id number] [address] Urea nitrogen [Mass/Vol] 11 mg/dL Normal - [facility] Comment on above: Order Comment: Speci men Type: BLOOD SPECIMEN Ordering Facility: [facility] Address: [address] [place] [address] Performed By: #### 2 43212-31, #### [facility] CLIA [id number] [address] ED NOTEon 01-15-2023 ED NOTE HNO ID: [id number] Author: Jonathon Miranda RN Service: ? Author Type: Registered Nurse Type: ED Notes Filed: 01/15/2023 9:07 PM Note Text: Pt up to restroom for urine sample [facility] ED NOTE HNO ID: [id number] Author: Cassandra Saeed RN Service: ? Author Type: Registered Nurse Type: ED Notes Filed: 01/15/2023 7:25 PM Note Text: Patient arrives with complaints of nausea and vomiting and is currently 8 weeks . This is her 3rd . [facility] ED PROV NOTEon 01-15-2023 ED PROV NOTE HNO ID: [id number] Author: Sanofrd Jenkins PA-C Service: ? Author Type: Physician Access Services Representative Type: ED Provider Notes Filed: 01/15/2023 10:10 PM Note Text: ED Provider Note Patient Name: Digna Kraus : 1995 SERVICE DATE: 01/15/23 History Patient presents with: Nausea AND Vomitin weeks 27-year-old G3, P2 female presents to the ED today for nausea vomiting. She is currently 8 weeks . She states that she has been unable to eat or drink anything for the last couple days. She does complain of abdominal cramping, denies chest pain, denies shortness of breath, denies vaginal bleeding or discharge, denies urinary symptoms. History reviewed. No pertinent past medical history. History reviewed. No pertinent surgical history. No family history on file. Social History Tobacco Use Smoking status: Former Types: Cigarettes Smokeless tobacco: Never Vaping Use Vaping Use: current everyday user Substances: Nicotine, Flavoring Devices: Disposable Substance and Sexual Activity Alcohol use: Not on file Drug use: Not Currently Sexual activity: Yes Partners: Male ALLERGIES Allergen Reactions Cefaclor Unknown, Hives Unknown Review of Systems Constitutional: Negative for chills and fever. HENT: Negative for drooling, ear discharge, hearing loss, mouth sores, postnasal drip, sneezing and voice change. Eyes: Negative for photophobia and visual disturbance. Respiratory: Negative for chest tightness, shortness of breath and wheezing. Cardiovascular: Negative for chest pain and palpitations. Gastrointestinal: Positive for nausea and vomiting. Negative for abdominal distention, abdominal pain, anal bleeding, blood in stool, constipation, diarrhea and rectal pain. Genitourinary: Negative for dysuria, flank pain, hematuria, pelvic pain, vaginal bleeding and vaginal discharge. Musculoskeletal: Negative for arthralgias, neck pain and neck stiffness. Skin: Negative for color change. Neurological: Negative for dizziness, numbness and headaches. Psychiatric/Behavior al: Negative for agitation and confusion. The patient is not hyperactive. Physical Exam Vitals [01/15/231919] BP Pulse Temp Temp src Resp SpO2 Weight Height 108/59 89 36.6 ?C (97.8 ?F) Temporal 15 100 % 75.6 kg (166 lb 11.2 oz) 1.524 m (5') Physical Exam Constitutional: Appearance: She is well-developed. HENT: Head: Normocephalic and atraumatic. Nose: Nose normal. Eyes: Conjunctiva/sclera: Conjunctivae normal. Cardiovascular: Rate and Rhythm: Normal rate and regular rhythm. Pulmonary: Effort: Pulmonary effort is normal. No respiratory distress. Breath sounds: Normal breath sounds. No wheezing. Abdominal: General: Bowel sounds are normal. Palpations: Abdomen is soft. Musculoskeletal: General: Normal range of motion. Cervical back: Normal range of motion and neck supple. Skin: General: Skin is warm and dry. Neurological: Mental Status: She is alert and oriented to person, place, and time. Psychiatric: Behavior: Behavior normal. Diagnostic Testing ED Labs Ordered and Reviewed - No data to display Procedures ED Course / Clinical Impression Clinical Impressions as of 01/15/232205 Hyperemesis gravidarum Nausea Rest Home meds See pcp Return to ed if sx worsen MDM / Disposition / Plan The medical record is reviewed.Triage note is reviewed and incorporated.The nursing note is reviewed and consistent with patient's history and physical exam findings. The vital signs were reviewed and the vital signs are : BP 108/59 Pulse 89 Temp 36.6 ?C (97.8 ?F) (Temporal) Resp 15 Ht 152.4 cm (5') Wt 75.6 kg (166 lb 11.2 oz) LMP 11/22/2022 SpO2 100% BMI 32.56 kg/m? This is a 27 year old female who presents to the ED with a chief complaint of nausea and vomiting whose symptoms are controlled in the ED with ivf, reglan . The plan is to obtain labs, re-eval. LABS Reveal : CBC with leukocytosis most likely due to state CMP unremarkable, hCG quant of 84,541, magnesium unremarkable, UA unremarkable, ASSESSMENT AND PLAN: 27-year-old female presents to the ED today for nausea vomiting. Patient is currently 8 weeks , vitals here today unremarkable, IV fluids given, nausea medication given, patient feels better, p.o. 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 The patient and/or family had all the tests and diagnosis explained to them and were given both verbal and written discharge instructions. I answered the patient's question as well as family to the best of my ability about the pa (more content not included)... Normal [facility] Magnesium SerPl-mCncon 01-15 Magnesium [Mass/Vol] 2.3 mg/dL Normal 1.7-2.3 [facility] Comment on above: Order Comment: Speci men Type: BLOOD SPECIMEN Ordering Facility: [facility] Address: [facility] [place] [address] Performed By: #### 2 0497-8, 33561-6 #### [facility] CLIA [id number] [address] Urinalysis complete panel (U )on 01-15-2023 Bacteria LM.HPF (Urine sed) [#/Area] Few Abnormal None Seen [facility] Comment on above: Order Comment: Speci men Type: URINE SPECIMEN [facility] [facility] Address: [address] [place] [address] Performed By: #### 2 4356-8 #### [facility] CLIA [id number] [address] Bilirubin Ql (U) 1+ Abnormal Negative [facility] Comment on above: Order Comment: Speci men Type: URINE SPECIMEN Ordering Facility: [facility] Address: [address] [place] [address] Result Comment: Sugg est correlation with clinical findings and serum bilirubin if clinically indicated. Performed By: #### 2 4356-8 #### [facility] CLIA [id number] [address] Clarity (Unsp spec) Clear Normal Clear [facility] Comment on above: Order Comment: Speci men Type: URINE SPECIMEN Ordering Facility: [facility] Address: [address] [place] [address] Performed By: #### 2 4356-8 #### [facility] CLIA [id number] [address] Color (U) Yellow Normal Yellow [facility] Comment on above: Order Comment: Speci men Type: URINE SPECIMEN Ordering Facility: [facility] Address: [address] [place] [address] Performed By: #### 2 4356-8 #### [facility] CLIA [id number] [address] Epithelial cells LM.HPF (Urine sed) [#/Area] Moderate Normal [facility] Comment on above: Order Comment: Speci men Type: URINE SPECIMEN Ordering Facility: [facility] Address: [address] [place] [address] Result Comment: Few Performed By: #### 2 4356-8 #### [facility] CLIA [id number] [address] [place] Glucose Test strip (U) [Mass/Vol] Negative Normal Negative [facility] Comment on above: Order Comment: Speci men Type: URINE SPECIMEN Ordering Facility: [facility] Address: [address] [place] [address] Performed By: #### 2 4356-8 #### [facility] CLIA [id number] [address] [place] [address] [place] Hemoglobin Ql (U) Negative Normal Negative, Trace [facility] Comment on above: Order Comment: Speci men Type: URINE SPECIMEN Ordering Facility: [facility] Address: [address] [place] [address] Performed By: #### 2 4356-8 #### [facility] CLIA [id number] [address] [place] Hyaline casts (Urine sed) [#/Area] 1-3 /LPF Abnormal 0 /LPF [facility] Comment on above: Order Comment: Speci men Type: URINE SPECIMEN Ordering Facility: [facility] Address: [address] [place] [address] Performed By: #### 2 4356-8 #### [facility] CLIA [id number] [address] Ketones Ql (U) 2+ Abnormal Negative [facility] Comment on above: Order Comment: Speci men Type: URINE SPECIMEN Ordering Facility: [facility] Address: [address] [place] [address] Performed By: #### 2 4356-8 #### [facility] CLIA [id number] [address] Leukocyte esterase Test strip Ql (U) Negative Normal Negative [facility] Comment on above: Order Comment: Speci men Type: URINE SPECIMEN Ordering Facility: [facility] Address: [address] [place] [address] Performed By: #### 2 4356-8 #### [facility] CLIA [id number] [address] [place] Nitrite Ql (U) Negative Normal Negative [facility] Comment on above: Order Comment: Speci men Type: URINE SPECIMEN Ordering Facility: [facility] Address: [address] [place] [address] Performed By: #### 2 4356-8 #### [facility] CLIA [id number] [address] [place] pH (U) 7.0 [pH] Normal 5.0-8.0 [facility] Comment on above: Order Comment: Speci men Type: URINE SPECIMEN Ordering Facility: [facility] Address: [address] [place] [address] Performed By: #### 2 4356-8 #### [facility] CLIA [id number] [address] Protein (U) [Mass/Vol] 1+ Abnormal Negative [facility] Comment on above: Order Comment: Speci men Type: URINE SPECIMEN Ordering Facility: [facility] Address: [address] [place] [address] Performed By: #### 2 4356-8 #### [facility] CLIA [id number] [address] RBC LM.HPF (Urine sed) [#/Area] 0-3 /HPF Normal 0-3 /HPF [facility] Comment on above: Order Comment: Speci men Type: URINE SPECIMEN Ordering Facility: [facility] Address: [address] [place] [address] Performed By: #### 2 4356-8 #### [facility] CLIA [id number] [address] Specific gravity (U) [Rel density] 1.020 Normal 1.005-1.030 [facility] Comment on above: Order Comment: Speci men Type: URINE SPECIMEN Ordering Facility: [facility] Address: [address] [place] [address] Performed By: #### 2 4356-8 #### [facility] CLIA [id number] [address] [place] Urobilinogen Ql (U) 0.2 EU/dL Normal 0.2-1.0 EU/dL [facility] Comment on above: Order Comment: Speci men Type: URINE SPECIMEN Ordering Facility: [facility] Address: [address] [place] [address] Performed By: #### 2 4356-8 #### [facility] CLIA [id number] [address] WBC LM.HPF (Urine sed) [#/Area] 0-5 /HPF Normal 0-5 /HPF [facility] Comment on above: Order Comment: Speci men Type: URINE SPECIMEN Ordering Facility: [facility] Address: [place] [address] Performed By: #### 2 4356-8 #### [facility] CLIA [id number] [address] XR CHEST 2V FRONTAL/LATon [facility] XR Chest PA and Lateralon IMPRESSION: No acute radiographic abnormality. Facility Planner: PSCRay Transcribe Date/Time: Jul 03 2022 10:14A Dictated by : BALAJI HENRY MD This examination was interpreted and the report reviewed and electronically signed by: BALAJI HENRY MD on Jul 03 2022 10:15AM [facility] DIVISION OF RADIOLOGY * * *Final Report* * * DATE OF EXAM: Jul 03 2022 10:05AM WOX 5291 - XR CHEST 2V FRONTAL/LAT / PROCEDURE REASON: Acute cough * * * * Physician Interpretation * * * * EXAMINATION: CHEST RADIOGRAPH (2 VIEW FRONTAL & LATERAL) CLINICAL HISTORY: Acute cough MQ: XC2_6 EXAM DATE/TIME: 07/03/2022 10:05 AM COMPARISON: No relevant prior studies available. RESULT: Lines, tubes, and devices: None. Lungs and pleura: No consolidation. No lung mass. No pleural effusion. No pneumothorax. Cardiomediastinal silhouette: Normal cardiomediastinal silhouette. Bones and soft tissues: Unremarkable. DIVISION OF RADIOLOGY Provider, [facility] [place] - 07/03/2022 * * *Final Report* * * DATE OF EXAM: Jul 03 2022 10:05AM WOX 5291 - XR CHEST 2V FRONTAL/LAT / PROCEDURE REASON: Acute cough * * * * Physician Interpretation * * * * EXAMINATION: CHEST RADIOGRAPH (2 VIEW FRONTAL & LATERAL) CLINICAL HISTORY: Acute cough MQ: XC2_6 EXAM DATE/TIME: 07/03/2022 10:05 AM COMPARISON: No relevant prior studies available. RESULT: Lines, tubes, and devices: None. Lungs and pleura: No consolidation. No lung mass. No pleural effusion. No pneumothorax. Cardiomediastinal silhouette: Normal cardiomediastinal silhouette. Bones and soft tissues: Unremarkable. IMPRESSION IMPRESSION: No acute radiographic abnormality. Facility Planner: PSCB Transcribe Date/Time: Jul 03 2022 10:14A Dictated by : BALAJI HENRY MD This examination was interpreted and the report reviewed and electronically signed by: BALAJI HENRY MD on Jul 03 2022 10:15AM EST [facility] Radiology Study observation (narrative) [facility] XR Chest PA and LateralOrder ed By: [facility] Provider on 07-03-2022 [facility] Absolute lymphocyte counton 05-28-2022 Lymphocytes Auto (Unsp spec) [#/Vol] 2.29 10*3/uL 0.83-4.51 [facility] Work Phone: Basophil percentageon 2021 Basophils/100 WBC (Bld) 0.7 % 0-1 [facility] Work Phone: Bilirubin [Mass/Vol] 0.20 mg/dL 0.20-1.00 [facility] Work Phone: Comment on above: For patients on eltr ombopag therapy, use of Dimension [place] TBIL is not recommended. Chloride [Moles/Vol] 110 mmol/L 98-107 [facility] Work Phone: Eosinophils/100 WBC (Bld) 1.5 % 0-5 [facility] Work Phone: Glucose [Mass/Vol] 87 mg/dL 74-106 [facility] Work Phone: Neutrophils (Bld) [#/Vol] 6.8 10*3/uL 2.0-7.7 [facility] Work Phone: [phone] Neutrophils/100 WBC (Bld) 66.3 % 47-70 [facility] Work Phone: [phone] Potassium [Moles/Vol] 4.0 mmol/L 3.5-5.1 [facility] Work Phone: [phone] Protein [Mass/Vol] 7.0 g/dL 6.4-8.2 [facility] Work Phone: [phone] Sodium [Moles/Vol] 140 mmol/L 136-145 [facility] Work Phone: [phone] WBC (Bld) [#/Vol] 10.2 10*3/uL 4.4-11.0 [facility] Work Phone: [phone] Blood erythrocytes count (nu mber/volume)on 05-28-2022 RBC (Bld) [#/Vol] 4.19 10*6/uL 4.2-5.4 [facility] Work Phone: [phone] Blood hemoglobin measurement (mass/volume)on 05-28-2022 Hemoglobin (Bld) [Mass/Vol] 10.6 g/dL 12.0-15.0 [facility] Work Phone: [phone] Blood lymphocytes/100 leukoc yteson 05-28-2022 Lymphocytes/100 WBC (Bld) 22.5 % 19-41 [facility] Work Phone: [phone] Blood monocytes/100 leukocyt eson 05-28-2022 Monocytes/100 WBC (Bld) 8.3 % 0-10 [facility] Work Phone: [phone] Blood platelet mean volumeon 05-28-2022 Platelet mean volume (Bld) [Entitic vol] 10.0 fL 6.2-12.0 [facility] Work Phone: [phone] Determination of erythrocyte mean corpuscular volume (MCV)on 05-28-2022 MCV (RBC) [Entitic vol] 78.8 fL 81-99 [facility] Work Phone: Erythrocyte sedimentation ra josiane 05-28-2022 ESR (Bld) [Velocity] 14 mm/h 0-30 [facility] Work [facility]: [phone] Hematocrit Auto (Bld) [Volum e fraction]on 05-28-2022 Hematocrit (Bld) [Volume fraction] 33.0 % 37-47 [facility] Work Phone: [phone] Iron measurement (mass/mass) on 05-28-2022 Iron (Unsp spec) [Mass/Mass] 56 ug/dL 50-170 [facility] Work Phone: [phone] Laboratory - Chemistry and C hemistry - challengeon 05-28-2022 ALP [Catalytic activity/Vol] 129 U/L 45-117 [facility] Work Phone: [phone] ALT [Catalytic activity/Vol] 27 U/L 13-56 [facility] Work Phone: [phone] CO2 [Moles/Vol] 25.0 mmol/L 21.0-32.0 [facility] Work Phone: [phone] Cobalamin (Vitamin B12) [Mass/Vol] 436 pg/mL 211-911 [facility] Work Phone: [phone] Globulin (S) [Mass/Vol] 3.5 g/dL 2.2-4.2 [facility] Work Phone: [phone] Urea nitrogen/Creatinine [Mass ratio] 33.6 mg/mg 10-20 [facility] Work Phone: [phone] Laboratory - Hematology and Cell countson 05-28-2022 Erythrocyte distribution width (RBC) [Entitic vol] 46.7 fL 35.1-43.9 [facility] Work Phone: [phone] Erythrocyte distribution width (RBC) [Ratio] 16.2 % 11.6-14.6 [facility] Work Phone: [phone] Immature granulocytes/100 WBC (Bld) 0.700 % 0.0-0.9 [facility] Work Phone: [phone] Comment on above: IG% - Immature Granu locytes (promyelocytes, myelocytes and metamyelocytes) > 1% indicates that a LEFT SHIFT is Present. MCH (RBC) [Entitic mass] 25.3 pg 27.0-32.0 [facility] Work Phone: Nucleated RBC/100 WBC (Bld) [Ratio] 0 % 0-5 [facility] Work Phone: [phone] MCHC Auto (RBC) [Mass/Vol]on 05-28-2022 MCHC (RBC) [Mass/Vol] 32.1 g/dL 32-36 [facility] Work Phone: No Panel Informationon 05-28 Anti-Nuclear Antibody Screen Negative Negative [facility] Work Phone: Comment on above: Performed at: [address] [id number] Director: Ad Delgado PhD, Phone: [phone] Estimated GFR (MDRD) Amer 118 mL/min >60 [facility] Work Phone: [phone] Comment on above: GFR Calc Estimated GFR (MDRD) Non-Af Amer 98 mL/min >60 [facility] Work Phone: Comment on above: Non- GFR Calc Thyroid Stimulating Hormone (TSH) 1.43 uIU/mL 0.358-3.74 [facility] Work Phone: [phone] Vitamin D 25-Hydroxy 32.4 ng/mL [facility] Work Phone: [phone] Comment on above: Vitamin D 25(OH) Sta tus Range Deficiency <20 ng/mL (50nmol/L) Insufficiency 20 - 30 ng/mL (50 - 75 nmol/L) Sufficiency 30 - 100 ng/mL (75 - 250 nmol/L) Toxicity >100 ng/mL (>250 nmol/L) Platelets bldon 05-28-2022 Platelets (Bld) [#/Vol] 408 10*3/uL 150-450 [facility] Work Phone: [phone] Serum or plasma C reactive p rotein measurement (mass/volume)on 05-28-2022 CRP [Mass/Vol] 3.54 mg/L 0.0-3.0 [facility] Work Phone: Comment on above: C-Reactive Protein ( CRP) provides useful information for thediagnosis, therapy and monitoring of inflammatory processesand associated diseases. For the evaluation of Relative Riskfor Cardiovascular Disease, a High Sensitivity CRP (HSCRP)should be ordered. Serum or plasma albumin seamus urement (mass/volume)on 05-28-2022 Albumin [Mass/Vol] 3.5 g/dL 3.2-5.0 [facility] Work Phone: [phone] Serum or plasma albumin/glob ulin mass ratioon 05-28-2022 Albumin/Globulin [Mass ratio] 1.0 {ratio} 0.9-2.4 [facility] Work Phone: [phone] Serum or plasma calcium seamus urement (mass/volume)on 05-28-2022 Calcium [Mass/Vol] 8.7 mg/dL 8.5-10.1 [facility] Work Phone: [phone] Serum or plasma creatinine m easurement (mass/volume)on 05-28-2022 Creatinine [Mass/Vol] 0.74 mg/dL 0.55-1.02 [facility] Work Phone: Comment on above: The validity of the calculated GFR & GFRAA in patients over 70 years has not been determined. Clinical correlation is essential. Serum or plasma ferritin kirstin surement (mass/volume)on 05-28-2022 Ferritin [Mass/Vol] 26 ng/mL 8-252 [facility] Work Phone: [phone] Serum or plasma urea nitroge n measurement (mass/volume)on 05-28-2022 Urea nitrogen [Mass/Vol] 25 mg/dL 7-18 [facility] Work Phone: [phone] Serum rheumatoid factor dete ctionon 05-28-2022 Rheumatoid factor Ql (S) < 10.0 IU/mL <15 [facility] Work Phone: [phone] Thin prep Papanicolaou smear with manual screeningon 05-28-2022 Thin prep Papanicolaou smear with manual screening 18 U/L 15-37 [facility] Work Phone: [phone] Thin prep Papanicolaou smear with manual screening 5 5-15 [facility] Work Phone: .Auto Diffon 05-21-2022 Basophil, Absolute 0.0 10 3/mcL Normal 0.0-0.2 [facility] ([place]) Comment on above: Performed By: #### G FR, BMP #### [address] [address] Basophils/100 WBC (Bld) 0.6 % Normal 0.0-2.5 On License Of [facility] ([place]) Comment on above: Performed By: #### G FR, BMP #### [address] [address] Eosinophil, Absolute 0.1 10 3/mcL Normal 0.0-0.4 [facility] ([place] Comment on above: Performed By: #### G FR, BMP #### [address] [address] Eosinophils/100 WBC (Bld) 1.5 % Normal 0.0-7.0 On [facility] ([place]) Comment on above: Performed By: #### G FR, BMP #### [address] [address] Lymphocyte, Absolute 1.3 10 3/mcL Normal 0.8-3.9 [facility] ([place] Comment on above: Performed By: #### G FR, BMP #### [address] [address] Lymphocytes/100 WBC (Bld) 18.0 % Normal 10.0-50.0 On [facility] ([place]) Comment on above: Performed By: #### G FR, BMP #### [address] [address] Monocyte, Absolute 0.8 10 3/mcL Normal 0.2-1.0 [facility] ([place]) Comment on above: Performed By: #### G FR, BMP #### [address] [address] Monocytes/100 WBC (Bld) 10.8 % Normal 1.7-13.0 [facility] ([place]) Comment on above: Performed By: #### G FR, BMP #### [address] [address] Neutrophils/100 WBC (Bld) 69.1 % Normal 37.0-80.0 [facility] ([place]) Comment on above: Performed By: #### G FR, BMP #### [address] [place], [place] [address] .GFRon 05-21-2022 GFR 103 ml/min/1.73sqm Normal [facility] ([place]) Comment on above: Result Comment: GFR Population mean for , Non- Americans Ages 20-29 = 116 mL/min/1.73 sq.m. Ages 30-39 = 107 mL/min/1.73 sq.m. Ages 40-49 = 99 mL/min/1.73 sq.m. Ages 50-59 = 93 mL/min/1.73 sq.m. Ages 60-69 = 85 mL/min/1.73 sq.m. Ages 70+ = 75 mL/min/1.73 sq.m. Chronic Kidney Disease: Less than 60 mL/min/1.73 square meters End Stage Renal Disease: Less than 15 mL/min/1.73 square meters Performed By: #### G FR, BMP #### [address] [address] GFR Non- 85 ml/min/1.73sqm Normal [facility] ([place]) Comment on above: Result Comment: GFR Population mean for , Non- Americans Ages 20-29 = 116 mL/min/1.73 sq.m. Ages 30-39 = 107 mL/min/1.73 sq.m. Ages 40-49 = 99 mL/min/1.73 sq.m. Ages 50-59 = 93 mL/min/1.73 sq.m. Ages 60-69 = 85 mL/min/1.73 sq.m. Ages 70+ = 75 mL/min/1.73 sq.m. Chronic Kidney Disease: Less than 60 mL/min/1.73 square meters End Stage Renal Disease: Less than 15 mL/min/1.73 square meters Performed By: #### G FR, BMP #### [address] [address] .MDWon 05-21-2022 Monocyte Distribution Width 23.38 High 0.00-20.00 [facility] ([place]) Comment on above: Result Comment: For adults in ED, MDW>20.0 may be associated with a higher risk of sepsis during the first 12hrs of hospital admission Performed By: #### Dolores WOOD, BMP #### [address] [address] .NEUABSon 05-21-2022 Neutrophil, Absolute 4.9 10 3/mcL Normal 2.9-6.2 [facility] ([place] Comment on above: Performed By: #### Dolores WOOD, BMP #### [address] [address] BMPon 05-21-2022 BUN/Creatinine Ratio 22 ratio Normal 7-27 [facility] ([place]) Comment on above: Performed By: #### Dolores WOOD, BMP #### [address] [address] Calcium [Mass/Vol] 8.5 mg/dL Normal 8.4-10.2 [facility] ([place]) Comment on above: Performed By: #### Dolores WOOD, BMP #### [address] [address] Chloride [Moles/Vol] 103 mmol/L Normal 98-107 [facility] ([place]) Comment on above: Performed By: #### Dolores WOOD, BMP #### [address] [address] CO2 [Moles/Vol] 26 mmol/L Normal 22-29 On [facility] ([place]) Comment on above: Performed By: #### Dolores WOOD, BMP #### [address] [address] Creatinine [Mass/Vol] 0.80 mg/dL Normal 0.55-1.02 [facility] ([place]) Comment on above: Performed By: #### Dolores WOOD, BMP #### [address] [address] Electrolyte Balance 10.0 mEq/L Normal 4.0-15.0 [facility] ([place]) Comment on above: Performed By: #### Dolores WOOD, BMP #### [address] [address] Glucose [Mass/Vol] 100 mg/dL Normal 70-105 [facility] ([place]) Comment on above: Performed By: #### Dolores WOOD, BMP #### [address] [address] Potassium [Moles/Vol] 4.2 mmol/L Normal 3.5-5.1 [facility] ([place]) Comment on above: Performed By: #### Dolores WOOD, BMP #### [address] [address] Sodium [Moles/Vol] 139 mmol/L Normal 136-145 [facility] ([place]) Comment on above: Performed By: #### Dolores WOOD, BMP #### [address] [address] Urea nitrogen [Mass/Vol] 18 mg/dL Normal 7-18 On [facility] ([place]) Comment on above: Performed By: #### Dolores WOOD, BMP #### [address] [address] CBCon 05-21-2022 Erythrocyte distribution width (RBC) [Ratio] 17.7 % High 11.5-14.5 [facility] ([place]) Comment on above: Performed By: #### Dolores WOOD, BMP #### Christopher [address] [address] Hematocrit (Bld) [Volume fraction] 34.9 % Low 37.0-47.0 On [facility] ([place]) Comment on above: Performed By: #### Dolores WOOD, BMP #### [address] [address] Hgb 11.5 G/dL Low 12.0-16.0 On [facility] ([place]) Comment on above: Performed By: #### Dolores WOOD, BMP #### [address] [address] MCH (RBC) [Entitic mass] 24.8 pg Low 27.0-31.2 [facility] ([place] Comment on above: Performed By: #### Dolores WOOD, BMP #### [address] [address] MCHC 32.9 G/dL Low 33.0-37.0 [facility] ([place] Comment on above: Performed By: #### Dolores WOOD, BMP #### [address] [address] MCV (RBC) [Entitic vol] 75.5 fL Low 80.0-94.0 On [facility] ([place] Comment on above: Performed By: #### Dolores WOOD, BMP #### [address] [address] Platelet 313 10 3/mcL Normal 130-400 [facility] ([place]) Comment on above: Performed By: #### Dolores WOOD, BMP #### [address] [address] Platelet mean volume (Bld) [Entitic vol] 8.1 fL Normal 7.4-10.4 [facility] ([place] Comment on above: Performed By: #### Dolores WOOD, BMP #### [address] [address] RBC 4.62 10 6/mcL Normal 4.20-5.40 On [facility] ([place] Comment on above: Performed By: #### Dolores WOOD, BMP #### [address] [address] WBC 7.0 10 3/mcL Normal 4.6-10.8 [facility] ([place] Comment on above: Performed By: #### Dolores WOOD, BMP #### [address] [address] LABORATORYOrdered By: Blaire Wade on 05-21-2022 Basophil, Absolute 0.0 103/mcL Invalid Interpretation Code 0.0 - 0.2 10^3/mcL AO Workflow SS Basophils/100 WBC (Bld) 0.6 % Invalid Interpretation Code 0.0 - 2.5 % AO Workflow SS Eosinophil, Absolute 0.1 103/mcL Invalid Interpretation Code 0.0 - 0.4 10^3/mcL AO Workflow SS Eosinophils/100 WBC (Bld) 1.5 % Invalid Interpretation Code 0.0 - 7.0 % AO Workflow SS Erythrocyte distribution width (RBC) [Ratio] 17.7 % Invalid Interpretation Code 11.5 - 14.5 % AO Workflow SS Hematocrit (Bld) [Volume fraction] 34.9 % Invalid Interpretation Code 37.0 - 47.0 % AO Workflow SS Hemoglobin (Bld) [Mass/Vol] 11.5 G/dL Invalid Interpretation Code 12.0 - 16.0 G/dL AO Workflow SS Lymphocyte, Absolute 1.3 103/mcL Invalid Interpretation Code 0.8 - 3.9 10^3/mcL AO Workflow SS Lymphocytes/100 WBC (Bld) 18.0 % Invalid Interpretation Code 10.0 - 50.0 % AO Workflow SS MCH (RBC) [Entitic mass] 24.8 pg Invalid Interpretation Code 27.0 - 31.2 pg AO Workflow SS MCHC 32.9 G/dL Invalid Interpretation Code 33.0 - 37.0 G/dL AO Workflow SS MCV (RBC) [Entitic vol] 75.5 fL Invalid Interpretation Code 80.0 - 94.0 fL AO Workflow SS Monocyte distribution width Auto (Bld) [Entitic vol] 23.38 Invalid Interpretation Code 0.00 - 20.00 AO Workflow SS Comment on above: Result Comment: For adults in ED, MDW>20.0 may be associated with a higher risk of sepsis during the first 12hrs of hospital admission Monocyte, Absolute 0.8 103/mcL Invalid Interpretation Code 0.2 - 1.0 10^3/mcL AO Workflow SS Monocytes/100 WBC (Bld) 10.8 % Invalid Interpretation Code 1.7 - 13.0 % AO Workflow SS Neutrophil, Absolute 4.9 103/mcL Invalid Interpretation Code 2.9 - 6.2 10^3/mcL AO Workflow SS Neutrophils/100 WBC (Bld) 69.1 % Invalid Interpretation Code 37.0 - 80.0 % AO Workflow SS Platelet mean volume (Bld) [Entitic vol] 8.1 fL Invalid Interpretation Code 7.4 - 10.4 fL AO Workflow SS Platelets (Bld) [#/Vol] 313 103/mcL Invalid Interpretation Code 130 - 400 10^3/mcL AO Workflow SS RBC (Bld) [#/Vol] 4.62 106/mcL Invalid Interpretation Code 4.20 - 5.40 10^6/mcL AO Workflow SS WBC 7.0 103/mcL Invalid Interpretation Code 4.6 - 10.8 10^3/mcL AO Workflow SS LABORATORYOrdered By: Liv Fong on 05-21-2022 Calcium [Mass/Vol] 8.5 mg/dL Invalid Interpretation Code 8.4 - 10.2 mg/dL AO ADM SS Chloride [Moles/Vol] 103 mmol/L Invalid Interpretation Code 98 - 107 mmol/L AO ADM SS CO2 [Moles/Vol] 26 mmol/L Invalid Interpretation Code 22 - 29 mmol/L AO ADM SS Creatinine [Mass/Vol] 0.80 mg/dL Invalid Interpretation Code 0.55 - 1.02 mg/dL AO ADM SS Electrolyte Balance 10.0 mEq/L Invalid Interpretation Code 4.0 - 15.0 mEq/L AO ADM SS Glucose [Mass/Vol] 100 mg/dL Invalid Interpretation Code 70 - 105 mg/dL AO ADM SS Potassium [Moles/Vol] 4.2 mmol/L Invalid Interpretation Code 3.5 - 5.1 mmol/L AO ADM SS Sodium [Moles/Vol] 139 mmol/L Invalid Interpretation Code 136 - 145 mmol/L AO ADM SS Urea nitrogen [Mass/Vol] 18 mg/dL Invalid Interpretation Code 7 - 18 mg/dL AO ADM SS Urea nitrogen/Creatinine [Mass ratio] 22 ratio Invalid Interpretation Code 7 - 27 ratio AO ADM SS LABORATORYOrdered By: SYSTEM SYSTEM on 05-21-2022 GFR 103 ml/min/1.73sqm Invalid Interpretation Code AO Chemistry S GFR Non- 85 ml/min/1.73sqm Invalid Interpretation Code AO Chemistry S Absolute lymphocyte counton 04-10-2022 Lymphocytes Auto (Unsp spec) [#/Vol] 3.50 10*3/uL 0.83-4.51 [facility] Work Phone: Basophil percentageon 2021 Basophils/100 WBC (Bld) 0.3 % 0-1 [facility] Work Phone: Eosinophils/100 WBC (Bld) 0.8 % 0-5 [facility] Work Phone: Neutrophils (Bld) [#/Vol] 16.1 10*3/uL 2.0-7.7 [facility] Work Phone: Neutrophils/100 WBC (Bld) 73.8 % 47-70 [facility] Work Phone: WBC (Bld) [#/Vol] 21.8 10*3/uL 4.4-11.0 [facility] Work Phone: Blood erythrocytes count (nu mber/volume)on 04-10-2022 RBC (Bld) [#/Vol] 3.44 10*6/uL 4.2-5.4 [facility] Work Phone: [phone] Blood hemoglobin measurement (mass/volume)on 04-10-2022 Hemoglobin (Bld) [Mass/Vol] 8.6 g/dL 12.0-15.0 [facility] Work Phone: [phone] Blood lymphocytes/100 leukoc yteson 04-10-2022 Lymphocytes/100 WBC (Bld) 16.1 % 19-41 [facility] Work Phone: [phone] Blood monocytes/100 leukocyt eson 04-10-2022 Monocytes/100 WBC (Bld) 7.0 % 0-10 [facility] Work Phone: Blood platelet mean volumeon 04-10-2022 Platelet mean volume (Bld) [Entitic vol] 11.0 fL 6.2-12.0 [facility] Work Phone: Determination of erythrocyte mean corpuscular volume (MCV)on 04-10-2022 MCV (RBC) [Entitic vol] 80.5 fL 81-99 [facility] Work Phone: Hematocrit Auto (Bld) [Volum e fraction]on 04-10-2022 Hematocrit (Bld) [Volume fraction] 27.7 % 37-47 [facility] Work Phone: Laboratory - Hematology and Cell countson 04-10-2022 Erythrocyte distribution width (RBC) [Entitic vol] 43.0 fL 35.1-43.9 [facility] Work Phone: Erythrocyte distribution width (RBC) [Ratio] 14.8 % 11.6-14.6 [facility] Work Phone: Immature granulocytes/100 WBC (Bld) 2.000 % 0.0-0.9 [facility] Work Phone: Comment on above: IG% - Immature Granu locytes (promyelocytes, myelocytes and metamyelocytes) > 1% indicates that a LEFT SHIFT is Present. MCH (RBC) [Entitic mass] 25.0 pg 27.0-32.0 [facility] Work Phone: Nucleated RBC/100 WBC (Bld) [Ratio] 0 % 0-5 [facility] Work Phone: MCHC Auto (RBC) [Mass/Vol]on 04-10-2022 MCHC (RBC) [Mass/Vol] 31.0 g/dL 32-36 [facility] Work Phone: Platelets bldon 04-10-2022 Platelets (Bld) [#/Vol] 243 10*3/uL 150-450 [facility] Work Phone: Review by pathologiston 03-26 Pathologist review García (Unsp spec) [Interp] Eusebia castellano [facility] Work Phone: [phone] Pathologist review García (Unsp spec) [Interp] Reviewed [facility] Work Phone: [phone] Comment on above: Previous reported re sult: Eusebia castellano Edited by: RGOOD on 04/11/22:1039Neutrophilic leukocytosis with left shift. Normocytic anemia.Clinical correlation necessary.Shahzad Nixon M.D. 04/11/22 AMENDED REPORT 04/11/22 1039 PATH REV previously reported as: Eusebia castellano Thin prep Papanicolaou smear with manual screeningon 04-10-2022 Thin prep Papanicolaou smear with manual screening 1+ [facility] Work Phone: Blood manual differential co mment interpretation (narrative result)on 04-08-2022 Manual differential comment García (Bld) [Interp] COMMENT [facility] Work Phone: Comment on above: MONOCYTOSIS. Absolute lymphocyte counton 03-30-2022 Lymphocytes Auto (Unsp spec) [#/Vol] 2.29 10*3/uL 0.83-4.51 [facility] Work Phone: Basophil percentageon 2021 Basophils/100 WBC (Bld) 0.3 % 0-1 [facility] Work Phone: Bilirubin [Mass/Vol] 0.20 mg/dL 0.20-1.00 [facility] Work Phone: Comment on above: For patients on eltr ombopag therapy, use of Dimension [place] TBIL is not recommended. Chloride [Moles/Vol] 116 mmol/L 98-107 [facility] Work Phone: Eosinophils/100 WBC (Bld) 0.2 % 0-5 [facility] Work Phone: Glucose [Mass/Vol] 82 mg/dL 74-106 [facility] Work Phone: Neutrophils (Bld) [#/Vol] 16.2 10*3/uL 2.0-7.7 [facility] Work Phone: Neutrophils/100 WBC (Bld) 81.2 % 47-70 [facility] Work Phone: Potassium [Moles/Vol] 3.6 mmol/L 3.5-5.1 [facility] Work Phone: Protein [Mass/Vol] 6.1 g/dL 6.4-8.2 [facility] Work Phone: Sodium [Moles/Vol] 149 mmol/L 136-145 [facility] Work Phone: WBC (Bld) [#/Vol] 19.9 10*3/uL 4.4-11.0 [facility] Work Phone: Blood erythrocytes count (nu mber/volume)on 03-30-2022 RBC (Bld) [#/Vol] 4.00 10*6/uL 4.2-5.4 [facility] Work Phone: Blood hemoglobin measurement (mass/volume)on 03-30-2022 Hemoglobin (Bld) [Mass/Vol] 10.2 g/dL 12.0-15.0 [facility] Work Phone: [phone] Blood lymphocytes/100 leukoc yteson 03-30-2022 Lymphocytes/100 WBC (Bld) 11.5 % 19-41 [facility] Work Phone: Blood monocytes/100 leukocyt eson 03-30-2022 Monocytes/100 WBC (Bld) 5.3 % 0-10 [facility] Work Phone: Blood platelet mean volumeon 03-30-2022 Platelet mean volume (Bld) [Entitic vol] 10.6 fL 6.2-12.0 [facility] Work Phone: Determination of erythrocyte mean corpuscular volume (MCV)on 03-30-2022 MCV (RBC) [Entitic vol] 79.0 fL 81-99 [facility] Work Phone: [phone] Hematocrit Auto (Bld) [Volum e fraction]on 03-30-2022 Hematocrit (Bld) [Volume fraction] 31.6 % 37-47 [facility] Work Phone: Laboratory - Chemistry and C hemistry - challengeon 03-30-2022 ALP [Catalytic activity/Vol] 238 U/L 45-117 [facility] Work Phone: [phone] ALT [Catalytic activity/Vol] 24 U/L 13-56 [facility] Work Phone: [phone] CO2 [Moles/Vol] 21.0 mmol/L 21.0-32.0 [facility] Work Phone: Globulin (S) [Mass/Vol] 3.7 g/dL 2.2-4.2 [facility] Work Phone: Urea nitrogen/Creatinine [Mass ratio] 13.2 mg/mg 10-20 [facility] Work Phone: [phone] Laboratory - Hematology and Cell countson 03-30-2022 Erythrocyte distribution width (RBC) [Entitic vol] 38.6 fL 35.1-43.9 [facility] Work Phone: [phone] Erythrocyte distribution width (RBC) [Ratio] 13.5 % 11.6-14.6 [facility] Work Phone: [phone] Immature granulocytes/100 WBC (Bld) 1.500 % 0.0-0.9 [facility] Work Phone: [phone] Comment on above: IG% - Immature Granu locytes (promyelocytes, myelocytes and metamyelocytes) > 1% indicates that a LEFT SHIFT is Present. MCH (RBC) [Entitic mass] 25.5 pg 27.0-32.0 [facility] Work Phone: [phone] Nucleated RBC/100 WBC (Bld) [Ratio] 0 % 0-5 [facility] Work Phone: [phone] MCHC Auto (RBC) [Mass/Vol]on 03-30-2022 MCHC (RBC) [Mass/Vol] 32.3 g/dL 32-36 [facility] Work Phone: No Panel Informationon 03-30 Estimated Creatinine Clearance Calc 113.51 ml/min [facility] Work Phone: [phone] Estimated GFR (MDRD) Amer 176 mL/min >60 [facility] Work Phone: [phone] Comment on above: GFR Calc Estimated GFR (MDRD) Non-Af Amer 145 mL/min >60 [facility] Work Phone: [phone] Comment on above: Non- GFR Calc Platelets bldon 03-30-2022 Platelets (Bld) [#/Vol] 308 10*3/uL 150-450 [facility] Work Phone: [phone] Serum or plasma albumin seamus urement (mass/volume)on 03-30-2022 Albumin [Mass/Vol] 2.4 g/dL 3.2-5.0 [facility] Work Phone: [phone] Serum or plasma albumin/glob ulin mass ratioon 03-30-2022 Albumin/Globulin [Mass ratio] 0.6 {ratio} 0.9-2.4 [facility] Work Phone: [phone] Serum or plasma calcium seamus urement (mass/volume)on 03-30-2022 Calcium [Mass/Vol] 8.3 mg/dL 8.5-10.1 [facility] Work Phone: [phone] Serum or plasma creatinine m easurement (mass/volume)on 03-30-2022 Creatinine [Mass/Vol] 0.53 mg/dL 0.55-1.02 [facility] Work Phone: [phone] Comment on above: The validity of the calculated GFR & GFRAA in patients over 70 years has not been determined. Clinical correlation is essential. Serum or plasma urea nitroge n measurement (mass/volume)on 03-30-2022 Urea nitrogen [Mass/Vol] 7 mg/dL 7-18 [facility] Work Phone: [phone] Thin prep Papanicolaou smear with manual screeningon 03-30-2022 Thin prep Papanicolaou smear with manual screening 23 U/L 15-37 [facility] Work Phone: [phone] Thin prep Papanicolaou smear with manual screening 12 5-15 [facility] Work Phone: [phone] Absolute lymphocyte counton 03-25-2022 Lymphocytes Auto (Unsp spec) [#/Vol] 1.23 10*3/uL 0.83-4.51 [facility] Work Phone: [phone] Basophil percentageon 2021 Basophils/100 WBC (Bld) 0.3 % 0-1 [facility] Work Phone: [phone] Bilirubin [Mass/Vol] 0.20 mg/dL 0.20-1.00 [facility] Work Phone: [phone] Comment on above: For patients on eltr ombopag therapy, use of Dim[place] TBIL is not recommended. Chloride [Moles/Vol] 109 mmol/L 98-107 [facility] Work Phone: Eosinophils/100 WBC (Bld) 0.2 % 0-5 [facility] Work Phone: Glucose [Mass/Vol] 73 mg/dL 74-106 [facility] Work Phone: Neutrophils (Bld) [#/Vol] 15.6 10*3/uL 2.0-7.7 [facility] Work Phone: Neutrophils/100 WBC (Bld) 86.1 % 47-70 [facility] Work Phone: Potassium [Moles/Vol] 4.1 mmol/L 3.5-5.1 [facility] Work Phone: Protein [Mass/Vol] 6.4 g/dL 6.4-8.2 [facility] Work Phone: Sodium [Moles/Vol] 137 mmol/L 136-145 [facility] Work Phone: WBC (Bld) [#/Vol] 18.1 10*3/uL 4.4-11.0 [facility] Work Phone: Blood erythrocytes count (nu mber/volume)on 03-25-2022 RBC (Bld) [#/Vol] 4.42 10*6/uL 4.2-5.4 [facility] Work Phone: Blood hemoglobin measurement (mass/volume)on 03-25-2022 Hemoglobin (Bld) [Mass/Vol] 11.2 g/dL 12.0-15.0 [facility] Work Phone: Blood lymphocytes/100 leukoc yteson 03-25-2022 Lymphocytes/100 WBC (Bld) 6.8 % 19-41 [facility] Work Phone: Blood monocytes/100 leukocyt eson 03-25-2022 Monocytes/100 WBC (Bld) 5.1 % 0-10 [facility] Work Phone: Blood platelet mean volumeon 03-25-2022 Platelet mean volume (Bld) [Entitic vol] 11.0 fL 6.2-12.0 [facility] Work Phone: [phone] Determination of erythrocyte mean corpuscular volume (MCV)on 03-25-2022 MCV (RBC) [Entitic vol] 79.9 fL 81-99 [facility] Work Phone: [phone] Hematocrit Auto (Bld) [Volum e fraction]on 03-25-2022 Hematocrit (Bld) [Volume fraction] 35.3 % 37-47 [facility] Work Phone: [phone] Laboratory - Chemistry and C hemistry - challengeon 03-25-2022 ALP [Catalytic activity/Vol] 238 U/L 45-117 [facility] Work Phone: [phone] ALT [Catalytic activity/Vol] 13 U/L 13-56 [facility] Work Phone: [phone] CO2 [Moles/Vol] 21.0 mmol/L 21.0-32.0 [facility] Work Phone: [phone] Globulin (S) [Mass/Vol] 4.0 g/dL 2.2-4.2 [facility] Work Phone: [phone] Urea nitrogen/Creatinine [Mass ratio] 19.0 mg/mg 10-20 [facility] Work Phone: [phone] Laboratory - Hematology and Cell countson 03-25-2022 Erythrocyte distribution width (RBC) [Entitic vol] 40.3 fL 35.1-43.9 [facility] Work Phone: [phone] Erythrocyte distribution width (RBC) [Ratio] 13.8 % 11.6-14.6 [facility] Work Phone: [phone] Immature granulocytes/100 WBC (Bld) 1.500 % 0.0-0.9 [facility] Work Phone: [phone] Comment on above: IG% - Immature Granu locytes (promyelocytes, myelocytes and metamyelocytes) > 1% indicates that a LEFT SHIFT is Present. MCH (RBC) [Entitic mass] 25.3 pg 27.0-32.0 [facility] Work Phone: [phone] Nucleated RBC/100 WBC (Bld) [Ratio] 0 % 0-5 [facility] Work Phone: [phone] Laboratory - Microbiology an d Antimicrobial susceptibilityon 03-25-2022 SARS-CoV-2 (COVID-19) RNA KJ+probe Ql (Unsp spec) Not detected Not Detect [facility] Work Phone: Comment on above: Normal Reference Ran ge: Not DetectedMethod:(RT-PCR) real-time reverse transcriptase PCRLuminex VIDAL Instrument*The Food and Drug Administration (FDA) has issued an Emergency Use Authorization (EAU) for the [employer] SARS-CoV-2 Assay for the rapid detection of the virus that causes COVID-19. This test has been validated, but the FDAs independent review of this validation is pending.*Negative results do not preclude infection and should not be used as the sole basis for treatment or patient management. Optimum specimen types and timing for peak viral levels during infections caused by SARS-CoV-2 have not been determined. Collection of multiple specimens from the same patient may be necessary to detect the virus. The possibility of a false negative result should be considered if the patient has clinical presentation or has had recent exposure. MCHC Auto (RBC) [Mass/Vol]on 03-25-2022 MCHC (RBC) [Mass/Vol] 31.7 g/dL 32-36 [facility] Work Phone: [phone] Panel Informationon 03-25 Estimated GFR (MDRD) Amer 144 mL/min >60 [facility] Work Phone: [phone] Comment on above: GFR Calc Estimated GFR (MDRD) Non-Af Amer 119 mL/min >60 [facility] Work Phone: [phone] Comment on above: Non- GFR Calc Platelets bldon 03-25-2022 Platelets (Bld) [#/Vol] 299 10*3/uL 150-450 [facility] Work Phone: [phone] Serum or plasma albumin seamus urement (mass/volume)on 03-25-2022 Albumin [Mass/Vol] 2.4 g/dL 3.2-5.0 [facility] Work Phone: [phone] Serum or plasma albumin/glob ulin mass ratioon 03-25-2022 Albumin/Globulin [Mass ratio] 0.6 {ratio} 0.9-2.4 [facility] Work Phone: [phone] Serum or plasma calcium seamus urement (mass/volume)on 03-25-2022 Calcium [Mass/Vol] 8.4 mg/dL 8.5-10.1 [facility] Work Phone: [phone] Serum or plasma creatinine m easurement (mass/volume)on 03-25-2022 Creatinine [Mass/Vol] 0.63 mg/dL 0.55-1.02 [facility] Work Phone: [phone] Comment on above: The validity of the calculated GFR & GFRAA in patients over 70 years has not been determined. Clinical correlation is essential. Serum or plasma urea nitroge n measurement (mass/volume)on 03-25-2022 Urea nitrogen [Mass/Vol] 12 mg/dL 7-18 [facility] Work Phone: [phone] Thin prep Papanicolaou smear with manual screeningon 03-25-2022 Thin prep Papanicolaou smear with manual screening 16 U/L 15-37 [facility] Work Phone: [phone] Thin prep Papanicolaou smear with manual screening 7 5-15 [facility] Work Phone: [phone] Panel Informationon 03-19 Group B Streptococcus Culture Group B Beta Streptococcus is not isolated. [facility] Work Phone: [phone] Basophil percentageon 2021 WBC (Bld) [#/Vol] 13.4 10*3/uL 4.4-11.0 [facility] Work Phone: [phone] Blood erythrocytes count (nu mber/volume)on 02-05-2022 RBC (Bld) [#/Vol] 3.62 10*6/uL 4.2-5.4 [facility] Work Phone: [phone] Blood hemoglobin measurement (mass/volume)on 02-05-2022 Hemoglobin (Bld) [Mass/Vol] 9.8 g/dL 12.0-15.0 [facility] Work Phone: [phone] Blood platelet mean volumeon 02-05-2022 Platelet mean volume (Bld) [Entitic vol] 10.1 fL 6.2-12.0 [facility] Work Phone: [phone] Determination of erythrocyte mean corpuscular volume (MCV)on 02-05-2022 MCV (RBC) [Entitic vol] 83.1 fL 81-99 [facility] Work Phone: [phone] Gestational diabetes screen 1-hour screen with 50g oral glucose loadon 02-05-2022 Glucose 1 Hr post 50 g glucose PO [Mass/Vol] 93 mg/dL 70-140 [facility] Work Phone: [phone] Hematocrit Auto (Bld) [Volum e fraction]on 02-05-2022 Hematocrit (Bld) [Volume fraction] 30.1 % 37-47 [facility] Work Phone: [phone] Laboratory - Hematology and Cell countson 02-05-2022 Erythrocyte distribution width (RBC) [Entitic vol] 37.2 fL 35.1-43.9 [facility] Work Phone: [phone] Erythrocyte distribution width (RBC) [Ratio] 12.2 % 11.6-14.6 [facility] Work Phone: [phone] MCH (RBC) [Entitic mass] 27.1 pg 27.0-32.0 [facility] Work Phone: [phone] MCHC Auto (RBC) [Mass/Vol]on 02-05-2022 MCHC (RBC) [Mass/Vol] 32.6 g/dL 32-36 [facility] Work Phone: [phone] Platelets bldon 02-05-2022 Platelets (Bld) [#/Vol] 317 10*3/uL 150-450 [facility] Work Phone: [phone] Bilirubin Test strip Ql (U)o n 01-04-2022 Bilirubin Ql (U) Negative Negative [facility] Work Phone: Ketones Test strip Ql (U)on 01-04-2022 Ketones Ql (U) 5 mg/dl Negative [facility] Work Phone: Nitrite Test strip Ql (U)on 01-04-2022 Nitrite Ql (U) Negative Negative [facility] Work Phone: Protein Test strip Ql (U)on 01-04-2022 Protein Ql (U) 30 mg/dl Negative [facility] Work Phone: Urine blood detectionon 12-24 RBC Ql (U) Negative Negative [facility] Work Phone: Urine clarityon 01-04-2022 Clarity (U) Sl. Cloudy Clear [facility] Work Phone: Urine color determinationon 01-04-2022 Color (U) Yellow Yellow [facility] Work Phone: Urine glucose detectionon Glucose Ql (U) Normal mg/dl Normal [facility] Work Phone: Urine leukocyte esterase det ection by dipstickon 01-04-2022 Leukocyte esterase Test strip Ql (U) 100 /ul Negative [facility] Work Phone: Urine pHon 01-04-2022 pH (U) 6.0 [pH] 5.0 - 8.0 [facility] Work Phone: Urine specific gravity measu rementon 01-04-2022 Specific gravity (U) [Rel density] 1.025 1.002-1.030 [facility] Work Phone: Urobilinogen Auto test strip Ql (U)on 01-04-2022 Urobilinogen Ql (U) Normal mg/dl Normal [facility] Work Phone: Absolute lymphocyte counton 11-13-2021 Lymphocytes Auto (Unsp spec) [#/Vol] 1.44 10*3/uL 0.83-4.51 [facility] Work Phone: Basophil percentageon 2021 Basophil percentage 5-10 SEEN /hpf W [facility] Work Phone: Basophils/100 WBC (Bld) 0.3 % 0-1 [facility] Work Phone: Bilirubin [Mass/Vol] 0.30 mg/dL 0.20-1.00 [facility] Work Phone: Comment on above: For patients on eltr ombopag therapy, use of Dimension [place] TBIL is not recommended. Chloride [Moles/Vol] 104 mmol/L 98-107 [facility] Work Phone: Eosinophils/100 WBC (Bld) 0.3 % 0-5 [facility] Work [phone] Glucose [Mass/Vol] 69 mg/dL 74-106 [facility] Work Phone: Neutrophils (Bld) [#/Vol] 9.7 10*3/uL 2.0-7.7 [facility] Work Phone: Neutrophils/100 WBC (Bld) 81.3 % 47-70 [facility] Work Phone: Potassium [Moles/Vol] 3.3 mmol/L 3.5-5.1 [facility] Work Phone: Protein [Mass/Vol] 7.5 g/dL 6.4-8.2 [facility] Work Phone: Sodium [Moles/Vol] 135 mmol/L 136-145 [facility] Work Phone: WBC (Bld) [#/Vol] 11.9 10*3/uL 4.4-11.0 [facility] Work Phone: Bilirubin Test strip Ql (U)o n 11-13-2021 Bilirubin Ql (U) Negative Negative [facility] Work Phone: Blood erythrocytes count (nu mber/volume)on 11-13-2021 RBC (Bld) [#/Vol] 4.50 10*6/uL 4.2-5.4 [facility] Work Phone: Blood hemoglobin measurement (mass/volume)on 11-13-2021 Hemoglobin (Bld) [Mass/Vol] 12.6 g/dL 12.0-15.0 [facility] Work Phone: Blood lymphocytes/100 leukoc yteson 11-13-2021 Lymphocytes/100 WBC (Bld) 12.1 % 19-41 [facility] Work Phone: Blood monocytes/100 leukocyt eson 11-13-2021 Monocytes/100 WBC (Bld) 5.3 % 0-10 [facility] Work Phone: Blood platelet mean volumeon 11-13-2021 Platelet mean volume (Bld) [Entitic vol] 9.8 fL 6.2-12.0 [facility] Work Phone: Culture, urineon 11-13-2021 Bacteria identified Cx Nom (U) Culture exhibits no growth. [facility] Work Phone: Determination of erythrocyte mean corpuscular volume (MCV)on 11-13-2021 MCV (RBC) [Entitic vol] 81.8 fL 81-99 [facility] Work Phone: Hematocrit Auto (Bld) [Volum e fraction]on 11-13-2021 Hematocrit (Bld) [Volume fraction] 36.8 % 37-47 [facility] Work Phone: Ketones Test strip Ql (U)on 11-13-2021 Ketones Ql (U) Negative Negative [facility] Work Phone: Laboratory - Chemistry and C hemistry - challengeon 11-13-2021 ALP [Catalytic activity/Vol] 77 U/L 45-117 [facility] Work Phone: [phone] ALT [Catalytic activity/Vol] 17 U/L 13-56 [facility] Work Phone: [phone] CO2 [Moles/Vol] 24.0 mmol/L 21.0-32.0 [facility] Work Phone: [phone] Globulin (S) [Mass/Vol] 4.2 g/dL 2.2-4.2 [facility] Work Phone: Urea nitrogen/Creatinine [Mass ratio] 9.9 mg/mg 10-20 [facility] Work Phone: [phone] Laboratory - Hematology and Cell countson 11-13-2021 Erythrocyte distribution width (RBC) [Entitic vol] 37.6 fL 35.1-43.9 [facility] Work Phone: [phone] Erythrocyte distribution width (RBC) [Ratio] 12.7 % 11.6-14.6 [facility] Work Phone: [phone] Immature granulocytes/100 WBC (Bld) 0.700 % 0.0-0.9 [facility] Work Phone: [phone] Comment on above: IG% - Immature Granu locytes (promyelocytes, myelocytes and metamyelocytes) > 1% indicates that a LEFT SHIFT is Present. MCH (RBC) [Entitic mass] 28.0 pg 27.0-32.0 [facility] Work Phone: [phone] Nucleated RBC/100 WBC (Bld) [Ratio] 0 % 0-5 [facility] Work Phone: [phone] MCHC Auto (RBC) [Mass/Vol]on 11-13-2021 MCHC (RBC) [Mass/Vol] 34.2 g/dL 32-36 [facility] Work Phone: [phone] Mucus LM Ql (Urine sed)on Mucus Ql (Urine sed) 0 SEEN /hpf [facility] Work Phone: [phone] Nitrite Test strip Ql (U)on 11-13-2021 Nitrite Ql (U) Negative Negative [facility] Work Phone: [phone] Panel Informationon 11-13 Estimated Creatinine Clearance Calc 85.94 ml/min [facility] Work Phone: [phone] Estimated GFR (MDRD) Amer 127 mL/min >60 [facility] Work Phone: [phone] Comment on above: GFR Calc Estimated GFR (MDRD) Non-Af Amer 105 mL/min >60 [facility] Work Phone: [phone] Comment on above: Non- GFR Calc Platelets bldon 11-13-2021 Platelets (Bld) [#/Vol] 315 10*3/uL 150-450 [facility] Work Phone: Protein Test strip Ql (U)on 11-13-2021 Protein Ql (U) 15 mg/dl Negative [facility] Work Phone: Serum or plasma albumin seamus urement (mass/volume)on 11-13-2021 Albumin [Mass/Vol] 3.3 g/dL 3.2-5.0 [facility] Work Phone: Serum or plasma albumin/glob ulin mass ratioon 11-13-2021 Albumin/Globulin [Mass ratio] 0.8 {ratio} 0.9-2.4 [facility] Work Phone: Serum or plasma calcium seamus urement (mass/volume)on 11-13-2021 Calcium [Mass/Vol] 8.6 mg/dL 8.5-10.1 [facility] Work Phone: Serum or plasma choriogonado tropin detectionon 11-13-2021 HCG ( test) [place]l [address] mIU/mL <4 [facility] Work Phone: Comment on above: hCG levels with Gest ational AgeGestational Age hCG mIU/mL (IU/L)0.2 - 1 week 5 - 501-2 weeks 50 - 5002-3 weeks 100 - 48302-2 weeks 500 - 284793-0 weeks 1000 - 164421-8 weeks 94043 - 100,0006-8 weeks 03345 - 200,0002-3 months 18382 - 100,000 Serum or plasma creatinine m easurement (mass/volume)on 11-13-2021 Creatinine [Mass/Vol] 0.70 mg/dL 0.55-1.02 [facility] Work Phone: Comment on above: The validity of the calculated GFR & GFRAA in patients over 70 years has not been determined. Clinical correlation is essential. Serum or plasma urea nitroge n measurement (mass/volume)on 11-13-2021 Urea nitrogen [Mass/Vol] 7 mg/dL 7-18 [facility] Work Phone: Squamous epithelial cells de tection in urine sediment by light microscopyon 11-13-2021 Epithelial cells.squamous LM Ql (Urine sed) 0-5 SEEN /hpf [facility] Work Phone: Thin prep Papanicolaou smear with manual screeningon 11-13-2021 Thin prep Papanicolaou smear with manual screening 7 U/L 15-37 [facility] [facility] Work Phone: Thin prep Papanicolaou smear with manual screening 7 5-15 [facility] Work Phone: Urine blood detectionon 10-26 RBC Ql (U) Negative Negative [facility] Work Phone: RBC Ql (U) 0 SEEN /hpf [facility] Work Phone: Urine clarityon 11-13-2021 Clarity (U) Clear Clear [facility] Work Phone: Urine color determinationon 11-13-2021 Color (U) Yellow Yellow [facility] Work Phone: Urine glucose detectionon Glucose Ql (U) Normal mg/dl Normal [facility] Work Phone: Urine leukocyte esterase det ection by dipstickon 11-13-2021 Leukocyte esterase Test strip Ql (U) 25 /ul Negative [facility] Work Phone: Urine pHon 11-13-2021 pH (U) 6.0 [pH] [facility] Work Phone: Urine sediment bacteria coun t by microscopy (number/high power field)on 11-13-2021 Bacteria LM.HPF (Urine sed) [#/Area] RARE /hpf None Seen [facility] Work Phone: Urine specific gravity measu rementon 11-13-2021 Specific gravity (U) [Rel density] 1.010 [facility] Work Phone: Urobilinogen Auto test strip Ql (U)on 11-13-2021 Urobilinogen Ql (U) Normal mg/dl Normal [facility] Work Phone: Laboratory - Microbiology an d Antimicrobial susceptibilityon 11-05-2021 SARS-CoV-2 (COVID-19) RNA KJ+probe Ql (Unsp spec) Not detected Not Detect [facility] Work Phone: Comment on above: Normal Reference Ran ge: Not DetectedMethod:(RT-PCR) real-time reverse transcriptase PCRLuminex VIDAL Instrument*The Food and Drug Administration (FDA) has issued an Emergency Use Authorization (EAU) for the VIDAL SARS-CoV-2 Assay for the rapid detection of the virus that causes COVID-19. This test has been validated, but the FDAs independent review of this validation is pending.*Negative results do not preclude infection and should not be used as the sole basis for treatment or patient management. Optimum specimen types and timing for peak viral levels during infections caused by SARS-CoV-2 have not been determined. Collection of multiple specimens from the same patient may be necessary to detect the virus. The possibility of a false negative result should be considered if the patient has clinical presentation or has had recent exposure. C [facility] 08-06-2020 [facility] [address] [place] [id number] Name: DIGNA KRAUS : 1995 Admitting Provider: Gender: Female [facility] [id number] Number: Location: [facility]; EX11; 1 Admit 08/01/2020 Date: Discharge 08/01/2020 Date: Microbiology PROCEDURE: C BLOOD SOURCE: Blood BODY SITE: COLLECTED DATE/TIME: 08/01/2020 05:24 EDT RECEIVED DATE/TIME: 08/01/2020 05:55 EDT START DATE/TIME: 08/01/2020 05:55 EDT FREE TEXT SOURCE: ORDERING PHYSICIAN: JAY STODDARD CNP FINAL REPORTS Final Report [] Verified Date/Time: 08/06/2020 07:00 EDT No growth after 5 days. L=Low, H= High, *= Abnormal, C=Critical, f=Footnote, c=Corrected, i=Interp Data Name: DIGNA KRAUS Print Date08/06/2020 07:00 EDT Time: Normal [facility] Comment on above: Performed By: #### 1 [id number] ####[facility] [id number] [place] [address] Medical Director: Gary Puckett MD C BLOOD [facility] Dept of Laboratory Services [address] [place] [address] Name: DIGNA KRAUS : 1995 Admitting Provider: Gender: Female [employer] [id number] Number: Location: [facility]; EX11; 1 Admit 08/01/2020 Date: Discharge 08/01/2020 Date: Microbiology PROCEDURE: C BLOOD SOURCE: Blood BODY SITE: COLLECTED DATE/TIME: 08/01/2020 05:29 EDT RECEIVED DATE/TIME: 08/01/2020 05:55 EDT START DATE/TIME: 08/01/2020 05:55 EDT FREE TEXT SOURCE: ORDERING PHYSICIAN: JAY STODDARD CNP FINAL REPORTS Final Report [] Verified Date/Time: 08/06/2020 07:00 EDT No growth after 5 days. L=Low, H= High, *= Abnormal, C=Critical, f=Footnote, c=Corrected, i=Interp Data Name: DIGNA KRAUS Print Date/ 08/06/2020 07:00 EDT Time: Normal [facility] Comment on above: Performed By: #### 1 [id number] ####[facility] [id number] [place] [address] Medical Director: Gary Puckett MD C THROATon 08-03-2020 [facility] [address] [place] [address] Name: DIGNA KRAUS : 1995 Admitting Provider: Gender: Female [employer] [phone] Number: Location: [facility]; EX11; 1 Admit 08/01/2020 Date: Discharge 08/01/2020 Date: Microbiology PROCEDURE: C THROAT [] SOURCE: THROAT BODY SITE: COLLECTED DATE/TIME: 08/01/2020 04:23 EDT RECEIVED DATE/TIME: 08/01/2020 07:14 EDT START DATE/TIME: 08/01/2020 07:14 EDT FREE TEXT SOURCE: ORDERING PHYSICIAN: SYSTEM FINAL REPORTS Final Report [] Verified Date/Time: 08/03/2020 09:22 EDT 2+ Beta hemolytic Strep, not Group A with Normal Upper Respiratory Emmy isolated. L=Low, H= High, *= Abnormal, C=Critical, f=Footnote, c=Corrected, i=Interp Data Name: DIGNA KRAUS Print Date/ 08/03/2020 09:22 EDT Time: Normal [facility] Comment on above: Performed By: #### 1 [id number], [id number] ####[facility] [id number] [place] [address] Medical Director: Gary Puckett MD AUTO DIFFon 08-01-2020 Basophils (Bld) [#/Vol] 0.12 x1000 Normal 0.00-0.20 [facility] Comment on above: Performed By: #### 1 05772, 326396, 313592, [id number] #### [facility] Laboratory Services [address] [place] [address] Executive Director: Gary Puckett MD Basos % 0.6 % Normal [facility] Comment on above: Performed By: #### 1 14711, 393292, 129937, [id number] #### [facility] Services [address] [place] [address] Executive Director: Gary Puckett MD Eos Count 0.45 x1000 Normal 0.00-0.50 [facility] Comment on above: Performed By: #### 1 39410, 630046, 814239, [id number] #### [facility] Services [address] [place] [address] Executive Director: Gary Puckett MD Eosinophils/100 WBC (Bld) 2.1 % Normal [facility] Comment on above: Performed By: #### 1 86532, 676123, 070310, [id number] #### [facility] Laboratory Services [address] [place] [address] Executive Director: Gary Puckett MD Lymphocytes (Bld) [#/Vol] 2.46 x1000 Normal 1.20-4.80 [facility] Comment on above: Performed By: #### 1 56078, 973443, 709249, 2912484 #### [facility] Laboratory Services [address] [place] [address] Executive Director: Gary Puckett MD Lymphocytes/100 WBC (Bld) 11.6 % Normal [facility] Comment on above: Performed By: #### 1 75730, 008160, 435017, 1224117 #### [facility] Laboratory Services [address] [place] [address] Executive Director: Gary Puckett MD [place] Count 1.14 x1000 High 0.10-1.00 [facility] Comment on above: Performed By: #### 1 17790, 590367, 515878, 8903016 #### [facility] Services [address] [place] [address] Executive Director: Gary Puckett MD Monocytes/100 WBC (Bld) 5.3 % Normal [facility] Comment on above: Performed By: #### 1 71570, 516473, 848100, 5458064 #### [facility] [address] [place] [address] Executive Director: Gary Puckett MD Neutrophils (Bld) [#/Vol] 17.17 x1000 High 1.40-8.80 [facility] Comment on above: Performed By: #### 1 75538, 331677, 603532, 6967602 #### [facility] Services [address] [place] [address] Executive Director: Gary Puckett MD Neutrophils/100 WBC (Bld) 80.4 % Normal [facility] Comment on above: Performed By: #### 1 14273, 715189, 919838, 2087402 #### [facility] Services [address] [place] [address] Executive Director: Gary Puckett MD Scan Differential Diff Scd Normal [facility] Comment on above: Result Comment: Slid e reviewed by technologist. Performed By: #### 1 24137, 124829, 253260, [id number] #### [facility] [address] [place] [address] Executive Director: Gary Puckett MD COMPMETAon 08-01-2020 Albumin/Globulin [Mass ratio] 0.9 {ratio} Normal [facility] Comment on above: Performed By: #### 1 93624, 873204, 998356, 8549941 #### [facility] [address] [place] [address] Executive Director: Gary Puckett MD GFR AA >60 Normal [facility] Comment on above: Result Comment: Afri can Gambian GFR Calc Medical judgement is necessary to interpret GFR. The calculated GFR may not accurately reflect renal status in patients >70 years, women, acutely ill hospitalized patients and patients with acute renal failure or known renal disease. The MDRD GFR formula is valid only for adults greater than 18 years of age. Note: Creatinine clearance (not GFR) should be used for drug dosing. Performed By: #### 1 18505, 547809, 430999, 5270558 #### [facility] [address] [place] [address] Executive Director: Gary Puckett MD GFR/1.73 sq M predicted among non-blacks MDRD (S/P/Bld) [Vol rate/Area] mL/min/{1.73_m2} Normal [facility] Comment on above: Result Comment: Non GFR Calc Medical judgement is necessary to interpret GFR. The calculated GFR may not accurately reflect renal status in patients >70 years, women, acutely ill hospitalized patients and patients with acute renal failure or known renal disease. The MDRD GFR formula is valid only for adults greater than 18 years of age. Note: Creatinine clearance (not GFR) should be used for drug dosing. Performed By: #### 1 67427, 343222, 654832, [id number] #### [facility] [address] [place] [address] Executive Director: Gary Puckett MD Globulin (S) [Mass/Vol] 3.8 g/dL Normal [facility] Comment on above: Performed By: #### 1 86382, 439495, 603308, 3344416 #### [facility] Services [address] [place] [address] Executive Director: Gary Puckett MD Osmolality [Osmolality] 282 mOsm/kg Normal 275-295 [facility] Comment on above: Performed By: #### 1 39991, 437455, 862267, 8121292 #### [facility] [address] [place] [address] Executive Director: Gary Puckett MD Urea nitrogen/Creatinine [Mass ratio] 14.8 mg/mg Normal [facility] Comment on above: Performed By: #### 1 54881, 511828, 202012, 4360657 #### [facility] [address] [place] [address] Executive Director: Gary Puckett MD Albumin [Mass/Vol] 3.6 g/dL Normal 3.4-5.0 [facility] Comment on above: Performed By: #### 1 16802, 436043, 789596, 9163220 #### [facility] [address] [place] [address] Executive Director: Gary Puckett MD Alk Phos 115 unit/L Normal 45-117 [facility] Comment on above: Performed By: #### 1 57064, 124056, 463289, 5571067 #### [facility] [address] [place] [address] Executive Director: Gary Puckett MD Bilirubin [Mass/Vol] 0.15 mg/dL Low 0.20-1.00 [facility] Comment on above: Result Comment: Use of this assay is not recommended for patients undergoing treatment with eltrombopag due to the potential for falsely elevated results. Performed By: #### 1 55429, 414795, 024738, 4026160 #### [facility] [address] [place] [address] Executive Director: Gary Puckett MD Calcium [Mass/Vol] 8.2 mg/dL Low 8.5-10.5 [facility] Comment on above: Performed By: #### 1 94337, 340189, 582528, 4038473 #### [facility] [address] [place] [address] Executive Director: Gary Puckett MD Chloride [Moles/Vol] 111 mmol/L High 100-109 [facility] Comment on above: Performed By: #### 1 56388, 950950, 560282, 0694507 #### [facility] [address] [place] [address] Executive Director: Gary Puckett MD CO2, venous 26.4 mmol/L Normal 21.0-32.0 [facility] Comment on above: Performed By: #### 1 01894, 042638, 274469, 1769260 #### [facility] [address] [place] [address] Executive Director: Gary Puckett MD Creatinine [Mass/Vol] 0.9 mg/dL Normal 0.6-1.0 [facility] Comment on above: Performed By: #### 1 32066, 313979, 114088, 2337059 #### [facility] [address] [place] [address] Executive Director: Gary Puckett MD Glucose [Mass/Vol] 101 mg/dL High 72-100 [facility] Comment on above: Result Comment: Natalie puncture should occur prior to sulfasalazine administration due to the potential for falsely depressed results. Venipuncture should occur prior to sulfapyridine administration due to the potential falsely elevated results. Baseline assay values before administration of sulfasalazine and sulfapyridine therapy would not be affected. Performed By: #### 1 01768, 092241, 166737, 5464858 #### [facility] [address] [place] [address] Executive Director: Gary Puckett MD GOT 8 unit/L Low 15-37 [facility] Comment on above: Result Comment: Natalie puncture should occur prior to sulfasalazine and/or sulfapyridine administration due to the potential for falsely depressed results. Baseline assay values before administration of sulfasalazine and sulfapyridine therapy would not be affected. Performed By: #### 1 33289, 593698, 713278, 3669194 #### [facility] [address] [place] [address] Executive Director: Gary Puckett MD GPT 20 unit/L Normal 13-56 [facility] Comment on above: Result Comment: Natalie puncture should occur prior to sulfasalazine and/or sulfapyridine administration due to the potential for falsely depressed results. Baseline assay values before administration of sulfasalazine and sulfapyridine therapy would not be affected. Performed By: #### 1 87511, 809213, 458464, 3393839 #### [facility] [address] [place] [address] Executive Director: Gary Puckett MD Potassium [Moles/Vol] 3.6 mmol/L Normal 3.5-5.1 [facility] Comment on above: Performed By: #### 1 31208, 437226, 290138, 3615683 #### [facility] [address] [place] [address] Executive Director: Gary Puckett MD Protein [Mass/Vol] 7.4 g/dL Normal 6.0-8.5 [facility] Comment on above: Performed By: #### 1 49646, 185684, 028254, 1646349 #### [facility] [address] [place] [address] Executive Director: Gary Puckett MD Sodium [Moles/Vol] 141 mmol/L Normal 135-145 [facility] Comment on above: Performed By: #### 1 81833, 254326, 346574, 7397084 #### [facility] [address] [place] [address] Executive Director: Gary Puckett MD Urea nitrogen [Mass/Vol] 14 mg/dL Normal 10-20 [facility] Comment on above: Performed By: #### 1 45670, 148662, 979788, 0881053 #### [facility] [address] [place] [address] Executive Director: Gary Puckett MD CT ANGIO CHESTon 08-01-2020 CT ANGIO CHEST CLINICAL INDICATION: SHORTNESS OF BREATH. . TECHNIQUE: CT arteriography was obtained of the chest with multiplanar MIP and/or 3-D angiographic reconstructions. This exam was performed according to our departmental dose-optimization program, which includes automated exposure control, adjustment of the mA and/or kV according to patient size and/or use of iterative reconstruction techniques. 75 cc of Isovue 370 administered intravenously without complication. COMPARISON: None. CORRELATION: None. FINDINGS: Heterogeneous contrast bolus. Average Hounsfield unit measurement within main pulmonary artery segment of 277. Artifact from venous opacification. Motion artifact There is no evidence of pulmonary embolus. Peripheral branch vessels are not well seen due to artifact Thoracic aorta is of normal caliber. The heart is of normal size. No pericardial effusion. No bulky mediastinal adenopathy. The lungs are grossly clear. No consolidation or edema. No effusion or pneumothorax. Visualized abdominal contents are unremarkable. Visualized bones are unremarkable. IMPRESSION: No evidence of pulmonary embolus. Lungs grossly clear . Electronically signed by: Mason Doyle MD 08/01/2020 2:50 AM CDT Technologist: TMP Dictated By: MASON DOYLE MD Signed By: MASON DOYLE MD Signed Out: 08/01/20 03:50:51 Normal [facility] ED Physician Reporton 2019 ED Physician Report Patient: DIGNA KRAUS Age: 25 years Sex: Female : 1995 Associated Diagnoses: Leukocytosis; Tachycardia; Dyspnea Author: JAY STODDARD CNP Basic Information Time seen: Date & time 08/01/2020 01:29:00. History source: Patient. Arrival mode: Private vehicle. History limitation: None. Additional information: Patient's physician(s): DR. RODRIGUEZ. History of Present Illness The patient presents with difficulty breathing and cough. The onset was 1 days ago. The course/duration of symptoms is constant. Degree at onset mild. Degree at present moderate. The Exacerbating factors is exertion. The Relieving factors is none. Risk factors consist of asthma. Prior episodes: occasional. Therapy today: beta-agonist inhaler. Associated symptoms: chest pain and cough. Additional history: none. Review of Systems Constitutional symptoms: No fever, no weakness. Skin symptoms: No rash, Eye symptoms: Vision unchanged, No pain, ENMT symptoms: Sore throat. Respiratory symptoms: Shortness of breath, cough, Sputum production: Green. Cardiovascular symptoms: No chest pain, no palpitations, no diaphoresis. Gastrointestinal symptoms: No abdominal pain, no vomiting, no diarrhea. Genitourinary symptoms: No dysuria, no hematuria. Musculoskeletal symptoms: No back pain, no Joint pain. Neurologic symptoms No headache, no numbness, no tingling. Health Status Allergies: Allergic Reactions (Selected) Severity Not Documented Ceclor- No reactions were documented.. Medications: Per nurse's notes. Immunizations: Up to date. Menstrual history: Per nurse's notes. Past Medical/ Family/ Social History Surgical history: Negative. Family history: Not significant. Problem list: Asthma. Physical Examination General: Alert, no acute distress. Skin: Warm, dry, no rash. Head: Normocephalic, atraumatic. Neck: Supple, trachea midline. Eye: Extraocular movements are intact, normal conjunctiva. Ears, nose, mouth and throat: Tympanic membranes clear, oral mucosa moist, Throat: Mild, pharynx, erythema, gag reflex present, No trismus, normal tolerance of secretions, not with exudate, no swelling, no uvula shift. Cardiovascular: Normal peripheral perfusion, No edema, Tachycardia. Respiratory: Lungs are clear to auscultation, respirations are non-labored, breath sounds are equal, Symmetrical chest wall expansion. Gastrointestinal: Soft, Nontender, Non distended, Normal bowel sounds. Back: Normal range of motion, Normal alignment. Musculoskeletal: Normal ROM, normal strength, no deformity. Roslyn coma scale Total score: Total score: 15. Neurological Alert and oriented to person, place, time, and situation, No focal neurological deficit observed, normal sensory observed, normal motor observed, normal speech observed. Medical Decision Making Differential Diagnosis: Pneumonia, bronchitis, asthma. Rationale: Is a 25-year-old female with a history of asthma who presents to the emergency room with complaints of shortness of breath, chest tightness and productive cough. Patient states she started feeling sick yesterday. She states that once a year she usually has to be admitted to the hospital for asthmatic bronchitis. Patient states that this feels the same. She states it feels like a typical asthma flareup. Patient states that she has inhalers at home that she has been using and have not been providing any relief. She does report smoking a half a pack of cigarettes daily. Patient denies any fevers or chills, nausea or vomiting. Patient denies any sick exposures or COVID exposures. Patient states yesterday she did have a sore throat however today that seems to have resolved. She states she has been having some ear discomfort bilaterally. Patient is tachycardic on arrival to the emergency room, lungs are rhonchorous with mild inspiratory wheezes. Patient is afebrile and nontoxic-appearing. Screening labs are obtained and show no significant electrolyte abnormalities. White blood cell count is markedly elevated at 21 with an ANC of 17. Chest x-ray is unremarkable for any acute cardiopulmonary abnormalities or infiltrates. Patient was given IV steroids and a triple aerosol upon arrival to the emergency room. Reevaluation she states her breathing is feeling better however she remains tachycardic. She is given IV fluids and heart rate has started to improve. CT angios of the chest was obtained due to the patient's rhonchorous cough, dyspnea and tachycardia and family history of emboli. CT shows no evidence of acute pulmonary embolus and no evidence of acute pneumonia. I am not sure what is the cause for the patient's significant leukocytosis and elevated ANC and I recommend for her to stay for observation telemetry admission given her tachycardia, dyspnea and leukocytosis. Patient states that she is unable to stay due to her 2-year-old child and she is requesting to be discharged home. Rapid strep swab is negative and urinalysis shows no indication of acute infection. I did also recommend patient be swabbed for COVID-19 given that we cannot rule this out and she declines the COVID-19 swab. I discussed with the patient the risks leaving AGAINST MEDICAL ADVICE including worsening of her condition, respiratory failure, sepsis and and the patient accepts these risks. She is alert and oriented x4 and capable of making her own medical decisions. I advised her to follow-up with her primary care physician in the next 1 to 2 days for reevaluation and to return back to the emergency room for any worsening of her symptoms or new concerns, she verbalized understanding. Dr. Gaffney evaluated the patient and agrees with discharge plan.. Documents reviewed: Emergency department nurses' notes. Electrocardiogram: Time 08/01/2020 01:23:00, rate 120, Sinus tachycardia, possible left atrial enlargement, nonspecific T wave abnormality, abnormal ECG. Results review: Lab results : Laboratory 08/01/2020 4:23 EDT Rapid Strep Ag Negative Color, U Yellow Appearance, U Clear Specific Malcolm, U 1.041 HI pH, U 6.0 NORMAL Protein, U Negative Glucose Qual, U Negative Ketones, U Negative Bilirubin, U Negative Blood, U Negative Urobilinogen Qual, U <2.0 mg/dl Nitrite, U Negative Leukocyte Esterase, U Negative 08/01/2020 1:27 EDT BUN 14 mg/dL NORMAL Na 141 mmol/L NORMAL K 3.6 mmol/L NORMAL Chloride 111 mmol/L HI CO2, venous 26.4 mmol/L NORMAL Glucose 101 mg/dL HI Creatinine 0.9 mg/dL NORMAL Total Protein 7.4 g/dL NORMAL Calcium 8.2 mg/dL LOW Bilirubin, Total 0.15 mg/dL LOW Alk Phos 115 unit/L NORMAL GOT 8 unit/L LOW GPT 20 unit/L NORMAL BUN/Creat Ratio 14.8 NA Calculated Osmolality 282 mOsm/kg NORMAL Globulin 3.8 g/dL NA A/G Ratio 0.9 NA HCG, Qual <1.0 mIU/mL NA ALB 3.6 g/dL NORMAL Glomerular Filtration Rate >60 mL/min/1.73m? NA GFR AA >60 NA WBC 21.3 x10 RBC 4.93 x10 HGB 13.6 g/dL NORMAL HCT 41.0 % NORMAL MCV 83.2 fL NORMAL MCH 27.5 pg NORMAL MCHC 33.1 g/dL NORMAL RDW 13.2 NORMAL Platelet 335 x1000 NORMAL MPV 8.9 fL NORMAL Nucleated RBC 0 /100WBC NA Scan Differential Diff Scd Lymph % 11.6 % NA [place] % 5.3 % NA Neutrophil % 80.4 % NA Eosin % 2.1 % NA Basos % 0.6 % NA Lymph Count 2.46 x1000 NORMAL [place] Count 1.14 x1000 HI Neutrophil Count (ANC) 17.17 x1000 HI Eos Count 0.45 x1000 NORMAL Baso Count 0.12 x1000 NORMAL . Chest X-Ray: CHEST PORTABLE 08/01/20 01:30:00 EXAM DESCRIPTION: XR CHEST PORTABLE RadLex: XR CHEST 1 VIEW CLINICAL HISTORY: 25 years Female; COPD; WHAT SYMPTOMS ARE YOU EXPERIENCING? - COPD, SOB COMPARISON: None. FINDINGS: Heart size and pulmonary vascularity appear within normal limits. No pneumothorax is identified. No focal consolidation is seen. IMPRESSION: 1. No acute cardiopulmonary process. Electronically signed by: Jimbo Daniels DO 08/01/2020 1:43 AM CDT Signed By: JIMBO DANIELS MD CT ANGIO CHEST 08/01/20 02:56:00 CLINICAL INDICATION: SHORTNESS OF BREATH. . TECHNIQUE: CT arteriography was obtained of the chest with multiplanar MIP and/or 3-D angiographic reconstructions. This exam was performed according to our departmental dose-optimization program, which includes automated exposure control, adjustment of the mA and/or kV according to patient size and/or use of iterative reconstruction techniques. 75 cc of Isovue 370 administered intravenously without complication. COMPARISON: None. CORRELATION: None. FINDINGS: Heterogeneous contrast bolus. Average Hounsfield unit measurement within main pulmonary artery segment of 277. Artifact from venous opacification. Motion artifact There is no evidence of pulmonary embolus. Peripheral branch vessels are not well seen due to artifact Thoracic aorta is of normal caliber. The heart is of normal size. No pericardial effusion. No bulky mediastinal adenopathy. The lungs are grossly clear. No consolidation or edema. No effusion or pneumothorax. Visualized abdominal contents are unremarkable. Visualized bones are unremarkable. IMPRESSION: No evidence of pulmonary embolus. Lungs grossly clear . Electronically signed by: Mason Doyle MD 08/01/2020 2:50 AM CDT Signed By: MASON DOYLE MD . Reexamination/ Reevaluation Time: 08/01/2020 05:30:00 . Vital signs results included from flowsheet : Vital Signs 08/01/2020 5:00 EDT Heart Rate Monitored 119 bpm HI Peripheral Pulse Rate 119 bpm HI Respiratory Rate 24 br/min HI Systolic Blood Pressure 94 mmHg NORMAL Diastolic Blood Pressure 54 mmHg LOW Mean Arterial Pressure, Cuff 63 mmHg SpO2 98 % NORMAL Oxygen Therapy Room air Course: improving. Pain status: decreased. Assessment: exam unchanged. Impression and Plan Diagnosis Leukocytosis (VDC99-KG D72.829, Discharge, Medical) Tachycardia (EOW76-IC R00.0, Discharge, Medical) Dyspnea (MQW96-BG R06.00, Discharge, Medical) Plan Condition: Improved. Disposition: Discharged: Time 08/01/2020 04:58:00, to home. Patient was given the following educational materials: AMA Discharge Against Medical Advice (Custom), Coronavirus Disease (COVID-19): General Info, WBC: Elevated: General Info, SOB (Shortness of Breath), Asthma: Adult. Follow up with: FABIAN RODRIGUEZ Within 3 to 5 days Use your inhaler as needed for shortness of breath Avoid smoking Call your primary care physician first thing this morning for close follow-up in the next 1 to 2 days Return to the emergency room for any worsening of symptoms or new concerns. Counseled: Patient, Regarding diagnosis, Regarding diagnostic results, Regarding treatment plan, Patient indicated understanding of instructions. Notes: Charting was completed using voice recognition technology and may include unintended errors. . Addendum I personally evaluated and examined the patient in conjunction with the MLP and agree with the assessment, treatment plan and disposition of the patient as recorded by the MLP. Electronically Co-Signed by: REKHA GAFFNEY MD on 08/01/2020 07:03 Normal [facility] ED Progress Noteon 0 aPTT Coag (Bld) [Time] PT TO EXAM 11 FROM WITH C/O ASTHMA EXACERBATION. PT REPORTS SHE HAS HAD WORSENING SHORTNESS OF BREATH FOR LAST TWO DAYS ALONG WITH BILATERAL EAR PAIN AND PRODUCTIVE COUGH WITH BRIGHT GREEN SPUTUM. DENIES ANY GI SYMPTOMS. PT IS TACHYPNEIC AND TACHYCARDIC. EKG COMPLETED, IV STARTED AND LABS DRAWN. DR. GAFFNEY INFORMED. PT REPORTS SHE HAS BEEN TAKING RESCUE INHALER AT HOME WITH NO RELIEF. 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 PATIENT REPORTS IMPROVEMENT IN BREATHING SINCE TREATMENT, LUNGS CTA AT THIS TIME. RAPID STREP AND FLU SENT, PT REFUSING COVID SWAB, ASSOCIATE PROFESSOR OF AUTOMATION JAY INFORMED. 0601 - PATIENT DISCHARGED AMA, ALL DISCHARGE PAPERWORK EXPLAINED TO PATIENT, VERBALIZES UNDERSANDING. AMA FORM SIGNED. PATIENT AMBULATORY WITH STEADY GAIT. Normal [facility] HCGon 08-01-2020 HCG, Qual <1.0 [facility] Comment on above: Result Comment: 0 - 3 Negative 3 - 50 Inconclusive >50 Positive Performed By: #### 1 [id number], [id number], [id number], [id number] #### [facility] [address] [place] [address] Executive Director: Gary Puckett MD HEMOon 08-01-2020 DIFF? No Normal [facility] Comment on above: Performed By: #### 1 [id number], [id number], [id number], [id number] #### [facility] [address] [place] [address] 47748 Executive Director: Gary Puckett MD Nucleated RBC (Bld) [#/Vol] 0 /100WBC Normal [facility] Comment on above: Performed By: #### 1 15194, 099868, 786186, [id number] #### [facility] [address] [place] [address]60 Executive Director: Gary Puckett MD DxH Actions See Notes Abnormal [facility] Comment on above: Result Comment: Scan Slide. Perform Manual Diff if needed. SNV Performed By: #### 1 66983, 937531, [id number], [id number] #### [facility] [address] [place] [address] 49976 Executive Director: Gary Puckett MD Erythrocyte distribution width (RBC) [Ratio] 13.2 % Normal 11.5-14.5 [facility] Comment on above: Performed By: #### 1 46146, 406358, 980236, [id number] #### [facility] [address] [place] [address] 78002 Executive Director: Gary Puckett MD Hematocrit (Bld) [Volume fraction] 41.0 % Normal 36.0-46.0 [facility] Comment on above: Performed By: #### 1 21092, 471756, 642192, [id number] #### [facility] [address] [place] [address] 78215 Executive Director: Gary Puckett MD Hemoglobin (Bld) [Mass/Vol] 13.6 g/dL Normal 12.0-16.0 [facility] Comment on above: Performed By: #### 1 07956, 683077, 270953, [id number] #### [facility] [address] [place] [address] Executive Director: Gary Puckett MD MCH (RBC) [Entitic mass] 27.5 pg Normal 27.0-34.0 [facility] Comment on above: Performed By: #### 1 99659, 551744, 931362, [id number] #### [facility] [address] [place] [address] 02920 Executive Director: Gary Puckett MD MCHC (RBC) [Mass/Vol] 33.1 g/dL Normal 32.0-37.0 [facility] Comment on above: Performed By: #### 1 48076, 860106, 896004, [id number] #### [facility] [address] [place] [address] 39153 Executive Director: Gary Puckett MD MCV (RBC) [Entitic vol] 83.2 fL Normal 80.0-100.0 [facility] Comment on above: Performed By: #### 1 28913, 002230, 558717, [id number] #### [facility] [address] [place] [address]707 Executive Director: Gary Puckett MD Platelet mean volume (Bld) [Entitic vol] 8.9 fL Normal 7.4-10.4 [facility] Comment on above: Performed By: #### 1 29801, 050557, 655237, 3178502 #### [facility] [address] [place] [address] 28283 Executive Director: Gary Puckett MD Platelets (Bld) [#/Vol] 335 x1000 Normal 150-450 [facility] Comment on above: Performed By: #### 1 73721, 421634, 354495, [id number] #### [facility] [address] [place] [address] 21191 Executive Director: Gary Puckett MD RBC (Bld) [#/Vol] 4.93 x10 Normal 4.20-5.40 [facility] Comment on above: Result Comment: Note : RBC morphology is normal unless otherwise stated. Evaluation performed only if differential is requested. Performed By: #### 1 94049, 455835, 945181, 1655283 #### [facility] [address] [place] [address] 86830 Executive Director: Gary Puckett MD WBC (Bld) [#/Vol] 21.3 x10 High 4.5-11.0 [facility] Comment on above: Performed By: #### 1 57105, 914143, 789742, 6507435 #### [facility] [address] [place] [address] 83947 Executive Director: Gary Puckett MD WBC (Bld) [#/Vol] 21.3 10*3/uL [facility] Comment on above: Performed By: #### 1 01506, 147756, 134740, 7372507 #### [facility] [address] [place] [address] 36579 Executive Director: MD IRINA Christine STRon 08-01-2020 RS INT QC Present [facility] Comment on above: Performed By: #### 1 10226, 798448 #### [facility] [address] [place] [address] 80434 Executive Director: Gary Puckett MD S. pyogenes Ag IA Ql (Unsp spec) Negative [facility] Comment on above: Result Comment: This assay is for the qualitative detection of Group A Streptococcal antigen in throat specimens. Pharyngitis may be caused by viral or bacterial pathogens other than Group A Streptococcal. Performed By: #### 1 11506, [id number] #### [facility] [address] [place] [address] 71646 Executive Director: Gary Puckett MD UAmichael 08-01-2020 Appearance, U Clear [facility] Comment on above: Performed By: #### 1 48488 #### [facility] [address] [place] [address] 54869 Executive Director: Gary Puckett MD Bilirubin, U Negative Normal Negative [facility] Comment on above: Performed By: #### 1 58034 #### [facility] [address] [place] [address] 01408 Executive Director: Gary Puckett MD Blood, U Negative Normal Negative [facility] Comment on above: Performed By: #### 1 81501 #### [facility] [address] [place] [address] 08844 Executive Director: Gary Puckett MD Color, U Yellow Normal [facility] Comment on above: Performed By: #### 1 79785 #### [facility] [address] [place] [address] 14390 Executive Director: Gary Puckett MD Glucose Qual, U Negative Normal Negative [facility] Comment on above: Performed By: #### 1 84558 #### [facility] [address] [place] [address] 49256 Executive Director: Gary Puckett MD Ketones, U Negative Normal Negative [facility] Comment on above: Performed By: #### 1 73271 #### [facility] [address] [place] [address] 92096 Executive Director: Gary Puckett MD Leukocyte Esterase, U Negative Normal Negative [facility] Comment on above: Performed By: #### 1 53035 #### [facility] [address] [place] [address] 65536 Executive Director: Gary Puckett MD Nitrite, U Negative Normal Negative [facility] Comment on above: Performed By: #### 1 60474 #### [facility] [address] [place] [address] 92149 Executive Director: Gary Puckett MD pH, U 6.0 Normal 4.5-8.0 [facility] Comment on above: Performed By: #### 1 58659 #### [facility] [address] [place] [address] Executive Director: Gary Puckett MD Protein, U Negative Normal Negative [facility] Comment on above: Performed By: #### 1 27247 #### [facility] [address] [place] [address] 23764 Executive Director: Gary Puckett MD Specific Malcolm, U 1.041 High 1.001-1.035 [facility] Comment on above: Performed By: #### 1 51597 #### [facility] [address] [place] [address] 64805 Executive Director: Gary Puckett MD U MICRO Not Indicated Normal [facility] Comment on above: Performed By: #### 1 18338 #### [facility] [address] [place] [address] 61032 Executive Director: Gary Puckett MD Urobilinogen Qual, U <2.0 mg/dl Normal <2.0 mg/dl [facility] Comment on above: Result Comment: EU/d l and mg/dl are equivalent units. Performed By: #### 1 11684 #### [facility] [address] [place] [address] 31759 Executive Director: Gary Puckett MD XR CHEST PORTABLEon 08-01-20 XR CHEST PORTABLE EXAM DESCRIPTION: XR CHEST PORTABLE RadLex: XR CHEST 1 VIEW CLINICAL HISTORY: 25 years Female; COPD; WHAT SYMPTOMS ARE YOU EXPERIENCING? - COPD, SOB COMPARISON: None. FINDINGS: Heart size and pulmonary vascularity appear within normal limits. No pneumothorax is identified. No focal consolidation is seen. IMPRESSION: 1. No acute cardiopulmonary process. Electronically signed by: Jimbo Daniels DO 08/01/2020 1:43 AM CDT Technologist: [employer] Dictated By: JIMBO DANIELS MD Signed By: JIMBO DANIELS MD Signed Out: 08/01/20 02:43:58 Normal [facility] Ophthalmic Eye Examon 2019 Ophthalmic Eye Exam DOCUMENT REVIEWED BY: Micah Ferguson DOCUMENT SIGNED ELECTRONICALLY BY Micah Ferguson ON 05/08/2020 04:30:[address], [address] [place], [place], [address] [phone] THIS DOCUMENT WAS CREATED ON: 05/08/2020 04:30:02 PM BY: Micah Spann performed RHXBI-Narb-ux Exam Date: Friday, May 08, 2020 PATIENT NAME: DIGNA KRAUS DATE: 1995 AGE: 25 GENDER: Female RACE: History Chief Complaint/Reason For Visit: New pt with h/o glasses and cl usage. Has been referred for evaluation of glaucoma. Fam h/o Uveitis not glc. The vision with cl is good. NO pain discomfort or decreaed vision. HISTORY OF PRESENT ILLNESS: HPI was performed by Dr. Micah Ferguson and scribed by Marina Ferguson SOCIAL HISTORY: SMOKING: Current every day smoker (305.1 F17.200) FAMILY HISTORY: Sister,Paternal Grandmother:Family history of uveitis CURRENT MEDICATIONS: No Reported Medications - ALLERGIES: Ceclor REVIEW OF SYSTEMS: All other Review Of Systems negative Exam ORIENTATION, MOOD AND AFFECT: Alert AND oriented x3 RIGHT EYE LEFT EYE UNCORRECTED VA N/A N/A VISION WITH CONTACT LENSES 20/20 20/25 PACHYMETRY 532 from 05/08/2020 560 from 05/08/2020 PRESSURE METHOD: Applanation Applanation PRESSURES: 18 18 DATE-TIME: 04:01 PM 04:01 BOX LINING MACHINE OPERATOR: alicia alejandrondBrit ADJUSTED IOP VALUE: 19 17 CONFRONTATION VF Full to count fingers Full to count fingers EXTERNAL EYE EXAM: LID: Good Position Good Position PUPIL: PERRL/no APD PERRL/no APD ADNEXA: Normal Normal MUSCLE BALANCE: Ortho OCULAR MOTILITY: Full ANTERIOR SEGMENT EXAM: TEARFILM: Good Good CONJUNCTIVA: White and quiet White and quiet CORNEA: Clear Clear ANTERIOR CHAMBER: Deep and quiet Deep and quiet IRIS: Round and reactive Round and reactive LENS: Clear Clear ANTERIOR VITREOUS: Clear Clear FUNDUS EXAM: OPTIC DISC: [place] and sharp Lake[place] and sharp GONIOSCOPY EXAM: TYPE OF LENS USED: 4 Mirror Shahid OD: Grade II to III OS: Grade II to III Impression 1 H40.009 Glaucoma suspect-New Discussion Letter prepared for by:[email or web address] Plan TODAY (OU) - OCT RNFL By:Micah Ferguson New pt with h/o glasses and cl usage. Has been referred for evaluation of glaucoma. Fam h/o Uveitis not glc. The vision with cl is good. NO pain discomfort or decreaed vision. Patient presents for exam, new referral. No family history of glaucoma. No prolonged oral steroid use. No history of ocular trauma. No prior ocular surgery. Hx Asthma - q4 hours; another PRN (-) HTN (-) DM On exam today, Va: 20/20 OD; 20/25 OS Pachymetry: 523 OD 560 OS IOP: 18 OU SLE demonstrates: Normal anterior segment exam OU Fundus 90D: OD - large disc with intact neural rim 360 degrees; no vertical elongation of cup OS - physiologic optic nerve Gonioscopy: Open to TM/SS 360 degrees OU; +1 pigment OU Assessment/Plan: Glaucoma suspect - IOP within normal 18 OU; pachymetry slightly thin OD but overall close to normal; angles open on gonioscopy OU; discs appear physiologic though OS more spherical and OD appears bigger with a vertically oriented disc. There is disc asymmetry OD>OS. The disc area is 2.68 mm squared OD vs. 2.37 mm squared. No gross evidence of glaucoma on exam. Fhx uveitis. I did not appreciate that today. No hx of congenital or juvenile glaucoma. Believe IOP reasonable for patient. Do not beleive her risk for glaucoma at age 25 yo is greater than the general population. (-) risk factors: No family history of glaucoma, (-) black/hispancic ethnicity, (-) ocular trauma. Does take maintainance inhalers for steroids. RNFL OCT OU reviewed which demonstrated 95% age matched controls OU reviewed OCT with patient Questions answered Patient recommended to have annual comprehensive eye exam as before with Dr. Herrera Delroy to Follow up with me if IOP increases or any concerns created by:Micah Ferguson Micah Ferguson DOCUMENT CREATE DATE: 05/08/2020 04:30:02 PM Received for:Micah Ferguson May 08 2020 4:30PM Eastern Standard Time Normal [facility] No Panel Information Group B Streptococcus Culture Group B Beta Streptococcus is not isolated. [facility] Work Phone: Vital Signs Date Time Vital Sign Value Performing Clinician Facility 12-21-2023 10:59-0500 Body temperature 98.4 [degF] Jules Modi MD Work Phone: [facility] 12-21-2023 10:59-0500 Body weight 92.9 kg Jules Modi MD Work Phone: [facility] 12-21-2023 10:59-0500 Diastolic blood pressure 60 mm[Hg] Jules Modi MD Work Phone: [facility] 12-21-2023 10:59-0500 Heart rate 120 /min Jules Modi MD Work Phone: [facility] 12-21-2023 10:59-0500 Respiratory rate 22 /min Jules Modi MD Work Phone: [facility] 12-21-2023 10:59-0500 SaO2% (BldA) [Mass fraction] 95 % Jules Modi MD Work Phone: [facility] 12-21-2023 10:59-0500 Systolic blood pressure 100 mm[Hg] Jules Modi MD Work Phone: [facility] 08-26-2023 10:54-0400 Body weight 88 kg Francine Jeff MD Work Phone: [facility] 08-26-2023 10:54-0400 Diastolic blood pressure 64 mm[Hg] Francine Jeff MD Work Phone: [facility] 08-26-2023 10:54-0400 Systolic blood pressure 110 mm[Hg] Francine Jeff MD Work Phone: [facility] 08-10-2023 09:55-0400 Diastolic blood pressure 64 mm[Hg] Ob Ultrasound Work Phone: [facility] 08-10-2023 09:55-0400 Systolic blood pressure 112 mm[Hg] Ob Ultrasound Work Phone: [facility] 08-07-2023 10:28-0400 Body weight 92.08 kg Ashlyn Cotton MD Work Phone: [facility] 08-07-2023 10:28-0400 Diastolic blood pressure 74 mm[Hg] Ashlyn Cotton MD Work Phone: [facility] 08-07-2023 10:28-0400 Systolic blood pressure 117 mm[Hg] Ashlyn Cotton MD Work Phone: [facility] 07-31-2023 11:21-0400 Body weight 92.35 kg Arlin Vilchis MD Work Phone: [facility] 07-31-2023 11:21-0400 Diastolic blood pressure 60 mm[Hg] Arlin Vilchis MD Work Phone: [facility] 07-31-2023 11:21-0400 Systolic blood pressure 101 mm[Hg] Arlin Vilchis MD Work Phone: [facility] 07-24-2023 09:39-0400 Diastolic blood pressure 60 mm[Hg] Ob Ultrasound Work Phone: [facility] 07-24-2023 09:39-0400 Systolic blood pressure 102 mm[Hg] Ob Ultrasound Work Phone: [facility] 07-21-2023 09:11-0400 Body weight 92.17 kg Ilan Camacho MD Work Phone: [facility] 07-21-2023 09:11-0400 Diastolic blood pressure 55 mm[Hg] Ilan Camacho MD Work Phone: [facility] 07-21-2023 09:11-0400 Systolic blood pressure 87 mm[Hg] Ilan Camacho MD Work Phone: [facility] 07-17-2023 10:02-0400 Body weight 91.26 kg Arlin Vilchis MD Work Phone: [facility] 07-17-2023 10:02-0400 Diastolic blood pressure 60 mm[Hg] Arlin Vilchis MD Work Phone: [facility] 07-17-2023 10:02-0400 Systolic blood pressure 100 mm[Hg] Arlin Vilchis MD Work Phone: [facility] 07-15-2023 11:59-0400 Diastolic blood pressure 72 mm[Hg] Ob Ultrasound Work Phone: [facility] 07-15-2023 11:59-0400 Systolic blood pressure 110 mm[Hg] Ob Ultrasound Work Phone: [facility] 07-10-2023 09:08-0400 Body weight 90.72 kg Ashlyn Cotton MD Work Phone: [facility] 07-10-2023 09:08-0400 Diastolic blood pressure 69 mm[Hg] Ashlyn Cotton MD Work Phone: [facility] 07-10-2023 09:08-0400 Systolic blood pressure 105 mm[Hg] Ashlyn Cotton MD Work Phone: [facility] 07-07-2023 10:33-0400 Body weight 89.99 kg Georgette Solis MD Work Phone: [facility] 07-07-2023 10:33-0400 Diastolic blood pressure 66 mm[Hg] Georgette Solis MD Work Phone: [facility] 07-07-2023 10:33-0400 Systolic blood pressure 98 mm[Hg] Georgette Solis MD Work Phone: [facility] 06-25-2023 10:36-0400 Body weight 89.36 kg Gabby Samuel QUALITY ASSURANCE CLERK.CNM Work Phone: [facility] 06-25-2023 10:36-0400 Diastolic blood pressure 64 mm[Hg] Gabby Samuel QUALITY ASSURANCE CLERK.CNM Work Phone: [facility] 06-25-2023 10:36-0400 Systolic blood pressure 98 mm[Hg] Gabby Samuel APRN.CNM Work Phone: [facility] 06-20-2023 09:05-0400 Body height 152.4 cm [facility] [place] [address] Work Phone: [facility] 06-20-2023 09:05-0400 Body weight 89.81 kg [facility] [place] [address] Work Phone: [facility] 06-20-2023 09:05-0400 Diastolic blood pressure 57 mm[Hg] [facility] [place] [address] Work Phone: [facility] 06-20-2023 09:05-0400 Systolic blood pressure 103 mm[Hg] [facility] [place] [address] Work Phone: [facility] 06-17-2023 10:08-0400 Body weight 90.63 kg Jules Yaneth DO Work Phone: [facility] 06-17-2023 10:08-0400 Diastolic blood pressure 58 mm[Hg] Jules Yaneth DO Work Phone: [facility] 06-17-2023 10:08-0400 Heart rate 110 /min Jules Yaneth DO Work Phone: [facility] 06-17-2023 10:08-0400 Systolic blood pressure 101 mm[Hg] Jules Yaneth DO Work Phone: [facility] 06-08-2023 17:30-0400 Body height 152.4 cm Giorgi Buckner MD Work Phone: [facility] 06-08-2023 17:30-0400 Body weight 88.45 kg Giorgi Buckner MD Work Phone: [facility] 06-08-2023 17:30-0400 Diastolic blood pressure 66 mm[Hg] Giorgi Buckner MD Work Phone: [facility] 06-08-2023 17:30-0400 Heart rate 105 /min Giorgi Buckner MD Work Phone: [facility] 06-08-2023 17:30-0400 SaO2% (BldA) [Mass fraction] 99 % Giorgi Buckner MD Work Phone: [facility] 06-08-2023 17:30-0400 Systolic blood pressure 104 mm[Hg] Giorgi Buckner MD Work Phone: [facility] 04-21-2023 15:13-0400 Body height 152.4 cm Hawk Lizabeth DO Work Phone: [facility] 04-21-2023 15:13-0400 Body weight 83.01 kg Hawk Lizabeth DO Work Phone: [facility] 04-21-2023 15:13-0400 Diastolic blood pressure 55 mm[Hg] Hawk Lizabeth DO Work Phone: [facility] 04-21-2023 15:13-0400 Heart rate 91 /min Hawk Lizabeth DO Work Phone: [facility] 04-21-2023 15:13-0400 Systolic blood pressure 99 mm[Hg] Hawk Lizabeth DO Work Phone: [facility] 02-23-2023 18:46-0400 Body height 152.4 cm Carlitos Rodriguez MD Work Phone: [facility] 02-23-2023 18:46-0400 Body weight 75.3 kg Carlitos Rodriguez MD Work Phone: [facility] 01-20-2023 10:29-0400 Body height 152.4 cm Giorgi Buckner MD Work Phone: [facility] 01-20-2023 10:29-0400 Body weight 74.39 kg Giorgi Buckner MD Work Phone: [facility] 01-20-2023 10:29-0400 Diastolic blood pressure 60 mm[Hg] Giorgi Buckner MD Work Phone: [facility] 01-20-2023 10:29-0400 Heart rate 67 /min Giorgi Buckner MD Work Phone: [facility] 01-20-2023 10:29-0400 SaO2% (BldA) [Mass fraction] 98 % Giorgi Buckner MD Work Phone: [facility] 01-20-2023 10:29-0400 Systolic blood pressure 98 mm[Hg] Giorgi Buckner MD Work Phone: [facility] 07-03-2022 09:42-0400 Body temperature 97.59 [degF] Felipa Camacho APRN.DIGITAL MEDIA BUYER Work Phone: [facility] 07-03-2022 09:42-0400 Body weight 69.49 kg Felipa Camacho APRN.DIGITAL MEDIA BUYER Work Phone: [facility] 07-03-2022 09:42-0400 Diastolic blood pressure 70 mm[Hg] Felipa Camacho APRN.DIGITAL MEDIA BUYER Work Phone: [facility] 07-03-2022 09:42-0400 Heart rate 77 /min Felipa Camacho APRN.DIGITAL MEDIA BUYER Work Phone: [facility] 07-03-2022 09:42-0400 Respiratory rate 18 /min Felipa Camacho APRN.DIGITAL MEDIA BUYER Work Phone: [facility] 07-03-2022 09:42-0400 SaO2% (BldA) [Mass fraction] 99 % Felipa Camacho APRN.DIGITAL MEDIA BUYER Work Phone: [facility] 07-03-2022 09:42-0400 Systolic blood pressure 104 mm[Hg] Felipa Camacho APRN.DIGITAL MEDIA BUYER Work Phone: [facility] 05-21-2022 23:12-0400 Diastolic blood pressure 61 mm[Hg] RUPESH CANO MD [facility] 05-21-2022 23:12-0400 Heart rate 65 /min RUPESH CANO MD [facility] 05-21-2022 23:12-0400 Systolic blood pressure 95 mm[Hg] RUPESH CANO MD [facility] 05-21-2022 22:45-0400 Diastolic blood pressure 61 mm[Hg] RUPESH CANO MD [facility] 05-21-2022 22:45-0400 Respiratory rate 18 /min RUPESH CANO MD [facility] 05-21-2022 22:45-0400 Systolic blood pressure 98 mm[Hg] RUPESH CANO MD [facility] 05-21-2022 22:00-0400 Diastolic blood pressure 59 mm[Hg] RUPESH CANO MD [facility] 05-21-2022 22:00-0400 Systolic blood pressure 99 mm[Hg] RUPESH CANO MD [facility] 05-21-2022 21:05-0400 Respiratory rate 20 /min RUPESH CANO MD [facility] 05-21-2022 19:10-0400 Body height 152.4 cm RUPESH CANO MD [facility] 05-21-2022 19:10-0400 Body temperature 98.6 [degF] RUPESH CANO MD [facility] 05-21-2022 19:10-0400 Body weight 64.7 kg RUPESH CANO MD [facility] 05-21-2022 19:10-0400 Heart rate 99 /min RUPESH CANO MD [facility] 05-21-2022 19:10-0400 Respiratory rate 18 /min RUPESH CANO MD [facility] 04-10-2022 08:09-0400 Diastolic blood pressure 62 mm[Hg] [facility] Work Phone: 04-10-2022 08:09-0400 Heart rate 67 /min [facility] Work Phone: 04-10-2022 08:09-0400 Systolic blood pressure 104 mm[Hg] [facility] Work Phone: 04-10-2022 08:00-0400 Body temperature 97.9 [degF] [facility] Work Phone: 04-10-2022 08:00-0400 Respiratory rate 16 /min [facility] Work Phone: 04-10-2022 08:00-0400 SaO2% (BldA) [Mass fraction] 98 % [facility] Work Phone: 04-08-2022 12:48-0400 Body height 152.4 cm [facility] Work Phone: 04-08-2022 12:48-0400 Body mass index (BMI) [Ratio] 29.9 kg/m2 [facility] Work Phone: 04-08-2022 12:48-0400 Body weight 69.39 kg [facility] Work Phone: 03-30-2022 07:31-0400 Diastolic blood pressure 54 mm[Hg] [facility] Work Phone: 03-30-2022 07:31-0400 Heart rate 77 /min [facility] Work Phone: 03-30-2022 07:31-0400 Systolic blood pressure 95 mm[Hg] [facility] Work Phone: 03-30-2022 07:30-0400 Body temperature 98.1 [degF] [facility] Work Phone: 03-30-2022 07:30-0400 SaO2% (BldA) [Mass fraction] 96 % [facility] Work Phone: 03-30-2022 01:17-0400 Body height 152.4 cm [facility] Work Phone: 03-30-2022 01:17-0400 Body mass index (BMI) [Ratio] 29.4 kg/m2 [facility] Work Phone: 03-30-2022 01:17-0400 Body weight 68.3 kg [facility] Work Phone: 01-06-2022 21:06-0400 Diastolic blood pressure 53 mm[Hg] [facility] Work Phone: 01-06-2022 21:06-0400 Heart rate 77 /min [facility] Work Phone: 01-06-2022 21:06-0400 Systolic blood pressure 94 mm[Hg] [facility] Work Phone: 01-06-2022 20:40-0400 Body height 152.4 cm [facility] Work Phone: 01-06-2022 20:40-0400 Body mass index (BMI) [Ratio] 24.3 kg/m2 [facility] Work Phone: 01-06-2022 20:40-0400 Body weight 56.33 kg [facility] Work Phone: 01-06-2022 20:35-0400 Body temperature 97.6 [degF] [facility] Work Phone: 01-04-2022 01:10-0500 Body mass index (BMI) [Ratio] 24 kg/m2 [facility] Work Phone: 01-04-2022 01:10-0500 Body weight 56 kg [facility] Work Phone: 01-04-2022 00:52-0500 Body temperature 97.5 [degF] [facility] Work Phone: 01-04-2022 00:52-0500 SaO2% (BldA) [Mass fraction] 99 % [facility] Work Phone: 01-04-2022 00:32-0500 Diastolic blood pressure 55 mm[Hg] [facility] Work Phone: 01-04-2022 00:32-0500 Heart rate 75 /min [facility] Work Phone: 01-04-2022 00:32-0500 Systolic blood pressure 107 mm[Hg] [facility] Work Phone: 01-04-2022 00:10-0500 Body mass index (BMI) [Ratio] 24 kg/m2 [facility] Work Phone: 01-04-2022 00:10-0500 Body weight 56 kg [facility] Work Phone: 01-03-2022 23:52-0500 Body temperature 97.5 [degF] [facility] Work Phone: 01-03-2022 23:52-0500 SaO2% (BldA) [Mass fraction] 99 % [facility] Work Phone: 01-03-2022 23:32-0500 Diastolic blood pressure 55 mm[Hg] [facility] Work Phone: 01-03-2022 23:32-0500 Heart rate 75 /min [facility] Work Phone: 01-03-2022 23:32-0500 Systolic blood pressure 107 mm[Hg] [facility] Work Phone: 11-13-2021 13:21-0500 Body temperature 98.4 [degF] [facility] Work Phone: 11-13-2021 13:21-0500 Diastolic blood pressure 65 mm[Hg] [facility] Work Phone: 11-13-2021 13:21-0500 Heart rate 72 /min [facility] Work Phone: 11-13-2021 13:21-0500 Respiratory rate 14 /min [facility] Work Phone: 11-13-2021 13:21-0500 SaO2% (BldA) [Mass fraction] 99 % [facility] Work Phone: 11-13-2021 13:21-0500 Systolic blood pressure 122 mm[Hg] [facility] Work Phone: 11-13-2021 10:00-0500 Body mass index (BMI) [Ratio] 22.6 kg/m2 [facility] Work Phone: 11-13-2021 10:00-0500 Body weight 52.61 kg [facility] Work Phone: Encounters Encounter Date Encounter Type Care Provider [facility] Start: 03-25-2025 End: 03-25-2025 Emergency department patient visit FABIAN RODRIGUEZ Facility:[facility] Start: 04-28-2024 End: 04-28-2024 Emergency department patient visit Kong Sherron Facility:[facility] Start: 04-19-2024 ambulatory [facility] lity:[facility] Start: 12-21-2023 End: 12-21-2023 Subsequent hospital visit by physician Xr [facility] Work Phone: Radiology Comment on above: Acute cough [R05.1] Start: 12-21-2023 End: 12-21-2023 Patient encounter procedure Jules Modi MD Work Phone: [facility] Comment on above: Acute cough (Primary Dx); SOB (shortness of breath); Asthma with acute exacerbation, unspecified asthma severity, unspecified whether persistent Start: 10-12-2023 End: 10-13-2023 ambulatory FRANCINE JEFF Facility:[facility] Start: 10-12-2023 Encounter for other preprocedural examination FRANCINE JEFF [facility] Start: 10-07-2023 E-mail encounter fro lashell caregiver Francine Jeff MD Work Phone: [facility] Start: 10-07-2023 Patient encounter procedure Francine Jeff MD Work Phone: OB/Gynecology Comment on above: pre-operative appoin tment Start: 09-16-2023 Admission to [facility] [place] Francine Jeff MD Work Phone: OB/Gynecology Comment on above: surgery confirmation Start: 09-16-2023 E-mail encounter fro lashell caregiver Francine Jeff MD Work Phone: [facility] Start: 09-10-2023 Telephone encounter Francine Jeff MD Work Phone: OB/Gynecology Comment on above: Patient Question Start: 08-26-2023 End: 08-26-2023 ambulatory FRANCINE JEFF Facility:[facility] Start: 08-26-2023 End: 08-26-2023 Patient encounter procedure Francine Jeff MD Work Phone: OB/Gynecology Comment on above: care and examination immediately after delivery (Primary Dx); History of gestational diabetes Start: 08-19-2023 ambulatory Ashlyn ochoa MD Work Phone: OB/Gynecology Comment on above: Ob Delivery Note Start: 08-17-2023 End: 08-17-2023 ambulatory ASHLYN COTTON Facility:[facility] Start: 08-17-2023 End: 08-17-2023 Patient encounter procedure [facility] Work Phone: OB/Gynecology Comment on above: Insulin controlled g estational diabetes mellitus (GDM) in third trimester (Primary Dx); 38 weeks gestation of Start: 08-13-2023 Telephone encounter Rhianna Burleson MD Work Phone: OB/Gynecology Comment on above: Appointment Start: 08-10-2023 Telephone encounter Jules soriano DO Work Phone: Endocrinology Comment on above: Blood Sugar Reading Start: 08-10-2023 End: 08-11-2023 ambulatory ARLIN VILCHIS Facility:[facility] Start: 08-10-2023 End: 08-10-2023 Patient encounter procedure Eye Phys[facility] Work Phone: OB/Gynecology Comment on above: Insulin controlled g estational diabetes mellitus (GDM) in third trimester (Primary Dx); 37 weeks gestation of Start: 08-07-2023 End: 08-07-2023 ambulatory ASHLYN COTTON Facility:[facility] Start: 08-07-2023 End: 08-07-2023 Patient encounter procedure Ashlyn Cotton MD Work Phone: OB/Gynecology Comment on above: Insulin controlled g estational diabetes mellitus (GDM) in third trimester (Primary Dx); 36 weeks gestation of ; High-risk in third trimester; Headache in , antepartum, third trimester; Nausea and vomiting in Start: 08-03-2023 End: 08-03-2023 ambulatory FABIAN RODRIGUEZ Facility:[facility] Start: 08-03-2023 End: 08-03-2023 Patient encounter procedure [facility] Work Phone: OB/Gynecology Comment on above: Insulin controlled g estational diabetes mellitus (GDM) in third trimester (Primary Dx); 36 weeks gestation of Start: 07-31-2023 Telephone encounter Jules soriano DO Work Phone: Endocrinology Comment on above: Blood Sugar Reading Start: 07-31-2023 End: 07-31-2023 ambulatory ARLIN VILCHIS Facility:[facility] Start: 07-31-2023 End: 07-31-2023 Patient encounter procedure Arlin Vilchis MD Work Phone: OB/Gynecology Comment on above: 35 weeks gestation o f (Primary Dx); Insulin controlled gestational diabetes mellitus (GDM) in third trimester; Encounter for supervision of other normal in first trimester Start: 07-27-2023 End: 07-27-2023 ambulatory FABIAN RODRIGUEZ Facility:[facility] Start: 07-24-2023 End: 07-24-2023 ambulatory CARLITOS Devin RODRIGUEZ Facility:[facility] Start: 07-24-2023 End: 07-24-2023 Patient encounter procedure [facility] Work Phone: OB/Gynecology Comment on above: Insulin controlled g estational diabetes mellitus (GDM) in third trimester (Primary Dx); 34 weeks gestation of Start: 07-21-2023 End: 07-21-2023 ambulatory ILAN CAMACHO Facility:[facility] Start: 07-21-2023 End: 07-21-2023 Patient encounter procedure Ilan Camacho MD Work Phone: OB/Gynecology Comment on above: Insulin controlled g estational diabetes mellitus (GDM) in third trimester (Primary Dx); 34 weeks gestation of Start: 07-17-2023 End: 07-17-2023 ambulatory ARLIN VILCHIS Facility:[facility] Start: 07-17-2023 End: 07-17-2023 Patient encounter procedure Arlin Vilchis MD Work Phone: OB/Gynecology Comment on above: 33 weeks gestation o f (Primary Dx); Insulin controlled gestational diabetes mellitus (GDM) in third trimester; Anemia during in third trimester Start: 07-15-2023 End: 07-15-2023 ambulatory CARLITOS RODRIGUEZ Facility:[facility] Start: 07-15-2023 End: 07-15-2023 Patient encounter procedure [facility] Work Phone: OB/Gynecology Comment on above: Insulin controlled g estational diabetes mellitus (GDM) in third trimester (Primary Dx); 33 weeks gestation of Start: 07-13-2023 End: 07-13-2023 ambulatory JULES WOFLE Facility:[facility] Start: 07-13-2023 End: 07-13-2023 ambulatory Jules Wolfe DO Work Phone: Endocrinology Comment on above: Insulin controlled g estational diabetes mellitus (GDM) in third trimester (Primary Dx); Diet controlled gestational diabetes mellitus (GDM) in second trimester; Diet controlled gestational diabetes mellitus (GDM) in third trimester Start: 07-13-2023 End: 07-13-2023 Telemedicine consultation with patient Jules L Yaneth DO Work Phone: [facility] Start: 07-10-2023 End: 07-10-2023 ambulatory ASHLYN COTTON Facility:[facility] Start: 07-10-2023 End: 07-10-2023 Patient encounter procedure Ashlyn Cotton MD Work Phone: OB/Gynecology Comment on above: 32 weeks gestation o f (Primary Dx); Anemia complicating , third trimester; Insulin controlled gestational diabetes mellitus (GDM) in third trimester; High-risk in third trimester Start: 07-07-2023 Telephone encounter Jules Cassandra soriano DO Work Phone: Endocrinology Comment on above: Blood Sugar Reading Start: 07-07-2023 End: 07-07-2023 ambulatory CARLITOS RODRIGUEZ Facility:[facility] Start: 07-07-2023 End: 07-07-2023 Patient encounter procedure Georgette Solis MD Work Phone: Maternal Medicine Comment on above: Insulin controlled g estational diabetes mellitus (GDM) in third trimester (Primary Dx); Bipolar disease during , antepartum (HCC); Anemia complicating , third trimester; Rh negative, antepartum; 32 weeks gestation of Start: 06-30-2023 Telephone encounter Jules Cassandra soriano DO Work Phone: Endocrinology Comment on above: Blood Sugar Reading Start: 06-25-2023 End: 06-25-2023 ambulatory GABBY SAMUEL Facility:[facility] Start: 06-25-2023 End: 06-25-2023 Patient encounter procedure Gabby Samuel QUALITY ASSURANCE CLERK.CNM Work Phone: OB/Gynecology Comment on above: 30 weeks gestation o f (Primary Dx); Anemia complicating , third trimester; Insulin controlled gestational diabetes mellitus (GDM) in third trimester; Bipolar disease during , antepartum (HCC) Start: 06-24-2023 End: 06-24-2023 ambulatory JULES WOLFE Facility:[facility] Start: 06-24-2023 End: 06-24-2023 Nursing evaluation of patient and report Jameson M David RN Work Phone: Endocrinology Comment on above: Insulin controlled g estational diabetes mellitus (GDM) in third trimester (Primary Dx) Start: 06-20-2023 End: 06-20-2023 ambulatory [facility] Facility:[facility] Start: 06-20-2023 End: 06-20-2023 Patient encounter procedure [employer] 1 Eye Physician [facility] [address] Work Phone: Maternal Medicine Comment on above: Insulin controlled g estational diabetes mellitus (GDM) in third trimester (Primary Dx); Maternal obesity, antepartum; 30 weeks gestation of Start: 06-19-2023 Telephone encounter Jules Goodman rskonstantin DO Work Phone: Endocrinology Comment on above: Blood Sugar Reading Start: 06-17-2023 End: 06-17-2023 ambulatory JULES Trujillo YANETH Facility:[facility] Start: 06-17-2023 End: 06-17-2023 Patient encounter procedure Jules Trujillo Yaneth DO Work Phone: Endocrinology Comment on above: Diet controlled gest ational diabetes mellitus (GDM) in third trimester (Primary Dx) Start: 06-12-2023 End: 06-13-2023 [facility] Facility:[facility] Start: 06-12-2023 End: 06-12-2023 Nursing evaluation of patient and report Nurse Health Officer [facility] Work Phone: OB/Gynecology Comment on above: Rh negative state in antepartum period (Primary Dx) Start: 06-12-2023 Telephone encounter Jules Goodman rst DO Work Phone: Endocrinology Comment on above: Appointment Start: 06-11-2023 Telephone encounter Emerson Rodriguez MD Work Phone: [facility] [place] Start: 06-09-2023 Telephone encounter Giorgi mathias MD Work Phone: Obstetrics/Gynecology Comment on above: Follow Up Start: 06-08-2023 End: 06-08-2023 [facility] Facility:[facility] Start: 06-08-2023 End: 06-08-2023 Patient encounter procedure Giorgi Buckner MD Work Phone: Obstetrics/Gynecology Comment on above: 28 weeks gestation o f (Primary Dx); Need for vaccination; Diet controlled gestational diabetes mellitus (GDM) in second trimester; Gestational diabetes mellitus, class A1; Rh negative, antepartum; Anemia complicating , third trimester Start: 06-06-2023 End: 06-07-2023 ambulatory GIORGI BUCKNER Facility:[facility] Start: 05-19-2023 End: 05-19-2023 ambulatory [facility] Facility:[facility] Start: 05-18-2023 End: 05-18-2023 [facility] Facility:[facility] Start: 04-21-2023 End: 04-21-2023 ambulatory HAWK BARONE Facility:[facility] Start: 04-21-2023 End: 04-21-2023 Patient encounter procedure Hawk Barone DO Work Phone: Obstetrics/Gynecology Comment on above: Encounter for superv ision of other normal in second trimester (Primary Dx); 21 weeks gestation of ; Rh negative, antepartum; History of asthma; Bipolar disease during , antepartum (HCC) Start: 04-06-2023 End: 04-06-2023 ambulatory CONRAD FERNANDES Facility:[facility] Start: 03-16-2023 End: 03-16-2023 ambulatory GIORGI Cassandra BUCKNER Facility:[facility] Start: 02-23-2023 End: 02-23-2023 Orders Only Carlitos Rodriguez MD Work Phone: Maternal Medicine Comment on above: First trimester scre ening (Primary Dx) Encounter for anatomic survey (Primary Dx) First trimester scre ening (Primary Dx); 13 weeks gestation of Start: 02-09-2023 Telephone encounter Giorgi mathias MD Work Phone: 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) Start: 01-20-2023 End: 01-20-2023 ambulatory GIORGI BUCKNER Facility:[facility] Start: 01-20-2023 End: 01-20-2023 Patient encounter procedure Giorgi Buckner MD Work Phone: Obstetrics/Gynecology Comment on above: Encounter for superv ision of other normal in first trimester (Primary Dx); with uncertain viability, single or unspecified fetus Start: 01-15-2023 End: 01-16-2023 Emergency department patient visit FABIAN RODRIGUEZ Facility:[facility] Start: 07-03-2022 End: 07-03-2022 Subsequent hospital visit by physician Xr [facility] Jony Work Phone: Radiology Comment on above: Acute cough [R05.1] Start: 07-03-2022 End: 07-03-2022 Patient encounter procedure Felipa Camacho APRN.DIGITAL MEDIA BUYER Work Phone: [facility] Comment on above: Acute cough (Primary Dx) Start: 05-28-2022 End: 05-28-2022 Patient encounter procedure [facility] Start: 05-22-2022 End: 05-22-2022 Patient encounter procedure RUPESH CANO MD [facility] Start: 05-21-2022 End: 05-21-2022 Emergency department patient visit RUPESH CANO MD [facility] Start: 04-08-2022 End: 04-10-2022 [facility] Start: 03-30-2022 End: 03-30-2022 Patient encounter procedure [facility] Out[facility] Start: 03-25-2022 End: 03-25-2022 Patient encounter procedure [facility] Start: 03-19-2022 End: 03-19-2022 [facility] Start: 02-05-2022 End: 02-05-2022 [facility] [place] wrapper stripper Off Start: 01-06-2022 End: 01-06-2022 Patient encounter procedure [facility] Out[facility] Start: 01-04-2022 End: 01-04-2022 Patient encounter procedure [facility] Outpatients Start: 11-13-2021 End: 11-13-2021 [facility] Start: 11-05-2021 End: 11-05-2021 [facility] Procedures Date Procedure Procedure Detail Performing Clinician Start: 12-21-2023 Radiologic exam ches t 2 views Jules Modi MD Work Phone: Start: 08-17-2023 biophysical pr ofile non-stress testing Carlitos Rodriguez MD Work Phone: Start: 08-10-2023 biophysical pr ofile non-stress testing Carlitos Rodriguez MD Work Phone: Start: 08-07-2023 URINE OB DIP B/O Diana Cotton MD Work Phone: Start: 08-03-2023 biophysical pr ofile non-stress testing Carlitos Rodriguez MD Work Phone: Start: 07-31-2023 Iadna streptococcus group b amplified probe tq Arlin Vilchis MD Work Phone: Start: 07-31-2023 URINE OB DIP B/O Arlin willson MD Work Phone: Start: 07-24-2023 biophysical pr ofile non-stress testing Carlitos Rodriguez MD Work Phone: Start: 07-21-2023 URINE OB DIP B/O Ilan Camacho MD Work Phone: Start: 07-17-2023 URINE OB DIP B/O Arlin willson MD Work Phone: Start: 07-15-2023 biophysical pr ofile non-stress testing Carlitos Rodriguez MD Work Phone: Start: 07-10-2023 URINE OB DIP B/O Diana Cotton MD Work Phone: Start: 07-07-2023 biophysical pr ofile non-stress testing Carlitos Rodriguez MD Work Phone: Start: 06-25-2023 URINE OB DIP B/O Ioana Samuel QUALITY ASSURANCE CLERK.CNM Work Phone: Start: 06-20-2023 Us preg uterus after 1st trimest 10/26 gestation Giorgi Buckner MD Work Phone: Start: 06-17-2023 Hemoglobin A1c/Hemoglobin.total in Blood Jules Trujillo Yaneth DO Work Phone: Start: 06-12-2023 Antibody screen DINESH RODRIGUEZ Comment on above: Order Comment: Speci men Type: BLOOD SPECIMENOrdering Facility: [facility] Address: [address] [place] [address] Performed By: #### T SCR ####[facility] [id number] [address] [place] Start: 06-08-2023 URINE OB DIP B/O Giorgi Buckner MD Work Phone: Start: 06-06-2023 Antibody screen DINESH RODRIGUEZ Comment on above: Order Comment: Speci men Type: BLOOD SPECIMENOrdering Facility: [facility] Address: [address] [place] [address] Performed By: #### T SPN ####[facility] [id number] [address] [place] Start: 04-21-2023 URINE OB DIP B/O Darwin Barone DO Work Phone: Start: 02-23-2023 Us nuchal rodriguez slucency 1st gestation Giorgi Buckner MD Work Phone: Start: 01-20-2023 Antibody screen DINESH RODRIGUEZ Comment on above: Order Comment: Speci men Type: BLOOD SPECIMENOrdering Facility: [facility] Address: [address] [place] [address] Performed By: #### T SPN ####CC MAIN BLOOD BANKCLIA [id number] JANNA ALLISON [id number] [place] [address] [place] Start: 07-03-2022 Radiologic exam ches t 2 views Felipa Camacho APRN.DIGITAL MEDIA BUYER Work Phone: Start: 03-19-2022 Group B Streptococcu s Culture Start: 11-13-2021 Urine culture Group B Streptococcu s Culture None (qualifier value) RUPESH CANO MD Viral antigen assay Plan of Treatment Date Care Activity Detail Author Start: 06-08-2033 Urine microalbumin profile [facility] Start: 06-26-2024 Covid-19 Vaccine ( season) Covid-19 Vaccine () [facility] Start: 06-26-2024 Covid-19 Vaccine ( season) Covid-19 Vaccine () [facility] Start: 06-26-2024 Influenza vaccination Influenza Vacc ine (#1) [facility] Start: 10-26-2023 Depression Assessment Depression Ass essment [facility] Start: 10-14-2023 End: 12-14-2023 GLUC TEJAL, 2-HR NON-GEST, 75 GM, FASTING GLUC TEJAL, 2-HR NON-GEST, 75 GM, FASTING Lab Routine Insulin controlled gestational diabetes mellitus (GDM) in third trimester Expected: 10/14/2023 (Approximate), Expires: 12/14/2023 [facility] Work Phone: Comment on above: Expected: 10/14/2023 (Approximate), Expires: 12/14/2023 Start: 08-26-2023 End: 11-25-2023 GLUC TEJAL, 2-HR NON-GEST, 75 GM, FASTING GLUC TEJAL, 2-HR NON-GEST, 75 GM, FASTING Lab Routine History of gestational diabetes Expected: 08/26/2023, Expires: 11/25/2023 [facility] Work Phone: Comment on above: Expected: 08/26/2023 , Expires: 11/25/2023 Start: 08-07-2023 End: 10-07-2023 CBC panel - Blood by Automated count CBC Lab Routine Insulin controlled gestational diabetes mellitus (GDM) in third trimester 36 weeks gestation of High-risk in third trimester Headache in , antepartum, third trimester Expected: 08/07/2023, Expires: 10/07/2023 [facility] Work Phone: Comment on above: Expected: 08/07/2023 , Expires: 10/07/2023 Start: 08-07-2023 End: 10-07-2023 Comprehensive metabolic 2000 panel - Serum or Plasma COMP METABOLIC PANEL Lab Routine Insulin controlled gestational diabetes mellitus (GDM) in third trimester 36 weeks gestation of High-risk in third trimester Headache in , antepartum, third trimester Expected: 08/07/2023, Expires: 10/07/2023 [facility] Work Phone: Comment on above: Expected: 08/07/2023 , Expires: 10/07/2023 Start: 08-07-2023 End: 10-07-2023 Protein/Creatinine [Mass Ratio] in Urine PROTEIN CREATININE RATIO Lab Routine Insulin controlled gestational diabetes mellitus (GDM) in third trimester 36 weeks gestation of High-risk in third trimester Headache in , antepartum, third trimester Expected: 08/07/2023, Expires: 10/07/2023 [facility] Work Phone: Comment on above: Expected: 08/07/2023 , Expires: 10/07/2023 Start: 07-17-2023 End: 09-16-2023 CBC panel - Blood by Automated count CBC Lab Routine 33 weeks gestation of Anemia during in third trimester Expected: 07/17/2023, Expires: 09/16/2023 [facility] Work Phone: Comment on above: Expected: 07/17/2023 , Expires: 09/16/2023 Start: 06-26-2023 Covid-19 Vaccine () Covid-19 Vaccine ( season) [facility] Start: 06-26-2023 Influenza vaccination C [facility] Start: 06-09-2023 End: 08-09-2023 TYPE + SCREEN TYPE + SCREEN Blood Bank Routine Abnormal glucose complicating Expected: 06/09/2023, Expires: 08/09/2023 [facility] Work Phone: Comment on above: Expected: 06/09/2023 , Expires: 08/09/2023 Start: 2023 HPV TESTING HPV TESTING [facility] Start: 2023 Screening for malign ant neoplasm of cervix HPV Testing [facility] Start: 02-23-2023 End: 04-25-2023 Chromosome 21 trisomy [Presence] in Blood or Tissue by Cytogenetics [id number] PLUS Lab Routine First trimester screening Expected: 02/23/2023, Expires: 04/25/2023 [facility] Work Phone: Comment on above: Expected: 02/23/2023 , Expires: 04/25/2023 Start: 02-23-2023 End: 02-24-2024 OBSTETRIC ULTRASOUND WHI OBSTETRIC ULTRASOUND WHI Anc Imaging Routine Encounter for anatomic survey Expected: 02/23/2023, Expires: 02/24/2024 [facility] Work Phone: Comment on above: Expected: 02/23/2023 , Expires: 02/24/2024 Start: 01-20-2023 End: 03-22-2023 Hepatitis B virus surface Ag [Presence] in Serum [facility] Work Phone: Comment on above: Expected: 01/20/2023 , Expires: 03/22/2023 Start: 01-20-2023 End: 03-22-2023 Hepatitis C virus Ab [Presence] in Serum [facility] Work Phone: Comment on above: Expected: 01/20/2023 , Expires: 03/22/2023 Start: 01-20-2023 End: 03-22-2023 HIV 1+2 Ab [Presence] in Serum or Plasma by Immunoassay [facility] Work Phone: Comment on above: Expected: 01/20/2023 , Expires: 03/22/2023 Start: 01-20-2023 End: 01-21-2024 NUCHAL TRANSLUCENCY WHI NUCHAL TRANSLUCENCY WHI Anc Imaging Routine Encounter for supervision of other normal in first trimester Expected: 01/20/2023, Expires: 01/21/2024 [facility] Work Phone: Comment on above: Expected: 01/20/2023 , Expires: 01/21/2024 Start: 01-20-2023 End: 01-21-2024 OBSTETRIC ULTRASOUND WHI OBSTETRIC ULTRASOUND WHI Anc Imaging Routine Encounter for supervision of other normal in first trimester Expected: 01/20/2023, Expires: 01/21/2024 [facility] Work Phone: Comment on above: Expected: 01/20/2023 , Expires: 01/21/2024 Start: 01-20-2023 End: 03-22-2023 RUBELLA IGG AB [facility] Work Phone: Comment on above: Expected: 01/20/2023 , Expires: 03/22/2023 Start: 01-20-2023 End: 03-22-2023 SYPHILIS TOTAL W/REFLEX [facility] Work Phone: Comment on above: Expected: 01/20/2023 , Expires: 03/22/2023 Start: 01-20-2023 End: 03-22-2023 TYPE + SCREEN [facility] Work Phone: Comment on above: Expected: 01/20/2023 , Expires: 03/22/2023 Start: 10-26-2022 DEPRESSION ASSESSMENT DEPRESSION ASS ESSMENT [facility] Start: 06-26-2022 Influenza vaccination INFLUENZA (#1) [facility] Start: 04-10-2022 Patient discharge [facility] Work Phone: Start: 04-08-2022 Administration of medication [facility] Work Phone: Start: 04-08-2022 Application of ice collar, cap or bag [facility] Work Phone: Start: 04-08-2022 Catheterization of vein [facility] Work Phone: Start: 04-08-2022 Introduction of urin miguel angel catheter [facility] Work Phone: Start: 04-08-2022 Measuring intake and output [facility] Work Phone: Start: 04-08-2022 Notification of physician [facility] Work Phone: Start: 04-08-2022 Procedure discontinued [facility] Work Phone: Start: 04-08-2022 Provision of activit y privileges [facility] Work Phone: Start: 04-08-2022 Referral to service [facility] Work Phone: Start: 04-08-2022 Vital signs measurements [facility] Work Phone: Start: 04-08-2022 [facility] Work Phone: Start: 04-08-2022 [facility] Work Phone: Start: 04-08-2022 Admission procedure [facility] Work Phone: Start: 04-08-2022 [facility] Work Phone: Start: 03-30-2022 Nonstress test [facility] Work Phone: Start: 03-30-2022 Obstetric monitoring [facility] Work Phone: Start: 03-30-2022 Vital signs measurements [facility] Work Phone: Start: 03-30-2022 [facility] Work Phone: Start: 03-30-2022 Patient discharge [facility] Work Phone: Start: 03-25-2022 Sars-cov-2 detection by dna/rna SARS-COV-2 COVID-19 AMP PRB [facility] Work Phone: Start: 01-06-2022 Nonstress test [facility] Work Phone: Start: 01-06-2022 Insertion of cathete r into peripheral vein [facility] Work Phone: Start: 01-06-2022 Obstetric monitoring [facility] Work Phone: Start: 01-06-2022 Vital signs measurements [facility] Work Phone: Start: 01-06-2022 [facility] Work Phone: Start: 01-06-2022 Iv infusion hydratio n each additional hour HYDRATE IV INFUSION ADD-ON [facility] Work Phone: Start: 01-06-2022 Ther proph/dx njx iv push single/1st sbst/drug THER/PROPH/DIAG INJ IV PUSH [facility] Work Phone: Start: 01-04-2022 Obstetric monitoring [facility] Work Phone: Start: 01-04-2022 Vital signs measurements [facility] Work Phone: Start: 01-04-2022 [facility] Work Phone: Start: 11-05-2021 Sars-cov-2 detection by dna/rna SARS-COV-2 COVID-19 AMP PRB [facility] Work Phone: Start: 09-05-2021 Covid-19 Vaccine (3 - Moderna series) Covid-19 Vaccine (3 - Moderna series) [facility] Start: 09-05-2021 COVID-19 VACCINE (4 - Booster for Moderna series) COVID-19 VACCINE (4 - Booster for Moderna series) [facility] Start: 09-05-2021 COVID-19 VACCINE (4 - Booster) COVID-19 VACCINE (4 - Booster) [facility] Start: 09-05-2021 COVID-19 VACCINE (4 - Moderna series) COVID-19 VACCINE (4 - Moderna series) [facility] Start: 2014 PAP TESTING PAP TESTING [facility] Start: 2014 Screening for malign ant neoplasm of cervix [facility] Start: 2012 Hepatitis B Vaccine (1 of 3 - 19+ 3-dose series) Hepatitis B Vaccine (1 of 3 - 19+ 3-dose series) [facility] Start: 2012 Urine microalbumin profile DTAP,TDAP,TD (1 - Tdap) [facility] Start: 2011 Anxiety Screening Anxiety Screening [facility] Start: 2011 Depression Screening Depression Scre ening [facility] Start: 2011 HEPATITIS C SCREENING HEPATITIS C SC REENING [facility] Start: 2011 HIV SCREENING HIV SCREENING [facility] Start: 2005 Adult depression screening assessment DEPRESSION SCREENING [facility] Start: 1999 PNEUMOCOCCAL (1 - PCV) PNEUMOCOCCAL (1 - PCV) [facility] Start: 1993 HEPATITIS B (1 of 3 - 3-dose series) HEPATITIS B (1 of 3 - 3-dose series) [facility] Start: 1993 Hepatitis B Vaccine (1 of 3 - 3-dose series) Hepatitis B Vaccine (1 of 3 - 3-dose series) [facility] Bacteria identified in Urine by Culture URINE CULTURE Microbiology Routine Encounter for supervision of other normal in first trimester Ordered: 01/20/2023 [facility] Work Phone: Comment on above: Ordered: 01/20/2023 End: 01-06-2024 BIOPHYSICAL PROFILE US WHI BIOPHYSICAL PROFILE US [facility] Anc Imaging Routine Insulin controlled gestational diabetes mellitus (GDM) in third trimester Once per week for 15 Occurrences starting 06/20/2023 until 01/06/2024 [facility] Work Phone: Comment on above: Once per week for 15 Occurrences starting 06/20/2023 until 01/06/2024 Chlamydia trachomatis+Neisseria gonorrhoeae DNA [Presence] in Unspecified specimen by KJ with probe detection GC/CHLAMYDIA DNA DET Lab Routine Encounter for supervision of other normal in first trimester Ordered: 01/20/2023 [facility] Work Phone: Comment on above: Ordered: 01/20/2023 Hemoglobin A1c/Hemoglobin.total in Blood HEMOGLOBIN A1C (POC) Lab Routine Diet controlled gestational diabetes mellitus (GDM) in third trimester Ordered: 06/16/2023 [facility] Work Phone: Comment on above: Ordered: 06/16/2023 End: 08-26-2023 OBSTETRIC ULTRASOUND WHI OBSTETRIC ULTRASOUND WHI Anc Imaging Routine Diet controlled gestational diabetes mellitus (GDM) in second trimester Once per month for 5 Occurrences starting 06/08/2023 until 08/26/2023 [facility] Work Phone: Comment on above: Once per month for 5 Occurrences starting 06/08/2023 until 08/26/2023 Patient Education [facility] Work Phone: Patient referral [facility] Work Phone: POC GAS MAKER ULTRASOUND POC GAS MAKER ULTRASO UND Anc Imaging Routine with uncertain viability, single or unspecified fetus Ordered: 01/20/2023 [facility] Work Phone: Comment on above: Ordered: 01/20/2023 SARS-CoV-2 (COVID-19 ) RNA [Presence] in Respiratory specimen by KJ with probe detection COVID NAAT, UPPER RESPIRATORY, ROUTINE Microbiology Routine Acute cough SOB (shortness of breath) Ordered: 12/21/2023 [facility] Work Phone: Comment on above: Ordered: 12/21/2023 [facility] Immunizations Immunization Date Immunization Notes Care Provider [place] irvin 06-12-2023 RHO(D) immune globul in- IV or IM Jules Wolfe DO Work Phone: [facility] Work Phone: 06-08-2023 tetanus toxoid, redu beltran diphtheria toxoid, and acellular pertussis vaccine, adsorbed Giorgi Buckner MD Work Phone: [facility] 05-26-2021 Covid (Moderna) [facility] Work Phone: 04-08-2021 tetanus toxoid, redu beltran diphtheria toxoid, and acellular pertussis vaccine, adsorbed [facility] Payers Date Payer Category Payer Unknown [id number] 2024 Self-pay [id number] 2022 Medicaid [id number] 2022 Medicaid [id number] Unknown SELF PAY INSURANCE [id number] 00 [id number] Unknown SELF PAY INSURANCE [id number] 978 [id number] Unknown SELF PAY INSURANCE [id number] Unknown [id number] Unknown [id number] Unknown [id number] Social History Date Type Detail Facility [facility] Work Phone: Start: 11-13-2021 End: 04-08-2022 Tobacco smoking status NHIS Unknown if ever smoked [facility] Work Phone: Start: 1995 Sex Assigned At Female W [facility] Work Phone: Start: 01-15-2023 Tobacco smoking status Ex-smoker (fi nding) [facility] Sex Assigned At Sex [facility] Start: 07-03-2022 Tobacco smoking stat us NHIS Smokes tobacco daily [facility] History of tobacco use Cigarette Smoker C [facility] Start: 07-03-2022 End: 01-15-2023 Tobacco use and exposure Smokeless tobacco non-user [facility] Start: 1995 Sex Assigned At Not on file C [facility] Start: 06-23-2022 End: 07-03-2022 Exposure to SARS-CoV-2 (event) Not sure [facility] Work Phone: History of tobacco use Current smoker [facility] Start: 01-20-2023 End: 12-21-2023 Alcohol intake Ex-drinker (finding) [facility] Start: 12-06-2022 [facility] Start: 07-03-2022 End: 06-08-2023 History of Social function [facility] Start: 07-03-2022 End: 06-08-2023 Tobacco use panel [facility] National Score (1-100), lower number is lower risk 68 [facility] Medical Equipment Procedure Code Equipment Code Equipment Origin al Text Equipment Identifier Dates Start: 06-08-2023 End: 08-26-2023 Comment on above: Use as directed to c heck glucose levels up to seven times daily. Twice/day Goals Date Patient Goal Desired Activity /State Personal health goal Functional Status Date Assessment Result Facility 05-21-2022 Functional Status Room check performed [facility] 05-21-2022 Functional Status [facility] 05-21-2022 Functional Status [facility] Mental Status Date Assessment Result Facility 05-21-2022 Mental Status Orientation Oriented x 4 [facility] 05-21-2022 Mental Status [facility] 05-21-2022 Mental Status [facility] Clinical Notes 05-21-2022 to 12-21-2023 Cindy James RT(R) - 12/21/2023 11:20 AM Jules Siddiqui MD - 12/21/2023 11:08 AM Loretta Aquino LPN - 09/15/2023 12:58 PM ESTPatient Instructions Note Date & Type Note Facility 12-21-2023 History of Presen t illness Narrative Radiology Service Progress Note PATIENT NAME: Digna Kraus DATE OF SERVICE: December 21, 2023 TIME: 11:29 AM PATIENT IDENTITY VERIFICATION COMPLETED USING TWO (2) IDENTIFIERS: Name and Date of confirmed by patient verbally. FALL SCREENING: Has the patient had 2 falls in the last year or 1 fall with injury or currently using an Ambulatory Assistive Device (Walker, Cane, Wheelchair, Crutches, etc.)? No PATIENT GENDER DATA: Female. status: : No status: NO. PATIENT RELEVANT IMPLANT DATA REVIEWED: Yes PATIENT PRESENTS WITH AN IMPLANTABLE OR ATTACHED INKJET OPERATOR: No RADIOLOGY DEPARTMENT: General X-ray: Exam(s) Completed: Chest X-Ray PERIPHERAL IV DATA: Not applicable SIGNED BY: RT Cory(R) December 21, 2023 11:29 AM documented in this encounter [facility] 12-21-2023 History of Presen t illness Narrative Patient presents with: Cough: Chest congestion, sob x 3 days HPI: Coughing and feeling shortness of breath for 3 days. Positive symptoms: Cough, Shortness of breath, wheezing, mid Chest pain with inspiration Negative symptoms: Sore throat, Nasal Congestion, Rhinorrhea, Fever, OTC: albuterol helps symptoms temporarily. No personal history of PE, mother has history of blood clots. ACTIVE PROBLEM LIST Anxiety Neurosis Rh Negative, Antepartum History of Asthma Bipolar Disease During , Antepartum (Hcc) Significant Discrepancy Between Uterine Size and Clinical Dates, Antepartum, Third Trimester Insulin Controlled Gestational Diabetes Mellitus (Gdm) in Third Trimester Anemia Complicating , Third Trimester PAST MEDICAL HISTORY Diagnosis Date Asthma PRN inhaler. worse as child. Bipolar 1 disorder, depressed (HCC) Hyperemesis gravidarum depression PTSD (post-traumatic stress disorder) MEDICATIONS: Current Outpatient Medications Medication Sig busPIRone (BUSPAR) 7.5 mg tablet Take 1 tablet by mouth every 12 hours. albuterol HFA (PROVENTIL HFA, VENTOLIN HFA) 90 mcg/actuation inhaler Inhale 2 Puffs as instructed every 6 hours as needed for wheezing/shortness of breath. esomeprazole (NEXIUM) 20 mg capsule Take 1 capsule by mouth once daily. FLOVENT HFA 110 mcg/actuation inhaler Inhale 1 Puff as instructed twice daily. Shake well before use. Rinse mouth after use. ARIPiprazole (ABILIFY) 10 mg tablet Take 1 tablet by mouth daily at bedtime. sertraline (ZOLOFT) 100 mg tablet Take 1 tablet by mouth once daily. hydrOXYzine HCl (ATARAX) 50 mg tablet Take 50 mg by mouth two times a day as needed. (Patient not taking: Reported on 12/21/2023) No current facility-administered medications for this visit. ALLERGIES: ALLERGIES Allergen Reactions Bee Pollen Hives Venom-Honey Bee Anaphylaxis, Swelling Beeswax Hives Cefaclor Unknown, Hives Unknown VITALS: BP 100/60 Pulse 120 Temp 36.9 C (98.4 F) Resp 22 Wt 92.9 kg (204 lb 12.8 oz) LMP 09/22/2023 (Exact Date) SpO2 95% BMI 40.00 kg/m PHYSICAL EXAM: GEN: no acute distress, alert, accompanied by her and toddler HEENT: PERRL, EOMI, conjunctiva clear Ears: canals clear. TMs without erythema, bulge, or effusion Sinuses: non-tender frontal sinus, non-tender maxillary sinuses Throat: moist mucous membranes, no erythema, no exudate Neck: supple, no thyromegaly, no lymphadenopathy HEART: regular rate and rhythm during my exam, no murmurs LUNGS: crackles right lower lung, no increased WOB CHEST: tender bilateral sternal border Component Latest Ref Rng & Units 06/17/2023 Hemoglobin A1C (POCT) 4.2 - 5.6 % 5.8 ASSESSMENT/PLAN: 1. Acute cough - ICD9: 786.2, ICD10: R05.1 (primary diagnosis) 2. SOB (shortness of breath) - ICD9: 786.05, ICD10: R06.02 - XR CHEST 2V FRONTAL/LAT - negative Rule out - COVID NAAT, UPPER RESPIRATORY, ROUTINE 3. Asthma with acute exacerbation, unspecified asthma severity, unspecified whether persistent - ICD9: 493.92, ICD10: J45.901 - refill of albuterol should be available at the pharmacy. Contact PCP for flovent management/refill if needed. - PREDNISONE 10 MG TABLET taper. Recalls no adverse side effects with use. Reports good post sugar levels. Potential steroid side effects discussed including: increased energy, sleep disturbance, mood change, elevated sugar levels. Jules Modi MD documented in this encounter [facility] 09-15-2023 Miscellaneous Notes Patient scheduled for surgery 10/23/2023 Per office note on 08/26/23: Desires sterilization- Title 19 signed today- OR booking sheet signed today. Did you receive a surgery sheet? Pt called stating she had completed a form to get her tubes tied but the hospital indicates they do not have it. She would like to proceed in getting that done as soon as possible. documented in this encounter [facility] 08-26-2023 Note HNO ID: [id number] Author: Francine Patricio MD Service: ? Author Type: Physician Type: Progress Notes Filed: 08/26/2023 12:36 PM Note Text: EARLY VISIT Digna Kraus is a 28 year old here for 1 week visit. Delivery Summary: Vag-vacuum 08/19/2023 Male--[place]ars ROS: General: Denies any fever or chills Hypertension Screening: Headache? No. Visual Changes? No Epigastric Pain? No Increased Swelling? No Taking any BP medications at home? No If applicable, monitoring BP at home? (If Yes, include results) NA Mood: normal Depression: denies symptoms of depression. OB Depression and Anxiety Screening- This Encounter (since 08/25/2023) Over the past 2 weeks have you felt down, depressed, or hopeless? Negative Over the past two weeks, have you felt little interest or pleasure in doing things?? Negative Feeling nervous, anxious or on edge 0-Not at all Not being able to stop or control worrying 0-Not al all Anxiety Pre-Screening Total (If >/= 3 additional questions will be reviewed) 0 Feeding: Breast and bottle feeding problems: Inadequate milk supply Bladder: pain with urination sometimes Bowel symptoms: Negative for abdominal discomfort, blood in stools or black stools and change in bowel habits Abdomen: N/A Bleeding: light flow Bottom and Perineum: No issues Sleep: no sleep concerns, feels rested [place] since delivery: Not resumed Emotional support: Yes Exercise: N/A Other issues: None PHYSICAL EXAMINATION: BP 110/64 Wt 194 lb (88 kg) LMP 11/22/2022 Yes BMI 37.89 kg/m? General: pleasant,female in no apparent distress, AANDO x 3. Skin warm and intact. Breast: Deferred Abdomen: Deferred /Incision: N/A Pelvic: Deferred Bimanual: Deferred ASSESSMENT AND PLAN: 28 year old status post with normal course. Contraception plan: tubal ligation. Reinforced 6-week pelvic rest. Encouraged condom usage should patient deviate. Education: resources provided - see MA/RN note Desires sterilization- Title 19 signed today- OR booking sheet signed today. Follow up: Return to Clinic for 6 week visit and as needed Francine Walters MD [facility] 08-26-2023 History of Presen t illness Narrative EARLY VISIT Digna Kraus is a 28 year old here for 1 week visit. Delivery Summary: Vag-vacuum 08/19/2023 Male--[place] ROS: General: Denies any fever or chills Hypertension Screening: Headache? No. Visual Changes? No Epigastric Pain? No Increased Swelling? No Taking any BP medications at home? No If applicable, monitoring BP at home? (If Yes, include results) NA Mood: normal Depression: denies symptoms of depression. OB Depression and Anxiety Screening- This Encounter (since 08/25/2023) Over the past 2 weeks have you felt down, depressed, or hopeless? Negative Over the past two weeks, have you felt little interest or pleasure in doing things? Negative Feeling nervous, anxious or on edge 0-Not at all Not being able to stop or control worrying 0-Not al all Anxiety Pre-Screening Total (If >/= 3 additional questions will be reviewed) 0 Feeding: Breast and bottle feeding problems: Inadequate milk supply Bladder: pain with urination sometimes Bowel symptoms: Negative for abdominal discomfort, blood in stools or black stools and change in bowel habits Abdomen: N/A Bleeding: light flow Bottom and Perineum: No issues Sleep: no sleep concerns, feels rested [place] since delivery: Not resumed Emotional support: Yes Exercise: N/A Other issues: None PHYSICAL EXAMINATION: BP 110/64 Wt 194 lb (88 kg) LMP 11/22/2022 Yes BMI 37.89 kg/m General: pleasant,female in no apparent distress, A&O x 3. Skin warm and intact. Breast: Deferred Abdomen: Deferred /Incision: N/A Pelvic: Deferred Bimanual: Deferred ASSESSMENT AND PLAN: 28 year old status post with normal course. Contraception plan: tubal ligation. Reinforced 6-week pelvic rest. Encouraged condom usage should patient deviate. Education: resources provided - see MA/RN note Desires sterilization- Title 19 signed today- OR booking sheet signed today. Follow up: Return to Clinic for 6 week visit and as needed Francine Walters MD documented in this encounter [facility] 08-19-2023 Note HNO ID: [id number] Author: Britta Levy RN Service: ? Author Type: ? Type: Progress Notes Filed: 08/19/2023 10:13 AM Note Text: Patient delivered via VAVD by Dr. Cotton on 08/19/23 at [facility]. See OB history. Britta Leyv RN [facility] 08-19-2023 History of Presen t illness Narrative Patient delivered via VAVD by Dr. Cotton on 08/19/23 at [facility]. See OB history. Britta Levy RN documented in this encounter [facility] 08-14-2023 Miscellaneous Notes Patient scheduled and agreeable for Thursday with RR at 10:50 AM PETRONA KOTHARI RN RR has opening at 10:50 am Patient had NST today and BPP is on Thursday at 10:30. CP did not see pt today. Please advise if there is a time she can be seen by a physician Friday 08/17. PETRONA KOTHARI RN Have patient get her BPP - if CP has questions she can call me in OR and I am happy to answer them. I will not be in office til later afternoon due to OR Please ask aprovider that is in that day about seeing her. Thanks! Ilan Camacho MD Please see below. There is no physician in the office in the AM tommorow. Patient has a BPP on Thursday @ 10:30AM. No physician openings then. Please advise. Nesha Reis RN Patient called back she is scheduled for 08/14 10:30 NST and 11 w/ Plotts she received a message about switching times (ob- Physician only- LMTCB to see if can come at 3:30 NST/OB with DM instead (4:20 time with DM on hold) Patient said that will not work out for her, can be reached at [phone] please advise documented in this encounter [facility] 08-10-2023 Miscellaneous Notes Reviewed BG data- responded as follows: Good afternoon - I reviewed your BG data, I would recommend that you do the following: continue NPH 12 units at bedtime, start Humalog 5 units prior to breakfast, continue Humalog 10 units prior to dinner + 10 additional units with higher carb meals. Will review again next week- thanks! KB documented in this encounter [facility] 08-10-2023 Note HNO ID: [id number] Author: Arlin Vilchis MD Service: ? Author Type: Physician Type: Progress Notes Filed: 08/10/2023 12:46 PM Note Text: NST SUMMARY PROVIDER ASSESSMENT AND INTERPRETATION Digna Kraus is a 28 year old female, , who is at 37w2d with an JORDEN of 08/29/2023, by Last Menstrual Period dating method. Indications for NST: Gestational Diabetes - Insulin Controlled Baseline: 135 Variability: Moderate Accelerations: Present 15 X 15 Decelerations: None Contractions: TOCO: None Interpretation: Reactive SIGNATURE: Arlin Vilchis DO [facility] 08-10-2023 History of Presen t illness Narrative NST SUMMARY PROVIDER ASSESSMENT AND INTERPRETATION Digna Kraus is a 28 year old female, , who is at 37w2d with an JORDEN of 08/29/2023, by Last Menstrual Period dating method. Indications for NST: Gestational Diabetes - Insulin Controlled Baseline: 135 Variability: Moderate Accelerations: Present 15 X 15 Decelerations: None Contractions: TOCO: None Interpretation: Reactive SIGNATURE: Arlin Vilchis DO documented in this encounter [facility] 08-07-2023 Note HNO ID: [id number] Author: Ashlyn Cotton MD Service: ? Author Type: Physician Type: Progress Notes Filed: 08/07/2023 11:12 AM Note Text: NST SUMMARY PROVIDER ASSESSMENT AND INTERPRETATION Digna Kraus is a 28 year old female, , who is at 36w6d with an JORDEN of 08/29/2023, by Last Menstrual Period dating method. Indications for NST: Other: GDMA2 Baseline: 140 Variability: Moderate Accelerations: Present 15 X 15 Decelerations: None Contractions: TOCO: Irregular Interpretation: Category I and Reactive SIGNATURE: Ashlyn Cotton MD [facility] 08-07-2023 History of Presen t illness Narrative NST SUMMARY PROVIDER ASSESSMENT AND INTERPRETATION Digna Kraus is a 28 year old female, , who is at 36w6d with an JORDEN of 08/29/2023, by Last Menstrual Period dating method. Indications for NST: Other: GDMA2 Baseline: 140 Variability: Moderate Accelerations: Present 15 X 15 Decelerations: None Contractions: TOCO: Irregular Interpretation: Category I and Reactive SIGNATURE: Ashlyn Cotton MD documented in this encounter [facility] 08-07-2023 Instructions Tiki Mars Ma 08/07/2023 11:06 AM EDT SEQUENTIAL SCREENINGS The [facility] offers sequential screenings for women who are interested in screenings for chromosomal abnormalities and certain defects during a . The sequential screen combines ultrasound and blood tests to determine the risk of chromosomal abnormalities, including Down's Syndrome (Trisomy 21) and Trisomy 18, as well as open neural tube defects including spina bifida. Ultrasound examination is performed between 11 weeks and 13 weeks gestational age. Blood tests are drawn after the ultrasound and again later in the between 15 and 21 weeks gestational age. Please let your physician know if you are interested in this testing. It will require an appointment with our document image technician. This is not an ultrasound performed by a physician in our office during a routine visit. SIGNS AND SYMPTOMS OF LABOR 1. Contractions every 10 minutes or more often 2. Clear, pink, or brownish fluid (water) leaking from vagina 3. Feeling that baby is pushing down, pressure 4. Low, dull backache 5. Cramps that feel like a period 6. Cramps with or without diarrhea If you notice any of the above symptoms, contact our office at [phone] and ask to speak with a nurse. After hours, you can call doctors registry at [phone] OR call [facility] at [phone] and ask to have the doctor plant taxonomist paged. If you consider this an emergency, dial 0--6 or go to your nearest emergency department. NEED HELP? Are you dealing with a violent or abusive relationship? Are you a victim of rape or sexual assult? Call [facility] ([place]) 24 hour Crisis Hotline: 925.970.7281 or 008-247-4197. MANUAL Your Guide to a Healthy manual is now on-line. Visit [email or web address] to download your free copy documented in this encounter [facility] 08-07-2023 Miscellaneous Notes RR- VB No. LOF No. CTXS No. Movement: present. Other c/o: vomiting more than once a day past week. Medication list reviewed. Physical Exam See Flow Sheet Abd: soft, nontender, gravid Ext: edema: 1+, symetrical: Yes A/P 36w6d Estimated Date of Delivery: 08/29/23 n/v rx for zofran heartburn- cont. nexium. c/o HURT- check preeclampsia labs GDMA2 and reviewed BS log, sending them to endocrine, many postprandials elevated Trial reglan for HURT plan induction at 39 weeks or earlier if indication Ashlyn Cotton M.D. documented in this encounter [facility] 10-06-2023 Miscellaneous Notes SW- Some pressure and spotting. No ctx, lof. Good FM. No abdominal pain. No falls PE: Gen- NAD, well appearing Abd- Soft, gravid, NT See flowsheet A/p 35 wk gestation - A2GDM: BG log reviewed and within goal. Reviewed by endo today as well. Continue twice weekly testing. Discussed delivery timing - GBS today - NST reactive Arlin Vilchis DO documented in this encounter [facility] 07-31-2023 Instructions Kelley Breen MA - 07/31/2023 11:20 AM EDT SEQUENTIAL SCREENINGS The [facility] offers sequential screenings for women who are interested in screenings for chromosomal abnormalities and certain defects during a . The sequential screen combines ultrasound and blood tests to determine the risk of chromosomal abnormalities, including Down's Syndrome (Trisomy 21) and Trisomy 18, as well as open neural tube defects including spina bifida. Ultrasound examination is performed between 11 weeks and 13 weeks gestational age. Blood tests are drawn after the ultrasound and again later in the between 15 and 21 weeks gestational age. Please let your physician know if you are interested in this testing. It will require an appointment with our document image technician. This is not an ultrasound performed by a physician in our office during a routine visit. SIGNS AND SYMPTOMS OF LABOR 1. Contractions every 10 minutes or more often 2. Clear, pink, or brownish fluid (water) leaking from vagina 3. Feeling that baby is pushing down, pressure 4. Low, dull backache 5. Cramps that feel like a period 6. Cramps with or without diarrhea If you notice any of the above symptoms, contact our office at [phone] and ask to speak with a nurse. After hours, you can call doctors registry at [phone] OR call [facility] at [phone] and ask to have the doctor plant taxonomist paged. If you consider this an emergency, dial 9--1 or go to your nearest emergency department. NEED HELP? Are you dealing with a violent or abusive relationship? Are you a victim of rape or sexual assult? Call [facility] ([place]) 24 hour Crisis Hotline: 640.838.6538 or 940-628-9606. MANUAL Your Guide to a Healthy manual is now on-line. Visit [email or web address] to download your free copy documented in this encounter [facility] 07-31-2023 Miscellaneous Notes Reviewed BG data- responded as follows: Good morning- I reviewed your BG data- these numbers are at/near goal- continue your current regimen as you are doing: NPH 12 units at bedtime and Humalog 10 units prior to dinner + additional +10 units of Humalog with higher carb meals. will review again next week- thanks! KB documented in this encounter [facility] 07-21-2023 Note HNO ID: [id number] Author: Ilan Camacho MD Service: ? Author Type: Physician Type: Progress Notes Filed: 07/21/2023 9:27 AM Note Text: NST SUMMARY PROVIDER ASSESSMENT AND INTERPRETATION Digna Kraus is a 28 year old female, , who is at 34w3d with an JORDEN of 08/29/2023, by Last Menstrual Period dating method. Indications for NST: Gestational Diabetes - Insulin Controlled Baseline: 140 Variability: Moderate Accelerations: Present 15 X 15 Decelerations: None Contractions: TOCO: None Interpretation: Reactive SIGNATURE: Ilan Camacho MD [facility] 07-21-2023 History of Presen t illness Narrative NST SUMMARY PROVIDER ASSESSMENT AND INTERPRETATION Digna Kraus is a 28 year old female, , who is at 34w3d with an JORDEN of 08/29/2023, by Last Menstrual Period dating method. Indications for NST: Gestational Diabetes - Insulin Controlled Baseline: 140 Variability: Moderate Accelerations: Present 15 X 15 Decelerations: None Contractions: TOCO: None Interpretation: Reactive SIGNATURE: Ilan Camacho MD documented in this encounter [facility] 07-21-2023 Miscellaneous Notes KJ - VB No other than scant spotting with wiping x1. LOF No. CTXS Yes - irregular. Movement: present. Other c/o: No. Medication list reviewed. Physical Exam See Flow Sheet Gen: no accute distress, well appearing Abd: soft, nontender, gravid A/P 34w3d Estimated Date of Delivery: 08/29/23 GDMA2 - BS managed by endocrinology. Continue 2xwk testing. Anemia - encouraged Fe & Regular PNV use PTL precautions reviewed, Kick counts reviewed. Ilan Camacho MD documented in this encounter [facility] 07-21-2023 Instructions s Brittney Haynes - 07/21/2023 9:00 AM EDT SEQUENTIAL SCREENINGS The [facility] offers sequential screenings for women who are interested in screenings for chromosomal abnormalities and certain defects during a . The sequential screen combines ultrasound and blood tests to determine the risk of chromosomal abnormalities, including Down's Syndrome (Trisomy 21) and Trisomy 18, as well as open neural tube defects including spina bifida. Ultrasound examination is performed between 11 weeks and 13 weeks gestational age. Blood tests are drawn after the ultrasound and again later in the between 15 and 21 weeks gestational age. Please let your physician know if you are interested in this testing. It will require an appointment with our document image technician. This is not an ultrasound performed by a physician in our office during a routine visit. SIGNS AND SYMPTOMS OF LABOR 1. Contractions every 10 minutes or more often 2. Clear, pink, or brownish fluid (water) leaking from vagina 3. Feeling that baby is pushing down, pressure 4. Low, dull backache 5. Cramps that feel like a period 6. Cramps with or without diarrhea If you notice any of the above symptoms, contact our office at [phone] and ask to speak with a nurse. After hours, you can call [employer] registry at [phone] OR call [facility] at [phone] and ask to have the doctor plant taxonomist paged. If you consider this an emergency, dial 9-1-1 or go to your nearest emergency department. NEED HELP? Are you dealing with a violent or abusive relationship? Are you a victim of rape or sexual assult? Call [facility] ([place]) 24 hour Crisis Hotline: 636.839.9083 or 575-168-0157. MANUAL Your Guide to a Healthy manual is now on-line. Visit [email or web address] to download your free copy documented in this encounter [facility] 07-17-2023 Note HNO ID: [id number] Author: Arlin Vilchis MD Service: ? Author Type: Physician Type: Progress Notes Filed: 07/17/2023 2:29 PM Note Text: NST SUMMARY PROVIDER ASSESSMENT AND INTERPRETATION Digna Kraus is a 28 year old female, , who is at 33w6d with an JORDEN of 08/29/2023, by Last Menstrual Period dating method. Indications for NST: Diabetes - Insulin Controlled Baseline: 135 Variability: Moderate Accelerations: Present 15 X 15 Decelerations: None Contractions: TOCO: None Interpretation: Reactive SIGNATURE: Arlin Vilchis DO [facility] 07-17-2023 History of Presen t illness Narrative NST SUMMARY PROVIDER ASSESSMENT AND INTERPRETATION Digna Kraus is a 28 year old female, , who is at 33w6d with an JORDEN of 08/29/2023, by Last Menstrual Period dating method. Indications for NST: Diabetes - Insulin Controlled Baseline: 135 Variability: Moderate Accelerations: Present 15 X 15 Decelerations: None Contractions: TOCO: None Interpretation: Reactive SIGNATURE: Arlin Vilchis DO documented in this encounter [facility] 07-17-2023 Miscellaneous Notes SW- Pt doing well. No ctx, vb, lof. Good FM. Some vaginal pain PE: Gen- NAD, well appearing Abd- Soft, gravid, NT Ext- No edema See flowsheet A/p 33 wk gestation - Anemia: Repeat CBC ordered - A2GDM: Had visit with endo 4 days ago. Cont to send in BG log to endo weekly. BG log reviewed and majority within goal. Growth US q 4 wks and continue twice weekly antepartum testing with BPP and NST - Mood stable - RTO next week Arlin Vilchis DO documented in this encounter [facility] 07-17-2023 Instructions Kelley Breen MA - 07/17/2023 9:56 AM EDT SEQUENTIAL SCREENINGS The [facility] offers sequential screenings for women who are interested in screenings for chromosomal abnormalities and certain defects during a . The sequential screen combines ultrasound and blood tests to determine the risk of chromosomal abnormalities, including Down's Syndrome (Trisomy 21) and Trisomy 18, as well as open neural tube defects including spina bifida. Ultrasound examination is performed between 11 weeks and 13 weeks gestational age. Blood tests are drawn after the ultrasound and again later in the between 15 and 21 weeks gestational age. Please let your physician know if you are interested in this testing. It will require an appointment with our document image technician. This is not an ultrasound performed by a physician in our office during a routine visit. SIGNS AND SYMPTOMS OF LABOR 1. Contractions every 10 minutes or more often 2. Clear, pink, or brownish fluid (water) leaking from vagina 3. Feeling that baby is pushing down, pressure 4. Low, dull backache 5. Cramps that feel like a period 6. Cramps with or without diarrhea If you notice any of the above symptoms, contact our office at [phone] and ask to speak with a nurse. After hours, you can call doctors registry at [phone] OR call [facility] at [phone] and ask to have the doctor plant taxonomist paged. If you consider this an emergency, dial 9-- or go to your nearest emergency department. NEED HELP? Are you dealing with a violent or abusive relationship? Are you a victim of rape or sexual assult? Call [facility] ([place]) 24 hour Crisis Hotline: 384.650.8481 or 544-093-2153. MANUAL Your Guide to a Healthy manual is now on-line. Visit [email or web address] to download your free copy documented in this encounter [facility] 07-13-2023 Note HNO ID: [id number] Author: Veronica Blankenship Service: ? Author Type: ? Type: Progress Notes Filed: 07/13/2023 12:22 PM Note Text: Spoke with patient, schedule 10/29/2023 @ 11:00 am (virtual appointment) [facility] 07-13-2023 History of Presen t illness Narrative Spoke with patient, schedule 10/29/2023 @ 11:00 am (virtual appointment) Reason for consultation: f/u- gestational diabetes mellitus Referring Physician: Dr Buckner My final recommendations will be communicated back to the requesting physician by way of shared Medical record or letter via US mail. This Team Access Model visit is a virtual encounter. It required patient-provider interaction for the medical decision making as documented below. I have communicated my name and active licensure. The patient's identity and physical location were verified at the time of this visit. Either the patient or their legal provider relations representative has been informed of the risks and benefits of -- and alternatives to -- treatment through a remote evaluation and consents to proceed with the evaluation remotely. HISTORY OF PRESENT ILLNESS; Ms. Kraus is a 28 year old presenting at 33+ weeks gestation for follow up regarding gestational diabetes mellitus. Her initial visit with ne was 06/17/23. She was diagnosed with GDM after abnormal 1 hour GTT on 06/06/23. POC HbA1c at her first visit here was 5.8%- suggestive of preexisting beta cell dysfunction. She does not have a previous history of gestational diabetes. Has two children, 6lbs 11oz, and 7lbs 11oz , respectively. She has a family history of diabetes mellitus including her sister . Her prepregnancy weight was 160 lbs and her current weight is 200 lbs. She has seen DM education and is attempting to follow these instructions. Insulin was initiated at her first visit with me and has been adjusted in between visits- most recently on 07/07- her current regimen is NPH 12 units at bedtime, Humalog 10 units prior to dinner (+5 units of humalog with higher carb meals) She has been checking her blood glucose 4 times daily- she forwarded me her BG data prior to this visit Fasting 74-96 mg/dL 2 hour post meal 108- 120 mg/dL (but has some significant outliers) Hypoglycemia frequency: n/a Hypoglycemia awareness: n/a Hyperglycemia Symptoms: denies blurry vision reports polyuria denies polydipsia reports nocturia denies rapid weight loss Last visit with OB was 07/10- NST reactive. Last u/s was 06/20- [facility], [place] [address], [place]- having a boy! No complaints/concerns at this time. PAST MEDICAL HISTORY Diagnosis Date Asthma PRN inhaler. worse as child. Bipolar 1 disorder, depressed (HCC) Hyperemesis gravidarum depression PTSD (post-traumatic stress disorder) No past surgical history on file. FAMILY HISTORY Problem Relation Age of Onset Breast Cancer Maternal Grandmother Social History Tobacco Use Smoking status: Former Types: Cigarettes Smokeless tobacco: Never Vaping Use Vaping Use: current everyday user Substances: Nicotine, Flavoring Devices: Disposable Substance Use Topics Alcohol use: Not Currently Drug use: Never Current Outpatient Medications Medication Sig Dispense Refill esomeprazole (NEXIUM) 20 mg capsule Take 1 capsule by mouth once daily. 90 capsule 3 insulin NPH human (HUMULIN N NPH INSULIN KWIKPEN) 100 unit/mL (3 mL) injection pen 12 units at bedtime 5 Each 5 insulin lispro (HUMALOG KWIKPEN INSULIN) 100 unit/mL 10 units prior to dinner + scale 5 Each 5 Insulin Wheeler, Disposable, (BD ULTRAFINE III MINI PEN) 31 gauge x 3/16 Twice/day 100 Each 5 blood sugar diagnostic test strip Use as directed to check glucose levels up to seven times daily. 200 Strip 8 Lancets lancets Use as directed to check glucose levels up to seven times daily. 200 Each 8 alcohol swabs (ALCOHOL PREP PADS) Use as directed to check glucose levels up to seven times daily. 200 Each 8 ferrous sulfate (IRON) 325 mg (65 mg iron) tablet Take 1 tablet by mouth twice daily. 180 tablet 1 FLOVENT HFA 110 mcg/actuation inhaler Inhale 1 Puff as instructed twice daily. Shake well before use. Rinse mouth after use. 1 Each 2 albuterol HFA (PROVENTIL HFA, VENTOLIN HFA) 90 mcg/actuation inhaler Inhale 2 Puffs as instructed every 6 hours as needed for wheezing/shortness of breath. 1 Each 2 ARIPiprazole (ABILIFY) 10 mg tablet Take 1 tablet by mouth daily at bedtime. 90 tablet 3 sertraline (ZOLOFT) 100 mg tablet Take 1 tablet by mouth once daily. 90 tablet 3 No current facility-administered medications for this visit. Allergies As of Date: 07/13/2023 Allergen Noted Reaction BEE POLLEN 04/21/2023 Hives VENOM-HONEY BEE 04/08/2022 Anaphylaxis and Swelling BEESWAX 04/21/2023 Hives CEFACLOR 09/22/2012 Unknown and Hives Fully Assessed 07/10/2023 REVIEW OF SYSTEMS: General: no fever and no chills, 35lbs weight gain. Skin: no rashes, pruritis or dry skin Eyes: no blurred or double vision or eye pain Cardiac: denies chest pain, heart palpitations or orthopnea Pulmonary: denies wheezing, productive cough or exertional dyspnea GI: denies nausea and denies vomiting Musc: denies history of upper or lower extremity weakness Reproductive: gravid at 33+ weeks gestation, Endocrine: complains of polyuria and nocturia Hematology: Negative for anemia, easy bleeding and bruising. PHYSICAL EXAM: No vitals as this was a virtual visit. GENERAL: Alert, no distress, cooperative SKIN: Skin color, texture, turgor normal. No rashes or lesions. HEAD/SINUSES: No significant findings EYES: sclera non-icteric, EOMs intact ABDOMEN: gravid at 33+ weeks EXTREMITIES: Normal exam of the extremities NEURO: AAO x 3, no focal deficits. The remainder of the physical exam is noncontributory. DATA: Component Latest Ref Rng & Units 06/06/2023 Glucose Scrn, Preg 74 - 134 mg/dL 205 (H) IMPRESSION: Ms. Kraus is a 28 year old female at 33+ weeks gestation here for evaluation of gestational diabetes mellitus RECOMMENDATIONS: 1. The patient was counseled regarding the maternal and risks of hyperglycemia during . risks include, but are not limited to: congenital abnormalities, hypoxia and stillbirth, macrosomia, shoulder dystocia and hypoglycemia. Maternal risks include increased risks of pre-eclampsia and delivery. 2. I recommend the patient check her blood glucose fasting and 2 hour after each meal, we have provided her with a glucometer if she does not have one. The following blood glucose targets were discussed: fasting blood glucose concentration between 60-90 mg/dL, and 2 hour postprandial blood glucose concentration of less than 120 mg/dL. She was encouraged to limit carbohydrate intake, to walk after meals, (if not contraindicated) and will be scheduled with our dietitian, (if not done already). Regarding her blood glucose management, I recommend she do the followin) check your sugars fasting (60-90 mg/dL) and 2 hours post meal (less than 120 mg/dL) 2) forward me your blood glucose data weekly ([email or web address]) as you are doing for the duration of your 3) continue NPH 12 units at bedtime and Humalog 10 units prior to dinner, but take additional +10 units of humalog with higher carb meals. You should be more aggressive about taking the higher carb insulin. Mason with * on your log book when you take it. 4) ok to discontinue insulin , BG monitoring after delivery- you should get a 2 hour GTT 8 weeks after delivery to ensure resolution of the diabetes - will see you for post f/u 10/29/23. Rx for test strips sent to her pharmacy. Digna will call us with any questions or concerns in the interim. 3. TSH was ordered today, if not done previously during this . 4. Patient will require repeat 2 hr 75g OGTT 8 weeks after delivery to ensure resolution of diabetes. She was counseled that her chances of future pregnancies complicated by diabetes are high, and her 5 year risk of developing diabetes approaches 50%. Adherence to proper diet and exercise regimen will help reduce these risks. I spent a total of 30 minutes on the date of the service which included preparing to see the patient, [id number] patient care, completing clinical documentation, obtaining and/or reviewing separately obtained history, performing a medically appropriate examination, counseling and educating the patient/family/caregiver, and ordering medications, tests, or procedures. Jules Wolfe DO documented in this encounter [facility] 07-13-2023 Note HNO ID: [id number] Author: Jules Wolfe DO Service: ? Author Type: Physician Type: Progress Notes Filed: 07/13/2023 10:19 AM Note Text: Reason for consultation: f/u- gestational diabetes mellitus Referring Physician: Dr Buckner My final recommendations will be communicated back to the requesting physician by way of shared Medical record or letter via US mail. This Team Access Model visit is a virtual encounter. It required patient-provider interaction for the medical decision making as documented below. I have communicated my name and active licensure. The patient's identity and physical location were verified at the time of this visit. Either the patient or their legal provider relations representative has been informed of the risks and benefits of -- and alternatives to -- treatment through a remote evaluation and consents to proceed with the evaluation remotely. HISTORY OF PRESENT ILLNESS; Ms. Kraus is a 28 year old presenting at 33+ weeks gestation for follow up regarding gestational diabetes mellitus. Her initial visit with me was 06/17/23. She was diagnosed with GDM after abnormal 1 hour GTT on 06/06/23. POC HbA1c at her first visit here was 5.8%- suggestive of preexisting beta cell dysfunction. She does not have a previous history of gestational diabetes. Has two children, 6lbs 11oz, and 7lbs 11oz , respectively. She has a family history of diabetes mellitus including her sister . Her prepregnancy weight was 160 lbs and her current weight is 200 lbs. She has seen DM education and is attempting to follow these instructions. Insulin was initiated at her first visit with me and has been adjusted in between visits- most recently on 07/07- her current regimen is NPH 12 units at bedtime, Humalog 10 units prior to dinner (+5 units of humalog with higher carb meals) She has been checking her blood glucose 4 times daily- she forwarded me her BG data prior to this visit Fasting 74-96 mg/dL 2 hour post meal 108- 120 mg/dL (but has some significant outliers) Hypoglycemia frequency: n/a Hypoglycemia awareness: n/a Hyperglycemia Symptoms: denies blurry vision reports polyuria denies polydipsia reports nocturia denies rapid weight loss Last visit with OB was 07/10- NST reactive. Last u/s was 06/20- EFW [address] cent[address], AC 64[address], [place]- having a boy! No complaints/concerns at this time. PAST MEDICAL HISTORY Diagnosis Date Asthma PRN inhaler. worse as child. Bipolar 1 disorder, depressed (HCC) Hyperemesis gravidarum depression PTSD (post-traumatic stress disorder) No past surgical history on file. FAMILY HISTORY Problem Relation Age of Onset Breast Cancer Maternal Grandmother Social History Tobacco Use Smoking status: Former Types: Cigarettes Smokeless tobacco: Never Vaping Use Vaping Use: current everyday user Substances: Nicotine, Flavoring Devices: Disposable Substance Use Topics Alcohol use: Not Currently Drug use: Never Current Outpatient Medications Medication Sig Dispense Refill esomeprazole (NEXIUM) 20 mg capsule Take 1 capsule by mouth once daily. 90 capsule 3 insulin NPH human (HUMULIN N NPH INSULIN KWIKPEN) 100 unit/mL (3 mL) injection pen 12 units at bedtime 5 Each 5 insulin lispro (HUMALOG KWIKPEN INSULIN) 100 unit/mL 10 units prior to dinner + scale 5 Each 5 Insulin Wheeler, Disposable, (BD ULTRAFINE III MINI PEN) 31 gauge x 3/16 Twice/day 100 Each 5 blood sugar diagnostic test strip Use as directed to check glucose levels up to seven times daily. 200 Strip 8 Lancets lancets Use as directed to check glucose levels up to seven times daily. 200 Each 8 alcohol swabs (ALCOHOL PREP PADS) Use as directed to check glucose levels up to seven times daily. 200 Each 8 ferrous sulfate (IRON) 325 mg (65 mg iron) tablet Take 1 tablet by mouth twice daily. 180 tablet 1 FLOVENT HFA 110 mcg/actuation inhaler Inhale 1 Puff as instructed twice daily. Shake well before use. Rinse mouth after use. 1 Each 2 albuterol HFA (PROVENTIL HFA, VENTOLIN HFA) 90 mcg/actuation inhaler Inhale 2 Puffs as instructed every 6 hours as needed for wheezing/shortness of breath. 1 Each 2 ARIPiprazole (ABILIFY) 10 mg tablet Take 1 tablet by mouth daily at bedtime. 90 tablet 3 sertraline (ZOLOFT) 100 mg tablet Take 1 tablet by mouth once daily. 90 tablet 3 No current facility-administered medications for this visit. Allergies As of Date: 07/13/2023 Allergen Noted Reaction BEE POLLEN 04/21/2023 Hives VENOM-HONEY BEE 04/08/2022 Anaphylaxis and Swelling BEESWAX 04/21/2023 Hives CEFACLOR 09/22/2012 Unknown and Hives Fully Assessed 07/10/2023 REVIEW OF SYSTEMS: General: no fever and no chills, 35lbs weight gain. Skin: no rashes, pruritis or dry skin Eyes: no blurred or double vision or eye pain Cardiac: denies chest pain, heart palpitations or orthopnea Pulmonary: denies wheezing, productive cough or exertional dyspnea GI: denies n (more content not included)... [facility] 07-10-2023 Note HNO ID: [id number] Author: Ashlyn Cotton MD Service: ? Author Type: Physician Type: Progress Notes Filed: 07/10/2023 1:08 PM Note Text: a [facility] 07-10-2023 Note HNO ID: [id number] Author: Ashlyn Cotton MD Service: ? Author Type: Physician Type: Progress Notes Filed: 07/10/2023 1:08 PM Note Text: NST SUMMARY PROVIDER ASSESSMENT AND INTERPRETATION Indications for NST: Diabetes - Insulin Controlled and Obesity Baseline: 135 Variability: Moderate Accelerations: Present 15 X 15 Decelerations: None Interpretation: Category I and Reactive [facility]- no regular ctx SIGNATURE: Ashlyn Cotton M.D. [facility] 07-10-2023 History of Presen t illness Narrative a NST SUMMARY PROVIDER ASSESSMENT AND INTERPRETATION Indications for NST: Diabetes - Insulin Controlled and Obesity Baseline: 135 Variability: Moderate Accelerations: Present 15 X 15 Decelerations: None Interpretation: Category I and Reactive [facility]- no regular ctx SIGNATURE: Ashlyn Cotton M.D. documented in this encounter [facility] 07-10-2023 Miscellaneous Notes RR- VB No. LOF No. CTXS No. Movement: present. Other c/o: No. Medication list reviewed. Physical Exam See Flow Sheet Abd: soft, nontender, gravid Ext: edema: 1+ A/P 32w6d Estimated Date of Delivery: 08/29/23 Reviewed BS log. Many elevated. Insulin recently adjusted by endocrine. Has a f/u appointment w/ them for GDMA2 next week. Encouraged to cont to monitor BS and bring each appointment and keep endocrine appointment GDMA2, not well controlled, getting weekly BPP alternating w/ NSTs bipolar- cont. current meds Anemia- cont. fe nst today rective Ashlyn Cotton M.D. documented in this encounter [facility] 07-10-2023 Instructions Tiki Mars Ma - 07/10/2023 9:10 AM EDT SEQUENTIAL SCREENINGS The [facility] offers sequential screenings for women who are interested in screenings for chromosomal abnormalities and certain defects during a . The sequential screen combines ultrasound and blood tests to determine the risk of chromosomal abnormalities, including Down's Syndrome (Trisomy 21) and Trisomy 18, as well as open neural tube defects including spina bifida. Ultrasound examination is performed between 11 weeks and 13 weeks gestational age. Blood tests are drawn after the ultrasound and again later in the between 15 and 21 weeks gestational age. Please let your physician know if you are interested in this testing. It will require an appointment with our document image technician. This is not an ultrasound performed by a physician in our office during a routine visit. SIGNS AND SYMPTOMS OF LABOR 1. Contractions every 10 minutes or more often 2. Clear, pink, or brownish fluid (water) leaking from vagina 3. Feeling that baby is pushing down, pressure 4. Low, dull backache 5. Cramps that feel like a period 6. Cramps with or without diarrhea If you notice any of the above symptoms, contact our office at [phone] and ask to speak with a nurse. After hours, you can call doctors registry at [phone] OR call [facility] at [phone] and ask to have the doctor plant taxonomist paged. If you consider this an emergency, dial [phone] or go to your nearest emergency department. NEED HELP? Are you dealing with a violent or abusive relationship? Are you a victim of rape or sexual assult? Call [facility] ([place]) 24 hour Crisis Hotline: 124.895.3297 or 985-497-8016. MANUAL Your Guide to a Healthy manual is now on-line. Visit [email or web address] to download your free copy documented in this encounter [facility] 07-07-2023 Miscellaneous Notes Reviewed BG data- responded as follows Good afternoon- I reviewed your BG data- these numbers are not quite at goal- I would recommend that you adjust insulin as follows: increase NPH to 12 units at bedtime increase Humalog to 10 units prior to dinner. In addition- I would recommend that you take 5 units of additional Humalog with higher carb meals (means if you eat something that you think will increase your blood glucose- take the additional Humalog). Mason with * on your log book if/when you take the additional Humalog so i can see if it is working or not. Will review again next week- thanks! KB documented in this encounter [facility] 07-07-2023 Note HNO ID: [id number] Author: Georgette Solis MD Service: ? Author Type: Physician Type: Progress Notes Filed: 07/22/2023 8:27 AM Note Text: OBSTETRICS MATERNAL MEDICINE CONSULT SERVICE DATE: July 07, 2023 SERVICE TIME: 1130 REQUESTING PROVIDER: Dr Buckner, Dr Cotton Subjective HISTORY OF THE PRESENT ILLNESS: Digna is a 28 year old female, , who is at 32w3d with an JORDEN of 08/29/2023, by Last Menstrual Period dating method. She presents today for ultrasound surveillance and discuss complication of gestational diabetes on insulin. is also complicated by history of bipolar disorder and history of nausea/vomiting this . She denies history of GDM in prior pregnancies She reports that prior neonates weighed 6lbs and 7lbs, respectively This she had one hour GTT of 205 She was referred to Dr. Wolfe with endocrinology, also completed diabetes education. Currently she is taking NPH 7u nightly and Lispro 8 units with dinner (increased on 06/30) Since then fasting remain mildly elevated and post-prandial mostly mildly elevated - She plans to review with endocrine team today and anticipates increasing insulin Her growth ultrasound on 06/20/23 at 30w0d showed EFW 51%ile, AC was 64%ile, normal fluid Patient was previously receiving care in [facility] however has transferred to [facility] and planning to deliver at [facility] She reports she is doing fairly well from mood perspective and denies any other active concerns regarding visit today. HISTORY REVIEW PAST MEDICAL HISTORY Diagnosis Date Asthma PRN inhaler. worse as child. Bipolar 1 disorder, depressed (HCC) Hyperemesis gravidarum depression PTSD (post-traumatic stress disorder) No past surgical history on file. FAMILY HISTORY Problem Relation Age of Onset Breast Cancer Maternal Grandmother Social History Tobacco Use Smoking status: Former Types: Cigarettes Smokeless tobacco: Never Vaping Use Vaping Use: current everyday user Substances: Nicotine, Flavoring Devices: Disposable Substance Use Topics Alcohol use: Not Currently Drug use: Never Obstetric History T2 L2 SAB0 IAB0 Ectopic0 Multiple0 Live Births2 Name of Baby 1: Not recorded Date: 02/15/18 GA: 40w0d Delivery: Vaginal, Spontaneous Apgar1: Not recorded Apgar5: Not recorded Living: Living Name of Baby 2: Not recorded Date: 04/08/22 GA: 39w0d Delivery: Vaginal, Spontaneous Apgar1: Not recorded Apgar5: Not recorded Living: Living Name of Baby 3: Not recorded Date: Not recorded GA: Not recorded Delivery: Not recorded Apgar1: Not recorded Apgar5: Not recorded Living: Not recorded Active Non-Hospital Problems Diagnosis Date Noted Insulin controlled gestational diabetes mellitus (GDM) in third trimester 06/08/2023 Overview Note: One hour >200 For teaching and nutrition Monthly growth scans Anemia complicating , third trimester 06/08/2023 Overview Note: hgb 10.7 at 28 weeks. 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 Having issues with work. Requesting letter saying she doesn't need to work until she sees new psychiatrist in May. She sees counselor weekly. Advised to have couselor send recommendation here first. ALLERGIES Allergen Reactions Bee Pollen Hives Venom-Honey Bee Anaphylaxis, Swelling Beeswax Hives Cefaclor Unknown, Hives Unknown PRIOR TO ADMISSION MEDICATIONS: Current Outpatient Medications Medication Instructions albuterol HFA (PROVENTIL HFA, VENTOLIN HFA) 90 mcg/actuation inhaler 2 Puffs, INHALATION, EVERY 6 HOURS NEEDED alcohol swabs (ALCOHOL PREP PADS) Use as directed to check glucose levels up to seven times daily. ARIPiprazole (ABILIFY) 10 mg, ORAL, AT BEDTIME blood sugar diagnostic test strip Use as directed to check glucose levels up to seven times daily. esomeprazole (NEXIUM) 20 mg, ORAL, DAILY ferrous sulfate (IRON) 325 mg, ORAL, 2 TIMES DAILY FLOVENT HFA 110 mcg/actuation inhaler 1 Puff, INHALATION, 2 TIMES DAILY, Shake well before use. Rinse mouth after use. insulin lispro (HUMALOG KWIKPEN INSULIN) 100 unit/mL 8 units prior to dinner Insulin Wheeler, Disposable, (BD ULTRAFINE III MINI PEN) 31 gauge x 3/16 Twice/day insulin NPH human (HUMULIN N NPH INSULIN KWIKPEN) 100 unit/mL (3 mL) injection pen 7 units at bedtime Lancets lancets Use as directed to check glucose levels up to seven times daily. sertraline (ZOLOFT) 100 mg, ORAL, DAILY REVIEW OF SYSTEMS: Occasional nausea/vomiting after iron supplement The remainder of the review (more content not included)... [facility] 07-07-2023 History of Presen t illness Narrative OBSTETRICS MATERNAL MEDICINE CONSULT SERVICE DATE: July 07, 2023 SERVICE TIME: 1130 REQUESTING PROVIDER: Dr Buckner, Dr Cotton Subjective HISTORY OF THE PRESENT ILLNESS: Digna is a 28 year old female, , who is at 32w3d with an JORDEN of 08/29/2023, by Last Menstrual Period dating method. She presents today for ultrasound surveillance and discuss complication of gestational diabetes on insulin. is also complicated by history of bipolar disorder and history of nausea/vomiting this . She denies history of GDM in prior pregnancies She reports that prior neonates weighed 6lbs and 7lbs, respectively This she had one hour GTT of 205 [address] was referred to Dr. Wolfe with endocrinology, also completed diabetes education. Currently she is taking NPH 7u nightly and Lispro 8 units with dinner (increased on 06/30) Since then fasting remain mildly elevated and post-prandial mostly mildly elevated - She plans to review with endocrine team today and anticipates increasing insulin Her growth ultrasound on 06/20/23 at 30w0d showed EFW 51%ile, AC was 64%ile, normal fluid Patient was previously receiving care in [facility] however has transferred to [facility] and planning to deliver at [facility] She reports she is doing fairly well from mood perspective and denies any other active concerns regarding visit today. HISTORY REVIEW PAST MEDICAL HISTORY Diagnosis Date Asthma PRN inhaler. worse as child. Bipolar 1 disorder, depressed (HCC) Hyperemesis gravidarum depression PTSD (post-traumatic stress disorder) No past surgical history on file. FAMILY HISTORY Problem Relation Age of Onset Breast Cancer Maternal Grandmother Social History Tobacco Use Smoking status: Former Types: Cigarettes Smokeless tobacco: Never Vaping Use Vaping Use: current everyday user Substances: Nicotine, Flavoring Devices: Disposable Substance Use Topics Alcohol use: Not Currently Drug use: Never Obstetric History T2 L2 SAB0 IAB0 Ectopic0 Multiple0 Live Births2 Name of Baby 1: Not recorded Date: 02/15/18 GA: 40w0d Delivery: Vaginal, Spontaneous Apgar1: Not recorded Apgar5: Not recorded Living: Living Name of Baby 2: Not recorded Date: 04/08/22 GA: 39w0d Delivery: Vaginal, Spontaneous Apgar1: Not recorded Apgar5: Not recorded Living: Living Name of Baby 3: Not recorded Date: Not recorded GA: Not recorded Delivery: Not recorded Apgar1: Not recorded Apgar5: Not recorded Living: Not recorded Active Non-Hospital Problems Diagnosis Date Noted Insulin controlled gestational diabetes mellitus (GDM) in third trimester 06/08/2023 Overview Note: One hour >200 For teaching and nutrition Monthly growth scans Anemia complicating , third trimester 06/08/2023 Overview Note: hgb 10.7 at 28 weeks. 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 Having issues with work. Requesting letter saying she doesn't need to work until she sees new psychiatrist in May. She sees counselor weekly. Advised to have couselor send recommendation here first. ALLERGIES Allergen Reactions Bee Pollen Hives Venom-Honey Bee Anaphylaxis, Swelling Beeswax Hives Cefaclor Unknown, Hives Unknown PRIOR TO ADMISSION MEDICATIONS: Current Outpatient Medications Medication Instructions albuterol HFA (PROVENTIL HFA, VENTOLIN HFA) 90 mcg/actuation inhaler 2 Puffs, INHALATION, EVERY 6 HOURS NEEDED alcohol swabs (ALCOHOL PREP PADS) Use as directed to check glucose levels up to seven times daily. ARIPiprazole (ABILIFY) 10 mg, ORAL, AT BEDTIME blood sugar diagnostic test strip Use as directed to check glucose levels up to seven times daily. esomeprazole (NEXIUM) 20 mg, ORAL, DAILY ferrous sulfate (IRON) 325 mg, ORAL, 2 TIMES DAILY FLOVENT HFA 110 mcg/actuation inhaler 1 Puff, INHALATION, 2 TIMES DAILY, Shake well before use. Rinse mouth after use. insulin lispro (HUMALOG KWIKPEN INSULIN) 100 unit/mL 8 units prior to dinner Insulin Wheeler, Disposable, (BD ULTRAFINE III MINI PEN) 31 gauge x 3/16 Twice/day insulin NPH human (HUMULIN N NPH INSULIN KWIKPEN) 100 unit/mL (3 mL) injection pen 7 units at bedtime Lancets lancets Use as directed to check glucose levels up to seven times daily. sertraline (ZOLOFT) 100 mg, ORAL, DAILY REVIEW OF SYSTEMS: Occasional nausea/vomiting after iron supplement The remainder of the review of systems is negative. Objective LAST VITALS: BP 98/66 Wt 198 lb 6.4 oz (90 kg) LMP 11/22/2022 BMI 38.75 kg/m PHYSICAL EXAM: General: WD, WN HEENT: NC/AT, sclera white, pupils equal Lungs: normal respiratory effort Abdomen: soft, nontender during US exam FHT: Present on US LABS Diagnostic tests reviewed relevant to today's visit: as noted in HPI Impression/Recommendations 28 year old EGA:32w3d with GDM on insulin, overall doing well with normal growth and reassuring testing. Glucose log with some elevations, working with endocrinology team with likely increase in insulin over coming week(s). We discussed that diabetes in has both and maternal sequelae, which are directly related to maternal glucose control. Women with GDM have higher risk of growth abnormalities, need for delivery, defects, , complications including stillbirth, and risk for diabetes and cardiovascular disease later in life in both mother and offspring. These risks are decreased with optimal glucose control. She will continue working with endocrinology team for optimization, and continue dietary modifications. There is increased risk for hypertensive disorders of although prior pregnancies were not affected by hypertensive disorders. Healthy weight gain can optimize outcomes, current TWG 34 lb 6.4 oz (15.6 kg) therefore dietary attention and maintaining weight would be recommended. She is aware she is high risk for underlying insulin resistance outside of in context of very elevated one hour GTT. She plans to follow with video game designer during and for assessment/treatment as needed for underlying type 2 diabetes. We discussed serial growth ultrasounds in the third trimester, as well as twice weekly testing starting at 32 weeks. If her glucoses are well controlled and no complications develop, delivery by 39 weeks is recommended. PLAN: --Continue weekly glucose review with endocrinology --Serial growth ultrasounds in third trimester --Twice weekly testing 32 weeks --Anticipate delivery 39 weeks unless control difficult or complications arise --T2DM screening with endocrinology Medical Decision Making: Problems: Low: Stable chronic illness Moderate: New problem with uncertain prognosis Risk: Moderate: Moderate risk from testing/treatment Medical Decision Making Level: 4 - Moderate SIGNATURE: Georgette Solis MD PATIENT NAME: Digna Kraus DATE: July 07, 2023 TIME: 11:28 AM documented in this encounter [facility] 06-30-2023 Miscellaneous Notes Reviewed BG data- responded as follows: Good morning- I reviewed your BG data- I recommend that you increase NPH to 7 units at bedtime continue Humalog to 8 units prior to dinner Will review again next week- thanks! KB documented in this encounter [facility] 06-25-2023 Miscellaneous Notes S: Digna Kraus is a 28 year old female who presents at 30.5 weeks gestation to [place] office for a routine visit. She has been receiving care at [facility] because she was told there were no appointments available in [place]. She lives in [place] and desires delivery at [place]. Seen by MFM and being followed for GDM A2. Just started on insulin regimen last week. Has not picked up NPH insulin to date. Sending blood sugar results to Dr. Wolfe- Endocrinology. Feeling good. Positive movement. Denies headache, visual changes, chest pain, shortness of breath, vaginal bleeding, leakage of fluid, or dysuria. Feeling well, no complaints. O: See flow sheet Gen: No apparent distress Abd: Gravid, non tender S>D, measuring 4 weeks ahead ASSESSMENT/PLAN: 1. 30 weeks gestation of - ICD9: V22.2, ICD10: Z3A.30 (primary diagnosis) 2. Anemia complicating , third trimester - ICD9: 648.23, 285.9, ICD10: O99.013 3. Insulin controlled gestational diabetes mellitus (GDM) in third trimester - ICD9: 648.83, ICD10: O24.414 4. Bipolar disease during , antepartum (HCC) - ICD9: 648.43, 296.80, ICD10: O99.340, F31.9 P: 1) Continue present plan of care through Endocrinology Continue oral iron Weekly BPP and NST's starting at 32 weeks gestation Growth US already completed on 06/20/23- repeat in 4 weeks Schedule remaining appointments here in [place] office- I assisted patient with this Physician only patient 2) RTO 2 weeks or sooner if needed labor precautions reviewed and when to notify office Gabby Samuel APRN.CNM documented in this encounter [facility] 06-25-2023 Instructions Yaron Tobias Cma - 06/25/2023 10:22 AM EDT SEQUENTIAL SCREENINGS The [facility] offers sequential screenings for women who are interested in screenings for chromosomal abnormalities and certain defects during a . The sequential screen combines ultrasound and blood tests to determine the risk of chromosomal abnormalities, including Down's Syndrome (Trisomy 21) and Trisomy 18, as well as open neural tube defects including spina bifida. Ultrasound examination is performed between 11 weeks and 13 weeks gestational age. Blood tests are drawn after the ultrasound and again later in the between 15 and 21 weeks gestational age. Please let your physician know if you are interested in this testing. It will require an appointment with our document image technician. This is not an ultrasound performed by a physician in our office during a routine visit. SIGNS AND SYMPTOMS OF LABOR 1. Contractions every 10 minutes or more often 2. Clear, pink, or brownish fluid (water) leaking from vagina 3. Feeling that baby is pushing down, pressure 4. Low, dull backache 5. Cramps that feel like a period 6. Cramps with or without diarrhea If you notice any of the above symptoms, contact our office at [phone] and ask to speak with a nurse. After hours, you can call doctors registry at [phone] OR call [facility] at [phone] and ask to have the doctor plant taxonomist paged. If you consider this an emergency, dial 9--6 or go to your nearest emergency department. NEED HELP? Are you dealing with a violent or abusive relationship? Are you a victim of rape or sexual assult? Call [facility] ([place]) 24 hour Crisis Hotline: 701.109.4880 or 801-726-0951. MANUAL Your Guide to a Healthy manual is now on-line. Visit [email or web address] to download your free copy documented in this encounter [facility] 06-24-2023 Note HNO ID: [id number] Author: Jameson Hernandez RN Service: ? Author Type: Registered Nurse Type: Progress Notes Filed: 06/24/2023 9:48 AM Note Text: DIABETES SELF-MANAGEMENT EDUCATION AND SUPPORT Location: [place] Type of visit: Virtual (with video) individual I have communicated my name and active licensure. The patient's identity and physical location were verified at the time of this visit. Either the patient or their legal provider relations representative has been informed of the risks and benefits of -- and alternatives to -- treatment through a remote evaluation and consents to proceed with the evaluation remotely. Types of DSMES: Initial/Comprehensive (add to or update ADA spreadsheet) PATIENT'S MAIN CONCERN TODAY: none Support person present for education today: none Cognitive ability: Alert and oriented Motivation to learn: Interested Learning barriers identified by educator: none Method of instruction: written, verbal, and computer INTERVENTIONS/TOPICS COVERED: -Diabetes Pathophysiology: gestational diabetes basics -Monitoring: BG targets, rationale for HGM, logging, and testing frequency -Healthy Eating: impact of carbs on BG, basic carb counting, foods with carbs, portion sizes, carb counting tools (books, Internet, smartphone apps), and Breakfast: 30 grams, Morning Snack: 15-30 grams, Lunch: 45 grams, Afternoon Snack: 15-30 grams, Dinner: 45 grams, Evening Snack: 30 grams. -Medications: site selection/rotation and injectable insulin discussed: lispro (Humalog) and NPH Insulin -Physical Activity: impact of exercise on BG -Acute Complications: hypoglycemia s/sx/tx -Chronic Complications: risks to mom and baby with elevated blood sugars during DIABETES ASSESSMENT: Referring Physician: Jules Wolfe Previous Diabetes Education? No What are you hoping to gain from this visit? asked/not answered In your words, what is gestational diabetes? asked/not answered What concerns you about having gestational diabetes? asked/not answered Diabetes History: Type of Diabetes: Gestational ( diabetes in ) How far along is your ? Weeks: 30 Does anyone in your family have diabetes? 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 never How often does someone help you read your pill bottles? never How often does someone have to help you take care of your diabetes? never Major stressors:asked/not answered How do you manage stress? asked/not answered Do any of the following things get in the way of managing your diabetes? Asked/not answered Health History: Do you use tobacco? No Do you use alcohol? No In the past 12 months have you had any: Hospital Admissions: Asked/not answered ER Visits: Asked/not answered Primary Care Visits: Asked/not answered What are your general feelings about you overall health? Asked/not answered Medical Issues/Complications: None To whom are you reporting your blood sugar levels? High-Risk OB PAST MEDICAL HISTORY Diagnosis Date Asthma PRN inhaler. worse as child. Bipolar 1 disorder, depressed (HCC) Hyperemesis gravidarum depression PTSD (post-traumatic stress disorder) Most recent A1C Lab Results Component Value Date HBA1C 5.8 06/17/2023 Physical Activity: Do you do a regular exercise? No Sleep: Do you get at least 7 hrs of sleep most nights? asked/not answered Current Outpatient Medications Medication Sig insulin lispro (HUMALOG KWIKPEN INSULIN) 100 unit/mL 8 units prior to dinner insulin NPH human (HUMULIN N NPH INSULIN KWIKPEN) 100 unit/mL (3 mL) injection pen 5 units at bedtime Insulin Wheeler, Disposable, (BD ULTRAFINE III MINI PEN) 31 gauge x 3/16 Twice/day blood sugar diagnostic test strip Use as directed to check glucose levels up to seven times daily. Lancets lancets Use as directed to check glucose levels up to seven times daily. alcohol swabs (ALCOHOL PREP PADS) Use as directed to check glucose levels up to seven times daily. ferrous sulfate (IRON) 325 mg (65 mg iron) tablet Take 1 tablet by mouth twice daily. FLOVENT HFA 110 mcg/actuation inhaler Inhale 1 Puff as instructed twice daily. Shake well before use. Rinse mouth after use. albuterol HFA (PROVENTIL HFA, VENTOLIN HFA) 90 mcg/actuation inhaler Inhale 2 Puffs as instructed every 6 hours as needed for wheezing/shortness of breath. ARIPiprazole (ABILIFY) 10 mg tablet Take 1 tablet by mouth daily at bedtime. esomeprazole (NEXIUM) 20 mg capsule Take 1 capsule by mouth once daily. sertral (more content not included)... [facility] 06-24-2023 History of Presen t illness Narrative DIABETES SELF-MANAGEMENT EDUCATION AND SUPPORT Location: [place] Type of visit: Virtual (with video) individual I have communicated my name and active licensure. The patient's identity and physical location were verified at the time of this visit. Either the patient or their legal provider relations representative has been informed of the risks and benefits of -- and alternatives to -- treatment through a remote evaluation and consents to proceed with the evaluation remotely. Types of DSMES: Initial/Comprehensive (add to or update ADA spreadsheet) PATIENT'S MAIN CONCERN TODAY: none Support person present for education today: none Cognitive ability: Alert and oriented Motivation to learn: Interested Learning barriers identified by educator: none Method of instruction: written, verbal, and computer INTERVENTIONS/TOPICS COVERED: -Diabetes Pathophysiology: gestational diabetes basics -Monitoring: BG targets, rationale for HGM, logging, and testing frequency -Healthy Eating: impact of carbs on BG, basic carb counting, foods with carbs, portion sizes, carb counting tools (books, Internet, smartphone apps), and Breakfast: 30 grams, Morning Snack: 15-30 grams, Lunch: 45 grams, Afternoon Snack: 15-30 grams, Dinner: 45 grams, Evening Snack: 30 grams. -Medications: site selection/rotation and injectable insulin discussed: lispro (Humalog) and NPH Insulin -Physical Activity: impact of exercise on BG -Acute Complications: hypoglycemia s/sx/tx -Chronic Complications: risks to mom and baby with elevated blood sugars during DIABETES ASSESSMENT: Referring Physician: Jules Wofle Previous Diabetes Education? No What are you hoping to gain from this visit? asked/not answered In your words, what is gestational diabetes? asked/not answered What concerns you about having gestational diabetes? asked/not answered Diabetes History: Type of Diabetes: Gestational ( diabetes in ) How far along is your ? Weeks: 30 Does anyone in your family have diabetes? 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 never How often does someone help you read your pill bottles? never How often does someone have to help you take care of your diabetes? never Major stressors:asked/not answered How do you manage stress? asked/not answered Do any of the following things get in the way of managing your diabetes? Asked/not answered Health History: Do you use tobacco? No Do you use alcohol? No In the past 12 months have you had any: Hospital Admissions: Asked/not answered ER Visits: Asked/not answered Primary Care Visits: Asked/not answered What are your general feelings about you overall health? Asked/not answered Medical Issues/Complications: None To whom are you reporting your blood sugar levels? High-Risk OB PAST MEDICAL HISTORY Diagnosis Date Asthma PRN inhaler. worse as child. Bipolar 1 disorder, depressed (HCC) Hyperemesis gravidarum depression PTSD (post-traumatic stress disorder) Most recent A1C Lab Results Component Value Date HBA1C 5.8 06/17/2023 Physical Activity: Do you do a regular exercise? No Sleep: Do you get at least 7 hrs of sleep most nights? asked/not answered Current Outpatient Medications Medication Sig insulin lispro (HUMALOG KWIKPEN INSULIN) 100 unit/mL 8 units prior to dinner insulin NPH human (HUMULIN N NPH INSULIN KWIKPEN) 100 unit/mL (3 mL) injection pen 5 units at bedtime Insulin Wheeler, Disposable, (BD ULTRAFINE III MINI PEN) 31 gauge x 3/16 Twice/day blood sugar diagnostic test strip Use as directed to check glucose levels up to seven times daily. Lancets lancets Use as directed to check glucose levels up to seven times daily. alcohol swabs (ALCOHOL PREP PADS) Use as directed to check glucose levels up to seven times daily. ferrous sulfate (IRON) 325 mg (65 mg iron) tablet Take 1 tablet by mouth twice daily. FLOVENT HFA 110 mcg/actuation inhaler Inhale 1 Puff as instructed twice daily. Shake well before use. Rinse mouth after use. albuterol HFA (PROVENTIL HFA, VENTOLIN HFA) 90 mcg/actuation inhaler Inhale 2 Puffs as instructed every 6 hours as needed for wheezing/shortness of breath. ARIPiprazole (ABILIFY) 10 mg tablet Take 1 tablet by mouth daily at bedtime. esomeprazole (NEXIUM) 20 mg capsule Take 1 capsule by mouth once daily. sertraline (ZOLOFT) 100 mg tablet Take 1 tablet by mouth once daily. No current facility-administered medications for this visit. Medications for Diabetes: Name of Medication Dose When taken How often missed humalog Injections Technique: Do you take insulin or a medication you inject for your diabetes? Yes;then if so answer the following questions: How do you inject your medicine Pen Where are your injections done? Stomach/abdomen Who prepares your syringes, pen, or pump infusion set? Self Who gives you injections or changes your pump sites? Me Where do you throw away your needles? Trash Blood Sugar Monitoring: Do you have a blood sugar monitor? Yes; What kind of meter is it? How often do you check? 2-4 When you check? Before breakfast and 2 hours after meals. Do you log your blood sugars? Yes. Where do you throw away your lancets? Trash Management of Low Blood Sugar: What has been your lowest blood sugar in the last month? 60, noted when skipping lunch What are your symptoms of lows?Shaky How do you treat lows? Eat something sweet Do you drive? yes Management of High Blood Sugar: What has been you highest blood sugar in the last month? 140 What are your symptoms of highs? Asked/not answered How do you treat your highs? asked/not answered Meal Planning: Are you currently following any meal plan? None Who does the cooking in your house? Asked/not answered Who does the grocery shopping? Asked/not answered How often do you eat out? asked/not answered How many meals do you eat per day? Two Which meals do you tend to skip? Lunch Beverages: asked/not answered EDUCATION HANDOUTS: Healthy You: Survival Skills LEARNING RESPONSE: Diabetes pathophysiology: Demonstrated understanding/competency today or at previous visit Healthy eating: Demonstrated understanding/competency today or at previous visit Being active: Demonstrated understanding/competency today or at previous visit Taking medications: Demonstrated understanding/competency today or at previous visit Monitoring glucose: Demonstrated understanding/competency today or at previous visit Acute complications: Demonstrated understanding/competency today or at previous visit Chronic complications: Demonstrated understanding/competency today or at previous visit Healthy coping: Not assessed at the visit Diabetes distress and support: Not assessed at the visit PATIENT SELECTED THE FOLLOWING GOALS: -Pt declined POSSIBLE FUTURE TOPICS: 1. The following topics were not assessed due to time limitations, but should be assessed at the next visit: all areas were assessed today or within the last 12 months. 2. The following topics should be taught or reinforced at the next visit: per pt needs. DIABETES EDUCATION PLAN: Individual follow-up prn Time Spent (Minutes): 30 This visit note will be communicated to the healthcare provider via access to shared medical record. SIGNATURE: Jameson Hernandez RN PATIENT NAME: Digna Kraus DATE: June 24, 2023 TIME: 7:53 AM PAGER: documented in this encounter [facility] 06-19-2023 Miscellaneous Notes Reviewed BG data- responded as follows: Sherman Sawyer- I reviewed your BG data- are you doing ok with the insulin so far? Assuming so- lets adjust as follows: continue NPH 5 units at bedtime increase Humalog to 8 units prior to dinner Will review again next week- thanks! KB documented in this encounter [facility] 06-17-2023 Note HNO ID: [id number] Author: Jules Wolfe DO Service: ? Author Type: Physician Type: Progress Notes Filed: 06/17/2023 10:36 AM Note Text: Reason for consultation: Evaluation of gestational diabetes mellitus Referring Physician: Dr Buckner My final recommendations will be communicated back to the requesting physician by way of shared Medical record or letter via US mail. HISTORY OF PRESENT ILLNESS; Ms. Kraus is a 28 year old presenting at 29+ weeks gestation for consultation regarding her recent diagnosis of gestational diabetes. She was diagnosed with GDM after abnormal 1 hour GTT on 06/06/23. POC HbA1c today is 5.8%. She does not have a previous history of gestational diabetes. Has two children, 6lbs 11oz, and 7lbs 11oz , respectively. She has a family history of diabetes mellitus including her sister . Her prepregnancy weight was 160 lbs and her current weight is 199 lbs. Her dietary history is as follows: Breakfast: cereal or bagel or fruit. Lunch: pizza or sandwich Dinner: variable- doesn't eat out much She has been checking her blood glucose 4 times daily. Fasting 82-93 mg/dL 2 hour post meal 67-182 mg/dL. Hypoglycemia frequency: n/a Hypoglycemia awareness: n/a Hyperglycemia Symptoms: denies blurry vision reports polyuria denies polydipsia reports nocturia denies rapid weight loss Last visit with Dr Buckner was 06/08- Last u/s was 05/19/23- [facility] [address] cent[address], [facility], [place]- having a boy! PAST MEDICAL HISTORY Diagnosis Date Asthma PRN inhaler. worse as child. Bipolar 1 disorder, depressed (HCC) Hyperemesis gravidarum depression PTSD (post-traumatic stress disorder) No past surgical history on file. FAMILY HISTORY Problem Relation Age of Onset Breast Cancer Maternal Grandmother Social History Tobacco Use Smoking status: Former Types: Cigarettes Smokeless tobacco: Never Vaping Use Vaping Use: current everyday user Substances: Nicotine, Flavoring Devices: Disposable Substance Use Topics Alcohol use: Not Currently Drug use: Never Current Outpatient Medications Medication Sig Dispense Refill blood sugar diagnostic test strip Use as directed to check glucose levels up to seven times daily. 200 Strip 8 Lancets lancets Use as directed to check glucose levels up to seven times daily. 200 Each 8 alcohol swabs (ALCOHOL PREP PADS) Use as directed to check glucose levels up to seven times daily. 200 Each 8 ferrous sulfate (IRON) 325 mg (65 mg iron) tablet Take 1 tablet by mouth twice daily. 180 tablet 1 FLOVENT HFA 110 mcg/actuation inhaler Inhale 1 Puff as instructed twice daily. Shake well before use. Rinse mouth after use. 1 Each 2 albuterol HFA (PROVENTIL HFA, VENTOLIN HFA) 90 mcg/actuation inhaler Inhale 2 Puffs as instructed every 6 hours as needed for wheezing/shortness of breath. 1 Each 2 ARIPiprazole (ABILIFY) 10 mg tablet Take 1 tablet by mouth daily at bedtime. 90 tablet 3 esomeprazole (NEXIUM) 20 mg capsule Take 1 capsule by mouth once daily. 90 capsule 3 sertraline (ZOLOFT) 100 mg tablet Take 1 tablet by mouth once daily. 90 tablet 3 No current facility-administered medications for this visit. Allergies As of Date: 06/17/2023 Allergen Noted Reaction BEE POLLEN 04/21/2023 Hives VENOM-HONEY BEE 04/08/2022 Anaphylaxis and Swelling BEESWAX 04/21/2023 Hives CEFACLOR 09/22/2012 Unknown and Hives Fully Assessed 06/08/2023 REVIEW OF SYSTEMS: General: no fever and no chills, 35lbs weight gain. Skin: no rashes, pruritis or dry skin Eyes: no blurred or double vision or eye pain Cardiac: denies chest pain, heart palpitations or orthopnea Pulmonary: denies wheezing, productive cough or exertional dyspnea GI: denies nausea and denies vomiting Musc: denies history of upper or lower extremity weakness Reproductive: gravid at 29+ weeks gestation, Endocrine: complains of polyuria and nocturia Hematology: Negative for anemia, easy bleeding and bruising. PHYSICAL EXAM: BP 101/58 Pulse 110 Wt 90.6 kg (199 lb 12.8 oz) LMP 11/22/2022 BMI 39.02 kg/m? GENERAL: Alert, no distress, cooperative SKIN: Skin color, texture, turgor normal. No rashes or lesions. HEAD/SINUSES: No significant findings EYES: sclera non-icteric, EOMs intact ABDOMEN: gravid at 29 weeks EXTREMITIES: Normal exam of the extremities NEURO: AAO x 3, no focal deficits. The remainder of the physical exam is noncontributory. DATA: Component Latest Ref Rng AND Units 06/06/2023 Glucose Scrn, Preg 74 - 134 mg/dL 205 (H) IMPRESSION: Ms. Kraus is a 28 year old female at 29+ weeks gestation here for evaluation of gestational diabetes mellitus RECOMMENDATIONS: 1. The patient was counseled regarding the maternal and risks of hyperglycemia during . risks include, but are not limited to: congenital abnormalities, hypoxia and stillbirth, macrosomia, shoulder dystocia and neonata (more content not included)... [facility] 06-17-2023 Nurse Note AMBULATORY PATIENT EDUCATION NOTE TOPIC: SURVIVAL SKILLS: Medication Administration iNSULIN pEN READINESS TO LEARN COGNITIVE ABILITY: Alert and oriented MOTIVATION TO LEARN: Interested FAMILY SUPPORT: Unable to assess - Family not present INSTRUCTION PROVIDED TO: Patient PATIENT LEARNS BEST BY: Individual Instruction Written Instruction - Hand-outs Verbal Instruction Demonstration FACTORS AFFECTING LEARNING: None PHYSICAL LIMITATIONS AFFECTING LEARNING: None LEARNING RESPONSE DIAGNOSIS: gdm METHOD OF INSTRUCTION: Individual instruction Written instruction - handouts Verbal instruction Demonstration-Hands on Learning PATIENT / FAMILY RESPONSE: Verbalizes understanding of: SELF INJECTION- Correct procedure to administer self injection using clean technique FOLLOW-UP PLAN: Patient instructed to call with any further issues Recommend - Recommend continued instruction and follow up as directed SUPPLEMENTAL MATERIAL: Diabetes Guide REFERRAL (RECOMMENDATION): Nutrition (Outpatient) Electronically Signed By: Amy Ruiz RN In Department: ENDOCRINOLOGY Time spent on patient education: 25 minutes. documented in this encounter [facility] 06-17-2023 Instructions Jules Wolfe DO - 06/17/2023 10:27 AM EDT 1) check your sugars fasting (60-90 mg/dL) and 2 hours post meal (less than 120 mg/dL) 2) forward me your blood glucose data weekly ( )- send in the next few days. 3) see diabetes education (virtual visit ok) 4) start insulin as follows: NPH 5 units at bedtime Humalog 5 units prior to dinner 5) see me in 4 weeks (virtual visit ok) documented in this encounter [facility] 06-17-2023 History of Presen t illness Narrative Reason for consultation: Evaluation of gestational diabetes mellitus Referring Physician: Dr Buckner My final recommendations will be communicated back to the requesting physician by way of shared Medical record or letter via [place] mail. HISTORY OF PRESENT ILLNESS; Ms. Kraus is a 28 year old presenting at 29+ weeks gestation for consultation regarding her recent diagnosis of gestational diabetes. She was diagnosed with GDM after abnormal 1 hour GTT on 06/06/23. POC HbA1c today is 5.8%. She does not have a previous history of gestational diabetes. Has two children, 6lbs 11oz, and 7lbs 11oz , respectively. She has a family history of diabetes mellitus including her sister . Her prepregnancy weight was 160 lbs and her current weight is 199 lbs. Her dietary history is as follows: Breakfast: cereal or bagel or fruit. Lunch: pizza or sandwich Dinner: variable- doesn't eat out much She has been checking her blood glucose 4 times daily. Fasting 82-93 mg/dL 2 hour post meal 67-182 mg/dL. Hypoglycemia frequency: n/a Hypoglycemia awareness: n/a Hyperglycemia Symptoms: denies blurry vision reports polyuria denies polydipsia reports nocturia denies rapid weight loss Last visit with Dr Buckner was 06/08- Last u/s was 05/19/23- [facility] [address], [place] [facility], [place]- having a boy! PAST MEDICAL HISTORY Diagnosis Date Asthma PRN inhaler. worse as child. Bipolar 1 disorder, depressed (HCC) Hyperemesis gravidarum depression PTSD (post-traumatic stress disorder) No past surgical history on file. FAMILY HISTORY Problem Relation Age of Onset Breast Cancer Maternal Grandmother Social History Tobacco Use Smoking status: Former Types: Cigarettes Smokeless tobacco: Never Vaping Use Vaping Use: current everyday user Substances: Nicotine, Flavoring Devices: Disposable Substance Use Topics Alcohol use: Not Currently Drug use: Never Current Outpatient Medications Medication Sig Dispense Refill blood sugar diagnostic test strip Use as directed to check glucose levels up to seven times daily. 200 Strip 8 Lancets lancets Use as directed to check glucose levels up to seven times daily. 200 Each 8 alcohol swabs (ALCOHOL PREP PADS) Use as directed to check glucose levels up to seven times daily. 200 Each 8 ferrous sulfate (IRON) 325 mg (65 mg iron) tablet Take 1 tablet by mouth twice daily. 180 tablet 1 FLOVENT HFA 110 mcg/actuation inhaler Inhale 1 Puff as instructed twice daily. Shake well before use. Rinse mouth after use. 1 Each 2 albuterol HFA (PROVENTIL HFA, VENTOLIN HFA) 90 mcg/actuation inhaler Inhale 2 Puffs as instructed every 6 hours as needed for wheezing/shortness of breath. 1 Each 2 ARIPiprazole (ABILIFY) 10 mg tablet Take 1 tablet by mouth daily at bedtime. 90 tablet 3 esomeprazole (NEXIUM) 20 mg capsule Take 1 capsule by mouth once daily. 90 capsule 3 sertraline (ZOLOFT) 100 mg tablet Take 1 tablet by mouth once daily. 90 tablet 3 No current facility-administered medications for this visit. Allergies As of Date: 06/17/2023 Allergen Noted Reaction BEE POLLEN 04/21/2023 Hives VENOM-HONEY BEE 04/08/2022 Anaphylaxis and Swelling BEESWAX 04/21/2023 Hives CEFACLOR 09/22/2012 Unknown and Hives Fully Assessed 06/08/2023 REVIEW OF SYSTEMS: General: no fever and no chills, 35lbs weight gain. Skin: no rashes, pruritis or dry skin Eyes: no blurred or double vision or eye pain Cardiac: denies chest pain, heart palpitations or orthopnea Pulmonary: denies wheezing, productive cough or exertional dyspnea GI: denies nausea and denies vomiting Musc: denies history of upper or lower extremity weakness Reproductive: gravid at 29+ weeks gestation, Endocrine: complains of polyuria and nocturia Hematology: Negative for anemia, easy bleeding and bruising. PHYSICAL EXAM: BP 101/58 Pulse 110 Wt 90.6 kg (199 lb 12.8 oz) LMP 11/22/2022 BMI 39.02 kg/m GENERAL: Alert, no distress, cooperative SKIN: Skin color, texture, turgor normal. No rashes or lesions. HEAD/SINUSES: No significant findings EYES: sclera non-icteric, EOMs intact ABDOMEN: gravid at 29 weeks EXTREMITIES: Normal exam of the extremities NEURO: AAO x 3, no focal deficits. The remainder of the physical exam is noncontributory. DATA: Component Latest Ref Rng & Units 06/06/2023 Glucose Scrn, Preg 74 - 134 mg/dL 205 (H) IMPRESSION: Ms. Kraus is a 28 year old female at 29+ weeks gestation here for evaluation of gestational diabetes mellitus RECOMMENDATIONS: 1. The patient was counseled regarding the maternal and risks of hyperglycemia during . risks include, but are not limited to: congenital abnormalities, hypoxia and stillbirth, macrosomia, shoulder dystocia and hypoglycemia. Maternal risks include increased risks of pre-eclampsia and delivery. 2. I recommend the patient check her blood glucose fasting and 2 hour after each meal, we have provided her with a glucometer if she does not have one. The following blood glucose targets were discussed: fasting blood glucose concentration between 60-90 mg/dL, and 2 hour postprandial blood glucose concentration of less than 120 mg/dL. She was encouraged to limit carbohydrate intake, to walk after meals, (if not contraindicated) and will be scheduled with our dietitian, (if not done already). Regarding her blood glucose management, I recommend she do the followin) check your sugars fasting (60-90 mg/dL) and 2 hours post meal (less than 120 mg/dL) 2) forward me your blood glucose data weekly ([email or web address])- send in the next few days. 3) see diabetes education (virtual visit ok) 4) start insulin as follows: NPH 5 units at bedtime Humalog 5 units prior to dinner 5) see me in 4 weeks (virtual visit ok) Digna will call us with any questions or concerns in the interim. 3. TSH was ordered today, if not done previously during this . 4. Patient will require repeat 2 hr 75g OGTT 8 weeks after delivery to ensure resolution of diabetes. She was counseled that her chances of future pregnancies complicated by diabetes are high, and her 5 year risk of developing diabetes approaches 50%. Adherence to proper diet and exercise regimen will help reduce these risks. I spent a total of 60 minutes on the date of the service which included preparing to see the patient, [id number] patient care, completing clinical documentation, obtaining and/or reviewing separately obtained history, performing a medically appropriate examination, counseling and educating the patient/family/caregiver, and ordering medications, tests, or procedures. Jules Wolfe DO documented in this encounter [facility] 06-12-2023 Note HNO ID: [id number] Author: Loretta Julien LPN Service: ? Author Type: ? Type: Progress Notes Filed: 06/12/2023 3:54 PM Note Text: Digna Kraus 28 year old is here for her injection of Rhophylac. Digna Devin Kraus Antibody Screen (no units) Date Value 06/06/2023 Negative Digna Kraus is RH Negative Rhophylac was given without incident. See immunizations for details of immunizations administered today. Provider Dr. Cotton was present in office at time of injection Digna Kraus was given her Rhophylac pocket card. Loretta Julien LPN [facility] 06-12-2023 History of Presen t illness Narrative Digna Kraus 28 year old is here for her injection of Rhophylac. Digna Devin Kraus Antibody Screen (no units) Date Value 06/06/2023 Negative Digna Kraus is RH Negative Rhophylac was given without incident. See immunizations for details of immunizations administered today. Provider Dr. Cotton was present in office at time of injection Digna Kraus was given her Rhophylac pocket card. Loretta Julien LPN documented in this encounter [facility] 06-12-2023 Miscellaneous Notes Spoke with patient, scheduled 06/17/2023 @ 10:20 am. 06/17 at 1020 KB Patient called GDM line asking for an appointment. She is checking her BG four times daily. documented in this encounter [facility] 06-11-2023 Miscellaneous Notes Pt called asking about getting a request for blood work as well as a rhogam shot after the blood work, please advise as pt is currently . documented in this encounter [facility] 06-09-2023 Miscellaneous Notes Pt notified to call [place] to schedule nurse visit for Rhogam. Pt advised to call Dr Wolfe's office to scheduled appointment. Jerrica Davidson RN Order(s) signed. Giorgi Buckner Jr, MD [place] [employer] OPERATOR will give the Rophylac injection to the patient. We will need to place another Type and Screen order. Pt will then have to call [phone] to schedule an appointment with a nurse for the injection. They have a lab in the building and she can get her T&S done before she goes to the appointment. Referral placed to Dr Wolfe. Patient will need to call [phone]. Jerrica Davidson RN This woman [place]. She needs rhogam, as she missed it last night as nursing was gone. I also placed diabetes management via smart set, not sure if complete. Giorgi Buckner Jr, MD documented in this encounter [facility] 06-08-2023 Note HNO ID: [id number] Author: Sharda Vera Ma Service: ? Author Type: ? Type: Progress Notes Filed: 06/08/2023 6:03 PM Note Text: Patient identified by name and date of . Digna Kraus presents today for a vaccination of Tdap. Patient denies an allergy to latex: yes Patient denies a severe (life-threatening) allergy to a previous dose of Tdap, DTP, DTaP, DT or Td vaccine. Yes Patient denies history of epilepsy or neurological problems: Yes Patient is afebrile and denies being moderately or severely ill: Yes Patient denies history of Guillain-[place] Syndrome (a severe paralytic illness): Yes Tdap Adacel injection was given without incident. See immunizations for details of immunizations administered today. VIS sheet provided: Yes Provider Dr Buckner was present in office at time of injection. Sharda Vera Ma [facility] 06-08-2023 Miscellaneous Notes No complaints. Good movement. Problem List Items Addressed This Visit Endocrinology Gestational diabetes mellitus, class A1 Overview One hour >200 For teaching and nutrition Monthly growth scans Hematology Rh negative, antepartum Current Assessment & Plan Too late today for rhophylac, nurses have left. Will discuss with nursing re best way Anemia complicating , third trimester Overview hgb 10.7 at 28 weeks. Begin fe Recheck in 4 weeks Other Visit Diagnoses 28 weeks gestation of - Primary Relevant Orders URINE OB DIP B/O (Completed) Need for vaccination Diet controlled gestational diabetes mellitus (GDM) in second trimester Relevant Medications Blood-Glucose Meter blood sugar diagnostic test strip Lancets lancets alcohol swabs (ALCOHOL PREP PADS) Other Relevant Orders OBSTETRIC ULTRASOUND WHI CONSULT TO [facility] GESTATIONAL DIABETES Giorgi Buckner MD documented in this encounter [facility] 06-08-2023 History of Presen t illness Narrative Patient identified by name and date of . Digna Kraus presents today for a vaccination of Tdap. Patient denies an allergy to latex: yes Patient denies a severe (life-threatening) allergy to a previous dose of Tdap, DTP, DTaP, DT or Td vaccine. Yes Patient denies history of epilepsy or neurological problems: Yes Patient is afebrile and denies being moderately or severely ill: Yes Patient denies history of Guillain-[place] Syndrome (a severe paralytic illness): Yes Tdap Adacel injection was given without incident. See immunizations for details of immunizations administered today. VIS sheet provided: Yes Provider Dr Buckner was present in office at time of injection. Sharda Vera Ma documented in this encounter [facility] 04-21-2023 Miscellaneous Notes S: Digna denies LOF, contractions or vaginal bleeding. O: 21w3d, see flow sheet ASSESSMENT/PLAN: 1. Encounter for supervision of other normal in second trimester - ICD9: V22.1, ICD10: Z34.82 (primary diagnosis) - transfer from [facility]. - reviewed labs, US and previous notes. - URINE OB DIP B/O Rh negative, antepartum - ICD9: 646.83, ICD10: O26.899, Z67.91 - noted History of asthma - ICD9: V12.69, ICD10: Z87.09 - stable - FLOVENT HFA 110 MCG/ACTUATION AEROSOL INHALER - ALBUTEROL SULFATE HFA 90 MCG/ACTUATION AEROSOL INHALER Bipolar disease during , antepartum (HCC) - ICD9: 648.43, 296.80, ICD10: O99.340, F31.9 - Patricio Whitten DO Medical Decision Making: Problems: Moderate: 2+ stable chronic illnesses Data: Unique source(s) for external note(s) reviewed: 1 Unique test result(s) reviewed: 3+ Unique test(s) ordered: 1 Risk: Minimal: Minimal risk from testing/treatment Moderate: Drug management Medical Decision Making Level: 4 - Moderate Hawk Barone DO documented in this encounter [facility] 04-21-2023 Nurse Note Dye Range Operator offered: Patient declines. documented in this encounter [facility] 04-06-2023 Note HNO ID: [id number] Author: Conrad Fernandes MD Service: ? Author Type: Physician Type: Progress Notes Filed: 04/06/2023 11:38 AM Note Text: Patient here for routine anatomy scan. See ultrasound report for details. Follow-up ultrasound exam as indicated clinically. Conrad Fernandes MD [facility] 02-09-2023 Miscellaneous Notes Which meds does she need and what is dosing of abilify as it is not in med list? Giorgi Buckner Jr, MD Patient called in identified by name and . 11.2.GA Reviewed message below. Patient states PCP is advised her to stop medications below with so she did initially and she had severe N&V when she tried. She said Dr. Buckner advised at initial OBV to start them back up and she did and N&V stopped. States PCP is outside of [facility] in [facility]. States she is looking for a new PCP. States needs refills now and PCP will not refill. Has a few days left of Abilify and Zoloft. States has 30 left of Hydroxyzine using as needed and at night for sleep. Using [facility] in [place] on [address] Next OBV 02-16-23. Please advise. August Cuevas RN Patient called in and left VM to call back. August Cuevas RN Pt is on zoloft, hydroxyzine and abilify. Her PCP wants her to stop all of them. Dr Buckner has stated before that it is not a good idea to do that. Pt is almost out of a few of them. Please advise. documented in this encounter [facility] 01-22-2023 Miscellaneous Notes Risk Assessment Form completed. ANTONIO Marmolejo, RN OB Clinical Navigator documented in this encounter [facility] 01-20-2023 Note HNO ID: [id number] Author: Giorgi Buckner MD Service: ? Author Type: Physician Type: Progress Notes Filed: 01/20/2023 11:14 AM Note Text: INITIAL OB ASSESSMENT OB Provider: Giorgi Buckner Jr, MD HPI: Digna Kraus is a 27 year old female here to establish Obstetrical Care. Patient's last menstrual period was 11/22/2022. from OB Dating Form. Cycle length: 28 days Complaints: nausea and vomiting was planned. OB History T2 L2 SAB0 IAB0 Ectopic0 Multiple0 Live Births2 Prior : never History of 4th degree laceration: No Patient's Risk Screening for delivery: Have you had a prior fraser between 20w and 36w6d?: No History of abnormal pap: No Prior treatment for cervical dysplasia: none. History of STDs: None Tobacco use: vapes Caffeine use: No Drug use: No Alcohol use: No Multivitamin with Folic acid: Yes Occupation: Che[employer]ism or heritage: No Would refuse blood transfusion if medically necessary: No BMI 32.03 kg/(m2) Patient BMI over 30? Yes PAST MEDICAL HISTORY Diagnosis Date Asthma PRN inhaler. worse as child. Bipolar 1 disorder, depressed (HCC) Hyperemesis gravidarum depression PTSD (post-traumatic stress disorder) History reviewed. No pertinent surgical history. Current Outpatient Medications on File Prior to Visit Medication Sig metoclopramide HCl (REGLAN) 5 mg tablet Take 1 tablet by mouth every 6 hours as needed for up to 7 days. albuterol HFA (PROVENTIL HFA, VENTOLIN HFA) 90 mcg/actuation inhaler Inhale 2 Puffs as instructed every 6 hours as needed for wheezing/shortness of breath. sertraline (ZOLOFT) 100 mg tablet hydrOXYzine HCl (ATARAX) 50 mg tablet Take by mouth. No current facility-administered medications on file prior to visit. Review of Systems: GENERAL: Negative for: Fever or Chills HEENT: Negative for: Headache, Impaired Vision, Ringing in Ears, Nosebleeds NECK: Negative for: Swelling, Pain, Stiffness RESPIRATORY: Negative for: Cough, Shortness of breath, Wheezing GASTROINTESTINAL: Negative for: Heartburn, Constipation, Diarrhea, Blood in stool, Vomiting MUSCULOSKELETAL: Negative for: Muscle or joint pain, stiffness, Joint swelling NEUROLOGIC/PSYCHIATRIC: Negative for: Weakness, Paralysis, Numbness, Tingling, Tremor, Anxiety, Depression, Memory loss SKIN: Negative for: Rash, Itching GENITOURINARY: Negative for: vaginal itching, vaginal discharge, hematuria or dysuria PHYSICAL EXAM: BP 98/60 Pulse 67 Ht 5' 0 (1.52m) Wt 164 lb (74.4kg) SpO2 98% LMP 11/22/2022 BMI 32.03 kg/(m2). GENERAL: pleasant female in no apparent distress DERMATOLOGY: Normal, without lesions, non-icteric, and non-hirsute NECK: Supple, full range of motion, no adenopathy, and thyroid normal CHEST: Normal inspiratory effort BREAST: soft, non-tender, symmetric, no dominant mass, normal nipple-areolar complex, no lymphadenopathy, and no nipple discharge ABDOMEN: soft, non-tender, and no masses NEURO: alert and oriented x3,exam grossly non-focal PELVIS: External genitalia normal without lesions. Perineal body intact. No vaginal or cervical lesions. Cervix closed. Uterus 8 week size. No adnexal masses or tenderness. Clinical Pelvimetry: Pelvimetry clinically assessed as adequate Limited OB ultrasound exam: Confirmed dating and viability OB Risk Screening: Completed, no positive findings documented. SBIRT Digna Kraus was given the 4P's screening tool. Digna answered as follows: OB Opioid Screening - Last Recorded (since 04/25/2022) Did any of your parents have a problem with alcohol or other drug use? Yes dad Does your partner have a problem with alcohol or other drug use? No In the past, have you had difficulties in your life because of alcohol or other drugs, including prescription medications? No In the past month have you drunk any alcohol or used other drugs? No Are you taking medication for pain during the either prescribed or not? No Based on the screen and further questions, she is considered at Low risk due to:No past or current use. Positive reinforcement of current behavior. Plan to rescreen early third trimester. Giorgi Buckner Jr, MD ASSESSMENT: 27 year old at 8w3d wks gestational age PLAN: 1) Patient oriented to practice. Discussed nutrition, folic acid supplementation, dietary guidelines, exercise, smoking, alcohol, caffeine, and drug use. Discussed routine OB labs including STD/HIV. Discussed aneuploidy screening options including serum screening and nuchal translucency. 2) significant mental illness Bipolar/PTSD, anxiety Advised to continue meds other than klonopin 3) Follow up in 4 weeks or sooner prn. Giorgi Buckner Jr, MD [facility] 01-20-2023 Instructions Giorgi Buckner MD - 01/20/2023 11:13 AM EDT Please select the following link to access the [facility] Your Guide to a Healthy . [email or web address] documented in this encounter [facility] 01-20-2023 History of Presen t illness Narrative Images from the original note were not included. INITIAL OB ASSESSMENT OB Provider: Giorgi Buckner Jr, MD HPI: Digna Kraus is a 27 year old female here to establish Obstetrical Care. Patient's last menstrual period was 11/22/2022. from OB Dating Form. Cycle length: 28 days Complaints: nausea and vomiting was planned. OB History T2 L2 SAB0 IAB0 Ectopic0 Multiple0 Live Births2 Prior : never History of 4th degree laceration: No Patient's Risk Screening for delivery: Have you had a prior fraser between 20w and 36w6d?: No History of abnormal pap: No Prior treatment for cervical dysplasia: none. History of STDs: None Tobacco use: vapes Caffeine use: No Drug use: No Alcohol use: No Multivitamin with Folic acid: Yes Occupation: [employer]ism or heritage: No Would refuse blood transfusion if medically necessary: No BMI 32.03 kg/(m^2) Patient BMI over 30? Yes PAST MEDICAL HISTORY Diagnosis Date Asthma PRN inhaler. worse as child. Bipolar 1 disorder, depressed (HCC) Hyperemesis gravidarum depression PTSD (post-traumatic stress disorder) History reviewed. No pertinent surgical history. Current Outpatient Medications on File Prior to Visit Medication Sig metoclopramide HCl (REGLAN) 5 mg tablet Take 1 tablet by mouth every 6 hours as needed for up to 7 days. albuterol HFA (PROVENTIL HFA, VENTOLIN HFA) 90 mcg/actuation inhaler Inhale 2 Puffs as instructed every 6 hours as needed for wheezing/shortness of breath. sertraline (ZOLOFT) 100 mg tablet hydrOXYzine HCl (ATARAX) 50 mg tablet Take by mouth. No current facility-administered medications on file prior to visit. Review of Systems: GENERAL: Negative for: Fever or Chills HEENT: Negative for: Headache, Impaired Vision, Ringing in Ears, Nosebleeds NECK: Negative for: Swelling, Pain, Stiffness RESPIRATORY: Negative for: Cough, Shortness of breath, Wheezing GASTROINTESTINAL: Negative for: Heartburn, Constipation, Diarrhea, Blood in stool, Vomiting MUSCULOSKELETAL: Negative for: Muscle or joint pain, stiffness, Joint swelling NEUROLOGIC/PSYCHIATRIC: Negative for: Weakness, Paralysis, Numbness, Tingling, Tremor, Anxiety, Depression, Memory loss SKIN: Negative for: Rash, Itching GENITOURINARY: Negative for: vaginal itching, vaginal discharge, hematuria or dysuria PHYSICAL EXAM: BP 98/60 Pulse 67 Ht 5' 0 (1.52m) Wt 164 lb (74.4kg) SpO2 98% LMP 11/22/2022 BMI 32.03 kg/(m^2). GENERAL: pleasant female in no apparent distress DERMATOLOGY: Normal, without lesions, non-icteric, and non-hirsute NECK: Supple, full range of motion, no adenopathy, and thyroid normal CHEST: Normal inspiratory effort BREAST: soft, non-tender, symmetric, no dominant mass, normal nipple-areolar complex, no lymphadenopathy, and no nipple discharge ABDOMEN: soft, non-tender, and no masses NEURO: alert and oriented x3,exam grossly non-focal PELVIS: External genitalia normal without lesions. Perineal body intact. No vaginal or cervical lesions. Cervix closed. Uterus 8 week size. No adnexal masses or tenderness. Clinical Pelvimetry: Pelvimetry clinically assessed as adequate Limited OB ultrasound exam: Confirmed dating and viability OB Risk Screening: Completed, no positive findings documented. SBIRT Digna Kraus was given the 4P's screening tool. Digna answered as follows: OB Opioid Screening - Last Recorded (since 04/25/2022) Did any of your parents have a problem with alcohol or other drug use? Yes dad Does your partner have a problem with alcohol or other drug use? No In the past, have you had difficulties in your life because of alcohol or other drugs, including prescription medications? No In the past month have you drunk any alcohol or used other drugs? No Are you taking medication for pain during the either prescribed or not? No Based on the screen and further questions, she is considered at Low risk due to:No past or current use. Positive reinforcement of current behavior. Plan to rescreen early third trimester. Giorgi Buckner Jr, MD ASSESSMENT: 27 year old at 8w3d wks gestational age PLAN: 1) Patient oriented to practice. Discussed nutrition, folic acid supplementation, dietary guidelines, exercise, smoking, alcohol, caffeine, and drug use. Discussed routine OB labs including STD/HIV. Discussed aneuploidy screening options including serum screening and nuchal translucency. 2) significant mental illness Bipolar/PTSD, anxiety Advised to continue meds other than klonopin 3) Follow up in 4 weeks or sooner prn. Giorgi Buckner Jr, MD documented in this encounter [facility] 07-03-2022 History of Presen t illness Narrative Radiology Service Progress Note PATIENT NAME: Digna Kraus DATE OF SERVICE: July 03, 2022 TIME: 9:58 AM PATIENT IDENTITY VERIFICATION COMPLETED USING TWO (2) IDENTIFIERS: Name and Date of confirmed by patient verbally. FALL SCREENING: Has the patient had 2 falls in the last year or 1 fall with injury or currently using an Ambulatory Assistive Device (Walker, Cane, Wheelchair, Crutches, etc.)? No PATIENT GENDER DATA: Female. status: status: Yes status: NO. PATIENT RELEVANT IMPLANT DATA REVIEWED: Not Applicable RADIOLOGY DEPARTMENT: General X-ray: Exam(s) Completed: Chest X-Ray PERIPHERAL IV DATA: Not applicable SIGNED BY: RT Brittani(R) July 03, 2022 9:58 AM documented in this encounter [facility] 07-03-2022 History of Presen t illness Narrative CC: Patient presents with: Cough: Cough, SOB and congestion x 2 days Had covid 3 weeks ago HPI: Digna Kraus is a 27 year old female who presents to the office with complaint of respiratory symptoms, chest congestion, and cough, nonproductive for 2 days. Symptoms are worsening Associated symptoms includes cough. Denies facial pain/pressure, headache, body aches, fever, ear pain, nausea, vomiting , and diarrhea. Treatments tried include nothing so far. with no relief of symptoms. Sick contacts: unknown. History of asthma, frequent episodes of bronchitis, chronic bronchitis, bronchiectasis or COPD: No Smoker: No Seasonal/environmental allergies: No The ROS is otherwise negative. The patient's pmh, medications, allergies, and past visits are reviewed. PHYSICAL EXAM: BP 104/70 Pulse 77 Temp 36.4 C (97.6 F) (Tympanic) Resp 18 Wt 69.5 kg (153 lb 3.2 oz) SpO2 99% General appearance: alert, cooperative, pleasant, in no acute distress Head: Normocephalic Eyes: EOM's intact, conjunctiva pink and moist, no icterus, sclera white, non-injected Ears: Right ear: External ear/canal- Normal, TM - clear with good landmarks. Left ear: External ear/canal- Normal, TM - clear with good landmarks Oropharynx:moist without lesions, No erythema, exudates or tonsillar hypertrophy. Heart: Negative. RRR without obvious murmur, gallop, or rubs. No ectopy. Lungs: slight wheezing diffusely ( patient does have asthma) History reviewed. No pertinent past medical history. No past surgical history on file. ALLERGIES Cefaclor MEDICATIONS sertraline (ZOLOFT) 100 mg tablet meloxicam (MOBIC) 15 mg tablet Take 15 mg by mouth once daily. hydrOXYzine HCl (ATARAX) 50 mg tablet Take by mouth. No family history on file. Social History Tobacco Use Smoking status: Every Day Types: Cigarettes Smokeless tobacco: Never ASSESSMENT/PLAN: 1. Acute cough - ICD9: 786.2, ICD10: R05.1 - XR CHEST 2V FRONTAL/LAT * * * * Physician Interpretation * * * * EXAMINATION: CHEST RADIOGRAPH (2 VIEW FRONTAL & LATERAL) CLINICAL HISTORY: Acute cough MQ: XC2_6 EXAM DATE/TIME: 07/03/2022 10:05 AM COMPARISON: No relevant prior studies available. RESULT: Lines, tubes, and devices: None. Lungs and pleura: No consolidation. No lung mass. No pleural effusion. No pneumothorax. Cardiomediastinal silhouette: Normal cardiomediastinal silhouette. Bones and soft tissues: Unremarkable. IMPRESSION IMPRESSION: No acute radiographic abnormality. Facility Planner: SAEED Transcribe Date/Time: Jul 03 2022 10:14A Dictated by : BALAJI HENRY MD Prednisone daily for 5 days, tessalon roberta prn, albuterol prn Prescription instructions reviewed with patient as applicable. Potential red flag symptoms discussed with the patient. Reviewed appropriate action plan to take if red flag symptoms occur. Patient agreeable to treatment plan. Felipa Camacho APRN.DIGITAL MEDIA BUYER documented in this encounter [facility] 05-21-2022 Hospital Discharg e instructions Patient Education 05/21/2022 21:31:42 Measuring Your Pain Measuring Your Pain A pain scale helps you rate pain intensity. In the scale, 0 means no pain, and 10 is the worst pain possible. Pain scales are not used to compare your pain with another person's pain. A pain scale is used only to measure how your pain changes for you. You should rate your pain every few hours. You may feel some pain even with medicines. It is important to tell your healthcare provider if medicines don't reduce the pain. Be sure to mention if the pain suddenly increases or changes. Keep track of your pain each day. You might copy the pain journal on this page or use a small notebook. Show the journal to your healthcare provider. [id number] [employer] [address] [place] [address], [place] [address]. All rights reserved. This information is not intended as a substitute for professional medical care. Always follow your healthcare professional's instructions. Follow Up Care 05/21/2022 18:55:37 With:Follow up with primary care provider Address:Unknown When:2-4 days [facility] 05-21-2022 Note Discharge Instructions Thank you for allowing [facility] to assist you with your healthcare needs. The following is important discharge information regarding your hospital visit. Diagnosis from Today's Visit Pain in upper arm Pain in both legs Arm pain-swelling Lower leg pain-swelling What to Do Next Instructions from Your Care Team Discharge ED Outpatient Vascular Lab - Ordered -- Test Requested: venous ultrasound Left lower extermity, Lower extremity, Left, Test Reason: Pain, Mon-Fri 8am-4:30pm: Call [phone] at 7:30am to schedule a same day appointment for testing. Please be aware there may be a short wait time. Post Acute Orders No qualifying data available. You Need to Schedule the Following Appointments Follow Up with Follow up with primary care provider When Within 2-4 days Allergies Ceclor (Unknown) Medications Please ask your primary doctor or pharmacist before taking any other medication not listed, including over the counter drugs, herbal medications, vitamins and or supplements as they may interact with your home medications. What How Much When Instructions Last Dose Unchanged albuterol (ProAir HFA MDI (90 mcg/ inh) inhalation aerosol) 2 puff(s) by inhalation Every 4 hours as needed for for wheezing Unchanged beclomethasone (Qvar 40 mcg/ inh inhalation aerosol) 2 puff(s) by inhalation Two (2) times a day Unchanged predniSONE (prednisone 10mg tab (TAPER)) Taper 40-20-10 mg x 2 days each dose by mouth Every day Duration: 6 Days Please take this list to your next doctor s visit. Bring all medications you take, including over the counter medications, herbals and other supplements with you to your doctor s visit. Patients and families are reminded to discard old lists and to update any records with all medication providers or retail pharmacies. Education Materials Measuring Your Pain A pain scale helps you rate pain intensity. In the scale, 0 means no pain, and 10 is the worst pain possible. Pain scales are not used to compare your pain with another person's pain. A pain scale is used only to measure how your pain changes for you. You should rate your pain every few hours. You may feel some pain even with medicines. It is important to tell your healthcare provider if medicines don't reduce the pain. Be sure to mention if the pain suddenly increases or changes. Keep track of your pain each day. You might copy the pain journal on this page or use a small notebook. Show the journal to your healthcare provider. [id number] [employer] [address] [place] [address], [place] [address]. All rights reserved. This information is not intended as a substitute for professional medical care. Always follow your healthcare professional's instructions. Additional Information VACCINATE! IT SAVES LIVES! Members of the community who have not yet received the COVID-19 vaccine and would like to receive it can visit one of [facility] vaccine clinics. There are many vaccine clinic locations within the [facility]. For locations and available times, please visit [email or web address]. It is important to note that some COVID mobile vaccine clinics are held outdoors and may be canceled in rainy or stormy conditions. To learn more about pediatric vaccinations (ages 5-11), we invite you to visit the [facility] webpage. [email or web address] To learn more about the COVID-19 vaccine, we invite you to visit the [facility] website for a list of frequently asked questions. [email or web address] [facility] Patient Portal Access Instructions: Stay connected with your healthcare team and access your personal medical information anytime with the [facility] Patient Portal. If you would like a full copy of your medical records please contact the [facility] Medical Records Department Thursday through Thursday between 8a.m. and 4:30p.m. Please follow the directions below to access the portal: 1.Access the email account you provided upon registration to the [facility].2.Look for an invitation email from [facility].3.Open the email and access the invitation link: Accept Invitation to [facility].Fill in the required naqvi to create your account. Sign into www.[facility] with your username and password that you created in the above steps to stay up to date. You can then view a summary of results, a summary of your visits, and the ability to download your summaries to your computer or send the information securely to a physician. Remember that your healthcare information is confidential, so carefully consider who you will allow to register on the [facility] Patient Portal for access to your information. You can also access the [facility] Patient Portal on the [employer] yamileth. Simply click on Health Records under Health Data and then click on the [employer] logo. HOW TO SAFELY DISPOSE OF PRESCRIPTION MEDICATIONS Please use one of the following methods to safely dispose of your unused medications. 1.Use a drug disposal kit: the drug disposal pouch allows you to safely discard your old and unused drugs. Ask your nurse to give you one when you are discharged.2.Visit a local take-back location: Many local pharmacies and police departments have programs that collect old and unwanted prescription drugs. Call your local pharmacy or go to http://Ellie.Diffon/[email or web address] to find one close to you.3.Make use of household items: Use cat litter or old coffee grounds to dispose medications if other options are not available. Mix your drugs with these household products, seal them in an airtight container and throw it into the garbage. Call [facility]: [phone] to be sure your drugs can be disposed of in this way. Some medicines may require a different approach.4.Never flush your medications down the toilet. IF YOU HAVE BEEN PRESCRIBED AN OPIOIDS FOR PAIN If you have been prescribed an opioid (such as hydrocodone, oxycodone or morphine), it is critical to understand the possible side effects and risks of opioid pain medications. Even when taken as directed, opioids can have several side effects including: Tolerance, meaning you might need to take more of a medication for the same pain relief. Nausea, vomiting and/or constipation. Sleepiness, dizziness, dry mouth, confusion, depression or itching. Physical dependence, meaning you have withdrawal symptoms when a medication is stopped ? this can develop within a few days. KNOW YOUR RESPONSIBILITIES It is important to know exactly how much and how often to take the opioid pain medications you are prescribed. Never take opioids in higher amounts or more often than prescribed. Do not combine opioids with alcohol or other drugs that cause drowsiness, such as benzodiazepines, also known as benzos, including diazepam and alprazolam, muscle relaxants or sleep aids. Never sell or share prescription opioids. This is illegal. Store opioids in a secure place and out of reach of others (including children, family, friends and visitors). The last page(s) of this document has been signed and retained as a CHART COPY Signatures Patient Education Materials Measuring Your Pain Medication Leaflets My discharge plan and instructions have been reviewed and explained to me and I,DIGNA KRAUS understand my current condition and have read and understand these discharge instructions. I have received a written copy of the plan/instructions. If I have questions, I am aware that I should contact my doctor. 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 Signature: Date/Time: Relationship to Patient: Witness Name/Signature: Date/Time: [facility] Evaluation + Plan note No data available for this section [facility] Evaluation note No assessment inform ation available [facility] Work Phone: Evaluation note Diagnosis Onset Date 39 weeks gestation of acute Acute postoperative anemia d ue to expected blood loss acute (spontaneous vaginal delivery) acute [facility] Work Phone: Evaluation note* Diagnosis Onset Date Resolution Status Acute postoperative anemia due to expected blood loss acute (spontaneous vaginal delivery) acute 39 weeks gestation of resolved [facility] Work Phone: Evaluation note* Diagnosis Acute cough- Primary [facility] Diagnosis Encounter for supervision of other normal in first trimester- Primary with uncertain viability, single or unspecified fetus documented in this encounter [facility] note* Diagnosis First trimester screening- Primary Other specified screening documented in this encounter [facility] note* Diagnosis Encounter for anatomic survey- Primary documented in this encounter [facility] note* Diagnosis First trimester screening- Primary Other specified screening 13 weeks gestation of state, incidental [facility] Diagnosis Encounter for supervision of other normal in second trimester- Primary 21 weeks gestation of state, incidental Rh negative, antepartum Rhesus isoimmunization affecting management of mother, antepartum condition History of asthma Personal history of other diseases of respiratory system Bipolar disease during , antepartum (HCC) [facility] Diagnosis 28 weeks gestation of - Primary state, incidental Need for vaccination Need for prophylactic vaccination and inoculation against unspecified single disease Diet controlled gestational diabetes mellitus (GDM) in second trimester Gestational diabetes mellitus, class A1 Abnormal maternal glucose tolerance, complicating , childbirth, or the puerperium, unspecified as to episode of care Rh negative, antepartum Rhesus isoimmunization affecting management of mother, antepartum condition Anemia complicating , third trimester [facility] Diagnosis Abnormal glucose complicating - Primary Abnormal maternal glucose tolerance, complicating , childbirth, or the puerperium, unspecified as to episode of care 28 weeks gestation of state, incidental [facility] Diagnosis Rh negative state in antepartum period- Primary Rhesus isoimmunization affecting management of mother, antepartum condition [facility] Diagnosis Diet controlled gestational diabetes mellitus (GDM) in third trimester- Primary [facility] Diagnosis Insulin controlled gestational diabetes mellitus (GDM) in third trimester- Primary Maternal obesity, antepartum Obesity complicating , childbirth, or the puerperium, antepartum condition or complication 30 weeks gestation of state, incidental [facility] Diagnosis Insulin controlled gestational diabetes mellitus (GDM) in third trimester- Primary [facility] Diagnosis 30 weeks gestation of - Primary state, incidental Anemia complicating , third trimester Insulin controlled gestational diabetes mellitus (GDM) in third trimester Bipolar disease during , antepartum (HCC) [facility] Diagnosis Insulin controlled gestational diabetes mellitus (GDM) in third trimester- Primary Bipolar disease during , antepartum (HCC) Anemia complicating , third trimester Rh negative, antepartum Rhesus isoimmunization affecting management of mother, antepartum condition 32 weeks gestation of state, incidental [facility] Diagnosis 32 weeks gestation of - Primary state, incidental Anemia complicating , third trimester Insulin controlled gestational diabetes mellitus (GDM) in third trimester High-risk in third trimester [facility]* Diagnosis Insulin controlled gestational diabetes mellitus (GDM) in third trimester- Primary Diet controlled gestational diabetes mellitus (GDM) in second trimester Diet controlled gestational diabetes mellitus (GDM) in third trimester [facility]* Diagnosis Insulin controlled gestational diabetes mellitus (GDM) in third trimester- Primary 33 weeks gestation of state, incidental [facility] Diagnosis 33 weeks gestation of - Primary state, incidental Insulin controlled gestational diabetes mellitus (GDM) in third trimester Anemia during in third trimester [facility] Diagnosis Insulin controlled gestational diabetes mellitus (GDM) in third trimester- Primary 34 weeks gestation of state, incidental [facility]* Diagnosis Insulin controlled gestational diabetes mellitus (GDM) in third trimester- Primary 34 weeks gestation of state, incidental [facility]* Diagnosis Insulin controlled gestational diabetes mellitus (GDM) in third trimester- Primary 36 weeks gestation of state, incidental [facility]* Diagnosis Insulin controlled gestational diabetes mellitus (GDM) in third trimester- Primary 36 weeks gestation of state, incidental High-risk in third trimester Headache in , antepartum, third trimester Nausea and vomiting in Unspecified vomiting of , unspecified as to episode of care [facility]* Diagnosis 35 weeks gestation of - Primary state, incidental Insulin controlled gestational diabetes mellitus (GDM) in third trimester Encounter for supervision of other normal in first trimester [facility]* Diagnosis Insulin controlled gestational diabetes mellitus (GDM) in third trimester- Primary 37 weeks gestation of state, incidental [facility]* Diagnosis Insulin controlled gestational diabetes mellitus (GDM) in third trimester- Primary 38 weeks gestation of state, incidental [facility]* Diagnosis care and examination immediately after delivery- Primary History of gestational diabetes Personal history of gestational diabetes documented in this encounter [facility] note* Diagnosis Acute cough- Primary SOB (shortness of breath) Shortness of breath Asthma with acute exacerbation, unspecified asthma severity, unspecified whether persistent documented in this encounter [facility] note* Diagnosis 25 weeks gestation of - Primary state, incidental Rh negative, antepartum Rhesus isoimmunization affecting management of mother, antepartum condition Significant discrepancy between uterine size and clinical dates, antepartum, third trimester 28 weeks gestation of - Primary state, incidental Need for vaccination Need for prophylactic vaccination and inoculation against unspecified single disease Diet controlled gestational diabetes mellitus (GDM) in second trimester Gestational diabetes mellitus, class A1 Abnormal maternal glucose tolerance, complicating , childbirth, or the puerperium, unspecified as to episode of care Rh negative, antepartum Rhesus isoimmunization affecting management of mother, antepartum condition Anemia complicating , third trimester Acute cough SOB (shortness of breath) Shortness of breath documented in this encounter [facility] note* Diagnosis [facility] No data available for this section [facility] Note* JAYLON LOPEZ MD: SIGN, VERIFY Event Display: VL Venous US/Doppler One Leg (DVT) [facility] Reason for referral (narrative)* Diagnostic Procedure Only (Routine) - Authorized Specialty Diagnoses / Procedures Referred By Deedee t Referred To Contact [facility] Diagnoses Encounter for supervision of other normal in first trimester Procedures NUCHAL TRANSLUCENCY WHI US NUCHAL TRANSLUCENCY 1ST [place] [address] [place] [address] [address] Referral ID Status Reason Start Date Expiration Date Visits Requested Visits Authorized [id number] Authorized Auto-Generat ed Referral 01/20/2023 01/20/2024 1 1 * Diagnostic Procedure Only (Routine) - Pending Review Specialty Diagnoses / Procedures Referred By Contac t Referred To Contact [facility] Diagnoses Encounter for supervision of other normal in first trimester Procedures OBSTETRIC ULTRASOUND WHI US PREG UTERUS AFTER 1ST [place] [address] [place] [address] [facility] [address] [place] [address] Referral ID Status Reason Start Date Expiration Date Visits Requested Visits Authorized [id number] Pending Review Auto-Generat ed Referral 01/20/2023 01/20/2024 1 1 [facility] for referral (narrative)* Diagnostic Procedure Only (Routine) - Authorized Specialty Diagnoses / Procedures Referred By Contac t Referred To Contact [facility] Diagnoses Encounter for anatomic survey Procedures OBSTETRIC ULTRASOUND WHI US PREG UTERUS AFTER 1ST [place] [id number] [address] [id number] [place] [address] Referral ID Status Reason Start Date Expiration Date Visits Requested Visits Authorized [id number] Authorized Auto-Generat ed Referral 02/23/2023 02/23/2024 1 1 [facility] for referral (narrative)* Diagnostic Procedure Only (Routine) - Authorized Specialty Diagnoses / Procedures Referred By Contac t Referred To Contact [facility] Diagnoses Diet controlled gestational diabetes mellitus (GDM) in second trimester Procedures OBSTETRIC ULTRASOUND WHI US PREG UTERUS AFTER 1ST [place] [address] [place] [id number] [facility] [address] [place] [address] Referral ID Status Reason Start Date Expiration Date Visits Requested Visits Authorized [id number] Authorized Auto-Generat ed Referral 06/08/2023 06/07/2024 5 1 [facility] for referral (narrative)* Diagnostic Procedure Only (Routine) - Pending Review Specialty Diagnoses / Procedures Referred By Deedee pryor Referred To [facility] Diagnoses Insulin controlled gestational diabetes mellitus (GDM) in third trimester Procedures BIOPHYSICAL PROFILE US WHI BIOPHYSICAL PROFILE NON-[place] [address] [place] [id number] [address] Referral ID Status Reason Start Date Expiration Date Visits Requested Visits Authorized [id number] Pending Review Auto-Generat ed Referral 06/20/2023 06/19/2024 15 1 [facility] for visit Narrative* Diagnostic Procedure Only (Routine) - Closed Specialty Diagnoses / Procedures Referred By Deedee t Referred To Contact [facility] Diagnoses Encounter for supervision of other normal in first trimester Procedures NUCHAL TRANSLUCENCY WHI US NUCHAL TRANSLUCENCY 1ST [place] [address] [place] [id number] [facility] [address] [place] [address] Referral ID Status Reason Start Date Expiration Date V isits Requested Visits Authorized [id number] Closed Auto-Generate d Referral 01/20/2023 01/20/2024 1 1 [facility] for visit Narrative* Diagnostic Procedure Only (Routine) - Closed Specialty Diagnoses / Procedures Referred By Deedee pryor Referred To [facility] Diagnoses Diet controlled gestational diabetes mellitus (GDM) in second trimester Procedures OBSTETRIC ULTRASOUND WHI US PREG UTERUS AFTER 1ST [place] [address] [place] [address] [facility] [address] [place] [address] Referral ID Status Reason Start Date Expiration Date V isits Requested Visits Authorized [id number] Closed Auto-Generate d Referral 06/08/2023 06/07/2024 5 1 [facility] Summary Purpose Family History No Family History Records Found Relationship Condition Age at Onset Recorded Date/T christiano grandmother Malignant neoplasm of breast Unknown Advance Directives No Advanced Directives Records Found Advance Directive Response Recorded Date/ Time Living Will No November 13 12:13pm Power of Health Economist No November 13, 2021 12:13pm Advance Directive Response Recorded Date/ Time Living Will No April 08, 2022 2:07pm Power of Health Economist No April 08 2:07pm Chief Complaint and Reason for Visit Chief Complaint N/V R/O LABOR UPPER LEFT AB PAIN Chief Complaint R/O LABOR UPPER LEFT AB PAIN Chief Complaint R/O LABOR UPPER LEFT AB PAIN RULE OUT LABOR Chief Complaint R/O LABOR UPPER LEFT AB PAIN RULE OUT LABOR LABOR AND DELIVERY Reason for Visit 39 weeks gestation o f Acute postoperative anemia due to expected blood loss (spontaneous vaginal delivery) Chief Complaint RULE OUT LABOR LABOR AND DELIVERY Reason for Visit Acute postoperative anemia due to expected blood loss (spontaneous vaginal delivery) 39 weeks gestation of Reason for Referral Specialty Diagnoses / Procedures Referred By Contac t Referred To Contact Francine Patricio MD [address] [place] [address] Referral ID Status Reason Start Date Expiration Date Visits Re quested Visits Authorized [id number] Closed 1 1 Specialty Diagnoses / Procedures Referred By Contac t Referred To Contact Ashlyn Cotton MD [address] [place] [address] Referral ID Status Reason Start Date Expiration Date Visits Re quested Visits Authorized [id number] Closed 1 1 Specialty Diagnoses / Procedures Referred By Contac t Referred To Contact Diagnoses Diet controlled gestational diabetes mellitus (GDM) in third trimester Procedures CONSULT TO DIABETES EDUCATION DSME/MNT MEDICAL NUTRITION ASSMT&IVNTJ INDIV EACH 15 SD MEDICAL NUTRITION ASSMT&IVNTJ INDIV EACH 15 SD MEDICAL NUTRITION ASSMT&IVNTJ INDIV EACH 15 SD MEDICAL NUTRITION ASSMT&IVNTJ INDIV EACH 15 SD Jules Wolfe, DO [address] [place] [address] Referral ID Status Reason Start Date Expiration Date Visits Requested Visits Authorized [id number] Authorized PCP Requested Referral 06/17/2023 06/16/2024 1 1 Specialty Diagnoses / Procedures Referred By Contac t Referred To Contact Endocrinology Diagnoses Abnormal glucose complicating Procedures CONSULT TO ENDOCRINOLOGY OFFICE/OUTPATIENT NEW HIGH MDM 60-[place] [address] [facility] [address] [place] [address] Referral ID Status Reason Start Date Expiration Date Visits Requested Visits Authorized [id number] Authorized PCP Requested Referral 06/09/2023 06/08/2024 1 1 Specialty Diagnoses / Procedures Referred By Contac t Referred To Contact Diagnoses Encounter for supervision of other normal in second trimester 21 weeks gestation of History of asthma Hawk Barone DO [address] [place] [address] Referral ID Status Reason Start Date Expiration Date Visits Re quested Visits Authorized [id number] Closed 1 1 Specialty Diagnoses / Procedures Referred By Deedee t Referred To Contact Felipa Camacho APRN.[employer] [address] [place] [address] Referral ID Status Reason Start Date Expiration Date Visits Re quested Visits Authorized [id number] Closed 1 1 Health Concerns Problem Noted Date OB Reminders 01/20/2023 Problem Noted Date OB Reminders 01/20/2023 Problem Noted Date OB Reminders 01/20/2023 Problem Noted Date OB Reminders 01/20/2023 Problem Noted Date OB Reminders 01/20/2023 Problem Noted Date Diagnosed Date OB Reminders 01/20/2023 Problem Noted Date Diagnosed Date OB Reminders 01/20/2023 Problem Noted Date Diagnosed Date OB Reminders 01/20/2023 Problem Noted Date Diagnosed Date OB Reminders 01/20/2023 Problem Noted Date Diagnosed Date OB Reminders 01/20/2023 Problem Noted Date Diagnosed Date OB Reminders 01/20/2023 Problem Noted Date Diagnosed Date OB Reminders 01/20/2023 Problem Noted Date Diagnosed Date OB Reminders 01/20/2023 Problem Noted Date Diagnosed Date OB Reminders 01/20/2023 Problem Noted Date Diagnosed Date OB Reminders 01/20/2023 Problem Noted Date Diagnosed Date OB Reminders 01/20/2023 Problem Noted Date Diagnosed Date OB Reminders 01/20/2023 Problem Noted Date Diagnosed Date OB Reminders 01/20/2023 Problem Noted Date Diagnosed Date OB Reminders 01/20/2023 Problem Noted Date Diagnosed Date OB Reminders 01/20/2023 Problem Noted Date Diagnosed Date OB Reminders 01/20/2023 Problem Noted Date Diagnosed Date OB Reminders 01/20/2023 Problem Noted Date Diagnosed Date OB Reminders 01/20/2023 Problem Noted Date Diagnosed Date OB Reminders 01/20/2023 Problem Noted Date Diagnosed Date OB Reminders 01/20/2023 Problem Noted Date Diagnosed Date OB Reminders 01/20/2023 Additional Source Comments INFORMATION SOURCE (unrecogn ized section and content) DATE CREATED AUTHOR 08/06/2020 [facility] DATE CREATED AUTHOR AUTHOR'S ORGANIZ ATION 11/16/2020 [facility] DATE CREATED AUTHOR AUTHOR'S ORGANIZ ATION 06/20/2022 [facility] DATE CREATED AUTHOR AUTHOR'S ORGANIZ ATION 01/16/2023 [facility] DATE CREATED AUTHOR AUTHOR'S ORGANIZ ATION 11/18/2023 [facility] DATE CREATED AUTHOR AUTHOR'S ORGANIZ ATION 03/28/2025 [facility] DATE CREATED AUTHOR AUTHOR'S ORGANIZ ATION 04/12/2025 [facility] Goals (unrecognized section and content) Goals may be documented in a n alternate sectionGoals may be documented in an alternate sectionGoals may be documented in an alternate sectionGoals may be documented in an alternate section No data available for this section No data available for this section Care Team (unrecognized sect ion and content) Care Team Personnel Name: PHYSICIAN, NONE Position: Physician Member Role: Primary Care Physician Care Team Related Persons Name: DELPHINE BARRERA Address: [address] Name: ODIN LEE Address: Home [address] [place] [id number] Care Team Personnel Name: PHYSICIAN, NONE Position: Physician Member Role: Primary Care Physician Care Team Related Persons Name: DELPHINE BARRERA Address: Home [id number] [facility] Name: ODIN LEE Address: Home [address] [place] [id number] Source Comments (unrecognize d section and content) In the event this informatio n is protected by the Federal Confidentiality of Alcohol and Drug Abuse Patient Records regulations: The Federal rules restrict any use of the information to criminally investigate or prosecute any alcohol or drug abuse patient.[facility] the event this information is protected by the Federal Confidentiality of Alcohol and Drug Abuse Patient Records regulations: The Federal rules restrict any use of the information to criminally investigate or prosecute any alcohol or drug abuse patient.[facility] HospitalIn the event this information is protected by the Federal Confidentiality of Alcohol and Drug Abuse Patient Records regulations: The Federal rules restrict any use of the information to criminally investigate or prosecute any alcohol or drug abuse patient.[facility] HospitalIn the event this information is protected by the Federal Confidentiality of Alcohol and Drug Abuse Patient Records regulations: The Federal rules restrict any use of the information to criminally investigate or prosecute any alcohol or drug abuse patient.[facility] HospitalIn the event this information is protected by the Federal Confidentiality of Alcohol and Drug Abuse Patient Records regulations: The Federal rules restrict any use of the information to criminally investigate or prosecute any alcohol or drug abuse patient.[facility] HospitalIn the event this information is protected by the Federal Confidentiality of Alcohol and Drug Abuse Patient Records regulations: The Federal rules restrict any use of the information to criminally investigate or prosecute any alcohol or drug abuse patient.[facility] HospitalIn the event this information is protected by the Federal Confidentiality of Alcohol and Drug Abuse Patient Records regulations: The Federal rules restrict any use of the information to criminally investigate or prosecute any alcohol or drug abuse patient.[facility] HospitalIn the event this information is protected by the Federal Confidentiality of Alcohol and Drug Abuse Patient Records regulations: The Federal rules restrict any use of the information to criminally investigate or prosecute any alcohol or drug abuse patient.[facility] HospitalIn the event this information is protected by the Federal Confidentiality of Alcohol and Drug Abuse Patient Records regulations: The Federal rules restrict any use of the information to criminally investigate or prosecute any alcohol or drug abuse patient.[facility] HospitalIn the event this information is protected by the Federal Confidentiality of Alcohol and Drug Abuse Patient Records regulations: The Federal rules restrict any use of the information to criminally investigate or prosecute any alcohol or drug abuse patient.[facility] HospitalIn the event this information is protected by the Federal Confidentiality of Alcohol and Drug Abuse Patient Records regulations: The Federal rules restrict any use of the information to criminally investigate or prosecute any alcohol or drug abuse patient.[facility] HospitalIn the event this information is protected by the Federal Confidentiality of Alcohol and Drug Abuse Patient Records regulations: The Federal rules restrict any use of the information to criminally investigate or prosecute any alcohol or drug abuse patient.[facility] HospitalIn the event this information is protected by the Federal Confidentiality of Alcohol and Drug Abuse Patient Records regulations: The Federal rules restrict any use of the information to criminally investigate or prosecute any alcohol or drug abuse patient.[facility] HospitalIn the event this information is protected by the Federal Confidentiality of Alcohol and Drug Abuse Patient Records regulations: The Federal rules restrict any use of the information to criminally investigate or prosecute any alcohol or drug abuse patient.[facility] HospitalIn the event this information is protected by the Federal Confidentiality of Alcohol and Drug Abuse Patient Records regulations: The Federal rules restrict any use of the information to criminally investigate or prosecute any alcohol or drug abuse patient.[facility] HospitalIn the event this information is protected by the Federal Confidentiality of Alcohol and Drug Abuse Patient Records regulations: The Federal rules restrict any use of the information to criminally investigate or prosecute any alcohol or drug abuse patient.[facility] HospitalIn the event this information is protected by the Federal Confidentiality of Alcohol and Drug Abuse Patient Records regulations: The Federal rules restrict any use of the information to criminally investigate or prosecute any alcohol or drug abuse patient.[facility] HospitalIn the event this information is protected by the Federal Confidentiality of Alcohol and Drug Abuse Patient Records regulations: The Federal rules restrict any use of the information to criminally investigate or prosecute any alcohol or drug abuse patient.[facility] HospitalIn the event this information is protected by the Federal Confidentiality of Alcohol and Drug Abuse Patient Records regulations: The Federal rules restrict any use of the information to criminally investigate or prosecute any alcohol or drug abuse patient.[facility] HospitalIn the event this information is protected by the Federal Confidentiality of Alcohol and Drug Abuse Patient Records regulations: The Federal rules restrict any use of the information to criminally investigate or prosecute any alcohol or drug abuse patient.[facility] HospitalIn the event this information is protected by the Federal Confidentiality of Alcohol and Drug Abuse Patient Records regulations: The Federal rules restrict any use of the information to criminally investigate or prosecute any alcohol or drug abuse patient.[facility] HospitalIn the event this information is protected by the Federal Confidentiality of Alcohol and Drug Abuse Patient Records regulations: The Federal rules restrict any use of the information to criminally investigate or prosecute any alcohol or drug abuse patient.[facility] HospitalIn the event this information is protected by the Federal Confidentiality of Alcohol and Drug Abuse Patient Records regulations: The Federal rules restrict any use of the information to criminally investigate or prosecute any alcohol or drug abuse patient.[facility] HospitalIn the event this information is protected by the Federal Confidentiality of Alcohol and Drug Abuse Patient Records regulations: The Federal rules restrict any use of the information to criminally investigate or prosecute any alcohol or drug abuse patient.[facility] HospitalIn the event this information is protected by the Federal Confidentiality of Alcohol and Drug Abuse Patient Records regulations: The Federal rules restrict any use of the information to criminally investigate or prosecute any alcohol or drug abuse patient.[facility] HospitalIn the event this information is protected by the Federal Confidentiality of Alcohol and Drug Abuse Patient Records regulations: The Federal rules restrict any use of the information to criminally investigate or prosecute any alcohol or drug abuse patient.[facility] HospitalIn the event this information is protected by the Federal Confidentiality of Alcohol and Drug Abuse Patient Records regulations: The Federal rules restrict any use of the information to criminally investigate or prosecute any alcohol or drug abuse patient.[facility] HospitalIn the event this information is protected by the Federal Confidentiality of Alcohol and Drug Abuse Patient Records regulations: The Federal rules restrict any use of the information to criminally investigate or prosecute any alcohol or drug abuse patient.[facility] HospitalIn the event this information is protected by the Federal Confidentiality of Alcohol and Drug Abuse Patient Records regulations: The Federal rules restrict any use of the information to criminally investigate or prosecute any alcohol or drug abuse patient.[facility] HospitalIn the event this information is protected by the Federal Confidentiality of Alcohol and Drug Abuse Patient Records regulations: The Federal rules restrict any use of the information to criminally investigate or prosecute any alcohol or drug abuse patient.[facility] HospitalIn the event this information is protected by the Federal Confidentiality of Alcohol and Drug Abuse Patient Records regulations: The Federal rules restrict any use of the information to criminally investigate or prosecute any alcohol or drug abuse patient.[facility] HospitalIn the event this information is protected by the Federal Confidentiality of Alcohol and Drug Abuse Patient Records regulations: The Federal rules restrict any use of the information to criminally investigate or prosecute any alcohol or drug abuse patient.[facility] HospitalIn the event this information is protected by the Federal Confidentiality of Alcohol and Drug Abuse Patient Records regulations: The Federal rules restrict any use of the information to criminally investigate or prosecute any alcohol or drug abuse patient.[facility] HospitalIn the event this information is protected by the Federal Confidentiality of Alcohol and Drug Abuse Patient Records regulations: The Federal rules restrict any use of the information to criminally investigate or prosecute any alcohol or drug abuse patient.[facility] HospitalIn the event this information is protected by the Federal Confidentiality of Alcohol and Drug Abuse Patient Records regulations: The Federal rules restrict any use of the information to criminally investigate or prosecute any alcohol or drug abuse patient.[facility] HospitalIn the event this information is protected by the Federal Confidentiality of Alcohol and Drug Abuse Patient Records regulations: The Federal rules restrict any use of the information to criminally investigate or prosecute any alcohol or drug abuse patient.[facility] HospitalIn the event this information is protected by the Federal Confidentiality of Alcohol and Drug Abuse Patient Records regulations: The Federal rules restrict any use of the information to criminally investigate or prosecute any alcohol or drug abuse patient.[facility] HospitalIn the event this information is protected by the Federal Confidentiality of Alcohol and Drug Abuse Patient Records regulations: The Federal rules restrict any use of the information to criminally investigate or prosecute any alcohol or drug abuse patient.[facility] HospitalIn the event this information is protected by the Federal Confidentiality of Alcohol and Drug Abuse Patient Records regulations: The Federal rules restrict any use of the information to criminally investigate or prosecute any alcohol or drug abuse patient.[facility] HospitalIn the event this information is protected by the Federal Confidentiality of Alcohol and Drug Abuse Patient Records regulations: The Federal rules restrict any use of the information to criminally investigate or prosecute any alcohol or drug abuse patient.[facility] HospitalIn the event this information is protected by the Federal Confidentiality of Alcohol and Drug Abuse Patient Records regulations: The Federal rules restrict any use of the information to criminally investigate or prosecute any alcohol or drug abuse patient.[facility] HospitalIn the event this information is protected by the Federal Confidentiality of Alcohol and Drug Abuse Patient Records regulations: The Federal rules restrict any use of the information to criminally investigate or prosecute any alcohol or drug abuse patient.[facility] HospitalIn the event this information is protected by the Federal Confidentiality of Alcohol and Drug Abuse Patient Records regulations: The Federal rules restrict any use of the information to criminally investigate or prosecute any alcohol or drug abuse patient.[facility] Reason for Visit (unrecogniz ed section and content) Reason Comments Cough Cough, SOB and conge stion x 2 days Reason Comments Care 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 Reason Comments Question Reason Comments Care Reason Comments Follow Up Reason Comments Appointment Reason Comments Injections Reason Comments New GDM Reason Comments Blood Sugar Reading Reason Comments Diabetes Self Management Education Reason Onset Date Comments Care 06/25/2023 Reason Comments US Specialty Diagnoses / Procedures Referred By Contелена t Referred To Contact [facility] Diagnoses Insulin controlled gestational diabetes mellitus (GDM) in third trimester Procedures BIOPHYSICAL PROFILE US I BIOPHYSICAL PROFILE [place] [address] [address] [place] [id number] [facility] [address] [place] [address] Referral ID Status Reason Start Date Expiration Date V isits Requested Visits Authorized [id number] Closed Auto-Generate d Referral 06/20/2023 06/19/2024 15 1 Reason Onset Date Comments Care 07/10/2023 Reason Comments Gestational Diabetes Reason Onset Date Comments Care 07/17/2023 Reason Onset Date Comments Care 07/21/2023 Reason Onset Date Comments Care 08/07/2023 Reason Onset Date Comments Care 07/31/2023 Reason Comments Ob Delivery Note Reason Comments Care Reason Comments Patient Question Reason Comments Cough Chest congestion, so b x 3 days Care Teams (unrecognized sec tion and content) Chiropractic Practice Manager Relationship Specialty Start Date End Date Fabian Rodriguez MD [address] [place], [place] [id number] PCP - General Family Practice 07/03/22 Chiropractic Practice Manager Relationship Specialty Start Date End Date Fabian Rodriguez MD [address] [facility] [place] [address] PCP - General Family Medicine 07/03/22 Chiropractic Practice Manager Relationship Specialty Start Date End Date Fabian Rodriguez MD [address] [place] [place] [address] PCP - General Family Medicine 07/03/22 Chiropractic Practice Manager Relationship Specialty Start Date End Date Fabian Rodriguez MD [address] [facility] [place] [address] PCP - General Family Medicine 07/03/22 Chiropractic Practice Manager Relationship Specialty Start Date End Date Fabian Rodriguez MD [address] [facility]], [place] [address] PCP - General Family Medicine 07/03/22 Chiropractic Practice Manager Relationship Specialty Start Date End Date Fabian Rodriguez MD [address] [facility] [place] [address] PCP - General Family Medicine 07/03/22 Chiropractic Practice Manager Relationship Specialty Start Date End Date Fabian Rodriguez MD [address] [place] [address] PCP - General Family Medicine 07/03/22 Chiropractic Practice Manager Relationship Specialty Start Date End Date Fabian Rodriguez MD [address] [facility] [place] [address] PCP - General Family Medicine 07/03/22 Chiropractic Practice Manager Relationship Specialty Start Date End Date Fabian Rodriguez MD [address] [place] [address] PCP - General Family Medicine 07/03/22 Chiropractic Practice Manager Relationship Specialty Start Date End Date Fabian Rodriguez MD [address] [place] [address] PCP - General Family Medicine 07/03/22 Chiropractic Practice Manager Relationship Specialty Start Date End Date Fabian Rodriguez MD [address] [place] [address] PCP - General Family Medicine 07/03/22 Chiropractic Practice Manager Relationship Specialty Start Date End Date Fabian Rodriguez MD [address] [place] [address] PCP - General Family Medicine 07/03/22 Chiropractic Practice Manager Relationship Specialty Start Date End Date Fabian Rodriguez MD [address] [place] [address] PCP - General Family Medicine 07/03/22 Chiropractic Practice Manager Relationship Specialty Start Date End Date Fabian Rodriguez MD [address] [place] [address] PCP - General Family Medicine 07/03/22 Chiropractic Practice Manager Relationship Specialty Start Date End Date Fabian Rodriguez MD [address] [place] [address] PCP - General Family Medicine 07/03/22 Chiropractic Practice Manager Relationship Specialty Start Date End Date Fabian Rodriguez MD [address] [place] [address] PCP - General Family Medicine 07/03/22 Chiropractic Practice Manager Relationship Specialty Start Date End Date Fabian Rodriguez MD [address] [place] [address] PCP - General Family Medicine 07/03/22 Chiropractic Practice Manager Relationship Specialty Start Date End Date Fabian Rodriguez MD [address] [place] [address] PCP - General Family Medicine 07/03/22 Chiropractic Practice Manager Relationship Specialty Start Date End Date Fabian Rodriguez MD [address] [place] [address] PCP - General Family Medicine 07/03/22 Chiropractic Practice Manager Relationship Specialty Start Date End Date Fabian Rodriguez MD [address] [place] [address] PCP - General Family Medicine 07/03/22 Chiropractic Practice Manager Relationship Specialty Start Date End Date Fabian Rodriguez MD [address] [place] [address] PCP - General Family Medicine 07/03/22 Chiropractic Practice Manager Relationship Specialty Start Date End Date Fabian Rodriguez MD [address] [place] [address] PCP - General Family Medicine 07/03/22 Chiropractic Practice Manager Relationship Specialty Start Date End Date Fabian Rodriguez MD [address] [place] [address] PCP - General Family Medicine 07/03/22 Chiropractic Practice Manager Relationship Specialty Start Date End Date Fabian Rodriguez MD [address] [place] [address] PCP - General Family Medicine 07/03/22 Chiropractic Practice Manager Relationship Specialty Start Date End Date Fabian Rodriguez MD [address] [place] [address] PCP - General Family Medicine 07/03/22 Chiropractic Practice Manager Relationship Specialty Start Date End Date Fabian Rodriguez MD [address] [place] [address] PCP - General Family Medicine 07/03/22 Chiropractic Practice Manager Relationship Specialty Start Date End Date Fabian Rodriguez MD [address] [place] [address] PCP - General Family Medicine 07/03/22 Chiropractic Practice Manager Relationship Specialty Start Date End Date Fabian Rodriguez MD [address] [place] [address] PCP - General Family Medicine 07/03/22 Chiropractic Practice Manager Relationship Specialty Start Date End Date Fabian Rodriguez MD [address] [place] [address] PCP - General Family Medicine 07/03/22 Chiropractic Practice Manager Relationship Specialty Start Date End Date Fabian Rodriguez MD [address] [place] [address] PCP - General Family Medicine 07/03/22 Chiropractic Practice Manager Relationship Specialty Start Date End Date Fabian Rodriguez MD [address] [place] [address] PCP - General Family Medicine 07/03/22 Chiropractic Practice Manager Relationship Specialty Start Date End Date Fabian Rodriguez MD [address] [place], [place] [address] PCP - General Family [facility] 07/03/22 Chiropractic Practice Manager Relationship Specialty Start Date End Date Fabian Rodriguez MD [address] [place], [place] [id number] PCP - [facility] 07/03/22 Chiropractic Practice Manager Relationship Specialty Start Date End Date Fabian Rodriguez MD [address] [place], [place] [id number] PCP - [facility] 07/03/22 FOR RECORDS PERTAINING TO PATIENTS WHO ARE OR HAVE BEEN ENROLLED IN A CHEMICAL DEPENDENCY/SUBSTANCEABUSE PROGRAM, SOME INFORMATION MAY BE OMITTED. This clinical summary was aggregated from multiple sources. Caution should be exercised in using it in the provision of clinical care. This summary normalizes information from multiple sources, and as a consequence, information in this document may materially change the coding, format and clinical context of patient data. In addition, data may be omitted in some cases. CLINICAL DECISIONS SHOULD BE BASED ON THE PRIMARY CLINICAL RECORDS. [facility] [employer] [facility] provides no warranty or guarantee of the accuracy or completeness of information in this document.
== END | disposition home or self-care (01) ==
LOC: MRI 07:18
PROVIDERS: PCP Family Medicine; Referring Provider Family Medicine; Visit Provider Family Medicine
DX: S83 Dislocation and sprain of joints and ligaments of knee (principal)
CPT/HCPCS: 73721